=== PATIENT | male | born 1955 | race Caucasian/White ===

== ENCOUNTER 2024-03-17 15:38 | Outpatient (REF) | payer MEDICARE, BC, SELFPAY ==
[2024-03-17 15:51] LABS: MANUAL DIFF FLAG NO
[2024-03-17 15:52] LABS: Basophils Absolute Auto 0.1 X10*3/uL (0.0-0.2); Basophils Percent Auto 0.4 % (0-2); Eosinophils Absolute Auto 0.2 X10*3/uL (0.0-0.4); Eosinophils Percent Auto 1.6 % (0-4); Hematocrit 30.4 % (42.0-52.0); Imm Gran Abs Auto 0.07 X10*3/uL (0.00-0.03); Imm Gran Pct Auto 0.5 % (0.0-0.4); Lymphocytes Percent Auto 6.8 % (20-40); Mean Corpuscular HGB Conc 32.9 g/dl (31.0-36.0); Mean Corpuscular Volume 100.3 fL (80.0-98.0); Mean Platelet Volume 9.7 fL (9.4-12.4); Monocytes Absolute Auto 0.8 X10*3/uL (0.1-1.2); Monocytes Percent Auto 5.2 % (2-11); Neutrophils Absolute Auto 12.8 x10*3/uL (2.0-8.3); Neutrophils Percent Auto 85.5 % (45-73); Platelet Count 149 X10*3/uL (160-400); Red Blood Count 3.03 X10*6/uL (4.60-5.80); Red Cell Distribution Width 12.8 % (11.0-16.0); White Blood Count 14.9 X10*3/uL (4.8-10.8)
[2024-03-17 16:19] LABS: Anion Gap 16 (12-20); Blood Urea Nitrogen 31 mg/dL (9-16); Calcium 9.2 mg/dL (8.4-10.2); Carbon Dioxide 26 mmol/L (22-29); Chloride 97 mmol/L (96-108); Glucose Random 96 mg/dL (60-115); Magnesium 2.1 mg/dL (1.6-2.6); Potassium 4.1 mmol/L (3.3-5.1); Sodium 135 mmol/L (135-145)
[2024-03-17 16:34] LABS: Appearance Urine Clear; Color Urine Yellow; Glucose Urine UA Negative (Negative); Leukocyte Esterase Urine Small (1+) (Negative); Nitrite Urine Negative (Negative); UMIC TRIGGER UA YES; Urine Blood Moderate (2+) (Negative); Urine Ketones Negative (Negative); Urine Protein 30 (1+) mg/dL (Neg-Trace)
[2024-03-17 16:50] LABS: Bacteria Urine None Seen (None Seen); Hyaline Casts Urine 0-2 /LPF (0-2); Squamous Epithelial Cell Urine 0-2 /HPF (0-2); WBC Urine 0-5 /HPF (0-5)
[2024-03-17 17:04] LABS: Estimated Glomerular Filt Rate 7
== END 2024-03-17 15:39 | disposition home or self-care (01) ==
LOC: HO.LAB 15:38
PROVIDERS: Visit Provider Internal Medicine
DX: M62.82 Rhabdomyolysis (principal); M17.0 Bilateral primary osteoarthritis of knee
CPT/HCPCS: 36415; 80048; 81001; 83735; 85025; 87086

== ENCOUNTER 2024-08-15 14:26 | Outpatient (AMB) | payer OTHER, SELFPAY ==
--- NOTE | 2024-08-15 14:28 | A.OFFVIS_ITS ---
Vital Signs 08/15/24 14:29 Height 5 ft 10 in Weight 245 lb BMI 35.2 BP 142/78 H Blood Pressure Location Rt brachial Position Sitting Intake Visit Reasons: ENP-L Thumb Tremors Intake Note: Patient presents for tremors Allergies clorhexadine Allergy (Severe, Uncoded 08/15/24 14:31) Hives Medication List - Last Reconciled 08/15/24 by Evelina Puga MD allopurinol mg PO amlodipine 5 mg PO DAILY B-complex with vitamin C ER 1 tab PO DAILY cetirizine (All Day Allergy (cetirizine)) 10 mg PO DAILY PRN cholecalciferol (vitamin D3) 50 mcg PO DAILY coQ10 (ubiquinol) (Qunol Antelmo CoQ10) 100 mg PO BID finasteride 5 mg PO DAILY hydrocortisone 2.5% topical ipratropium bromide 2 sprays intranasal BID latanoprost 0.005% drps ophthalmic (eye) primidone mg PO propranolol ER 120 mg PO DAILY zafirlukast 20 mg PO BID zonisamide mg PO HPI Comments Details: 68y/o Left handed male comes for further management of left thumb tremors. He was seeing at OR and is transferring care.He started noticing tremors about 20 years ago and has slowly progressed since then He is on primidone and zonisamide for many years now. He was seen at [facility] ( Dr Argueta ) . 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 He has bad and good days. He feels now he has tremors in his left fingers too . On someday he cannot drink soup and has trouble with fine motor coordination but on most days he can manage.He has left foot infection and has gait issues related to it. He denies memory issues. He has trouble writing due to tremors. BF- ADL score 57 [facility] Medical History (Updated 08/15/24 @ 15:18 by Evelina Puga MD) Cataract Type 2 diabetes mellitus Tremor Sleep apnea Seborrheic dermatitis Rhabdomyolysis Osteoarthritis Obesity Moderate persistent asthma Impotence of non-organic origin Cervical spondylolysis Chronic ischemic heart disease Hearing loss Gout Fatty (change of) liver, not elsewhere classified HTN (hypertension) Crush syndrome BPH loc w/o ur obs/LUTS Surgical History H/O arthroscopic knee surgery H/O microdiscectomy H/O laminectomy History of rotator cuff surgery H/O total knee replacement History of bunionectomy Family History Father Suicide Gout Glaucoma Social History Alcohol intake: current Tobacco use type: Pipe Physical Exam Vital Signs: BMI result Body Mass Index 35.2 Const General: cooperative and comfortable Nutritional Appearance: obese Orientation/consciousness: patient oriented x3 Eyes Pupils: Equal, round and reactive pupils present Neuro Other: left thumb and hand postural and action tremors mild to moderate worsens with writing He was able to draw archimedes spiral - slow and tremulous Gait- mild difficulty because of left foot infection General: patient oriented x3, tone normal, moves all extremities and no focal motor deficits Cranial nerves: Yes Facial sensation intact/muscles of mastication intact, Yes Equal, round and reactive pupils present, Yes Bilaterally intact EOM present, Yes Nystagmus not present, Yes Normal facial strength present, Yes Midline tongue present and Yes Ability to bilaterally elevate shoulders present Cognition (Neuro): normal cognition Assessment & Plan Assessment & Plan (1) Tremor: Comment: Left hand postural and action tremors > 25 years . No evidence of parkinsons on today's exam Code(s): R25.1 - Tremor, unspecified Category: Medical Plan Continue primidone 150mg bid zonisamide 100mg bid Info on NCIOLE TAPS treatment given . Patient will call if he wants to proceed with treatment. Medications: New zonisamide 100 mg PO BID primidone 150 mg PO BID Coding Level of Care Code New Pt Level 4 (43622) Complex EM visit Add On G2211 Diagnoses Tremor R25.1
[2024-08-15 14:29] VITALS: BP 142/78; BMI 35.2
--- OUTSIDE RECORDS SUMMARY | 2024-08-15 16:38 | XMS_ITS | Encounter Summary ---
Author Name [facility] [place] [facility] [place] [facility] [place] [facility] [place] Address [address] [place] [address] Care Team Providers Care Glassworker Name Role Phone RAMY CASTILLO Primary Care Provider Unavail able Insurance Providers: All historical and current Section Date Range: From patient's date of to the date document was created. This section includes the names of all active insurance providers for the patient. Insurance Provider Type of Coverage Plan Name Start of Policy Coverage End of Policy Coverage Group Number Member ID Insurance Provider's Telephone Number Policy Humphreys's Name Patient's Relationship to Policy Humphreys [place]) MEDICARE SUPPLEMEN TYRESE MEDEX BRON E Dec 16, 2018 [id number] GANES,A JUAN PATIENT [place] ([place]) MEDICARE SUPPLEMEN TYRESE MEDEX BRONZ E Dec 16, 2018 [id number] AGNES,A JUAN PATIENT [place] MED[place] SUPPLEMEN TYRESE MEDEX BRONZ E Dec 16, 2018 [id number] AGNES,A JUAN PATIENT BCBS ANN HIGH DEDUCTIBL E HEALTH PLAN CONNE [facility]ICU T [facility] Apr 17, 2011 [id number] AGNES,A JUAN PATIENT EXPRESS SCRIPTS ([id number]) PRESCRIPT ION L4TA* Apr 17, 2011 L4TA [id number] AGNES,A JUAN PATIENT [place] MEDICARE SUPPLEMEN TYRESE PSUED O MEDEX HEARI NG Dec 16, 2018 [id number] [phone] AGNES,A JUAN PATIENT MEDICARE (WNR) MEDICARE (M) PART B Dec 16, 2018 PART B [id number] [phone] AGNES,A JUAN PATIENT MEDICARE (WNR) MEDICARE (M) PART A Dec 16, 2018 PART A [id number] CT90 [phone] AGNES,A JUAN PATIENT MEDICARE (WNR) MEDICARE (M) PART A Dec 16, 2018 PART A [id number] [id number] [phone] AGNES,A JUAN PATIENT MEDICARE (WNR) MEDICARE (M) PART B Dec 16, 2018 PART B [id number] AGNES,A JUAN PATIENT MEDICARE (WNR) MEDICARE (M) PART A Dec 16, 2018 PART A [id number] AGNES,A JUAN PATIENT MEDICARE (WNR) MEDICARE (M) PART B Dec 16, 2018 PART B [id number] AGNES,A JUAN PATIENT Selected Encounter This section includes the information on record at [place] for the Encounter. Date/Time Encounter Type Encounter Description Reason Pro vider Source Aug 07, 2024 07:59 AM Outpatient Encounter PRIMARY CARE/MEDICINE IHE Encounter Template Text not used by [place] Plan of Treatment: Future Appointments (+ 6 months) and Future Tests (+/- 45 days) The Plan of Treatment section includes future care activities for the patient from all [place] treatmentfacilities. This section includes future appointments and future orders which are active, pending or scheduled. Future Appointments This section includes appointments that were scheduled to occur 6 months from the date of the Encounter, up to a maximum of 20 appointments. The data comes from all [place] treatment facilities. Appointment Date/Time Appointment Type Appointme nt Facility Name Aug 15, 2024 02:30 PM AMBULATORY [place] MEDICINE [place] [facility] [place] [facility] Aug 21, 2024 08:00 AM AMBULATORY - MEDICINE [place] [facility] [facility] Nov 12, 2024 01:00 PM AMBULATORY - MEDICINE DAVID TODD ([facility]) Social History: Smoking Status (Most current) and Tobacco Use (All prior to encounter date) This section includes the most current, and the historical, smoking and tobacco- related health factors from the [place] facility where the Encounter took place. Current Smoking Status This section includes the most current smoking, or tobacco-related health factor, from the [place] facility where the Encounter took place. Date/Time Current Smoking Status Comment Facil ity Oct 27, 2022 02:44 PM VA-TOBACCO USER EVERY DAY [facility] Tobacco Use History This section includes a history of the smoking, or tobacco-related health factors, that were collected on or before the date of the Encounter. The data comes from the [place] facility where the Encounter took place. 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 This section includes ALL of a patient's completed or amended [place] Advance and Rescinded Directives. The entries below indicate that a directive exists for the patient, but an actual copy is not included with this document. The data comes from all [place] facilities. Date Advance Directives Provider Source Mar 01, 2014 ADVANCE DIRECTIVE VARSHA ESQUIVEL ([facility]) Encounter Notes: All associated encounter notes This section contains the clinical notes associated to the Encounter. Date/Time Encounter Note(s) Provider Source Aug 07, 2024 07:59 AM PRIMARY CARE AdzerkUR E MESSAGING: LOCAL TITLE: PRIMARY CARE SECURE MESSAGING STANDARD TITLE: PRIMARY CARE SECURE MESSAGING DATE OF NOTE: AUG 07, 2024@07:59 ENTRY DATE: AUG 07, 2024@07:59:29 AUTHOR: RUY CABA COSIGNER: URGENCY: STATUS: COMPLETED ------Original Message ------ Sent: 08/05/2024 02:09 PM ET From: SERGE ALARCON To: Chelo CASTILLO_PRIMARY CARE_[facility] Subject: Medication:Renal Dr Released me Dr Smith released me from her care this past week. She said I could go back to my valsartin if you prefer. I was switched to amlodipine because it was more renal friendly. It is keeping my blood pressure down and I can stay on it if you like. Also she cut my allopurinol down to 50 mg daily but said now there is no restriction. Prior to my renal dialysis , I was on 300 mg allopurinol. She suggested going up slowly possibly to 100 mg. My creatinine and BUN have now been normal for a couple of months. My anemia has also resolved. I will drop by my latest labs this next week. Serge /george/ MACHO FAROOQ Signed: 08/07/2024 07:59 Receipt Acknowledged By: 08/07/2024 08:16 /george/ ESTEBAN HENDERSON LPN LICENSED PRACTICAL NURSE 08/07/2024 08:41 /george/ GLENN GILLIAM, RN REGISTERED NURSE ROSALES,ZACHERY MAYFIELD ([facility])
--- OUTSIDE RECORDS SUMMARY | 2024-08-15 16:38 | XMS_ITS | Encounter Summary ---
Author Name [facility] [place] [facility] [place] Address [address] [place] [address] Care Team Providers Care Pneumatic Press Hand Name Role Phone RAMY CASTILLO Primary Care [...] TYRESE MEDEX BRON E Dec 16, 2018 [id number] AGNES,A JUAN PATIENT [place] BCBS OF [place] (BLUECARD) MEDICARE SUPPLEMEN TYRESE MEDEX BRONZ E Dec 16, 2018 [id number] [phone] AGNES,A JUAN PATIENT [place]BS [place] MEDICARE SUPPLEMEN TYRESE MEDEX BRONZ E Dec 16, 2018 [id number] AGNES,A JUAN PATIENT BCBS ANN HIGH DEDUCTIBL E HEALTH PLAN CONNE [facility]ICU T [facility] Apr 17, 2011 [id number] [phone] AGNES,A JUAN PATIENT EXPRESS SCRIPTS ([id number]) PRESCRIPT ION L4TA* Apr 17, 2011 L4TA [id number] AGNES,A JUAN PATIENT [place] MEDICARE SUPPLEMEN TYRESE PSUED O MEDEX HEARI NG Dec 16, 2018 [id number] AGNES,A JUAN PATIENT MEDICARE (WNR) MEDICARE (M) PART B Dec 16, 2018 PART B [id number] CT90 AGNES,A JUAN PATIENT MEDICARE (WNR) MEDICARE (M) PART A Dec 16, 2018 PART A [id number] CT90 [phone] AGNES,A JUAN PATIENT MEDICARE (WNR) MEDICARE (M) PART A Dec 16, 2018 PART A [id number] [id number] AGNES,A JUAN PATIENT MEDICARE (WNR) MEDICARE (M) PART B Dec 16, 2018 PART B [id number] CT90 AGNES,A JUAN PATIENT MEDICARE (WNR) MEDICARE (M) PART A Dec 16, 2018 PART A [id number] CT90 AGNES,A JUAN PATIENT MEDICARE (WNR) MEDICARE (M) PART B Dec 16, 2018 PART B [id number] CT90 AGNES,A JUAN PATIENT Selected Encounter This section includes the information on record at [place] for the Encounter. Date/Time Encounter Type Encounter Description Reason Pro vider Source Aug 07, 2024 08:16 AM Outpatient Encounter PRIMARY CARE/MEDICINE IHE Encounter Template Text not used by [place] Plan of Treatment: Future Appointments (+ 6 months) and Future Tests (+/- 45 days) The Plan of Treatment section includes future care activities for the patient from all [place] treatmentfacilities. This section includes future appointments and future orders which are active, pending or scheduled. Future Appointments This section includes appointments that were scheduled to occur 6 months from the date of the Encounter, up to a maximum of 20 appointments. The data comes from all [place] treatment facilities. Appointment Date/Time Appointment Type Appointme nt Facility Name Aug 15, 2024 02:30 PM AMBULATORY - MEDICINE [place] [facility] [place] [facility] Aug 21, 2024 08:00 AM AMBULATORY - MEDICINE [place] [facility] [facility] Nov 12, 2024 01:00 PM AMBULATORY - MEDICINE DAVID TODD ([facility]) Social History: Smoking Status (Most current) and Tobacco Use (All prior to encounter date) This section includes the most current, and the historical, smoking and tobacco- related health factors from the [place] facility where the Encounter took place. Current Smoking Status This section includes the most current smoking, or tobacco-related health factor, from the [place] facility where the Encounter took place. Date/Time Current Smoking Status Comment Facil ity Oct 27, 2022 02:44 PM [facility] Tobacco Use History This section includes a history of the smoking, or tobacco-related health factors, that were collected on or before the date of the Encounter. The data comes from the [place] facility where the Encounter took place. 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 This section includes ALL of a patient's completed or amended [place] Advance and Rescinded Directives. The entries below indicate that a directive exists for the patient, but an actual copy is not included with this document. The data comes from all [place] facilities. Date Advance Directives Provider Source Mar 01, 2014 ADVANCE DIRECTIVE VARSHA ESQUIVEL ([facility]) Encounter Notes: All associated encounter notes This section contains the clinical notes associated to the Encounter. Date/Time Encounter Note(s) Provider Source Aug 07, 2024 08:16 AM MEDICATION MGT NOT E: LOCAL TITLE: OUTPATIENT MEDICATION RENEWAL STANDARD TITLE: MEDICATION MGT NOTE DATE OF NOTE: AUG 07, 2024@08:16 ENTRY DATE: AUG 07, 2024@08:16:59 AUTHOR: ESTEBAN HENDERSON EXP COSIGNER: URGENCY: STATUS: COMPLETED Subject: Medication:Renal Dr Released me Dr Smith [...] by my latest labs this next week. [place] /george/ ESTEBAN HENDERSON LPN LICENSED PRACTICAL NURSE Signed: 08/07/2024 08:17 Receipt Acknowledged By: 08/14/2024 08:45 /george/ Ramy Castillo MD MD PRIMARY CARE PHYSICIAN ESTEBAN HENDERSON ([facility])
--- OUTSIDE RECORDS SUMMARY | 2024-08-15 16:38 | XMS_ITS | Encounter Summary ---
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 Name Role Phone KILO CASTILLO Primary Care Provider Unavail able Insurance [...] TYRESE MEDEX BRON E Dec 16, 2018 [id number] AGNES,A JUAN PATIENT ANTHEM BCBS OF [place] (BLUECARD) MEDICARE SUPPLEMEN TYRESE MEDEX BRONZ E Dec 16, 2018 [id number] AGNES,A JUAN PATIENT [place]BS [place] MEDICARE SUPPLEMEN TYRESE MEDEX BRONZ E Dec 16, 2018 [id number] [phone] AGNES,A JUAN PATIENT BCBS ANN HIGH DEDUCTIBL E HEALTH PLAN KYE [facility] Apr 17, 2011 [id number] [phone] AGNES,A JUAN PATIENT [employer] S[employer] ([id number]) PRESCRIPT ION L4TA* Apr 17, 2011 [id number] AGNES,A JUNA PATIENT [place]) MEDICARE SUPPLEMEN TYRESE PSUED O MEDEX EVAN KHAN Dec 16, 2018 [id number] [phone] AGNES,A JUAN PATIENT MEDICARE (WNR) MEDICARE (M) PART A Dec 16, 2018 PART A [id number] [phone] AGNES,A JUAN PATIENT MEDICARE (WNR) MEDICARE (M) PART B Dec 16, 2018 PART B [id number] [phone] AGNES,A JUAN PATIENT MEDICARE (WNR) MEDICARE (M) PART A Dec 16, 2018 PART A [id number] AGNES,A JUAN PATIENT MEDICARE (WNR) MEDICARE (M) PART B Dec 16, 2018 PART B [id number] AGNES,A JUAN PATIENT MEDICARE (WNR) MEDICARE (M) PART A Dec 16, 2018 PART A [id number] AGNES,A JUAN PATIENT MEDICARE (WNR) MEDICARE (M) PART B Dec 16, 2018 PART B [id number] [phone] AGNES,A JUAN PATIENT Selected Encounter This section includes the information on record at [place] for the Encounter. Date/Time Encounter Type Encounter Description Reason Pro vider Source Oct 06, 2023 08:08 PM Outpatient Encounter ADMIN PAT ACTIVTIES (MASNONCT) IHE Encounter Template Text not used by [place] Plan of Treatment: Future Appointments (+ 6 months) and Future Tests (+/- 45 days) The Plan of Treatment section includes future care activities for the patient from all [place] treatmentfacilities. This section includes future appointments and future orders which are active, pending or scheduled. Future Appointments This section includes appointments that were scheduled to occur 6 months from the date of the Encounter, up to a maximum of 20 appointments. The data comes from all [place] treatment facilities. Appointment Date/Time Appointment Type Appointme nt Facility Name Oct 10, 2023 09:30 AM AMBULATORY - MEDICINE [facility] [place] [facility] Oct 17, 2023 11:00 AM AMBULATORY - NONE [place] [facility] Oct 19, 2023 11:30 AM AMBULATORY - MEDICINE [facility] ([facility]) Oct 28, 2023 10:30 AM AMBULATORY - MEDICINE [facility] [place] [facility] November 21, 2023 09:00 AM AMBULATORY - MEDICINE [facility] [place] [facility] November 29, 2023 01:00 PM AMBULATORY - MEDICINE [facility] ([facility]) December 05, 2023 11:00 AM AMBULATORY - MEDICINE [facility] [place] [facility] December 14, 2023 11:00 AM AMBULATORY - MEDICINE [facility] [place] [facility] Jan 09, 2024 11:30 AM AMBULATORY - MEDICINE [facility] [place] [facility] Jan 11, 2024 01:30 PM AMBULATORY - REHAB MEDICIN E [facility] [place] [facility] Jan 27, 2024 11:00 AM AMBULATORY - MEDICINE [facility] [place] [facility] Feb 06, 2024 11:30 AM AMBULATORY - MEDICINE [facility] [place] [facility] Apr 02, 2024 09:30 AM AMBULATORY - MEDICINE [facility] [place] [facility] Active, Pending, and Scheduled Orders This section includes a listing of several types of active, pending, and scheduled orders, including clinic medications orders, diagnostic test orders, procedure orders and consult orders; where the start date of the order is 45 days before the date of the Encounter or 45 days after the date of theEncounter. The data comes from all [place] treatment facilities. Test Date/Time Test Type Test Details Facility Name Sep 28, 2023 03:21 PM Consult Order [facility]-NEUROLOGY [facility] Embedded Case Manager's [facility] ([facility]) Lab Results: +/- 30 days of the encounter This section includes the Chemistry and Hematology Lab Results on record with [place] for the patient. Radiology Reports and Pathology Reports are provided separately, in subsequent sections. Lab Results This section contains the Chemistry/Hematology Results that were resulted 30 days before or 30 daysafter the date of the Encounter. Date/Time Source Result Type Result - Unit Interpretation Reference Range Comment Oct 28, 2023 11:30 AM [facility] CULTURE,WOUND PANEL(C.D.H.) Specimen Type: FOOT Comment: ~For Test: CULTURE,WOUND PANEL(C.D.H.) ~left foot dm foot ulcer no abx on board. SENT TO Refer to CPRS: [place] [facility] Display for Lab Results Ordering Provider: GISSEL URIOSTEGUI Report Released Date/Time: Oct 28, 2023 11:23 AM Reporting Lab: [facility] [address] [facility] [address] [facility] [address] [facility] [id number] GRAM STAIN(cdh) comment CULTURE,WOUND (cdh) comment Oct 28, 2023 11:25 AM [facility] CBC AND DIFF (AUTO) Specimen Type: BLOOD No comment entered. Ordering Provider: GISSEL URIOSTEGUI Report Released Date/Time: Oct 28, 2023 11:20 AM Reporting Lab: [facility] [address] [facility] [address] Performing [facility]: [facility] [address] [facility] [address] WBC 8.17 10*3/uL 4.50-11.00 RBC 4.30 10*6/uL 4.23-5.66 HGB 13.8 g/dL 12.8-17 HCT 40.8 39.2-50.4 MCV 94.9 fL 82-99 MCHC 33.8 g/dL 30.8-35.1 PLT 131 10*3/uL L 140-360 RDW-CV 13.8 12.0-16.0 [place], Abs 0.51 10*3/uL 0.30-1.10 MCH 32.1 pg 26.2-32.6 Neut % 59.3 43.7-75.8 Lymph % 30.7 14.0-42.3 [place] % 6.2 5.1-13.7 Eos % 3.2 0.4-6.8 Baso % 0.4 0.1-2.0 Neut, Abs 4.84 10*3/uL 2.20-7.60 Lymph, Abs 2.51 10*3/uL 1.00-3.20 Eos, Abs 0.26 10*3/uL 0.03-0.44 Baso, Abs 0.03 10*3/uL 0.01-0.13 Immature Gran % 0.2 0.0-0.7 Immature Gran, Abs 0.02 10*3/uL 0.00-0.06 Oct 10, 2023 10:10 AM [facility] LIVER FUNCTION Specimen Type: SERUM No comment entered. Ordering Provider: GISESL URIOSTEGUI Report Released Date/Time: Oct 10, 2023 09:53 AM Reporting Lab: [address] [address] Performing Lab: [address] [address] PROTEIN,TOTAL 6.6 g/dL 6.0-8.3 ALBUMIN 3.6 g/dL 3.5-5.0 ALKALINE PHOSPHATASE 68 U/L 40-150 AST 25 U/L 5-34 ALT 29 U/L BILIRUBIN, TOTAL 0.3 mg/dL 0.2-1.2 Oct 10, 2023 10:10 AM [facility] BASIC METABOLIC PANEL (fasting) Specimen Type: SERUM No comment entered. Ordering Provider: GISSEL URIOSTEGUI Report Released Date/Time: Oct 10, 2023 09:53 AM Reporting Lab: [address] [address] Performing Lab: [address] [address] UREA NITROGEN 10 mg/dL 7-25 GLUCOSE 107 mg/dL H 65-100 SODIUM 141 mmol/L 135-145 POTASSIUM 4.5 mmol/L 3.5-5.0 CHLORIDE 107 mmol/L 100-110 CO2 25 meq/L 20-30 CREATININE, Serum 0.87 mg/dL 0.50-1.40 eGFR(CKD-EPI 2020) >90 mL/min >60 Oct 10, 2023 10:10 AM [facility] CBC AND DIFF (AUTO) Specimen Type: BLOOD No comment entered. Ordering Provider: GISSEL URIOSTEGUI Report Released Date/Time: Oct 10, 2023 09:53 AM Reporting Lab: [facility] [address] [facility] [address] Performing Lab: [address] [address] WBC 4.63 10*3/uL 4.50-11.00 RBC 4.43 10*6/uL 4.23-5.66 HGB 14.4 g/dL 12.8-17 HCT 42.7 39.2-50.4 MCV 96.4 fL 82-99 MCHC 33.7 g/dL 30.8-35.1 PLT 150 10*3/uL 140-360 RDW-CV 13.7 12.0-16.0 [place], Abs 0.37 10*3/uL 0.30-1.10 MCH 32.5 pg 26.2-32.6 Neut % 36.3 L 43.7-75.8 Lymph % 49.0 H 14.0-42.3 [place] % 8.0 5.1-13.7 Eos % 6.3 0.4-6.8 Baso % 0.2 0.1-2.0 Neut, Abs 1.68 10*3/uL L 2.20-7.60 Lymph, Abs 2.27 10*3/uL 1.00-3.20 Eos, Abs 0.29 10*3/uL 0.03-0.44 Baso, Abs 0.01 10*3/uL 0.01-0.13 Immature Gran % 0.2 0.0-0.7 Immature Gran, Abs 0.01 10*3/uL 0.00-0.06 Oct 10, 2023 10:09 AM TRAN ([facility]) HEPATITIS C ANTIBODY (HCV)-ARC Specimen Type: SERUM Comment: Hep C Ab: No HCV antibody detected. If recent infection is suspected or other evidence suggests HCV infection, consider HCV nucleic acid testing Ordering Provider: EVIN CASTILLO Report Released Date/Time: Jun 03, 2023 11:37 AM Reporting Lab: [address] [address] Performing Lab: [address] [address] HEPATITIS C ANTIBODY NON-REACTIVE NON-REACTIV E Social History: Smoking Status (Most current) and Tobacco Use (All prior to encounter date) This section includes the most current, and the historical, smoking and tobacco- related health factors from the [place] facility where the Encounter took place. Current Smoking Status This section includes the most current smoking, or tobacco-related health factor, from the [place] facility where the Encounter took place. Date/Time Current Smoking Status Comment Facil ity Oct 27, 2022 02:44 PM [facility]ACCO US[facility] Tobacco Use History This section includes a history of the smoking, or tobacco-related health factors, that were collected on or before the date of the Encounter. The data comes from the [place] facility where the Encounter took place. Date/Time Smoking Status/Tobacco Use Comment F acility Oct 27, 2022 02:44 PM VA[facility] USE [facility]ICE [facility] Oct 27, 2022 02:44 PM VA-TOBACCO USE NIPPLE MAKER NO [facility] [place] [facility] Oct 27, 2022 02:44 PM VA-TOBACCO USE MED NO [facility] [place] [facility] Oct 27, 2022 02:44 PM VA-TOBACCO USE WI 30 MIN OF WAKEUP [facility] [place] [facility] Oct 27, 2022 02:44 PM [facility]-TOBACCO USER EVERY [facility] Advance Directives: All historical and current Section Date Range: From patient's date of to the date document was created. This section includes ALL of a patient's completed or amended [place] Advance and Rescinded Directives. The entries below indicate that a directive exists for the patient, but an actual copy is not included with this document. The data comes from all [place] facilities. Date Advance Directives Provider Source Mar 01, 2014 ADVANCE DIRECTIVE VARSHA ESQUIVEL ([facility]) Radiology Reports: +/- 30 days of the encounter Radiology Reports For cases when an order for radiology services may have been completed prior to the date of the Encounter, the report list includes the Radiology Reports that were completed up to 30 days before dateof the Encounter. For cases when an order for radiology services may have been completed after the date of the Encounter, the report list also includes the Radiology Reports that were completed up to30 days after date of the Encounter. The data comes from all [place] treatment facilities. Date/Time Radiology Report Provider Source Oct 17, 2023 11:35 AM MRI ABD W&WO CONTR AST: SERGE ALARCON [id number] M Exm Date: OCT 17, 2023@11:35 Req Phys: SHAHEEN CARMEN Pat Loc: [facility] V01 [facility] LIVER BEHAVIOR MANAGEMENT SPECIALIST 01 F2F (R Img Loc: UPLOAD CD IMAGES-MRI Service: Unknown (Case [id number] COMPLETE) MRI ABD W&WO CONTRAST (MRI Detailed) CPT:86182 Reason for Study: MR ELASTOGRAPHY to determine LSM Clinical History: Date of imaging of date of exam to be uploaded:10/17/2023 Description of exam to be uploaded: (example- MRI head, MRI abdomen, etc) MRI Abdomen Provider's contact information: SHAHEEN CARMEN GUIDE TRAVEL *[phone] Report Status: Electronically Filed Date Reported: NOV 03, 2023 Report: This exam was performed and interpreted at an Outside Facility. The images are available in [employer] and our local PACS. Impression: This exam was performed and interpreted at an Outside Facility. The images are available in [email or web address] and our local PACS. Primary Diagnostic Code: ADMIN. REPORT; REFER TO PT MED RECORD VERIFIED BY: / *ELECTRONICALLY FILED* [facility] Encounter Notes: All associated encounter notes This section contains the clinical notes associated to the Encounter. Date/Time Encounter Note(s) Provider Source Oct 06, 2023 08:08 PM PHARMACY NOTE: LOCAL TITLE: V1 PHARMACY CUSTOMER CARE MEDICATION RENEWAL STANDARD TITLE: PHARMACY NOTE DATE OF NOTE: OCT 06, 2023@20:08 ENTRY DATE: OCT 06, 2023@20:08:06 AUTHOR: DEE DEE MELARA EXP COSIGNER: URGENCY: STATUS: COMPLETED V1 PHARMACY CUSTOMER CARE MEDICATION RENEWAL Has ADDENDA Date: Sep Division: [facility] referred by Pharmacy Call Center for medication renewal: Non-controlled/maintenanc e medication Medications requested: [id number] OLODATEROL/TIOTROP 2.5MCG/ACTUAT 60D INH Defer to primary care provider. To be mailed . Please review and renew if appropriate. *This note was generated by [facility] Pharmacy Customer Care. If you have any questions or need assistance, do not contact this author. Please refer all questions to your local, on-site pharmacy departments. /trev MELARA Paving Inspector, [place]/Pharmacy Customer Care Signed: 10/06/2023 20:08 Receipt Acknowledged By: 10/10/2023 09:50 /george/ Kilo Castillo MD MD PRIMARY CARE PHYSICIAN 10/07/2023 08:24 /george/ ASHKAN FELIPE RN REGISTERED NURSE 10/07/2023 ADDENDUM STATUS: COMPLETED teams alert sent to pcp /george/ ASHKAN FELIPE RN REGISTERED NURSE Signed: 10/07/2023 08:24 DEE DEE MELARA [facility] Oct 06, 2023 08:08 PM PHARMACY NOTE: LOCAL TITLE: PHARMACY CUSTOMER CARE MEDICATION RENEWAL STANDARD TITLE: PHARMACY NOTE DATE OF NOTE: OCT 06, 2023@20:08 ENTRY DATE: OCT 06, 2023@20:09:01 AUTHOR: DEE DEE MELARA EXP COSIGNER: URGENCY: STATUS: COMPLETED Date: Sep Division: [facility] referred by Pharmacy Call Center for medication renewal: Non-controlled/maintenanc e medication Medications requested: [id number] ZONISAMIDE 100MG CAP Defer to primary care provider To be mailed . Please review and renew if appropriate. *This note was generated by [facility] Pharmacy Customer Care. If you have any questions or need assistance, do not contact this author. Please refer all questions to your local, on-site pharmacy departments. /trev MELARA Paving Inspector, [place]/Pharmacy Customer Care Signed: 10/06/2023 20:09 Receipt Acknowledged By: 10/07/2023 07:21 /george/ NAHUN LUTZ MD PHYSICIAN DEE DEE MELARA [facility]
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
--- OUTSIDE RECORDS SUMMARY | 2024-08-15 16:38 | XMS_ITS ---
Author Name [facility] Organization [facility] Address [address] [place] [address] Care Team Providers Care French Translator Name Role Phone RAMY CASTILLO Primary Care [...] TYRESE MEDEX BRON E Dec 16, 2018 [id number] AGNES,A JUAN PATIENT ANTHEM BCBS OF [place] (BLUECARD) MEDICARE SUPPLEMEN TYRESE MEDEX BRONZ E Dec 16, 2018 [id number] [phone] AGNES,A JUAN PATIENT BCBS [place] MEDICARE SUPPLEMEN TYRESE MEDEX BRONZ E Dec 16, 2018 [id number] AGNES,A JUAN PATIENT BCBS ANN HIGH D[facility]UCTIBL E [facility] [place] [facility] Apr 17, 2011 [id number] [phone] AGNES,A JUAN PATIENT EXPRESS SCRIPTS ([id number]) PRESCRIPT ION L4TA* Apr 17, 2011 [id number] AGNES,A JUAN PATIENT [place] BS [place] (BLU[place]ARD) MEDICARE SUPPLEMEN TYRESE PSUED O MEDEX HEARI NG Dec 16, 2018 [id number] AGNES,A JUAN PATIENT MEDICARE (WNR) MEDICARE (M) PART A Dec 16, 2018 PART A [id number] AGNES,A JUAN PATIENT MEDICARE (WNR) MEDICARE (M) PART B Dec 16, 2018 PART B [id number] AGNES,A JUAN PATIENT MEDICARE (WNR) MEDICARE (M) PART A Dec 16, 2018 PART A [id number] AGNES,A JUAN PATIENT MEDICARE (WNR) MEDICARE (M) PART B Dec 16, 2018 PART B [id number] AGNES,A JUAN PATIENT MEDICARE (WNR) MEDICARE (M) PART A Dec 16, 2018 PART A [id number] AGNES,A JUAN PATIENT MEDICARE (WNR) MEDICARE (M) PART B Dec 16, 2018 PART B [id number] AGNES,A JUAN PATIENT Selected Encounter This section includes the information on record at [place] for the Encounter. Date/Time Encounter Type Encounter Description Reason Provider Source Sep 12, 2023 08:00 AM OFFICE O/P EST LOW 20 MIN PODIATRY ICD-10-CM 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 2 diabetes mellitus with foot ulcer ULYSSES ARAGON [facility] Encounter Template Text not used by [place] Assessments - Encounter Diagnoses This section includes the primary and secondary diagnoses documented for the Encounter. 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 This section includes future appointments and future orders which are active, pending or scheduled. Future Appointments This section includes appointments that were scheduled to occur 6 months from the date of the Encounter, up to a maximum of 20 appointments. The data comes from all [place] treatment facilities. Appointment Date/Time Appointment Type Appointme nt Facility Name Sep 14, 2023 07:30 AM AMBULATORY - NEUROLOGY [facility] [place] [facility] Sep 26, 2023 10:30 AM AMBULATORY - MEDICINE [facility] [place] [facility] Oct 03, 2023 01:30 PM AMBULATORY - REHAB MEDICIN E [facility] [place] [facility] Oct 10, 2023 09:30 AM AMBULATORY - MEDICINE [facility] [place] [facility] Oct 17, 2023 11:00 AM AMBULATORY - NONE [place] [facility] Oct 19, 2023 11:30 AM AMBULATORY - MEDICINE [facility] ([facility] Oct 28, 2023 10:30 AM AMBULATORY - MEDICINE [facility] [place] [facility] November 21, 2023 09:00 AM AMBULATORY - MEDICINE [facility] [place] [facility] November 29, 2023 01:00 PM AMBULATORY - MEDICINE [facility] ([facility]) December 05, 2023 11:00 AM AMBULATORY - MEDICINE [facility] [place] [facility] December 14, 2023 11:00 AM AMBULATORY - MEDICINE [facility] [place] [facility] Jan 09, 2024 11:30 AM AMBULATORY - MEDICINE [facility] [place] [facility] Jan 11, 2024 01:30 PM AMBULATORY - REHAB MEDICIN E [facility] [place] [facility] Jan 27, 2024 11:00 AM AMBULATORY - MEDICINE [facility] [place] [facility] Feb 06, 2024 11:30 AM AMBULATORY - MEDICINE [facility] [place] [facility] Active, Pending, and Scheduled Orders This section includes a listing of several types of active, pending, and scheduled orders, including clinic medications orders, diagnostic test orders, procedure orders and consult orders; where the start date of the order is 45 days before the date of the Encounter or 45 days after the date of theEncounter. The data comes from all [place] treatment facilities. Test Date/Time Test Type Test Details Facility Name Aug 18, 2023 12:00 AM Laboratory - Chemi stry Order CHEM 7 BLOOD (SER GOLD) SERUM [facility] Sep 28, 2023 03:21 PM Consult Order [facility] ([facility]) Lab Results: +/- 30 days of the encounter This section includes the Chemistry and Hematology Lab Results on record with [place] for the patient. Radiology Reports and Pathology Reports are provided separately, in subsequent sections. Lab Results This section contains the Chemistry/Hematology Results that were resulted 30 days before or 30 daysafter the date of the Encounter. Date/Time Source Result Type Result - Unit Interpretation Reference Range Comment Oct 10, 2023 10:10 AM [facility] LIVER FUNCTION Specimen Type: SERUM No comment entered. Ordering Provider: GISSEL ARAGON Report Released Date/Time: Oct 10, 2023 09:53 AM Reporting Lab: [address] [address] Performing Lab: [address] [address] PROTEIN,TOTAL 6.6 g/dL 6.0-8.3 ALBUMIN 3.6 g/dL 3.5-5.0 ALKALINE PHOSPHATASE 68 U/L 40-150 AST 25 U/L 5-34 ALT 29 U/L BILIRUBIN, TOTAL 0.3 mg/dL 0.2-1.2 Oct 10, 2023 10:10 AM [facility] BASIC METABOLIC PANEL (fasting) Specimen Type: SERUM No comment entered. Ordering Provider: GISSEL ARAGON Report Released Date/Time: Oct 10, 2023 09:53 AM Reporting Lab: [address] [address] Performing Lab: [facility] [address] [facility] [address] UREA NITROGEN 10 mg/dL 7-25 GLUCOSE 107 mg/dL H 65-100 SODIUM 141 mmol/L 135-145 POTASSIUM 4.5 mmol/L 3.5-5.0 CHLORIDE 107 mmol/L 100-110 CO2 25 meq/L 20-30 CREATININE, Serum 0.87 mg/dL 0.50-1.40 eGFR(CKD-EPI 2020) >90 mL/min >60 Oct 10, 2023 10:10 AM [facility] CBC AND DIFF (AUTO) Specimen Type: BLOOD No comment entered. Ordering Provider: GISSEL ARAGON Report Released Date/Time: Oct 10, 2023 09:53 AM Reporting Lab: [facility] [address] [facility] [address] Performing Lab: [address] [address] WBC 4.63 10*3/uL 4.50-11.00 RBC 4.43 10*6/uL 4.23-5.66 HGB 14.4 g/dL 12.8-17 HCT 42.7 39.2-50.4 MCV 96.4 fL 82-99 MCHC 33.7 g/dL 30.8-35.1 PLT 150 10*3/uL 140-360 RDW-CV 13.7 12.0-16.0 [place], Abs 0.37 10*3/uL 0.30-1.10 MCH 32.5 pg 26.2-32.6 Neut % 36.3 L 43.7-75.8 Lymph % 49.0 H 14.0-42.3 [place] % 8.0 5.1-13.7 Eos % 6.3 0.4-6.8 Baso % 0.2 0.1-2.0 Neut, Abs 1.68 10*3/uL L 2.20-7.60 Lymph, Abs 2.27 10*3/uL 1.00-3.20 Eos, Abs 0.29 10*3/uL 0.03-0.44 Baso, Abs 0.01 10*3/uL 0.01-0.13 Immature Gran % 0.2 0.0-0.7 Immature Gran, Abs 0.01 10*3/uL 0.00-0.06 Oct 10, 2023 10:09 AM [facility] ([facility]) HEPATITIS C ANTIBODY (HCV)-ARC Specimen Type: SERUM Comment: Hep C Ab: No HCV antibody detected. If recent infection is suspected or other evidence suggests HCV infection, consider HCV nucleic acid testing Ordering Provider: EVIN CASTILLO Report Released Date/Time: Jun 03, 2023 11:37 AM Reporting Lab: [facility] [address] [facility] [address] Performing Lab: [facility] [address] [facility] [address] HEPATITIS C ANTIBODY NON-REACTIVE NON-REACTIV E Vital Signs: All taken on the encounter date This section contains inpatient and outpatient Vital Signs collected on the date of the Encounter. Date/Time Temperature Pulse Blood Pressure Respiratory Rate SP02 Pain Height Weight Body Mass Index Source Sep 12, 2023 08:06 AM 99.3 71 124/68 94 0 [facility] Social History: Smoking Status (Most current) and Tobacco Use (All prior to encounter date) This section includes the most current, and the historical, smoking and tobacco- related health factors from the [place] facility where the Encounter took place. Current Smoking Status This section includes the most current smoking, or tobacco-related health factor, from the [place] facility where the Encounter took place. Date/Time Current Smoking Status Comment Facil ity Oct 27, 2022 02:44 PM VA-TOBACCO USER EVERY DAY [facility] Tobacco Use History This section includes a history of the smoking, or tobacco-related health factors, that were collected on or before the date of the Encounter. The data comes from the [place] facility where the Encounter took place. 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 This section includes ALL of a patient's completed or amended VA Advance and Rescinded Directives. The entries below indicate that a directive exists for the patient, but an actual copy is not included with this document. The data comes from all [place] facilities. Date Advance Directives Provider Source Mar 01, 2014 ADVANCE DIRECTIVE VARSHA ESQUIVEL ([facility]) Radiology Reports: +/- 30 days of [...] the Encounter. The data comes from all [place] treatment facilities. Date/Time Radiology Report Provider Source Aug 15, 2023 08:31 AM FOOT 3 OR MORE VIEWS(LEFT): SERGE ALARCON [id number] -1955 Ex Date: AUG 15, 2023@08:31 Req Phys: ULYSSES ARAGON Pat Loc: CWM/NO/WOUND PROV A (Req'g Loc Img Loc: [facility] 1 Service: Unknown (Case 10 COMPLETE) FOOT 3 OR MORE VIEWS(LEFT) (RAD Detailed) CPT:83160 Proc Modifiers : LEFT CPT Modifiers : LT LEFT SIDE Reason for Study: dfu sub met five Clinical History: hx DFU for several weeks - no probe to bone. Send back to clinic please Report Status: Verified Date Reported: AUG 15, 2023 Date Verified: AUG 15, 2023 Slab Conditioner Supervisor E-Sig:/ES/ED SALEH JR Report: Study: Weight-bearing AP, lateral, and oblique views of the left foot. Comparison: None. Findings: Prominent vascular calcifications. Moderate size inferior calcaneal spur. The plantar arch is maintained. The bony mineralization is normal. The joint spaces are normal and well-preserved. There is no bony fracture, dislocation or subluxation. Minimal subcutaneous gas lateral to the left fifth MTP joint. There is no radiographic evidence of osteomyelitis. Impression: No radiographic evidence of osteomyelitis. Primary Diagnostic Code: No immediate attention required Primary Interpreting Staff: ED SALEH JR, Radiologist (Slab Conditioner Supervisor) /ED ESCALERA JR [facility] Encounter Notes: All associated encounter notes This section contains the clinical notes associated to the Encounter. Date/Time Encounter Note(s) Provider Source Sep 12, 2023 08:03 AM PODIATRY NOTE: LOCAL TITLE: PODIATRY NOTE STANDARD TITLE: PODIATRY NOTE DATE OF NOTE: SEP 12, 2023@08:03 ENTRY DATE: SEP 12, 2023@08:04:04 AUTHOR: ULYSSES ARAGON EXP COSIGNER: URGENCY: STATUS: COMPLETED Podiatry [facility] Follow up Provider: Ulysses Aragon Date: SEP 12, 2023 SERGE ALARCON [address] [place] [address] [birth year] MALE [phone] PATIENT PHONE - [phone] Primary Care: RAMY CASTILLO Visit Concern: 67-year-old neuropathic diabetic male with well-controlled diabetes but chronic recurrent ulcer submetatarsal 5 on the left. Patient has been followed in this clinic for approximately 4 visits now he is in an offloading shoe and we are using topical 10% iodine daily dressing changes. Patient went to [place] for convention, wore his surgical shoe all the time did not go swimming at my request returns today feeling well no reported fevers chills nausea vomiting. 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 03/24/2021 RAMY CASTILLO Rhabdomyolysis M62.82 03/24/2021 RAMY CASTILLO Cervical spondylosis R69. 05/05/2019 ENRICO MENDOSA Benign hypertension I10. 09/17/2015 NELLA KIDD Benign prostatic hyperplasia N40.0 09/16/2020 RAMY CASTILLO Obesity E66.9 09/17/2015 NELLA KIDD Diabetes mellitus E11.9 09/17/2015 NELLA KIDD Chronic ischemic heart disease (SNO 05/05/2019 ENRICO MENDOSA Osteoarthritis of knee (SNOMED CT 2 05/05/2019 MENDOSAENRICO OLIVER Hearing loss 389.9 03/17/2011 NELLA KIDD Tremor (SNOMED CT 82401001) R25.1 07/20/2017 GA ROMEO Sleep apnea (SNOMED CT 03811720) G4 10/27/2015 JOSE DANIEL PRINCE Gout (SNOMED CT 82545263) M10.9 01/05/2017 JANICE CARDENAS Hyperlipidemia (SNOMED CT 04761359) 07/20/2017 GA ROMEO Asthma (SNOMED CT 325935433) J45.40 03/31/2016 NELLA KIDD Impotence of organic origin 607.84 03/17/2011 NELLA KIDD Pain in right knee ([place] [address] 01/25/2018 CHANDU,BOSSMAN Seborrheic Dermatitis, Unspecified 03/17/2011 NELLA KIDD Active mediciation: Active Outpatient Medications (including Supplies): Active Outpatient Medications Status 1) ACCU-CHEK GUIDE (GLUCOSE) TEST STRIP USE 1 STRIP TO ACTIVE TEST BLOOD SUGARS DIRECTED BY PROVIDER 2) ACCU-CHEK GUIDE ME (GLUCOSE) METER USE METER TO TEST ACTIVE BLOOD SUGARS ONCE DAILY 3) ALBUTEROL 90MCG (CFC-F) 200D ORAL INHL INHALE 2 PUFFS ACTIVE BY MOUTH FOUR TIMES DAILY NEEDED 4) ALBUTEROL SO4 0.5% INHL SOLN 0.5ML INHALE 1 AMPULE HOLD VIA UPDRAFT THREE TIMES DAILY NEEDED FOR BREATHING 5) ALLOPURINOL 300MG TAB TAKE ONE TABLET BY MOUTH DAILY ACTIVE FOR GOUT 6) BACITRACIN 500 UNT/GM TOP OINT APPLY THIN LAYER ACTIVE TOPICALLY ONCE DAILY FOR INFECTION 7) CETIRIZINE HCL 10MG TAB TAKE ONE TABLET BY MOUTH ONCE ACTIVE (S) DAILY FOR ALLERGIES 8) CYANOCOBALAMIN 1000MCG TAB TAKE ONE TABLET BY MOUTH ACTIVE (S) ONCE DAILY FOR PREVENTION OF VITAMIN B12 DEFICIENCY 9) DOXYCYCLINE HYCLATE 100MG TAB TAKE ONE TABLET BY ACTIVE MOUTH TWICE DAILY 10) FINASTERIDE 5MG TAB TAKE ONE TABLET BY MOUTH DAILY ACTIVE FOR PROSTATE 11) GAUZE PAD 4IN X 4IN 12-PLY STERILE APPLY 1 GAUZE PAD ACTIVE TOPICALLY ONCE DAILY 12) IPRATROPIUM BR 0.06% NASAL SPRAY INSTILL 2 SPRAYS ACTIVE INTO EACH NOSTRIL THREE TIMES A DAY FOR ALLERGIES 13) KERLIX 4.5IN STERILE USE 1 ROLL TOPICALLY ONCE DAILY ACTIVE 14) KETOCONAZOLE 2% SHAMPOO SHAMPOO SMALL AMOUNT ACTIVE TOPICALLY ONCE DAILY NEEDED 15) LANCET,SOFTCLIX USE 1 LANCET TOPICALLY NEEDED TO ACTIVE TEST BLOOD SUGAR 16) METFORMIN HCL 500MG 24HR SA TAB TAKE ONE TABLET BY ACTIVE MOUTH ONCE DAILY 17) OLODATEROL/TIOTROP 2.5MCG/ACTUAT 60D INH INHALE 2 ACTIVE PUFFS (1 DOSE) BY MOUTH ONCE DAILY 18) PRIMIDONE 50MG TAB TAKE THREE TABLETS BY MOUTH TWICE ACTIVE DAILY 19) PROPRANOLOL HCL 120MG SA CAP TAKE ONE CAPSULE BY ACTIVE MOUTH DAILY 20) ROSUVASTATIN CA 40MG TAB TAKE ONE TABLET BY MOUTH ACTIVE EVERY EVENING AFTER SUPPER FOR CHOLESTEROL 21) SILDENAFIL CITRATE 100MG TAB TAKE ONE TABLET BY MOUTH ACTIVE NEEDED TAKE 1 HOUR PRIOR TO SEXUAL ACTIVITY DO NOT USE WITHIN 24 HOURS OF USING NITROGLYCERIN 22) VALSARTAN 80MG TAB TAKE ONE TABLET BY MOUTH DAILY ACTIVE (S) 23) ZAFIRLUKAST 20MG TAB TAKE ONE TABLET BY MOUTH TWICE ACTIVE DAILY Active Non-VA Medications Status 1) Non-VA ASPIRIN 81MG EC TAB 81MG BY MOUTH DAILY ACTIVE 2) Non-VA CHOLECALCIF 25MCG (D3-1,000UNIT) TAB 2000UNIT ACTIVE BY MOUTH DAILY 3) Non-VA COENZYME Q10 CAP/TAB 100MG DAILY ACTIVE 4) Non-VA FISH OIL 1000MG (500MG DHA/EPA) CAP 1000MG BY ACTIVE MOUTH TWICE DAILY 5) Non-VA OTHER CAP/TAB LIVER ELIXIR ONE CAP TWICE ACTIVE DAILY 28 Total Medications Allergies: Data on this list may not be complete. Please check JLV. FACILITY ALLERGY/ADR -------- [facility] [place] [facility] CHLORAPREP ONE STEP APPLICATOR [facility] CHLORHEXIDINE GLUCONATE/ISPROPYL ALCOHOL Lab data: CBC TREND Collection DT Spec WBC RBC HGB HCT MCV MCH PLT 05/05/2023 10:00 BLOOD 6.01 4.55 15.5 45.1 99.1 H 34.1 H 144 09/07/2022 09:59 BLOOD 5.94 4.51 14.8 43.6 96.7 32.8 H 131 L 02/12/2022 10:15 BLOOD 5.63 4.74 15.8 46.3 97.7 33.3 H 144 03/27/2021 12:17 BLOOD 5.45 4.30 14.5 43.0 100.0 H 33.7 H 151 03/16/2021 09:58 BLOOD 11.44 H 4.74 15.9 46.7 98.5 33.5 H 148 -- CHEM 7 TREND LAB CUMULATIVE SELECTED Collection DT Spec GLUCOSE BUN CREATIN Sodium K+/Pot CL CO2 05/05/2023 10:00 SERUM 117 H 13 0.90 137 4.1 105 23 09/07/2022 09:59 SERUM 117 H 11 0.95 139 4.0 108 22 02/12/2022 10:15 SERUM 116 H 10 0.82 140 4.1 106 22 03/27/2021 12:17 SERUM 89 10 0.84 139 4.9 105 23 03/16/2021 09:58 SERUM 103 H 12 1.23 135 4.3 102 19 L LAB CUMULATIVE SELECTED 2 No selection items chosen for this component. CHEM 7 Results Collection DT Spec Sodium K+/Pot CL CO2 GLUCOSE BUN 05/05/2023 10:00 SERUM 137 4.1 105 23 117 H 13 09/07/2022 09:59 SERUM 139 4.0 108 22 117 H 11 -- -- Imaging Reports: == = Include data from 09/12/2022 to 09/12/2023 09/12/2023 12:43 CONFIDENTIAL IMAGING REPORTS SUMMARY pg. 1 SERGE ALARCON [id number] : 1955 II - Imaging Impression (max 1 occurrence) Date Procedure CPT Status Case # 08/15/2023 FOOT 3 OR MORE VIEWS(LEFT) [id number] Verified 10 No radiographic evidence of osteomyelitis. == Date Vital Measurement Qualifiers 09/12/2023 08:06 Temp F (C) 99.3 (37.4)-----------> at end of visit 98.7 Pulse 71 BP 124/68 Pain 0 POx (L/Min)(%) 94 Room Air Well-appearing awake alert oriented x3 1+ ankle foot edema on the left No erythema No calor Pulses intact Again noted limited subtalar joint range of motion with stop point nearly vertical instead of everted, neutral position inverted as well as mild tibial varum. Sagittal plane motion of fifth metatarsal available but in context of flexible pes cavus. Again noted fairly dense neuropathy at the forefoot. Wound evaluation: Summary wound looks clean and smaller today with no clinical signs of infection purulent or other drainage no tunneling or undermining after debridement and is smaller. Wound # 1. Location:sub met five left Measurements post debridement (if any) Length:3mm Width:x 3mm Depth:x 1 mm Characteristics: Base:pink granular Tunneling:no Undermining:before christoph yes, after no Drainage: [x] serosanguanous [x] bloody after debridement [ ] purulent Odor: [ ] malodorous [x] no mal odor Surounding Tissues: [NONE ] erythema [ ] measurement left foot ankle lower leg with puffy 1+ edema but has bone on bone [per patient] knee deg joint disease knee left. Impression: -Well-controlled but neuropathic diabetic male with compensated rear foot varus and stress along the lateral column causing ulceration submetatarsal 5 on the left foot. Wound is improving slowly with offloading and local wound care no clinical sign of infection today. Plan: -Debridement with sterile 10 blade, measuring characterized as per above, silver nitrate applied to stop bleeding[patient on long-term low-dose aspirin], continue with topical 10% iodine dressings changed daily, continuing offloading diabetic healing shoe -Recommend follow-up in 4 weeks -Long-term plan once ulcer healed, patient will bring in existing orthotics, will need possible modification. If once healed very ulcerates patient may require osseous realignment surgery, which could be fifth metatarsal osteotomy, or fifth metatarsal head resection surgery to prevent reulceration/. Would not recommend major hindfoot surgery such as calcaneal osteotomy etc. unless aforementioned surgery does not improve. Return sooner if any fever chills nausea, vomiting increased redness, swelling, drianage, pain, or flu like symptoms, or go to nearest emergency room / urgent care for evaluation. -all sharpes cleared, processed and or disposed of according to SOP/MCP. -As part of the service the pertinent [...] as results of the physical exam and surgical consultant opinions and recommendations as sought. Alternatives [...] -The on this visit was given information My [employer] service and encouraged to enroll if not already having done so. /george/ ULYSSES ARAGON DPM PODIATRY ATTENDING Signed: 09/12/2023 12:52 ULYSSES ARAGON [facility]
--- OUTSIDE RECORDS SUMMARY | 2024-08-15 16:38 | XMS_ITS ---
Author Organization [facility] Address Unknown Allergies, Adverse Reactions, Alerts Substance Reaction Status Noted Date Resolved Date Chlorhexidine active 03/10/2024 Chloral Hydrate active 03/10/2024 Problems Problem Status Start Date End Date RHABDOMYOLYSIS (Primary) (M62.82 - ICD-10-CM) ACTIVE 03/10/2024 ENTEROCOLITIS DUE TO CLOSTRI DIUM DIFFICILE, NOT SPECIFIED RECURRENT (A04.72 - ICD-10-CM) ACTIVE 03/21/2024 TYPE 2 DIABETES MELLITUS WIT HOUT COMPLICATIONS (E11.9 - ICD-10-CM) ACTIVE 03/10/2024 CELLULITIS OF LEFT LOWER LIMB (L03.116 - ICD-10-CM) AC TIVE 03/10/2024 ACUTE KIDNEY FAILURE WITH TU BULAR NECROSIS (N17.0 - ICD-10-CM) ACTIVE 03/10/2024 ACUTE RESPIRATORY FAILURE WI TH HYPOXIA (J96.01 - ICD-10-CM) ACTIVE 03/10/2024 UNSPECIFIED ASTHMA, UNCOMPLICATED (J45.909 - ICD-10-CM ) ACTIVE 03/10/2024 OBSTRUCTIVE SLEEP APNEA (CARL LT) (PEDIATRIC) (G47.33 - ICD-10-CM) ACTIVE 03/10/2024 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-CM) ACTIV E 03/10/2024 UNSPECIFIED PROTEIN-CALORIE MALNUTRITION (E46 - ICD-10 -CM) ACTIVE 03/10/2024 SEPSIS, UNSPECIFIED ORGANISM (A41.9 - ICD-10-CM) ACTIV E 03/10/2024 ALCOHOL USE, UNSPECIFIED WIT H UNSPECIFIED ALCOHOL-INDUCED DISORDER (F10.99 - ICD-10-CM) ACTIVE 03/10/2024 ESSENTIAL TREMOR (G25.0 - ICD-10-CM) ACTIVE 02/16 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) ACTIVE 03/10/2024 ESSENTIAL (PRIMARY) HYPERTENSION (I10 - ICD-10-CM) ACT MICHELINE 03/10/2024 HYPERLIPIDEMIA, UNSPECIFIED (E78.5 - ICD-10-CM) ACTIVE 03/10/2024 POLYOSTEOARTHRITIS, UNSPECIFIED (M15.9 - ICD-10-CM) AC TIVE 03/10/2024 FATTY (CHANGE OF) LIVER, NOT ELSEWHERE CLASSIFIED (K76.0 - ICD-10-CM) ACTIVE 03/10/2024 BENIGN PROSTATIC HYPERPLASIA WITHOUT LOWER URINARY TRACT SYMPTOMS (N40.0 - ICD-10-CM) ACTIVE 03/10/2024 GOUT, UNSPECIFIED (M10.9 - ICD-10-CM) ACTIVE Encounters Encounter Performer Performer Role Encounter Diagnoses Location Date Discharge - Discharged / Transferred to another hospital - [facility] 4 04:00 pm EDT - 4 12:05 am EDT Discharge - Discharged to home or self care - Home - [facility] 4 04:48 pm EDT - 4 03:15 pm EDT Immunizations Vaccine Date (Shingles) Vaccine 08/14/2019 12:00 am EST Hepatitis A 08/26/2023 12:00 am EST (Respiratory Syncytial Virus) Abrysvo Bi valent Vaccine 05/10/2023 12:00 am EDT (Pneumococcal) PCV13- Conjugate 13-kurt t Vaccine 04/27/2019 12:00 am EDT (Tetanus, Diphtheria, and Acellular Pert ussis) Tdap 03/17/2021 12:00 am EDT (Pneumococcal) PPSV23- Polysaccharide 23 -valent Vaccine 07/02/2020 12:00 am EST Social History
--- OUTSIDE RECORDS SUMMARY | 2024-08-15 16:38 | XMS_ITS | Encounter Summary ---
Author Name [facility] Organization [facility] [place] Address [address] [place] [address] Care Team Providers Care Certified Nurse Name Role Phone RAMY CASTILLO Primary Care [...] TYRESE MEDEX BRON E Dec 16, 2018 [id number] AGNES,A JUAN PATIENT ANTHEM BCBS OF CT (BLUECARD) MEDICARE SUPPLEMEN TYRESE MEDEX BRONZ E Dec 16, 2018 [id number] [phone] AGNES,A JUAN PATIENT [place]BS [place] MEDICARE SUPPLEMEN TYRESE MEDEX BRONZ E Dec 16, 2018 [id number] AGNES,A JUAN PATIENT BCBS ANN [facility] E [facility] [place] [facility] Apr 17, 2011 [id number] AGNES,A JUAN PATIENT EXPRESS SCRIPTS ([id number]) PRESCRIPT ION L4TA* Apr 17, 2011 L4TA [id number] AGNES,A JUAN PATIENT [place] ([place] MEDICARE SUPPLEMEN TYRESE PSUED O MEDEX HEARI NG Dec 16, 2018 [id number] [phone] AGNES,A JUAN PATIENT MEDICARE (WNR) MEDICARE (M) PART A Dec 16, 2018 PART A [id number] [phone] AGNES,A JUAN PATIENT MEDICARE (WNR) MEDICARE (M) PART B Dec 16, 2018 PART B [id number] AGNES,A JUAN PATIENT MEDICARE (WNR) MEDICARE (M) PART A Dec 16, 2018 PART A [id number] [phone] AGNES,A JUAN PATIENT MEDICARE (WNR) MEDICARE (M) PART B Dec 16, 2018 PART B [id number] AGNES,A JUAN PATIENT MEDICARE (WNR) MEDICARE (M) PART A Dec 16, 2018 PART A [id number] [phone] AGNES,A JUAN PATIENT MEDICARE (WNR) MEDICARE (M) PART B Dec 16, 2018 PART B [id number] AGNES,A JUAN PATIENT Selected Encounter This section includes the information on record at [place] for the Encounter. Date/Time Encounter Type Encounter Description Reason Provider Source Sep 26, 2023 10:30 AM OFFICE O/P EST MOD 30 MIN PODIATRY ICD-10-CM 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 2 diabetes mellitus with foot ulcer ULYSSES ARAGON [facility] Encounter Template Text not used by [place] Assessments - Encounter Diagnoses This section includes the primary and secondary diagnoses documented for the Encounter. Date/Time Primary/Secondary Diagnosis Diagnosis Name Provider Source Oct 26, 2023 10:31 AM PRIMARY Type 2 diabetes mellitus with foot ulcer ULYSSES ARAGON [place] [facility] [place] [facility] Plan of Treatment: Future Appointments (+ 6 months) and Future Tests (+/- 45 days) The Plan of Treatment section includes future care activities for the patient [facility] [place] [facility] This section includes future appointments and future orders which are active, pending or scheduled. Future Appointments This section includes appointments that were scheduled to occur 6 months from the date of the Encounter, up to a maximum of 20 appointments. The data comes from all [facility]. Appointment Date/Time Appointment Type Appointme nt Facility Name Oct 03, 2023 01:30 PM AMBULATORY - REHAB MEDICIN E [place] [facility] [place] [facility] Oct 10, 2023 09:30 AM AMBULATORY - MEDICINE [place] [facility] [place] [facility] Oct 17, 2023 11:00 AM AMBULATORY - [facility] Oct 19, 2023 11:30 AM AMBULATORY - MEDICINE [facility] ([facility]) Oct 28, 2023 10:30 AM AMBULATORY - MEDICINE [place] [facility] [place] [facility] November 21, 2023 09:00 AM AMBULATORY - MEDICINE [place] [facility] [place] [facility] November 29, 2023 01:00 PM AMBULATORY - MEDICINE [facility]) December 05, 2023 11:00 AM AMBULATORY - MEDICINE [place] [facility] [place] [facility] December 14, 2023 11:00 AM AMBULATORY - MEDICINE [place] [facility] [place] [facility] Jan 09, 2024 11:30 AM AMBULATORY - MEDICINE [place] [facility] [place] [facility] Jan 11, 2024 01:30 PM AMBULATORY - REHAB MEDICIN E [place] [facility] [place] [facility] Jan 27, 2024 11:00 AM AMBULATORY - MEDICINE [place] [facility] [place] [facility] Feb 06, 2024 11:30 AM AMBULATORY - MEDICINE [place] [facility] [place] [facility] Active, Pending, and Scheduled Orders This section includes a listing of several types of active, pending, and scheduled orders, including clinic medications orders, diagnostic test orders, procedure orders and consult orders; where the start date of the order is 45 days before the date of the Encounter or 45 days after the date of theEncounter. The data comes from all [facility]. Test Date/Time Test Type Test Details Facility Name Aug 18, 2023 12:00 AM Laboratory - Chemi stry Order CHEM 7 BLOOD (SER GOLD) [facility] Sep 28, 2023 03:21 PM Consult Order [facility]-NEUROLOGY Cons Inward Toll Operator'[facility] ([facility]) Lab Results: +/- 30 days of the encounter This section includes the Chemistry and Hematology Lab Results on record with [place] for the patient. Radiology Reports and Pathology Reports are provided separately, in subsequent sections. Lab Results This section contains the Chemistry/Hematology Results that were resulted 30 days before or 30 daysafter the date of the Encounter. Date/Time Source Result Type Result - Unit Interpretation Reference Range Comment Oct 10, 2023 10:10 AM [facility] LIVER FUNCTION Specimen Type: SERUM No comment entered. Ordering Provider: GISSEL ARAGON Report Released Date/Time: Oct 10, 2023 09:53 AM Reporting Lab: [address] [address] Performing Lab: [address] [address] PROTEIN,TOTAL 6.6 g/dL 6.0-8.3 ALBUMIN 3.6 g/dL 3.5-5.0 ALKALINE PHOSPHATASE 68 U/L 40-150 AST 25 U/L 5-34 ALT 29 U/L BILIRUBIN, TOTAL 0.3 mg/dL 0.2-1.2 Oct 10, 2023 10:10 AM [facility] BASIC METABOLIC PANEL (fasting) Specimen Type: SERUM No comment entered. Ordering Provider: GISSEL ARAGON Report Released Date/Time: Oct 10, 2023 09:53 AM Reporting Lab: [address] [address] Performing Lab: [address] [address] UREA NITROGEN 10 mg/dL 7-25 GLUCOSE 107 mg/dL H 65-100 SODIUM 141 mmol/L 135-145 POTASSIUM 4.5 mmol/L 3.5-5.0 CHLORIDE 107 mmol/L 100-110 CO2 25 meq/L 20-30 CREATININE, Serum 0.87 mg/dL 0.50-1.40 eGFR(CKD-EPI 2020) >90 mL/min >60 Oct 10, 2023 10:10 AM [facility] CBC AND DIFF (AUTO) Specimen Type: BLOOD No comment entered. Ordering Provider: GISSEL ARAGON Report Released Date/Time: Oct 10, 2023 09:53 AM Reporting Lab: [facility] [address] [facility] [address] Performing Lab: [address] [address] WBC 4.63 10*3/uL 4.50-11.00 RBC 4.43 10*6/uL 4.23-5.66 HGB 14.4 g/dL 12.8-17 HCT 42.7 39.2-50.4 MCV 96.4 fL 82-99 MCHC 33.7 g/dL 30.8-35.1 PLT 150 10*3/uL 140-360 RDW-CV 13.7 12.0-16.0 [place], Abs 0.37 10*3/uL 0.30-1.10 MCH 32.5 pg 26.2-32.6 Neut % 36.3 L 43.7-75.8 Lymph % 49.0 H 14.0-42.3 [place] % 8.0 5.1-13.7 Eos % 6.3 0.4-6.8 Baso % 0.2 0.1-2.0 Neut, Abs 1.68 10*3/uL L 2.20-7.60 Lymph, Abs 2.27 10*3/uL 1.00-3.20 Eos, Abs 0.29 10*3/uL 0.03-0.44 Baso, Abs 0.01 10*3/uL 0.01-0.13 Immature Gran % 0.2 0.0-0.7 Immature Gran, Abs 0.01 10*3/uL 0.00-0.06 Oct 10, 2023 10:09 AM TRAN ([facility]) HEPATITIS C ANTIBODY (HCV)-ARC Specimen Type: SERUM Comment: Hep C Ab: No HCV antibody detected. If recent infection is suspected or other evidence suggests HCV infection, consider HCV nucleic acid testing Ordering Provider: EVIN CASTILLO Report Released Date/Time: Jun 03, 2023 11:37 AM Reporting Lab: [address] [address] Performing Lab: [place] [facility] [address] [facility] [address] HEPATITIS C ANTIBODY NON-REACTIVE NON-REACTIV E Vital Signs: All taken on the encounter date This section contains inpatient and outpatient Vital Signs collected on the date of the Encounter. Date/Time Temperature Pulse Blood Pressure Respiratory Rate SP02 Pain Height Weight Body Mass Index Source Sep 26, 2023 10:30 AM 98.4 [facility] Social History: Smoking Status (Most current) and Tobacco Use (All prior to encounter date) This section includes the most current, and the historical, smoking and tobacco- related health factors from the [place] facility where the Encounter took place. Current Smoking Status This section includes the most current smoking, or tobacco-related health factor, from the [place] facility where the Encounter took place. Date/Time Current Smoking Status Comment Facil ity Oct 27, 2022 02:44 PM VA-TOBACCO USER EVERY DAY [facility] Tobacco Use History This section includes a history of the smoking, or tobacco-related health factors, that were collected on or before the date of the Encounter. The data comes from the [place] facility where the Encounter took place. 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 Oct 27, 2022 02:44 PM VA-TOBACCO USER EVERY DAY [facility] Advance Directives: All historical and current Section Date Range: From patient's date of to the date document was created. This section includes ALL of a patient's completed or amended [place] Advance and Rescinded Directives. The entries below indicate that a directive exists for the patient, but an actual copy is not included with this document. The data comes from all [place] facilities. Date Advance Directives Provider Source Mar 01, 2014 ADVANCE DIRECTIVE VARSHA ESQUIVEL ([facility]) Radiology Reports: +/- 30 days of [...] the Encounter. The data comes from all [place] treatment facilities. Date/Time Radiology Report Provider Source Oct 17, 2023 11:35 AM MRI ABD W&WO CONTR AST: AGNESSERGE [id number] -[id number] M Exm Date: OCT 17, 2023@11:35 Req Phys: SHAHEEN CARMEN Loc: [facility] V01 [facility] LIVER GRINDER HAND 01 F2F (R Img Loc: UPLOAD CD IMAGES-MRI Service: Unknown (Case [id number] COMPLETE) MRI ABD W&WO CONTRAST (MRI Detailed) CPT:62272 Reason for Study: MR ELASTOGRAPHY to determine LSM Clinical History: Date of imaging of date of exam to be uploaded:10/17/2023 Description of exam to be uploaded: (example- MRI head, MRI abdomen, etc) MRI Abdomen Provider's contact information: SHAHEEN CARMEN ROAD MIXER OPERATOR *[id number] Report Status: Electronically Filed Date Reported: NOV 03, 2023 Report: This exam was performed and interpreted at an Outside Facility. The images are available in [employer] and our local PACS. Impression: This exam was performed and interpreted at an Outside Facility. The images are available in [employer] and our local PACS. Primary Diagnostic Code: ADMIN. REPORT; REFER TO PT MED RECORD VERIFIED BY: / *ELECTRONICALLY FILED* [facility] Encounter Notes: All associated encounter notes This section contains the clinical notes associated to the Encounter. Date/Time Encounter Note(s) Provider Source Sep 26, 2023 10:39 AM PODIATRY NOTE: LOCAL TITLE: PODIATRY NOTE STANDARD TITLE: PODIATRY NOTE DATE OF NOTE: SEP 26, 2023@10:39 ENTRY DATE: SEP 26, 2023@10:39:52 AUTHOR: ULYSSES ARAGON EXP COSIGNER: URGENCY: STATUS: COMPLETED Podiatry [facility] Follow up Provider: Ulysses Aragon Date: SEP 26, 2023 SERGE Yu AGNES [address] [place], [place] [address] Dec [birth year] MALE [phone] PATIENT PHONE - [phone] Primary Care: RAMY CASTILLO Visit Concern: Follow-up diabetic foot ulcer left foot submetatarsal 5 since May 2023. Patient has been in an offloading shoe and providing local wound care with bacitracin and gauze Curlex dressings as well as periodic debridement here in the clinic. Patient's wound has been progressing and patient was asked to bring in shoe today for possible transition. Patient denies fever chills nausea vomiting has not seen drainage in several days. Patient has had previous x-rays ruling out osteomyelitis, he has been documented good circulation, but peripheral neuropathy. He has some amount of super structural varus but seems to be able to accommodate with eversion. 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 NELLA KIDD Pain in right knee ([place] [address] 01/25/2018 [place] Seborrheic Dermatitis, Unspecified 03/17/2011 NELLA KIDD Active [...] FOR PREVENTION OF VITAMIN B12 DEFICIENCY 9) FINASTERIDE 5MG TAB TAKE ONE TABLET BY MOUTH DAILY ACTIVE FOR PROSTATE 10) GAUZE PAD 4IN X 4IN 12-PLY STERILE APPLY 1 GAUZE PAD ACTIVE TOPICALLY ONCE DAILY 11) IPRATROPIUM BR 0.06% NASAL SPRAY INSTILL 2 SPRAYS ACTIVE INTO EACH NOSTRIL THREE TIMES A DAY FOR ALLERGIES 12) KERLIX 4.5IN STERILE USE 1 ROLL TOPICALLY ONCE DAILY ACTIVE 13) LANCET,SOFTCLIX USE 1 LANCET TOPICALLY NEEDED [...] ONE TABLET BY MOUTH DAILY ACTIVE (S) 21) ZAFIRLUKAST 20MG TAB TAKE ONE TABLET [...] LIVER ELIXIR ONE CAP TWICE ACTIVE DAILY 26 Total Medications Allergies: Data on this list may not be complete. Please check JLV. FACILITY ALLERGY/ADR -------- [facility] CHLORAPREP ONE STEP APPLICATOR [facility] CHLORHEXIDINE GLUCONATE/ISPROPYL ALCOHOL [...] 139 4.0 108 22 117 H 11 Date Vital Measurement Qualifiers 09/26/2023 10:30 Temp F (C) 98.4 (36.9) Well-appearing Left foot without any swelling or erythema, or calor Area under left fifth metatarsal largely callus today debrided to reveal intact epithelium some of it thin but certainly intact. No evidence of active ulcer at present. Measurements specifically with 0 depth 0 length 0 no tunneling or undermining. Base intact epithelium Impression: -Currently healed submetatarsal 5 diabetic foot ulcer and patient with good circulation peripheral neuropathy and mild mechanical issues -Should try to transition to diabetic custom molded insert with offloading for segment 5 which he has. He has [employer]oka sneakers which are appropriate and rock the forefoot past the ulcer. Plan: -Debrided callus -Ground down edge of offloading so with a smooth transition on left orthotic -Bacitracin and 2 x 3 Band-Aids changed daily -Return to offloading shoe if ulcer recurs between now and next visit Follow-up check in 2 weeks Return sooner if any fever chills nausea, [...] as results of the physical exam and advanced manufacturing consultant opinions and recommendations as sought. Alternatives [...] -The on this visit was given information [employer] service and encouraged to enroll if not already having done so. /george/ ULYSSES ARAGON DPM PODIATRY ATTENDING Signed: 09/26/2023 16:55 ULYSSES ARAGON [facility]
--- OUTSIDE RECORDS SUMMARY | 2024-08-15 16:39 | XMS_ITS | Encounter Summary ---
Author Organization [facility] Address [address] [place] [address] Phone Care Team Providers Care Air Pollution Auditor Name Role Phone Brien Ramirez MD, Jose Primary Care Provider [phone] Encounter Details Date Type Department Care Team (Late st Contact Info) Description 03/30/2024 Documentation Only [facility], [address] [place] [address] Saira Muir [address] [place] [phone] Social History Tobacco Use Types Packs/Day Years Used Date Smoking Tobacco: Never Assessed Sex and Gender Information Value Date Recorded Sex Assigned at Not on file Legal Sex Male 11:38 AM EDT Gender Identity Not on file Sexual Orientation Not on file documented as of this encounter Plan of Treatment Not on file documented as of this encounter Visit Diagnoses Not on filedocumented in this encounter Care Teams Air Pollution Auditor Relationship Specialty Start Date End Date Jose Tesfaye MD [address] [place] [address], [address] [place] [address] PCP - General Family Medicine 02/28/24 documented as of this encounter
--- OUTSIDE RECORDS SUMMARY | 2024-08-15 16:39 | XMS_ITS | Encounter Summary ---
Author Name [facility] [place] Address [address] [place] [address] Care Team Providers Care Cutting Machine Tender Decorative Name Role Phone RAMY CASTILLO Primary Care [...] TYRESE MEDEX BRON E Dec 16, 2018 [id number] [phone] AGNES,A JUAN PATIENT ANTHEM BCBS OF [place] (BLUECARD) MEDICARE SUPPLEMEN TYRESE MEDEX BRONZ E Dec 16, 2018 [id number] [phone] AGNES,A JUAN PATIENT BCBS [place] MEDICARE SUPPLEMEN TYRESE MEDEX BRONZ E Dec 16, 2018 [id number] AGNES,A JUAN PATIENT BCBS ANN HIGH DEDUCTIBL E HEALTH PLAN CONNE [facility]ICU T [facility] Apr 17, 2011 [id number] AGNES,A JUAN PATIENT EXPRESS SCRIPTS ([id number]) PRESCRIPT ION L4TA* Apr 17, 2011 L4TA [id number] AGNES,A JUAN PATIENT [place] ([place]) MEDICARE SUPPLEMEN TYRESE PSUED O MEDEX HEARI NG Dec 16, 2018 [id number] AGNES,A JUAN PATIENT MEDICARE (WNR) MEDICARE (M) PART A Dec 16, 2018 PART A [id number] CT90 [phone] AGNES,A JUAN PATIENT MEDICARE (WNR) MEDICARE (M) PART B Dec 16, 2018 PART B [id number] [id number] [phone] AGNES,A JUAN PATIENT MEDICARE (WNR) MEDICARE (M) PART A Dec 16, 2018 PART A [id number] CT90 AGNES,A JUAN PATIENT MEDICARE (WNR) MEDICARE (M) PART B Dec 16, 2018 PART B [id number] AGNES,A JUAN PATIENT MEDICARE (WNR) MEDICARE (M) PART A Dec 16, 2018 PART A [id number] CT90 [phone] AGNES,A JUAN PATIENT MEDICARE (WNR) MEDICARE (M) PART B Dec 16, 2018 PART B [id number] CT90 [phone] [id number] AGNES,A JUAN PATIENT Selected Encounter This section includes the information on record at [place] for the Encounter. Date/Time Encounter Type Encounter Description Reason Pro vider Source Jul 17, 2024 11:17 AM Outpatient Encounter PRIMARY CARE/MEDICINE IHE Encounter Template Text not used by [place] Plan of Treatment: Future Appointments (+ 6 months) and Future Tests (+/- 45 days) The Plan of Treatment section includes future care activities for the patient from all [place] treatmentfacilities. This section includes future appointments and future orders which are active, pending or scheduled. Future Appointments This section includes appointments that were scheduled to occur 6 months from the date of the Encounter, up to a maximum of 20 appointments. The data comes from all [place] treatment facilities. Appointment Date/Time Appointment Type Appointme nt Facility Name Aug 15, 2024 02:30 PM AMBULATORY - MEDICINE [facility] [place] [facility] Aug 21, 2024 08:00 AM AMBULATORY - MEDICINE [facility] [place] [facility] Nov 12, 2024 01:00 PM AMBULATORY - MEDICINE DAVID TODD ([facility]) Social History: Smoking Status (Most current) and Tobacco Use (All prior to encounter date) This section includes the most current, and the historical, smoking and tobacco- related health factors from the [place] facility where the Encounter took place. Current Smoking Status This section includes the most current smoking, or tobacco-related health factor, from the [place] facility where the Encounter took place. Date/Time Current Smoking Status Comment Facil ity Oct 27, 2022 02:44 PM VA-TOBACCO USER [facility] Tobacco Use History This section includes a history of the smoking, or tobacco-related health factors, that were collected on or before the date of the Encounter. The data comes from the [place] facility where the Encounter took place. 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 This section includes ALL of a patient's completed or amended [place] Advance and Rescinded Directives. The entries below indicate that a directive exists for the patient, but an actual copy is not included with this document. The data comes from all [place] facilities. Date Advance Directives Provider Source Mar 01, 2014 ADVANCE DIRECTIVE VARSHA ESQUIVEL ([facility]) Encounter Notes: All associated encounter notes This section contains the clinical notes associated to the Encounter. Date/Time Encounter Note(s) Provider Source Jul 17, 2024 11:17 AM MEDICATION MGT NOT E: LOCAL TITLE: OUTPATIENT MEDICATION RENEWAL STANDARD TITLE: MEDICATION MGT NOTE DATE OF NOTE: JUL 17, 2024@11:17 ENTRY DATE: JUL 17, 2024@11:17:18 AUTHOR: GLENN GILLIAM EXP COSIGNER: URGENCY: STATUS: COMPLETED Hi Dr Castillo, I need a refill on my viagra please. /es/ GLENN GILLIAM, DAVID REGISTERED NURSE Signed: 07/17/2024 11:17 Receipt Acknowledged By: 07/19/2024 13:41 /es/ VONNIE MCGRATH MD PHYSICIAN for GLENN CORREA ([facility])
--- OUTSIDE RECORDS SUMMARY | 2024-08-15 16:39 | XMS_ITS | Encounter Summary ---
Author Organization [facility] Address [address] [place] [address] Phone Care Team Providers Care Housekeeper Head Name Role Phone Brien Ramirez MD, Jose Primary Care Provider [phone]- [phone] Encounter Details Date Type Department Care Team (Late st Contact Info) Description 03/30/2024 Documentation Only [facility], [address] [place] [address] Saira Muir [address] [place] [id number] Social History Tobacco Use Types Packs/Day Years [...] on filedocumented in this encounter Care Teams Housekeeper Head Relationship Specialty Start Date End Date Jose Tesfaye MD [address] [place] [address], [address] [place] [address] PCP - General Family Medicine 02/28/24 documented as of this encounter
--- OUTSIDE RECORDS SUMMARY | 2024-08-15 16:39 | XMS_ITS ---
Author Name [facility] [place] Address [address] [place] [address] Care Team Providers Care Director Compliance Name Role Phone RAMY CASTILLO Primary Care [...] TYRESE MEDEX BRON E Dec 16, 2018 [id number] AGNES,A JUAN PATIENT ANTHEM BCBS OF CT (BLUECARD) MEDICARE SUPPLEMEN TYRESE MEDEX BRONZ E Dec 16, 2018 [id number] AGNES,A JUAN PATIENT BCBS [place] MEDICARE SUPPLEMEN TYRESE MEDEX BRONZ E Dec 16, 2018 [id number] AGNES,A JUAN PATIENT BCBS ANN HIGH DEDUCTIBL E HEALTH PLAN [place] [facility]ICU T [facility] Apr 17, 2011 [id number] AGNES,A JUAN PATIENT EXPRESS SCRIPTS ([id number]) PRESCRIPT ION L4TA* Apr 17, 2011 L4TA [id number] AGNES,A JUAN PATIENT [place] MEDICARE SUPPLEMEN TYRESE PSUED O MEDEX HEARI NG Dec 16, 2018 [id number] AGNES,A JUAN PATIENT MEDICARE (WNR) MEDICARE (M) PART A Dec 16, 2018 PART A [id number] CT90 [phone] AGNES,A JUAN PATIENT MEDICARE (WNR) MEDICARE (M) PART B Dec 16, 2018 PART B [id number] [id number] [phone] AGNES,A JUAN PATIENT MEDICARE (WNR) MEDICARE (M) PART A Dec 16, 2018 PART A [id number] CT90 AGNES,A JUAN PATIENT MEDICARE (WNR) MEDICARE (M) PART B Dec 16, 2018 PART B [id number] [id number] AGNES,A JUAN PATIENT MEDICARE (WNR) MEDICARE (M) PART A Dec 16, 2018 PART A [id number] CT90 AGNES,A JUAN PATIENT MEDICARE (WNR) MEDICARE (M) PART B Dec 16, 2018 PART B [id number] CT90 [phone] AGNES,A JUAN PATIENT Selected Encounter This section includes the information on record at [place] for the Encounter. Date/Time Encounter Type Encounter Description Reason Provider Source December 05, 2023 11:00 AM OFFICE O/P EST LOW 20 MIN PODIATRY ICD-10-CM 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 2 diabetes mellitus with foot ulcer ULYSSES ARAGON [facility] Encounter Template Text not used by [place] Assessments - Encounter Diagnoses This section includes the primary and secondary diagnoses documented for the Encounter. Date/Time Primary/Secondary Diagnosis Diagnosis Name Provider Source Dec 30, 2023 07:46 AM PRIMARY Type 2 diabetes mellitus with foot ulcer ULYSSES ARAGON [facility] [place] [facility] Plan of Treatment: Future Appointments (+ 6 months) and Future Tests (+/- 45 days) The Plan of Treatment section includes future care activities for the patient [facility] [place] [facility]. This section includes future appointments and future orders which are active, pending or scheduled. Future Appointments This section includes appointments that were scheduled to occur 6 months from the date of the Encounter, up to a maximum of 20 appointments. The data comes from all [place] treatment facilities. Appointment Date/Time Appointment Type Appointme nt Facility Name December 14, 2023 11:00 AM AMBULATORY - MEDICINE [facility] [place] [facility] Jan 09, 2024 11:30 AM AMBULATORY - MEDICINE [facility] [place] [facility] Jan 11, 2024 01:30 PM AMBULATORY - REHAB MEDICIN E [facility] [place] [facility] Jan 27, 2024 11:00 AM AMBULATORY - MEDICINE [facility] [place] [facility] Feb 06, 2024 11:30 AM AMBULATORY - MEDICINE [facility] [place] [facility] Apr 02, 2024 09:30 AM AMBULATORY - MEDICINE [facility] [place] [facility] Apr 20, 2024 01:30 PM AMBULATORY - MEDICINE [facility] Apr 23, 2024 08:00 AM AMBULATORY - MEDICINE [facility] [place] [facility] Apr 23, 2024 11:00 AM AMBULATORY - MEDICINE [facility] [place] [facility] May 03, 2024 02:00 PM AMBULATORY - MEDICINE [facility]) May 07, 2024 10:30 AM AMBULATORY - MEDICINE [facility] [place] [facility] May 08, 2024 10:00 AM AMBULATORY - REHAB MEDICIN E [facility] [place] [facility] May 21, 2024 08:30 AM AMBULATORY - MEDICINE [facility] [place] [facility] May 23, 2024 08:15 AM AMBULATORY - MEDICINE [facility] [place] [facility] Vital Signs: All taken on the encounter date This section contains inpatient and outpatient Vital Signs collected on the date of the Encounter. Date/Time Temperature Pulse Blood Pressure Respiratory Rate SP02 Pain Height Weight Body Mass Index Source December 05, 2023 11:08 AM 97.3 64 134/77 18 98 2 [facility] [place] [facility] Social History: Smoking Status (Most current) and Tobacco Use (All prior to encounter date) This section includes the most current, and the historical, smoking and tobacco- related health factors from the [place] facility where the Encounter took place. Current Smoking Status This section includes the most current smoking, or tobacco-related health factor, from the [place] facility where the Encounter took place. Date/Time Current Smoking Status Comment Facil ity Oct 27, 2022 02:44 PM VA-TOBACCO USE [place] 30 MIN OF WAKEUP [facility] Tobacco Use History This section includes a history of the smoking, or tobacco-related health factors, that were collected on or before the date of the Encounter. The data comes from the [place] facility where the Encounter took place. 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 This section includes ALL of a patient's completed or amended [place] Advance and Rescinded Directives. The entries below indicate that a directive exists for the patient, but an actual copy is not included with this document. The data comes from all [place] facilities. Date Advance Directives Provider Source Mar 01, 2014 ADVANCE DIRECTIVE VARSHA ESQUIVEL ([facility]) Encounter Notes: All associated encounter notes This section contains the clinical notes associated to the Encounter. Date/Time Encounter Note(s) Provider Source December 05, 2023 11:21 AM PODIATRY NOTE: LOCAL TITLE: PODIATRY NOTE STANDARD TITLE: PODIATRY NOTE DATE OF NOTE: DECEMBER 05, 2023@11:21 ENTRY DATE: DECEMBER 05, 2023@11:21:56 AUTHOR: ULYSSES ARAGON COSIGNER: URGENCY: STATUS: COMPLETED Podiatry [facility] Follow up Provider: Ulysses Aragon Date: DECEMBER 05, 2023 SERGE C AGNES [address] [place], [place] [address] Dec 67 [place] [phone] PATIENT PHONE - [phone] Primary Care: RAMY CASTILLO Visit Concern: 67-year-old male with diabetic peripheral neuropathy and history of ulceration submetatarsal 5 on the left side. Patient has healed his wound and has received his new custom orthotics with PPT cut out for fifth metatarsal bilateral. He has been wearing them regularly he comes in today stating that he is doing well and there is no wound present. Patient is going away to [place] for a safari and is concerned as well as I am. Patient is unable to tell me exactly how much walking he will be doing but states he is going largely with a group of persons of his similar age and therefore I do not expect a significant amount of hiking or attributing around. Today's visit was mainly to check the inserts and evaluate the callus. Eligibility: SC LESS THAN 50% VERIFIED Total S/C %: 30 IMPAIRED HEARING 0% S/C ARTHRITIS, DEGENERATIVE 10% S/C HYPERTENSIVE VASCULAR DISEASE 0% S/C TINNITUS 10% S/C ARTHRITIS, DEGENERATIVE 10% S/C Medical problems active: Active Problem Steatosis of [...] KIDD Chronic ischemic heart disease (SNO 05/05/2019 MENDOSA,ENRICO T Osteoarthritis of knee (SNOMED CT 2 05/05/2019 ENRICO MENDOSA Hearing loss 389.9 03/17/2011 NELLA KIDD Tremor (SNOMED CT 61261184) R25.1 07/20/2017 GA ROMEO Sleep apnea (SNOMED CT 48243286) G4 10/27/2015 JOSE DANIEL PRINCE Gout (SNOMED CT 77850527) M10.9 01/05/2017 THERESATRISTONA Hyperlipidemia (SNOMED CT 62956896) 07/20/2017 GA ROMEO Asthma (SNOMED CT 901594539) J45.40 03/31/2016 NELLA KIDD Impotence of organic origin 607.84 03/17/2011 NELLA IKDD Pain in right knee ([place] [address] 01/25/2018 CHANDU,BOSSMAN Seborrheic Dermatitis, Unspecified 03/17/2011 NELLA [...] ONE TABLET BY MOUTH DAILY ACTIVE (S) FOR PROSTATE 9) FLUTICASONE PROP 50MCG 120D [...] TAKE ONE TABLET BY MOUTH ACTIVE (S) EVERY EVENING AFTER SUPPER FOR CHOLESTEROL 19) SILDENAFIL CITRATE 100MG TAB TAKE ONE TABLET BY MOUTH ACTIVE NEEDED TAKE 1 HOUR PRIOR TO SEXUAL ACTIVITY DO NOT USE WITHIN 24 HOURS OF USING NITROGLYCERIN 20) VALSARTAN 80MG TAB TAKE ONE TABLET BY MOUTH DAILY ACTIVE 21) ZAFIRLUKAST 20MG TAB TAKE ONE TABLET BY MOUTH TWICE ACTIVE (S) DAILY 22) ZONISAMIDE 100MG CAP TAKE ONE CAPSULE BY MOUTH THREE ACTIVE (S) TIMES A DAY Active Non-VA Medications Status [...] CAP TWICE ACTIVE DAILY 27 Total Medications Allergies: Data on this list may not be complete. Please check JLV. FACILITY ALLERGY/ADR -------- [facility] [place] [facility] CHLORAPREP ONE STEP APPLICATOR [facility] CHLORHEXIDINE GLUCONATE/ISPROPYL ALCOHOL Lab data: CBC TREND Collection DT Spec WBC RBC HGB HCT MCV MCH PLT 10/28/2023 11:25 BLOOD 8.17 4.30 13.8 40.8 94.9 32.1 131 L 10/10/2023 10:10 BLOOD 4.63 4.43 14.4 42.7 96.4 32.5 150 05/05/2023 10:00 BLOOD 6.01 4.55 15.5 45.1 99.1 H 34.1 H 144 09/07/2022 09:59 BLOOD 5.94 4.51 14.8 43.6 96.7 32.8 H 131 L 02/12/2022 10:15 BLOOD 5.63 4.74 15.8 46.3 97.7 33.3 H 144 -- CHEM 7 TREND LAB CUMULATIVE SELECTED Collection DT Spec GLUCOSE BUN CREATIN Sodium K+/Pot CL CO2 10/10/2023 10:10 SERUM 107 H 10 0.87 141 4.5 107 25 05/05/2023 10:00 SERUM 117 H 13 0.90 137 4.1 105 23 09/07/2022 09:59 SERUM 117 H 11 0.95 139 4.0 108 22 02/12/2022 10:15 SERUM 116 H 10 0.82 140 4.1 106 22 03/27/2021 12:17 SERUM 89 10 0.84 139 4.9 105 23 LAB CUMULATIVE SELECTED 2 No selection items chosen for this component. Right foot stable Left foot overall stable Minimal callus formation submit 5 Definitely no clinical sign of ulceration or irritation and seems to be responding well to new orthotic Impression: 67-year-old male with diabetic peripheral neuropathy Tibial varum partially compensated rear foot varus and stress under the fifth metatarsal causing callus and also ulceration. Ulceration has healed and patient is doing well with current orthotics Plan: -Follow-up 1 more time before patient goes to [facility] -We will give patient a 10-day course of amoxicillin clavulanic acid as an insurance policy in case he develops a wound over there without access to medical care. 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 We will review this however when he returns next week /george/ ULYSSES ARAGON DPM PODIATRY ATTENDING Signed: 12/08/2023 17:20 ULYSSES ARAGON [facility] Oct 28, 2023 11:25 AM PODIATRY NOTE: LOCAL TITLE: PODIATRY NOTE STANDARD TITLE: PODIATRY NOTE DATE OF NOTE: OCT 28, 2023@11:25 ENTRY DATE: OCT 28, 2023@11:26 AUTHOR: ULYSSES ARAGON EXP COSIGNER: URGENCY: STATUS: COMPLETED PODIATRY NOTE Has ADDENDA Podiatry High Risk Foot Encounter [facility] provider: Ulysses Aragon DPM Date: OCT 28, 2023 SERGE ALARCON MALE [phone] Dec 67 [employer] FROM Dec TO Jan Primary Care:RAMY CASTILLO Subjective: Diabetic/ HRF/ PVD LE History: [ ] pvd [ ] pvd interventions [ ] neuropathy [ ] meds: [ ] wound active [ ] infection active [ ] wound history yes [ ] amputation hx [ ] deformity [ ] charcot [ ] surgical deformity intervention PMH list CPRS: Active problems - Computerized Problem List is the source for the followin. Steatosis of liver 2. Chronic ulcer of foot 3. Liver Function Tests Abnormal (SCT 363461102) 4. Crush syndrome 5. Rhabdomyolysis 6. Cervical spondylosis 7. Benign hypertension 8. Benign prostatic hyperplasia 9. Obesity 10. Diabetes mellitus 11. Chronic ischemic heart disease (SNOMED CT 415779189) 12. Osteoarthritis of knee (SNOMED CT 011187475) 13. Hearing loss 14. Tremor (SNOMED CT 80373771) 15. Sleep apnea (SNOMED CT 84233232) 16. Gout (SNOMED CT 10762495) 17. Hyperlipidemia (SNOMED CT 30113753) 18. Asthma (SNOMED CT 059602205) 19. Impotence of organic origin 20. Pain in right knee (SNOMED CT 436476797896637) 21. Seborrheic Dermatitis, Unspecified Active Out Patient [...] BY MOUTH ONCE ACTIVE DAILY FOR ALLERGIES 8) CYANOCOBALAMIN 1000MCG TAB [...] TAKE THREE TABLETS BY MOUTH TWICE ACTIVE (S) DAILY 17) PROPRANOLOL HCL 120MG SA CAP TAKE ONE CAPSULE BY ACTIVE (S) MOUTH DAILY 18) ROSUVASTATIN CA 40MG TAB TAKE ONE TABLET BY MOUTH ACTIVE (S) EVERY EVENING AFTER SUPPER FOR CHOLESTEROL 19) [...] TAKE ONE CAPSULE BY MOUTH THREE ACTIVE (S) TIMES A DAY Active Non-VA Medications Status [...] ALBUMIN 3.6 g/dL 3.5 - 5.0 BMI:BMI: 31.7 PE:General: PAVE: Impression: Plan: Recall: Return sooner if any clinical signs of [...] as results of the physical exam and inside solar sales consultant opinions and recommendations as sought. Alternatives [...] on this visit was given information My [employer] service and encouraged to enroll if not already having done so. /george/ ULYSSES ARAGON DPM PODIATRY ATTENDING Signed: 10/28/2023 11:33 10/28/2023 ADDENDUM STATUS: COMPLETED Please remove from view. Entered in error. /george/ ULYSSES ARAGON DPM PODIATRY ATTENDING Signed: 10/28/2023 12:32 ULYSSES ARAGON [facility]
--- OUTSIDE RECORDS SUMMARY | 2024-08-15 16:39 | XMS_ITS | Encounter Summary ---
Author Name [facility] Organization [facility] Address [address] [place] [address] Care Team Providers Care Bus Info Consultant Name Role Phone RAMY CASTILLO Primary Care [...] TYRESE MEDEX BRON E Dec 16, 2018 [id number] [phone] AGNES,A JUAN PATIENT ANTHEM BCBS OF [place] (BLUECARD) MEDICARE SUPPLEMEN TYRESE MEDEX BRONZ E Dec 16, 2018 [id number] AGNES,A JUAN PATIENT [place]BS [place] MEDICARE SUPPLEMEN TYRESE MEDEX BRONZ E Dec 16, 2018 [id number] AGNES,A JUAN PATIENT BCBS ANN [facility] E [facility] Apr 17, 2011 [id number] [phone] AGNES,A JUAN PATIENT [employer] ([id number]) PRESCRIPT ION L4TA* Apr 17, 2011 [id number] AGNES,A JUAN PATIENT [place]) MEDICARE SUPPLEMEN TYRESE PSUED O MEDEX HEAR[facility]amp NG Dec 16, 2018 [id number] [phone] AGNES,A JUAN PATIENT MEDICARE (WNR) MEDICARE (M) PART A Dec 16, 2018 PART A [id number] AGNES,A JUAN PATIENT MEDICARE (WNR) MEDICARE (M) PART B Dec 16, 2018 PART B [id number] AGNES,A JUAN PATIENT MEDICARE (WNR) MEDICARE (M) PART A Dec 16, 2018 PART A [id number] AGNES,A JUAN PATIENT MEDICARE (WNR) MEDICARE (M) PART B Dec 16, 2018 PART B [id number] AGNES,A JUAN PATIENT MEDICARE (WNR) MEDICARE (M) PART A Dec 16, 2018 PART A [id number] AGNES,A JUAN PATIENT MEDICARE (WNR) MEDICARE (M) PART B Dec 16, 2018 PART B [id number] CT90 AGNES,A JUAN PATIENT Selected Encounter This section includes the information on record at MD for the Encounter. Date/Time Encounter Type Encounter Description Reason Pro vider Source Jul 23, 2024 08:11 AM Outpatient Encounter PRIMARY CARE/MEDICINE IHE Encounter Template Text not used by MD Plan of Treatment: Future Appointments (+ 6 months) and Future Tests (+/- 45 days) The Plan of Treatment section includes future care activities for the patient from all MD treatmentfacilities. This section includes future appointments and future orders which are active, pending or scheduled. Future Appointments This section includes appointments that were scheduled to occur 6 months from the date of the Encounter, up to a maximum of 20 appointments. The data comes from all MD treatment facilities. Appointment Date/Time Appointment Type Appointme nt Facility Name Aug 15, 2024 02:30 PM AMBULATORY - MEDICINE [facility] [place] [facility] Aug 21, 2024 08:00 AM AMBULATORY - MEDICINE [facility] [place] [facility] Nov 12, 2024 01:00 PM AMBULATORY - MEDICINE DAVID TODD ([facility]) Social History: Smoking Status (Most current) and Tobacco Use (All prior to encounter date) This section includes the most current, and the historical, smoking and tobacco- related health factors from the MD facility where the Encounter took place. Current Smoking Status This section includes the most current smoking, or tobacco-related health factor, from the MD facility where the Encounter took place. Date/Time Current Smoking Status Comment Facil ity Oct 27, 2022 02:44 PM [facility] Tobacco Use History This section includes a history of the smoking, or tobacco-related health factors, that were collected on or before the date of the Encounter. The data comes from the MD facility where the Encounter took place. Date/Time Smoking Status/Tobacco Use Comment F acility Oct 27, 2022 02:44 PM 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 Oct 27, 2022 02:44 PM [facility]BACCO USER [facility] Advance Directives: All historical and current Section Date Range: From patient's date of to the date document was created. This section includes ALL of a patient's completed or amended MD Advance and Rescinded Directives. The entries below indicate that a directive exists for the patient, but an actual copy is not included with this document. The data comes from all MD facilities. Date Advance Directives Provider Source Mar 01, 2014 ADVANCE DIRECTIVE VARSHA ESQUIVEL ([facility]) Encounter Notes: All associated encounter notes This section contains the clinical notes associated to the Encounter. Date/Time Encounter Note(s) Provider Source Jul 23, 2024 08:11 AM PRIMARY CARE SECUR E MESSAGING: LOCAL TITLE: PRIMARY CARE SECURE MESSAGING STANDARD TITLE: PRIMARY CARE SECURE MESSAGING DATE OF NOTE: JUL 23, 2024@08:11 ENTRY DATE: JUL 23, 2024@08:11:47 AUTHOR: RUY CABA COSIGNER: URGENCY: STATUS: COMPLETED PRIMARY CARE SECURE MESSAGING Has ADDENDA ------Original Message ------ Sent: 07/21/2024 06:35 PM ET From: SERGE ALARCON To: Chelo CASTILLO_PRIMARY CARE_[facility] Subject: Test:Labs done by Renal Dr Attachments: Labs Jul 19, [email or web address].jpg (582.87 KB), Labs Jul 19, [id number].jpg (349.64 KB) Dr Smith had me do one last set of labs and I have a final appointment with her on Aug 01. Enclosed are my final labs with her. My renal function is back to normal and I am no longer grossly anemic. Serge /george/ MACHO FAROOQ Signed: 07/23/2024 08:11 Receipt Acknowledged By: 07/23/2024 11:53 /george/ ESTEBAN HENDERSON LPN LICENSED PRACTICAL NURSE 07/23/2024 10:38 /george/ GLENN GILLIAM RN REGISTERED NURSE 07/23/2024 ADDENDUM STATUS: COMPLETED Labs included on [employer] message have been added under nursing note dated 07/23/24 /trev GILLIAM RN REGISTERED NURSE Signed: 07/23/2024 10:42 Receipt Acknowledged By: * AWAITING SIGNATURE * RAMY CASTILLO 07/23/2024 ADDENDUM STATUS: COMPLETED CORRECTION: Labs cannot be saved from [employer] message. /george/ GLENN GILLIAM RN REGISTERED NURSE Signed: 07/23/2024 10:46 07/23/2024 ADDENDUM STATUS: COMPLETED Labs in PCP review fax folder /trev HENDERSON LPN LICENSED PRACTICAL NURSE Signed: 07/23/2024 11:53 Receipt Acknowledged By: * AWAITING SIGNATURE * RAMY CASTILLO,ZACHERY [place] ([facility])
--- OUTSIDE RECORDS SUMMARY | 2024-08-15 16:39 | XMS_ITS | Continuity of Care Document ---
Author Name [facility] Organization [facility] Care Team Providers Care Arson Investigator Name Role Phone [facility] Unavailable Unavailable Problems Combined list of problems from Department of Defense and Veterans Affairs facilities. It does not include entries that were removed or entered in error. Problem Status Onset Date Problem Type Date of Resolution Comments Source Asthma (SNOMED CT 452331979) Active Condition [place] ([facility]) Benign hypertension Active Condition [place] ([facility]) Benign prostatic hyperplasia Active Condition Jun 04, 2013 Entered By: NELLA KIDD Comment: With hematuria neg eval Dr Son 05/2013 [place] ([facility]) Cervical spondylosis Active Condition May 05, 2019 Entered By: ENRICO MENDOSA Comment: C6-[address] Serrano 2018 Entered By: ENRICO MENDOSA Comment: 10/03 xray: minimal retrolithiasis of C4 on C5 &C5 on C6, repeat sent to scan [place] Chronic ischemic heart disease (SNOMED CT 527311663) Active Condition Mar 17, 2011 Entered By: NELLA KIDD Comment: Age 48 [place] and [address] Hua 2018 Entered By: ENRICO MENDOSA Comment: ECHO 12/06/2018 mod LVH, EF 50-60%, report sent to scan [place] ([facility]) Chronic ulcer of foot Active Condition [place] ([facility]) Crush syndrome Active Condition [place] ([facility]) Diabetes mellitus Active Condition [place] ([facility]) Gout (SNOMED CT 96440654) Active Condition [place] ([facility]) Hearing loss Active Condition [place] ([facility]) Hyperlipidemia (SNOMED CT 52849983) Active Condition [place] ([facility]) Impotence of organic origin Active Condition [place] ([facility]) Liver Function Tests Abnormal (SCT 245371051) Active Condition [place] ([facility]) Obesity Active Condition [place] ([facility]) Osteoarthritis of knee (SNOMED CT 216448176) Active Condition Mar 17, 2011 Entered By: NELLA KIDD Comment: Left Knee scopes 1990 and 1996 [place] ([facility]) Pain in right knee (SNOMED CT 966375378028257) Active Condition Mar 17 1 Entered By: NELLA KIDD Comment: Left knee arthroscopic surgeries [place] ([facility]) Rhabdomyolysis Active Condition [facility] ([facility]) Seborrheic Dermatitis, Unspecified Active Condition [place] ([facility]) Sleep apnea (SNOMED CT 27571401) Active Condition Mar 17, 2011 Entered By: NELLA KIDD Comment: FREDY [place] ([facility]) Steatosis of liver Active Condition [place] ([facility]) Tremor (SNOMED CT 66243104) Active Condition Mar 17, 2011 Entered By: NELLA KIDD Comment: Dr Argueta and Dolores [place] ([facility]) Diagnosis: ICD-10-CM 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 2 diabetes mellitus with foot ulcer Active Diagnosis [facility] [place] [facility] Diagnosis: ICD-10-CM I87.2 Venous insufficiency (chronic) (peripheral) Active Diagnosis [facility] [place] [facility] Diagnosis: ICD-10-CM 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 [place] [facility] Diagnosis: ICD-10-CM R94.5 Abnormal results of liver function studies Active Diagnosis [place] ([facility]) Diagnosis: ICD-10-CM K76.0 Fatty (change of) liver, not elsewhere classified Active Diagnosis [place] ([facility]) Diagnosis: ICD-10-CM R25.1 Tremor, unspecified Active [facility] [place] [facility] Diagnosis: ICD-10-CM G47.30 Sleep apnea, unspecified Active Diagnosis [place] Diagnosis: ICD-10-CM K70.9 Alcoholic liver disease, unspecified Active Diagnosis [facility] Diagnosis: ICD-10-CM E66.9 Obesity, unspecified Active Diagnosis [facility] Diagnosis: ICD-10-CM H90.3 Sensorineural hearing loss, bilateral Active Diagnosis [facility] Diagnosis: ICD-10-CM E11.9 Type 2 diabetes mellitus without complications Active Diagnosis [facility] Diagnosis: ICD-10-CM B35.1 Tinea unguium Active Diagnosis [facility] Medications Combined list of outpatient medications from Department of Defense and [facility] facilities.Medications provided include 1) outpatient medications from the last 15 months, and 2) patient-reported medications. Medication Details Route Status Patient Instructions Prescription Expires Prescription Number Last Dispense Date Ordering Provider Order Date Order Qty Source ALBUTEROL 90MCG/ACTUA T (CFC-F) INHL,ORAL,8 .5GM DOSE COUNTER INHALE 2 PUFFS BY MOUTH FOUR TIMES DAILY NEEDED FOR BREATHIN G RESPIR ATORY (INHAL ATION) ACTIVE 11/29/2024 [id number] 4 RAMY CASTILLO 2023 1 [place] ([facility]) ALBUTEROL 90MCG/ACTUA T (CFC-F) INHL,ORAL,8 .5GM DOSE COUNTER INHALE 2 PUFFS BY MOUTH FOUR TIMES DAILY NEEDED RESPIR ATORY (INHAL ATION) DISCONT INUED 11/09/2023 [id number] 4 RAMY CASTILLO 2022 1 [place] ([facility]) ALBUTEROL SO4 0.083% INHL,3ML INHALE 1 AMPULE IN NEBULIZE R EVERY 6 HOURS NEEDED FOR BREATHIN G RESPIR ATORY (INHAL ATION) ACTIVE 11/29/2024 [id number] 4 RAMY CASTILLO 2023 240 [place] ([facility]) ALLOPURINOL 100MG TAB TAKE ONE-HALF TABLET BY MOUTH ONCE DAILY FOR GOUT ORAL ACTIVE 05/04/2025 [id number] 5 RAMY CASTILLO 2023 45 [place] ([facility]) ALLOPURINOL 100MG TAB TAKE ONE-HALF TABLET BY MOUTH EVERY 48 HOURS FOR GOUT ORAL DISCONT INUED (EDIT) 04/13/2025 [id number] 4 RAMY CASTILLO 2023 23 [place] ([facility]) ALLOPURINOL 300MG TAB TAKE ONE TABLET BY MOUTH DAILY FOR GOUT ORAL DISCONT INUED (EDIT) 11/29/2024 [id number] 4 RAMY CASTILLO 2023 90 [place] ([facility]) ALLOPURINOL 300MG TAB TAKE ONE TABLET BY MOUTH DAILY FOR GOUT ORAL DISCONT INUED 11/09/2023 [id number] 4 RAMY CASTILLO 2022 90 [place] ([facility]) AMLODIPINE BESYLATE 5MG TAB TAKE ONE TABLET BY MOUTH ONCE DAILY FOR BLOOD PRESSURE /HEART, DO NOT TAKE WITH GRAPEFRU IT JUICE ORAL ACTIVE 05/04/2025 [id number] 5 RAMY CASTILLO 2023 90 [place] ([facility]) AMOXICILLIN TRIHYDRATE 875MG/CLAVU LANATE K 125MG TAB TAKE 1 TABLET BY MOUTH TWICE DAILY FOR INFECTIO N CAUSED BY BACTERIA FOR INFECTIO N ORAL 01/07/2024 [id number] BRET URIOSTEGUI 2023 20 [facility] ASPIRIN 81MG TAB,EC TAKE ONE TABLET BY MOUTH DAILY ORAL ACTIVE Tahir KIDD 2010 [place] ([facility]) BACITRACIN 500UNT/GM OINT,TOP APPLY THIN LAYER TOPICALL Y ONCE DAILY FOR INFECTIO N TOPICA L 08/10/2024 [id number] 4 BRET URIOSTEGUI 2023 60 [facility] [place] CETIRIZINE HCL 10MG TAB TAKE ONE TABLET BY MOUTH ONCE DAILY FOR ALLERGIE S ORAL ACTIVE 07/07/2025 [id number] 4 RAMY CASTILLO Gita 2023 90 [facility] CETIRIZINE HCL 10MG TAB TAKE ONE TABLET BY MOUTH ONCE DAILY FOR ALLERGIE S ORAL DISCONT INUED 05/10/2024 [id number] 4 RAMY CASTILLO 2022 90 [place] ([facility]) CHOLECALCIF MANI 25MCG (1,000UNIT) TAB TAKE TWO TABLETS BY MOUTH DAILY ORAL ACTIVE KIDD,D BLAISE PADILLA 2011 [place] ([facility]) COENZYME Q10 CAP/TAB 100MG po DAILY ACTIVE KIDD,D AVITahir PADILLA 2010 [place] ([facility]) CYANOCOBALA MIN 1000MCG TAB TAKE ONE TABLET BY MOUTH ONCE DAILY FOR PREVENTI ON OF VITAMIN B12 DEFICIEN CY ORAL ACTIVE 11/29/2024 [id number] 4 [place]IN [place] 2023 90 [place] ([facility]) CYANOCOBALA MIN 1000MCG TAB TAKE ONE TABLET BY MOUTH ONCE DAILY FOR PREVENTI ON OF VITAMIN B12 DEFICIEN CY ORAL DISCONT INUED 05/10/2024 [id number] 4 EVIN CASTILLORAD[place]ARY[place] 2022 90 [place] ([facility]) DOXYCYCLINE HYCLATE 100MG TAB TAKE ONE TABLET BY MOUTH TWICE DAILY ORAL 09/14/2023 [id number] BRET URIOSTEGUI 2023 20 [facility] FINASTERIDE 5MG TAB TAKE ONE TABLET BY MOUTH DAILY FOR PROSTATE ORAL ACTIVE 11/29/2024 [id number] 4 TENAMINAL EVINENMA 2023 90 [place] ([facility]) FINASTERIDE 5MG TAB TAKE ONE TABLET BY MOUTH DAILY FOR PROSTATE ORAL DISCONT INUED 11/09/2023 [id number] 4 RAMY CASTILLO 2022 90 [place] ([facility]) FLUTICASONE PROPIONATE 50MCG/SPRAY SOLN,NASAL, 16GM INSTILL 1 SPRAY INTO EACH NOSTRIL ONCE DAILY NEEDED FOR NASAL IRRITATI ON/INFLA MMATION NASAL ACTIVE 11/09/2024 [id number] 4 RAMY CASTILLO 2023 2 [place] ([facility]) IPRATROPIUM BR 0.06% SOLN,SPRAY, NASAL INSTILL 2 SPRAYS INTO EACH NOSTRIL THREE TIMES A DAY FOR ALLERGIE S NASAL ACTIVE 11/29/2024 [id number] 4 RAMY CASTILLO 2023 45 [place] ([facility]) KETOCONAZOL E 2% SHAMPOO SHAMPOO SMALL AMOUNT TOPICALL Y ONCE DAILY NEEDED FOR FUNGAL INFECTIO N OF THE SKIN TOPICA L ACTIVE 11/09/2024 [id number] 4 RAMY CASTILLO 2023 120 [place] ([facility]) METFORMIN HCL 500MG 24HR TAB,SA TAKE ONE TABLET BY MOUTH ONCE DAILY ORAL DISCONT INUED BY PROVIDE R 08/15/2024 [id number] 4 RAMY CASTILLO 2023 90 [facility] OLODATEROL 2.5MCG/TIOT ROPIUM 2.5MCG/ACTU AT INHL,ORAL,6 0D,4GM INHALE 2 PUFFS (1 DOSE) BY MOUTH ONCE DAILY RESPIR ATORY (INHAL ATION) ACTIVE 06/08/2025 [id number] 4 RAMY CASTILLO 2023 1 [place] ([facility]) OLODATEROL 2.5MCG/TIOT ROPIUM 2.5MCG/ACTU AT INHL,ORAL,6 0D,4GM INHALE 2 PUFFS (1 DOSE) BY MOUTH ONCE DAILY RESPIR ATORY (INHAL ATION) DISCONT INUED 10/10/2024 [id number] 4 RAMY CASTILLO 2023 1 [facility] OLODATEROL 2.5MCG/TIOT ROPIUM 2.5MCG/ACTU AT INHL,ORAL,6 0D,4GM INHALE 2 PUFFS (1 DOSE) BY MOUTH ONCE DAILY RESPIR ATORY (INHAL ATION) DISCONT INUED 01/27/2024 [id number] 4 RAMY CASTILLO 2022 1 [place] ([facility]) OTHER CAP/TAB LIVER ELIXIR ONE CAP po TWICE DAILY ACTIVE Tahir KIDD 2010 [place] ([facility]) PRIMIDONE 50MG TAB TAKE THREE TABLETS BY MOUTH TWICE DAILY ORAL DISCONT INUED 09/03/2023 [id number] 3 LINN LUTZ Y 2022 540 [facility] PRIMIDONE 50MG TAB TAKE THREE TABLETS BY MOUTH TWICE DAILY ORAL 06/27/2024 [id number] 4 LINN LUTZ Y 2023 540 [facility] [place] [facility] PROPRANOLOL HCL 120MG CAP,SA TAKE ONE CAPSULE BY MOUTH DAILY ORAL DISCONT INUED 09/25/2023 [id number] 3 RAMY CASTILLO 2022 90 [place] ([facility]) PROPRANOLOL HCL 120MG CAP,SA TAKE ONE CAPSULE BY MOUTH DAILY ORAL 06/27/2024 [id number] 4 LINN LUTZ Y 2023 90 [facility] ROSUVASTATI N CA 40MG TAB TAKE ONE TABLET BY MOUTH EVERY EVENING AFTER SUPPER FOR CHOLESTE ROL ORAL SUSPEND ED 10/19/2024 [id number] 5 RAMY CASTILLO 2023 90 [place] ([facility]) ROSUVASTATI N CA 40MG TAB TAKE ONE TABLET BY MOUTH EVERY EVENING AFTER SUPPER FOR CHOLESTE ROL ORAL DISCONT INUED 11/09/2023 [id number] 4 RAMY CASTILLO 2022 90 [place] ([facility]) SILDENAFIL CITRATE 100MG TAB TAKE ONE TABLET BY MOUTH NEEDED TAKE 1 HOUR PRIOR TO SEXUAL ACTIVITY DO NOT USE WITHIN 24 HOURS OF USING NITROGLY CERIN ORAL ACTIVE 07/20/2025 [id number] 5 RAFAEL MCGRATH 2024 18 [place] ([facility]) SILDENAFIL CITRATE 100MG TAB TAKE ONE TABLET BY MOUTH NEEDED TAKE 1 HOUR PRIOR TO SEXUAL ACTIVITY DO NOT USE WITHIN 24 HOURS OF USING NITROGLY CERIN ORAL DISCONT INUED 05/10/2024 [id number] 4 ANNA RAMY Pelayo 2022 6 [place] ([facility]) VALSARTAN 80MG TAB TAKE ONE TABLET BY MOUTH DAILY ORAL DISCONT INUED BY PROVIDE R 07/25/2024 [id number] 4 RAMY CASTILLO 2023 90 [place] ([facility]) VALSARTAN 80MG TAB TAKE ONE TABLET BY MOUTH DAILY ORAL DISCONT INUED 10/27/2023 [id number] 3 RAMY CASTILLO 2022 90 [place] ([facility]) ZAFIRLUKAST 20MG TAB TAKE ONE TABLET BY MOUTH TWICE DAILY ORAL SUSPEND ED 11/29/2024 [id number] 5 RAMY CASTILLO 2023 180 [place] ([facility]) ZAFIRLUKAST 20MG TAB TAKE ONE TABLET BY MOUTH TWICE DAILY ORAL DISCONT INUED 11/09/2023 [id number] 4 RAMY CASTILLO 2022 180 [place] ([facility]) ZONISAMIDE 100MG CAP TAKE ONE CAPSULE BY MOUTH THREE TIMES A DAY ORAL ACTIVE 10/10/2024 [id number] 4 RAMY CASTILLO 2023 270 [facility] [place] ZONISAMIDE 100MG CAP TAKE ONE CAPSULE BY MOUTH THREE TIMES A DAY ORAL DISCONT INUED 10/07/2024 [id number] 4 LINN LUTZ 2023 270 [facility] [place] ZONISAMIDE 100MG CAP TAKE ONE CAPSULE BY MOUTH THREE TIMES A DAY ORAL DISCONT INUED 09/03/2023 [id number] 3 LINN LUTZ 2022 270 [facility] Allergies, Adverse Reactions, Alerts Combined list of allergies from Department of Defense and Veterans Affairs facilities. It does not include entries that were removed or entered in error. Substance Category Reaction Severity Reaction type Status Date Reported Comments Source CHLORAPREP ONE STEP APPLICATOR Propensity to adverse reactions to drug (finding) Itching MILD active 1 [facility] CHLORHEXIDINE GLUCONATE/ISP ROPYL ALCOHOL Propensity to adverse reactions to drug (finding) Itching active 4 [facility] Immunizations Combined list of available immunizations from the Department of Defense and Veterans Affairs facilities. Immunization Series Date Given Administered By Site Reaction Lot Number CVX Code Drug Slicing Machine Operator Status Comments Source COVID-19 (MODERNA), MRNA, LNP-S, PF, 50 MCG/0.5 ML (AGES 12+ YEARS) 5 2023 ESTEBAN HENDERSON RIGHT DELTO ID [id number] 312 complet ed [place] ([facility]) INFLUENZA, UNSPECIFIED FORMULATION 2023 88 complet ed [facility] INFLUENZA, HIGH-DOSE, QUADRIVALENT 2022 ESTEBAN HENDERSON RIGHT DELTO ID [id number] 197 complet ed [place] ([facility]) RSV, BIVALENT, PROTEIN SUBUNIT RSVPREF, DILUENT RECONSTITUTED , 0.5 ML, PF 2022 ESTEBAN HENDERSON LEFT DELTO ID [id number] 305 complet ed [place] ([facility]) INFLUENZA, UNSPECIFIED FORMULATION 2021 88 complet ed [facility] COVID-19 (PFIZER), MRNA, LNP-S, PF, 30 MCG/0.3 ML DOSE 3 2021 208 complet ed [facility] INFLUENZA VACCINE, QUADRIVALENT, ADJUVANTED 2020 205 complet ed [place] ([facility]) COVID-19 (PFIZER), MRNA, LNP-S, PF, 30 MCG/0.3 ML DOSE 3 2020 208 complet ed [facility] TDAP 2020 115 complet ed [place] ([facility]) COVID-19 (PFIZER), MRNA, LNP-S, PF, 30 MCG/0.3 ML DOSE 1 2020 208 complet ed [facility] PNEUMOCOCCAL POLYSACCHARID E PPV23 2019 33 complet ed [facility] COVID-19 (PFIZER), MRNA, LNP-S, PF, 30 MCG/0.3 ML DOSE 2 2019 208 complet ed [facility] ZOSTER RECOMBINANT 2 2019 187 complet ed [place] ([facility]) ZOSTER RECOMBINANT 1 2018 187 complet ed [place] ([facility]) INFLUENZA, INJECTABLE, QUADRIVALENT, PRESERVATIVE FREE 2018 150 complet ed Site: Left Deltoid [place] ([facility]) PNEUMOCOCCAL CONJUGATE PCV 13 2018 133 complet ed [place] ([facility]) INFLUENZA, SEASONAL, INJECTABLE 2017 141 complet ed [facility] INFLUENZA, SEASONAL, INJECTABLE 2016 141 complet ed Site: Left Deltoid [place] ([facility]) FLU,3 YRS (HISTORICAL) 2015 88 complet ed [facility] FLU,3 YRS (HISTORICAL) 2014 88 complet ed [facility] FLU,3 YRS (HISTORICAL) 2013 88 complet ed [facility] FLU,3 YRS (HISTORICAL) 2013 88 complet ed [place] [facility] ZOSTER (SHINGLES) (HISTORICAL) 2013 121 complet ed [place] ([facility]) FLU,3 YRS (HISTORICAL) 2012 88 complet ed Site: Left Deltoid [place] ([facility]) FLU,3 YRS (HISTORICAL) 2011 88 complet ed Site: Right Deltoid [place] ([facility]) FLU,3 YRS (HISTORICAL) 2010 88 complet ed [place] [facility] [place] DTAP, UNSPECIFIED FORMULATION 2010 107 complet ed Site: Right Deltoid [place] ([facility]) PNEUMOCOCCAL, UNSPECIFIED FORMULATION 2010 109 complet ed Site: Left Deltoid [place] ([facility]) FLU,3 YRS (HISTORICAL) 2009 88 complet ed [facility] Results Combined list of recent chemistry, hematology and other laboratory results from Department of Defense and Veterans Affairs, ranging from 15 months to all on record, depending upon the facility. Order Name Results Value Reference Range Date Interpretation Specimen Comments Source CULTURE, WOUND PANEL(C. D.H.) GRAM STAIN(cdh) comment 10/27 Specimen Type: FOOT Comment: ~For Test: CULTURE,WOU ND PANEL(C.D.H .) ~left foot dm foot ulcer no abx on board. SENT TO Refer to CPRS: [place] [employer] for Lab Results Ordering Provider: DONG URIOSTEGUI Report Released Date/Time: Oct 28, 2023 11:23 AM Reporting Lab[facility] [place] [facility] [address] [address] Performing Lab: [facility] [place] [facility] [address] [address] [facility] CULTURE, WOUND PANEL(C. D.H.) CULTURE,WO UND(cdh) comment 10/27 Specimen Type: FOOT Comment: ~For Test: CULTURE,WOU ND PANEL(C.D.H .) ~left foot dm foot ulcer no abx on board. SENT TO Refer to CPRS: [place] [employer] for Lab Results Ordering Provider: DONG URIOSTEGUI Report Released Date/Time: Oct 28, 2023 11:23 AM Reporting Lab: [facility] [place] [facility] [address] [address] Performing Lab: [facility] [place] [facility] [address] [address] [facility] CBC AND DIFF (AUTO) LEUKOCYTES [#/VOLUME] IN BLOOD BY AUTOMATED COUNT 8.17 10*3/uL 4.50 - 11.00 10/27 Specimen Type: BLOOD No comment entered. Ordering Provider: DONG URIOSTEGUI Report Released Date/Time: Oct 28, 2023 11:20 AM Reporting Lab: [facility] [place] [address] [address] Performing Lab: [facility] [address] [address] [facility] CBC AND DIFF (AUTO) ERYTHROCYT ES [#/VOLUME] IN BLOOD BY AUTOMATED COUNT 4.30 10*6/uL 4.23 - 5.66 10/27 Specimen Type: BLOOD No comment entered. Ordering Provider: DONG URIOSTEGUI Report Released Date/Time: Oct 28, 2023 11:20 AM Reporting Lab: [facility] [address] [address] Performing Lab: [facility] [address] [address] [facility] CBC AND DIFF (AUTO) HEMOGLOBIN [MASS/VOLU ME] IN BLOOD 13.8 g/dL 12.8 - 17 10/27 Specimen Type: BLOOD No comment entered. Ordering Provider: DONG URIOSTEGUI Report Released Date/Time: Oct 28, 2023 11:20 AM Reporting Lab: [facility] [address] [address] Performing Lab: [facility] [address] [address] [facility] CBC AND DIFF (AUTO) HEMATOCRIT [VOLUME FRACTION] OF BLOOD BY AUTOMATED COUNT 40.8 39.2 - 50.4 10/27 Specimen Type: BLOOD No comment entered. Ordering Provider: DONG URIOSTEGUI Report Released Date/Time: Oct 28, 2023 11:20 AM Reporting Lab: [facility] [address] [address] Performing Lab[facility] [place] [address] [address] [facility] CBC AND DIFF (AUTO) MCV [ENTITIC VOLUME] BY AUTOMATED COUNT 94.9 fL 82 - 99 10/27 Specimen Type: BLOOD No comment entered. Ordering Provider: DONG URIOSTEGUI Report Released Date/Time: Oct 28, 2023 11:20 AM Reporting Lab: [facility] [place] [facility] [address] [address] Performing Lab: [facility] [place] [facility] [address] [address] [facility] CBC AND DIFF (AUTO) MCHC [MASS/VOLU ME] BY AUTOMATED COUNT 33.8 g/dL 30.8 - 35.1 10/27 Specimen Type: BLOOD No comment entered. Ordering Provider: DONG URIOSTEGUI Report Released Date/Time: Oct 28, 2023 11:20 AM Reporting Lab: [facility] [place] [facility] [address] [address] Performing Lab: [facility] [place] [facility] [address] [address] [facility] [facility] CBC AND DIFF (AUTO) PLATELETS [#/VOLUME] IN BLOOD BY AUTOMATED COUNT 131 10*3/uL 140 - 360 10/27 L Specimen Type: BLOOD No comment entered. Ordering Provider: DONG URIOSTEGUI Report Released Date/Time: Oct 28, 2023 11:20 AM Reporting Lab: [facility] [place] [facility] [address] [address] Performing Lab: [facility] [place] [facility] [address] [address] [facility] CBC AND DIFF (AUTO) ERYTHROCYT E DISTRIBUTI ON WIDTH [RATIO] BY AUTOMATED COUNT 13.8 12.0 - 16.0 10/27 Specimen Type: BLOOD No comment entered. Ordering Provider: DONG URIOSTEGUI Report Released Date/Time: Oct 28, 2023 11:20 AM Reporting Lab: [facility] [place] [facility] [address] [address] Performing Lab: [facility] [place] [facility] [address] [address] [facility] CBC AND DIFF (AUTO) MONOCYTES [#/VOLUME] IN BLOOD BY AUTOMATED COUNT 0.51 10*3/uL 0.30 - 1.10 10/27 Specimen Type: BLOOD No comment entered. Ordering Provider: DONG URIOSTEGUI Report Released Date/Time: Oct 28, 2023 11:20 AM Reporting Lab: [facility] [address] [address] Performing Lab: [facility] [address] [address] [facility] CBC AND DIFF (AUTO) MCH [ENTITIC MASS] BY AUTOMATED COUNT 32.1 pg 26.2 - 32.6 10/27 Specimen Type: BLOOD No comment entered. Ordering Provider: DONG URIOSTEGUI Report Released Date/Time: Oct 28, 2023 11:20 AM Reporting Lab: [facility] [address] [place] [phone] Performing Lab: [facility] [address] [place] [phone] [facility] CBC AND DIFF (AUTO) NEUTROPHIL S/100 LEUKOCYTES IN BLOOD BY AUTOMATED COUNT 59.3 43.7 - 75.8 10/27 Specimen Type: BLOOD No comment entered. Ordering Provider: DONG URIOSTEGUI Report Released Date/Time: Oct 28, 2023 11:20 AM Reporting Lab: [facility] [address] [place] [phone] Performing Lab: [facility] [address] [place] [phone] [facility] CBC AND DIFF (AUTO) LYMPHOCYTE S/100 LEUKOCYTES IN BLOOD BY AUTOMATED COUNT 30.7 14.0 - 42.3 10/27 Specimen Type: BLOOD No comment entered. Ordering Provider: DONG URIOSTEGUI Report Released Date/Time: Oct 28, 2023 11:20 AM Reporting Lab: [facility] [address] [place] [phone] Performing Lab: [facility] [address] [facility] [phone] [facility] CBC AND DIFF (AUTO) MONOCYTES/ 100 LEUKOCYTES IN BLOOD BY AUTOMATED COUNT 6.2 5.1 - 13.7 10/27 Specimen Type: BLOOD No comment entered. Ordering Provider: DONG URIOSTEGUI Report Released Date/Time: Oct 28, 2023 11:20 AM Reporting Lab: [facility] [address] [facility] [phone] Performing Lab: [facility] [address] [facility] [phone] [facility] CBC AND DIFF (AUTO) EOSINOPHIL S/100 LEUKOCYTES IN BLOOD BY AUTOMATED COUNT 3.2 0.4 - 6.8 10/27 Specimen Type: BLOOD No comment entered. Ordering Provider: DONG URIOSTEGUI Report Released Date/Time: Oct 28, 2023 11:20 AM Reporting Lab: [facility] [address] [facility] [phone] Performing Lab: [facility] [address] [facility] [phone] [facility] CBC AND DIFF (AUTO) BASOPHILS/ 100 LEUKOCYTES IN BLOOD BY AUTOMATED COUNT 0.4 0.1 - 2.0 10/27 Specimen Type: BLOOD No comment entered. Ordering Provider: DONG URIOSTEGUI Report Released Date/Time: Oct 28, 2023 11:20 AM Reporting Lab: [facility] [address] [facility] [phone] Performing Lab: [facility] [address] [facility] [phone] [facility] CBC AND DIFF (AUTO) NEUTROPHIL S [#/VOLUME] IN BLOOD BY AUTOMATED COUNT 4.84 10*3/uL 2.20 - 7.60 10/27 Specimen Type: BLOOD No comment entered. Ordering Provider: DONG URIOSTEGUI Report Released Date/Time: Oct 28, 2023 11:20 AM Reporting Lab: [facility] [address] [facility] [phone] Performing [facility]: [facility] [place] [facility] [address] [address] [facility] [place] [facility] CBC AND DIFF (AUTO) LYMPHOCYTE S [#/VOLUME] IN BLOOD BY AUTOMATED COUNT 2.51 10*3/uL 1.00 - 3.20 10/27 Specimen Type: BLOOD No comment entered. Ordering Provider: DONG URIOSTEGUI Report Released Date/Time: Oct 28, 2023 11:20 AM Reporting Lab: [facility] [place] [facility] [address] [address] Performing Lab: [facility] [place] [facility] [address] [address] [facility] [place] [facility] CBC AND DIFF (AUTO) EOSINOPHIL S [#/VOLUME] IN BLOOD BY AUTOMATED COUNT 0.26 10*3/uL 0.03 - 0.44 10/27 Specimen Type: BLOOD No comment entered. Ordering Provider: DONG URIOSTEGUI Report Released Date/Time: Oct 28, 2023 11:20 AM Reporting Lab: [facility] [place] [facility] [address] [address] Performing Lab: [facility] [place] [facility] [address] [address] [facility] [place] [facility] CBC AND DIFF (AUTO) BASOPHILS [#/VOLUME] IN BLOOD BY AUTOMATED COUNT 0.03 10*3/uL 0.01 - 0.13 10/27 Specimen Type: BLOOD No comment entered. Ordering Provider: DONG URIOSTEGUI Report Released Date/Time: Oct 28, 2023 11:20 AM Reporting Lab: [facility] [place] [facility] [address] [address] Performing Lab: [facility] [place] [facility] [address] [address] [facility] [place] [facility] CBC AND DIFF (AUTO) IMMATURE GRANULOCYT ES/100 LEUKOCYTES IN BLOOD BY AUTOMATED COUNT 0.2 0.0 - 0.7 10/27 Specimen Type: BLOOD No comment entered. Ordering Provider: DONG URIOSTEGUI Report Released Date/Time: Oct 28, 2023 11:20 AM Reporting Lab: [facility] [place] [facility] [address] [address] Performing Lab: [facility] [place] [facility] [address] [address] [facility] [place] [facility] CBC AND DIFF (AUTO) IMMATURE GRANULOCYT ES [#/VOLUME] IN BLOOD 0.02 10*3/uL 0.00 - 0.06 10/27 Specimen Type: BLOOD No comment entered. Ordering Provider: DONG URIOSTEGUI Report Released Date/Time: Oct 28, 2023 11:20 AM Reporting Lab: [facility] [place] [facility] [address] [address] Performing Lab: [facility] [place] [address] [address] [facility] [place] [facility] BASIC METABOLI C PANEL (fasting ) UREA NITROGEN [MASS/VOLU ME] IN SERUM OR PLASMA 10 mg/dL 7 - 10/09 Specimen Type: SERUM No comment entered. Ordering Provider: DONG URIOSTEGUI Report Released Date/Time: Oct 10, 2023 09:53 AM Reporting Lab: [facility] [place] [facility] [address] [address] Performing Lab: [facility] [place] [address] [address] [facility] [place] [facility] BASIC METABOLI C PANEL (fasting ) GLUCOSE [MASS/VOLU ME] IN SERUM OR PLASMA 107 mg/dL 65 - 100 10/09 H Specimen Type: SERUM No comment entered. Ordering Provider: DONG URIOSTEGUI Report Released Date/Time: Oct 10, 2023 09:53 AM Reporting Lab: [facility] [place] [facility] [address] [address] Performing Lab: [facility] [place] [address] [address] [facility] [place] [facility] BASIC METABOLI C PANEL (fasting ) SODIUM [MOLES/VOL UME] IN SERUM OR PLASMA 141 mmol/L 135 - 145 10/09 Specimen Type: SERUM No comment entered. Ordering Provider: DONG URIOSTEGUI Report Released Date/Time: Oct 10, 2023 09:53 AM Reporting Lab: [facility] [address] [address] Performing Lab: [facility]USEN[facility] [address] [address] [facility] [place] [facility] BASIC METABOLI C PANEL (fasting ) POTASSIUM [MOLES/VOL UME] IN SERUM OR PLASMA 4.5 mmol/L 3.5 - 5.0 10/09 Specimen Type: SERUM No comment entered. Ordering Provider: DONG URIOSTEGUI Report Released Date/Time: Oct 10, 2023 09:53 AM Reporting Lab: [facility]ITALRCO[facility]OSPITALTRN [facility] CENTERUSE[address] [address] Performing Lab: [facility]ENTERUSETS [address] [address] [facility]ITALRCO[facility] HOSPITALTRN [facility]ENTERUSE [facility] BASIC METABOLI C PANEL (fasting ) CHLORIDE [MOLES/VOL UME] IN SERUM OR PLASMA 107 mmol/L 100 - 110 10/09 Specimen Type: SERUM No comment entered. Ordering Provider: DONG URIOSTEGUI Report Released Date/Time: Oct 10, 2023 09:53 AM Reporting Lab: [facility]ITALRCO[facility] HOSPITALTRN [facility]ENTERUSE[address] [address] Performing Lab: [facility]ENTERUSETS [address] [address] [facility] [place] [facility] BASIC METABOLI C PANEL (fasting ) CARBON DIOXIDE, TOTAL [MOLES/VOL UME] IN SERUM OR PLASMA 25 meq/L 20 - 30 10/09 Specimen Type: SERUM No comment entered. Ordering Provider: DONG URIOSTEGUI Report Released Date/Time: Oct 10, 2023 09:53 AM Reporting Lab: [facility]ENTERUSE[address] [address] Performing Lab: [facility] [address] [address] [facility]ITALRCO[facility] HOSPITALTRN [facility] CENTERUSE [facility] BASIC METABOLI C PANEL (fasting ) CREATININE [MASS/VOLU ME] IN SERUM OR PLASMA 0.87 mg/dL 0.50 - 1.40 10/09 Specimen Type: SERUM No comment entered. Ordering Provider: DONG URIOSTEGUI Report Released Date/Time: Oct 10, 2023 09:53 AM Reporting Lab: [facility] [place] [facility] [address] [address] Performing Lab: [facility] [address] [address] [facility]ENTERUSE [facility] BASIC METABOLI C PANEL (fasting ) GLOMERULAR FILTRATION RATE/1.73 SQ M.PREDICTE D [VOLUME RATE/AREA] IN SERUM, PLASMA OR BLOOD BY CREATININE -BASED FORMULA (CKD-EPI 2020) >90mL/mi n 60 10/09 Specimen Type: SERUM No comment entered. Ordering Provider: DONG URIOSTEGUI Report Released Date/Time: Oct 10, 2023 09:53 AM Reporting Lab: [facility] TRN [facility]ENTERUS[facility] [address] [address] Performing Lab: [facility]ITALRCO[facility] HOSPITALTRN [facility]ENTERUSE[address] [address] [facility]ENTERUSE [facility] CBC AND DIFF (AUTO) LEUKOCYTES [#/VOLUME] IN BLOOD BY AUTOMATED COUNT 4.63 10*3/uL 4.50 - 11.00 10/09 Specimen Type: BLOOD No comment entered. Ordering Provider: DONG URIOSTEGUI Report Released Date/Time: Oct 10, 2023 09:53 AM Reporting Lab: [facility] TRN [facility] [address] [address] Performing Lab: [facility] TRN [facility] CENTERUSETS [address] [address] [facility]ENTERUSE [facility] CBC AND DIFF (AUTO) ERYTHROCYT ES [#/VOLUME] IN BLOOD BY AUTOMATED COUNT 4.43 10*6/uL 4.23 - 5.66 10/09 Specimen Type: BLOOD No comment entered. Ordering Provider: DONG URIOSTEGUI Report Released Date/Time: Oct 10, 2023 09:53 AM Reporting Lab: [facility] [place] [facility] [address] [address] Performing Lab: [facility] [place] [facility] [address] [address] [facility] [place] [facility] CBC AND DIFF (AUTO) HEMOGLOBIN [MASS/VOLU ME] IN BLOOD 14.4 g/dL 12.8 - 17 10/09 Specimen Type: BLOOD No comment entered. Ordering Provider: DONG URIOSTEGUI Report Released Date/Time: Oct 10, 2023 09:53 AM Reporting Lab: [facility] [place] [facility] [address] [address] Performing Lab: [facility] [place] [facility] [address] [address] [facility] [place] [facility] CBC AND DIFF (AUTO) HEMATOCRIT [VOLUME FRACTION] OF BLOOD BY AUTOMATED COUNT 42.7 39.2 - 50.4 10/09 Specimen Type: BLOOD No comment entered. Ordering Provider: DONG URIOSTEGUI Report Released Date/Time: Oct 10, 2023 09:53 AM Reporting Lab: [facility] [place] [facility] [address] [address] Performing Lab: [facility] [place] [facility] [address] [address] [facility] [place] [facility] CBC AND DIFF (AUTO) MCV [ENTITIC VOLUME] BY AUTOMATED COUNT 96.4 fL 82 - 99 10/09 Specimen Type: BLOOD No comment entered. Ordering Provider: DONG URIOSTEGUI Report Released Date/Time: Oct 10, 2023 09:53 AM Reporting Lab: [facility] [place] [facility] [address] [address] Performing Lab: [facility] [place] [facility] [address] [address] [facility] [place] [facility] CBC AND DIFF (AUTO) MCHC [MASS/VOLU ME] BY AUTOMATED COUNT 33.7 g/dL 30.8 - 35.1 10/09 Specimen Type: BLOOD No comment entered. Ordering Provider: DONG URIOSTEGUI Report Released Date/Time: Oct 10, 2023 09:53 AM Reporting Lab: [facility] [place] [facility] [address] [address] Performing Lab: [facility] [place] [facility] [address] [address] [facility] [place] [facility] CBC AND DIFF (AUTO) PLATELETS [#/VOLUME] IN BLOOD BY AUTOMATED COUNT 150 10*3/uL 140 - 360 10/09 Specimen Type: BLOOD No comment entered. Ordering Provider: DONG URIOSTEGUI Report Released Date/Time: Oct 10, 2023 09:53 AM Reporting Lab: [facility] [place] [facility] [address] [address] Performing Lab: [facility] [place] [facility] [address] [address] [facility] [place] [facility] CBC AND DIFF (AUTO) ERYTHROCYT E DISTRIBUTI ON WIDTH [RATIO] BY AUTOMATED COUNT 13.7 12.0 - 16.0 10/09 Specimen Type: BLOOD No comment entered. Ordering Provider: DONG URIOSTEGUI Report Released Date/Time: Oct 10, 2023 09:53 AM Reporting Lab: [facility] [place] [facility] [address] [address] Performing Lab: [facility] [place] [facility] [address] [address] [facility] [place] [facility] CBC AND DIFF (AUTO) MONOCYTES [#/VOLUME] IN BLOOD BY AUTOMATED COUNT 0.37 10*3/uL 0.30 - 1.10 10/09 Specimen Type: BLOOD No comment entered. Ordering Provider: DONG URIOSTEGUI Report Released Date/Time: Oct 10, 2023 09:53 AM Reporting Lab: [facility] [place] [facility] [address] [address] Performing Lab: [facility] [place] [facility] [address] [address] [facility] [place] [facility] CBC AND DIFF (AUTO) MCH [ENTITIC MASS] BY AUTOMATED COUNT 32.5 pg 26.2 - 32.6 10/09 Specimen Type: BLOOD No comment entered. Ordering Provider: DONG URIOSTEGUI Report Released Date/Time: Oct 10, 2023 09:53 AM Reporting Lab: [facility] [place] [facility] [address] [address] Performing Lab: [facility] [place] [facility] [address] [address] [facility] [place] [facility] CBC AND DIFF (AUTO) NEUTROPHIL S/100 LEUKOCYTES IN BLOOD BY AUTOMATED COUNT 36.3 43.7 - 75.8 10/09 L Specimen Type: BLOOD No comment entered. Ordering Provider: DONG URIOSTEGUI Report Released Date/Time: Oct 10, 2023 09:53 AM Reporting Lab: [facility] [place] [facility] [address] [place] [address] Performing Lab: [facility] [place] [facility] [address] [address] [facility] [place] [facility] CBC AND DIFF (AUTO) LYMPHOCYTE S/100 LEUKOCYTES IN BLOOD BY AUTOMATED COUNT 49.0 14.0 - 42.3 10/09 H Specimen Type: BLOOD No comment entered. Ordering Provider: DONG URIOSTEGUI Report Released Date/Time: Oct 10, 2023 09:53 AM Reporting Lab: [facility] [place] [facility] [address] [place] [address] Performing Lab: [facility] [place] [facility] [address] [address] [facility] [place] [facility] CBC AND DIFF (AUTO) MONOCYTES/ 100 LEUKOCYTES IN BLOOD BY AUTOMATED COUNT 8.0 5.1 - 13.7 10/09 Specimen Type: BLOOD No comment entered. Ordering Provider: DONG URIOSTEGUI Report Released Date/Time: Oct 10, 2023 09:53 AM Reporting Lab: [facility] [place] [facility] [address] [place] [address] Performing Lab: [facility] [place] [facility] [address] [place] [address] [facility] [place] [facility] CBC AND DIFF (AUTO) EOSINOPHIL S/100 LEUKOCYTES IN BLOOD BY AUTOMATED COUNT 6.3 0.4 - 6.8 10/09 Specimen Type: BLOOD No comment entered. Ordering Provider: DONG URIOSTEGUI Report Released Date/Time: Oct 10, 2023 09:53 AM Reporting Lab: [facility] [place] [address] [address] Performing Lab: [facility] [place] [address] [address] [facility] [place] [facility] CBC AND DIFF (AUTO) BASOPHILS/ 100 LEUKOCYTES IN BLOOD BY AUTOMATED COUNT 0.2 0.1 - 2.0 10/09 Specimen Type: BLOOD No comment entered. Ordering Provider: DONG URIOSTEGUI Report Released Date/Time: Oct 10, 2023 09:53 AM Reporting Lab: [facility] [place] [address] [address] Performing Lab: [facility] [place] [address] [address] [facility] [place] [facility] CBC AND DIFF (AUTO) NEUTROPHIL S [#/VOLUME] IN BLOOD BY AUTOMATED COUNT 1.68 10*3/uL 2.20 - 7.60 10/09 L Specimen Type: BLOOD No comment entered. Ordering Provider: DONG URIOSTEGUI Report Released Date/Time: Oct 10, 2023 09:53 AM Reporting Lab: [facility] [place] [address] [address] Performing Lab: [facility] [place] [address] [address] [facility] [place] [facility] CBC AND DIFF (AUTO) LYMPHOCYTE S [#/VOLUME] IN BLOOD BY AUTOMATED COUNT 2.27 10*3/uL 1.00 - 3.20 10/09 Specimen Type: BLOOD No comment entered. Ordering Provider: DONG URIOSTEGUI Report Released Date/Time: Oct 10, 2023 09:53 AM Reporting Lab: [facility] [place] [facility] [address] [address] Performing Lab[facility] [place] [facility] [address] [address] [facility] [place] [facility] CBC AND DIFF (AUTO) EOSINOPHIL S [#/VOLUME] IN BLOOD BY AUTOMATED COUNT 0.29 10*3/uL 0.03 - 0.44 10/09 Specimen Type: BLOOD No comment entered. Ordering Provider: ODNG URIOSTEGUI Report Released Date/Time: Oct 10, 2023 09:53 AM Reporting Lab: [facility] [place] [facility] [address] [address] Performing Lab: [facility] [place] [facility] [address] [address] [facility] [place] [facility] CBC AND DIFF (AUTO) BASOPHILS [#/VOLUME] IN BLOOD BY AUTOMATED COUNT 0.01 10*3/uL 0.01 - 0.13 10/09 Specimen Type: BLOOD No comment entered. Ordering Provider: DONG URIOSTEGUI Report Released Date/Time: Oct 10, 2023 09:53 AM Reporting Lab: [facility] [place] [facility] [address] [address] Performing Lab: [facility] [place] [facility] [address] [address] [facility] [place] [facility] CBC AND DIFF (AUTO) IMMATURE GRANULOCYT ES/100 LEUKOCYTES IN BLOOD BY AUTOMATED COUNT 0.2 0.0 - 0.7 10/09 Specimen Type: BLOOD No comment entered. Ordering Provider: DONG URIOSTEGUI Report Released Date/Time: Oct 10, 2023 09:53 AM Reporting Lab: [facility] [place] [facility] [address] [address] Performing Lab: [facility] [place] [address] [address] [facility] [place] [facility] CBC AND DIFF (AUTO) IMMATURE GRANULOCYT ES [#/VOLUME] IN BLOOD 0.01 10*3/uL 0.00 - 0.06 10/09 Specimen Type: BLOOD No comment entered. Ordering Provider: DONG URIOSTEGUI Report Released Date/Time: Oct 10, 2023 09:53 AM Reporting Lab: [facility] [place] [facility] [address] [address] Performing Lab: [facility] [place] [facility] [address] [address] [facility] [place] [facility] LIVER FUNCTION PROTEIN [MASS/VOLU ME] IN SERUM OR PLASMA 6.6 g/dL 6.0 - 8.3 10/09 Specimen Type: SERUM No comment entered. Ordering Provider: DONG URIOSTEGUI Report Released Date/Time: Oct 10, 2023 09:53 AM Reporting Lab: [facility] [place] [facility] [address] [address] Performing Lab: [facility] [place] [facility] [address] [address] [facility] [place] [facility] LIVER FUNCTION ALBUMIN [MASS/VOLU ME] IN SERUM OR PLASMA 3.6 g/dL 3.5 - 5.0 10/09 Specimen Type: SERUM No comment entered. Ordering Provider: DONG URIOSTEGUI Report Released Date/Time: Oct 10, 2023 09:53 AM Reporting Lab: [facility] [place] [facility] [address] [address] Performing Lab: [facility] [place] [facility] [address] [address] [facility] [place] [facility] LIVER FUNCTION ALKALINE PHOSPHATAS E [ENZYMATIC ACTIVITY/V OLUME] IN SERUM OR PLASMA 68 U/L 40 - 150 10/09 Specimen Type: SERUM No comment entered. Ordering Provider: DONG URIOSTEGUI Report Released Date/Time: Oct 10, 2023 09:53 AM Reporting Lab: [facility] [place] [facility] [address] [address] Performing Lab: [facility] [place] [facility] [address] [address] [facility] [place] [facility] LIVER FUNCTION ASPARTATE AMINOTRANS FERASE [ENZYMATIC ACTIVITY/V OLUME] IN SERUM OR PLASMA 25 U/L 5 - 34 03/25 /2024 Specimen Type: SERUM No comment entered. Ordering Provider: DONG URIOSTEGUI Report Released Date/Time: Oct 10, 2023 09:53 AM Reporting Lab: [facility] [place] [facility] [address] [address] Performing Lab: [facility] [address] [address] [facility] [place] [facility] LIVER FUNCTION ALANINE AMINOTRANS FERASE [ENZYMATIC ACTIVITY/V OLUME] IN SERUM OR PLASMA 29 U/L 10/09 Specimen Type: SERUM No comment entered. Ordering Provider: DONG URIOSTEGUI Report Released Date/Time: Oct 10, 2023 09:53 AM Reporting Lab: [facility]US[facility] [address] [address] Performing Lab: [facility]N [facility] CENTERUSE[address] [address] [facility]ENTERUSE [facility] LIVER FUNCTION BILIRUBIN. TOTAL [MASS/VOLU ME] IN SERUM OR PLASMA 0.3 mg/dL 0.2 - 1.2 10/09 Specimen Type: SERUM No comment entered. Ordering Provider: DONG URIOSTEGUI Report Released Date/Time: Oct 10, 2023 09:53 AM Reporting Lab: [facility] [address] [address] Performing Lab: [facility]ENTERUSENICH[facility] [address] [address] [facility] HEPATITI S C ANTIBODY (HCV)-AR C HEPATITIS C VIRUS AB [PRESENCE] IN SERUM NON-REAC TIVE 10/09 Specimen Type: SERUM Comment: Hep C Ab: No HCV antibody detected. If recent infection is suspected or other evidence suggests HCV infection, consider HCV nucleic acid testing Ordering Provider: ROMEO CASTILLO Report Released Date/Time: Jun 03, 2023 11:37 AM Reporting Lab: [facility]ENTERUSE[address] [address] Performing Lab: [facility]ENTERUSE[address] [address] [place] ([facility]) FRAN SCREEN/T ITER NUCLEAR AB [PRESENCE] IN SERUM NEG 06/21 Specimen Type: SERUM No comment entered. Ordering Provider: VICK CARMEN Report Released Date/Time: Jun 21, 2023 03:40 PM Reporting Lab: [address] [address] Performing Lab: [facility] [address] [facility] [address] [facility] CERULOPL ASMIN CERULOPLAS MIN [MASS/VOLU ME] IN SERUM OR PLASMA 26 mg/dL 20 - 60 06/21 Specimen Type: SERUM No comment entered. Ordering Provider: VICK CARMEN Report Released Date/Time: Jun 21, 2023 03:40 PM Reporting Lab: [address] [address] Performing Lab: [facility] [address] [facility] [address] [facility] HEPATITI S A ANTIBODY (IGG) HEPATITIS A VIRUS IGG AB [PRESENCE] IN SERUM Non Reactive 06/21 Specimen Type: SERUM Comment: Hep A IgG: A 'Non-reacti ve' result indicates no anti-HAV IgG was detected. Ordering Provider: VICK CARMEN Report Released Date/Time: Jun 21, 2023 03:40 PM Reporting Lab: [address] [address] Performing Lab: [facility] [address] [facility] [address] [facility] PHOSPHAT IDYLETHA NOL (QUEST) PHOSPHATID YLETHANOL [MASS/VOLU ME] IN BLOOD comment 06/21 Specimen Type: BLOOD Comment: REFERENCE RANGE: <20 ng/mL REFERENCE RANGE: <20 ng/mL See LDT Notes Notes and Comments This drug testing is for medical treatment only. Analysis was performed as non-forensi c testing and these results should be used only by healthcare providers to render diagnosis or treatment, or to monitor progress of medical conditions. LDT Notes: These tests were developed and their analytical performance characteris tics have been determined by [employer] . They have not been cleared or approved by the FDA. These assays have been validated pursuant to the CLIA regulations and are used for clinical purposes. Healthcare Providers needing Interpretat ion assistance, please contact us at [phone] ([phone])M-F, 8am to 10pm EST Test Performed by [email or web address] Rosa, [employer] [facility], [address] [place] [address] Tanner Martinez M.D., Ph.D., Director of Laboratorie s , CLIA [id number] TEST PERFORMED AT: , PEth 16:0/18:1 (POPEth) >400 H PEth 16:0/18:2 (PLPEth) 353 H Ordering Provider: VICK CARMEN Report Released Date/Time: Jun 21, 2023 03:40 PM Reporting Lab: [facility] [address] [address] Performing Lab: [facility] [address] [address] [facility] Vital Signs Combined list of inpatient and outpatient Vital Signs from Department of Defense and Veterans Affairs, ranging from 12 months to all on record, depending upon the facility. Vital Sign Value Date Comments Source TEMPERATURE 97.7 05/21/2024 08:28:16 [facility] SYSTOLIC BLOOD PRESSURE 175 05/03/20 24 14:04:42 [place] ([facility]) DIASTOLIC BLOOD PRESSURE 87 024 14:04:42 [facility]) PULSE OXIMETRY 100 05/03/2024 14:04:42 [facility]) WEIGHT 235.6 05/03/2024 14:04:42 [facility]) BMI 33kg/m2 05/03/2024 14:04:42 [facility]) PAIN 4 05/03/2024 14:04:42 [facility]) TEMPERATURE 97.9 05/03/2024 14:04:42 [place] ([facility]) PULSE 64 05/03/2024 14:04:42 [place] ([facility]) RESPIRATION 18 05/03/2024 14:04:42 [place] ([facility]) TEMPERATURE 97.9 02/06/2024 11:39:57 [facility] TEMPERATURE 98.4 01/09/2024 11:41:26 [facility] SYSTOLIC BLOOD PRESSURE 134 12/05/19 11:08:48 [facility] DIASTOLIC BLOOD PRESSURE 77 024 11:08:48 [facility] PULSE OXIMETRY 98 12/05/2023 11:08:48 [facility] PAIN 2 12/05/2023 11:08:48 [facility] TEMPERATURE 97.3 12/05/2023 11:08:48 [facility] PULSE 64 12/05/2023 11:08:48 [facility] RESPIRATION 18 12/05/2023 11:08:48 [facility] Encounters Combined list of: 1) Encounters from Department of Veterans Affairs facilities going back up to thelast 18 months. 2) Encounters from the Department of Defense facilities going back up to 280 months. Location Location Details Encounter Type Encounter Number Reason For Visit Attending Provider ADM Date DC Date Status Disposition Source [facility] OFFICE O/P EST LOW 20-29 MIN [id number] Diagnos is: ICD-10- CM B35.1 [place] unguium
Tahir CLAUDIO AVID 03/16 [facility] O/P EST MOD 30-39 MIN [id number] Diagnos is: ICD-10- CM E11.9 Type 2 diabete s mellitu s without complic ations< br/> Tahir CLAUDIO AVID 04/11 [facility] Outpatient Encounter [id number] 04/13 [facility] REPL WATER CHAMBER, PAP DEV [id number] Diagnos is: ICD-10- CM G47.30 Sleep apnea, unspeci fied
GIANNA BAIRES A 04/13 [facility] Outpatient Encounter [id number] 04/29 [facility] Out[facility] Encounter [id number] 04/29 [facility] COLLJ & INTERPJ DATA EA 30 D [id number] [id number] Diagnos is: ICD-10- CM G47.30 Sleep apnea, unspeci fied
GIANNA BAIRES A 05/02 [facility] Outpatient Encounter [id number] Chelo CASTILLO 05/05 [facility] ([facility] OFFICE O/P EST MOD 30-39 MIN [id number] [id number] Diagnos is: ICD-10- CM R94.5 Abnorma l results of liver functio n studies
Chelo CASTILLO 05/10 [place] ([facility]) [facility] HEARING AID REPAIR/MOD IFYING [id number] Diagnos is: ICD-10- CM H90.3 Sensori neural hearing loss, bilater al
,OSMEL OLE L 05/10 [facility] HEARING AID FITTING/CH ECKING [id number] [id number] Diagnos is: ICD-10- CM Z46.1 Encount er for fitting and adjustm ent of hearing aid<br/ > AMBER LEYVA L 05/23 [facility] Outpatient Encounter [id number] 05/24 [facility] Outpatient Encounter [id number] 05/30 [facility] Outpatient Encounter [id number] 06/16 [facility] Outpatient Encounter [id number] 06/21 [facility] OFFICE O/P NEW LOW 30-44 MIN [id number] [id number] Diagnos is: ICD-10- CM K70.9 Alcohol ic liver disease , unspeci fied
LUZ MARIA CARMEN 06/21 [facility] FEE [id number] [id number] Diagnos is: ICD-10- CM E66.9 Obesity , unspeci fied
LUZ MARIA CARMEN 06/21 [facility] Out[facility] Encounter [id number] 06/23 [facility] Out[facility] Encounter [id number] [id number] 06/27 [facility] Out[facility] Encounter [id number] [id number] 06/27 [facility] Out[facility]counter [id number] [id number] 06/28 [facility] [id number] [id number] Diagnos is: ICD-10- CM R94.5 Abnorma l results of liver functio n studies
ESTEBAN JOY 06/28 [facility] OFFICE O/P NEW MOD 45-59 MIN [id number] [id number] Diagnos is: ICD-10- CM R94.5 Abnorma l results of liver functio n studies
LUZ MARIA CARMEN 07/04 [facility] Out[facility] Encounter [id number] 07/15 [facility] Outpatient Encounter [id number] [id number] 07/22 [facility] Out[facility] Encounter [id number] [id number] 07/22 [facility] Out[facility]counter [id number] [id number] 07/26 [facility] Outpatient Encounter [id number] [id number] 07/29 [facility] Outpatient Encounter [id number] [id number] 08/02 [facility] Outpatient Encounter [id number] 08/10 [facility] OFFICE O/P EST HI 40 MIN [id number] [id number] Diagnos is: ICD-10- CM 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
GIANNA BAIRES A 08/10 [place] [facility] Outpatient Encounter [id number] 08/12 [facility] OFFICE O/P EST MOD 30 MIN [id number] [id number] Diagnos is: ICD-10- CM 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 2 diabete s mellitu s with foot ulcer<b r/> MARY GRACE URIOSTEGUI RLES D 08/15 [facility] Out[facility] Encounter [id number] 08/15 [facility] Out[facility] Encounter [id number] [id number] 08/15 [facility] Outpatient Encounter [id number] [id number] Chelo CASTILLO 08/15 [facility] Outpatient Encounter [id number] Chelo CASTILLO 08/15 [facility] Out[facility] Encounter [id number] [id number] 08/16 [facility] Out[facility] Encounter [id number] [id number] MARY GRACE URIOSTEGUI D 08/17 [facility] ([facility] OFFICE O/P EST MOD 30 MIN [id number] [id number] Diagnos is: ICD-10- CM R94.5 Abnorma l results of liver functio n studies
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 2 diabete s mellitu s with foot ulcer<b r/> MARY GRACE URIOSTEGUI D 08/22 [facility] Out[facility] Encounter [id number] 08/26 [facility] OFFICE O/P EST LOW 20 MIN [id number] [id number] Diagnos is: ICD-10- CM 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 2 diabete s mellitu s with foot ulcer<b r/> MARY GRACE URIOSTEGUI D 08/29 [facility] Out[facility] Encounter [id number] 08/31 [facility] Out[facility] Encounter [id number] [id number] MARY GRACE URIOSTEGUI D 09/02 [facility] OFFICE O/P EST LOW 20 MIN [id number] [id number] Diagnos is: ICD-10- CM 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
DELON CHATMAN E 10/02 [facility] Out[facility] Encounter [id number] [id number] Chelo CASTILLO 10/02 [facility] Out[facility] Encounter [id number] [id number] 10/05 [facility] Outpatient Encounter [id number] [id number] ASHKAN FELIPE 10/06 [facility] Outpatient Encounter [id number] 10/09 [facility] OFFICE O/P EST LOW 20 MIN [id number] [id number] Diagnos is: ICD-10- CM 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
MARY GRACE URIOSTEGUI D 10/09 [facility] Out[facility] Encounter [id number] [id number] MARY GRACE URIOSTEGUI D 10/10 [facility] Out[facility] Encounter [id number] 10/16 [facility] Outpatient Encounter [id number] [id number] 10/16 [facility] Outpatient Encounter [id number] 10/16 [place] [facility] ([facility] OFFICE O/P EST MOD 30 MIN [id number] [id number] Diagnos is: ICD-10- CM K76.0 Fatty (change of) liver, not elsewhe re classif ied<br/ > Chelo CASTILLO 10/18 [place] ([facility] OFFICE O/P EST MOD 30 MIN [id number] [id number] Diagnos is: ICD-10- CM 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 2 diabete s mellitu s with foot ulcer<b r/> MARY GRACE URIOSTEGUI D 10/27 [facility] Outpatient Encounter [id number] MARY GRACE URIOSTEGUI 10/30 [facility] Out[facility] Encounter [id number] 11/02 [facility] Outpatient Encounter [id number] [id number] LUZ MARIA CARMEN 11/02 [facility] Outpatient Encounter [id number] [id number] 11/06 [facility] Outpatient Encounter [id number] [id number] 11/06 [facility] Outpatient Encounter [id number] [id number] 11/14 [facility] Outpatient [facility]counter [id number] 11/15 [facility] OFFICE O/P EST LOW 20 MIN [id number] Diagnos is: ICD-10- CM 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 2 diabete s mellitu s with foot ulcer<b r/> MARY GRACE URIOSTEGUI D 11/20 [facility] Outpatient [facility]counter [id number] 11/22 [facility] Outpatient Encounter [id number] 11/28 [facility] ([facility] OFFICE O/P EST MOD 30 MIN [id number] [id number] Diagnos is: ICD-10- CM R94.5 Abnorma l results of liver functio n studies
Chelo CASTILLO 11/28 [place] ([facility] OFFICE O/P EST LOW 20 MIN [id number] [id number] Diagnos is: ICD-10- CM 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 2 diabete s mellitu s with foot ulcer<b r/> MARY GRACE URIOSTEGUI RLES D 12/04 [facility] OFFICE O/P EST LOW 20 MIN [id number] [id number] Diagnos is: ICD-10- CM 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
MARY GRACE URIOSTEGUI D 12/13 [facility] Outpatient Encounter [id number] 12/13 [facility] Out[facility] Encounter [id number] 01/04 [facility] Outpatient Encounter [id number] 01/08 [facility] OFFICE O/P EST LOW 20 MIN [id number] [id number] Diagnos is: ICD-10- CM L84 Corns and callosi ties
MARY GRACE URIOSTEGUI D 01/08 [facility] Out[facility] Encounter [id number] GABI VELASCO 01/09 [facility] HEARING AID REPAIR/MOD IFYING [id number] [id number] Diagnos is: ICD-10- CM Z46.1 Encount er for fitting and adjustm ent of hearing aid<br/ > GABI VELACSO 01/10 [facility] Outpatient Encounter [id number] 01/16 [facility] Outpatient Encounter [id number] [id number] RADHA SHERMAN 01/16 [facility] Out[facility] Encounter [id number] FABIENNE MCCRARY 01/22 [facility] Out[facility] Encounter [id number] FABIENNE MCCRARY 01/22 [facility] OFFICE O/P EST LOW 20 MIN [id number] [id number] Diagnos is: ICD-10- CM 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 2 diabete s mellitu s with foot ulcer<b r/> MARIETTA SMITH DPM 01/26 [facility] Out[facility] Encounter [id number] [id number] MARIETTA SMITH DPM 01/26 [facility] Outpatient Encounter [id number] 01/29 [facility] OFFICE O/P EST LOW 20 MIN [id number] [id number] Diagnos is: ICD-10- CM 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 2 diabete s mellitu s with foot ulcer<b r/> MARY GRACE URIOSTEGUI D 02/05 [facility] Out[facility] Encounter [id number] [id number]/22 [facility] Outpatient Encounter [id number] [id number] FABIENNE MCCRARY 03/05 [facility] Outpatient Encounter [id number] [id number]/27 [facility] OFFICE O/P EST MOD 30 MIN 32964-5.63 1. Diagnos is: ICD-10- CM 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
MARY GRACE URIOSTEGUI RLNATHANAEL D 04/02 [facility] Out[facility] Encounter [id number] 04/06 [facility] Out[facility] Encounter [id number] 1.04/09 [facility] Out[facility] Encounter [id number] 1.04/09 [facility] Out[facility] Encounter [id number] 1.04/10 [facility] Out[facility] Encounter [id number] 1.04/12 [facility] Out[facility] Encounter [id number] 1.04/12 [facility] Out[facility] Encounter [id number] 1.04/17 [facility] [place] [facility] ([facility]) OFF/OP EST MAY X REQ PHY/QHP [id number] [id number] Diagnos is: ICD-10- CM I87.2 Venous insuffi ciency (chroni c) (periph eral)<b r/> ASHKAN FELIPE 04/20 [place] ([facility]) [facility] OFFICE O/P EST MOD 30 MIN [id number] [id number] Diagnos is: ICD-10- CM 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 2 diabete s mellitu s with foot ulcer<b r/> MARY GRACE URIOSTEGUI D 04/23 [facility] Out[facility] Encounter [id number] [id number] MARY GRACE URIOSTEGUI RLNATHANAEL D 04/23 [facility] Outpatient Encounter [id number] [facility] [facility] ([facility] OFFICE O/P EST MOD 30 MIN [id number] [id number] Diagnos is: ICD-10- CM L97.509 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
Chelo CASTILLO 05/03 [place] ([facility] OFFICE O/P EST MOD 30 MIN [id number] [id number] Diagnos is: ICD-10- CM 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
MARY GRACE URIOSTEGUI D 05/07 [facility] ORTHC/PROS TC MGMT SBSQ ENC [id number] [id number] Diagnos is: ICD-10- CM I87.2 Venous insuffi ciency (chroni c) (periph eral)<b r/> Gita LEO 05/08 [facility] Outpatient Encounter [id number] MARY GRACE URIOSTEGUI RLNATHANAEL D 05/17 [facility] OFFICE O/P EST LOW 20 MIN [id number] [id number] Diagnos is: ICD-10- CM 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 2 diabete s mellitu s with foot ulcer<b r/> MARY GRACE URIOSTEGUI D 05/21 [facility] Out[facility] Encounter [id number] [id number] MARY GRACE URIOSTEGUI D 05/24 [facility] Out[facility] Encounter [id number] [id number] MARY GRACE URIOSTEGUI RLNATHANAEL D 05/29 [facility] Out[facility] Encounter [id number] [id number] 05/31 [facility] Out[facility] Encounter [id number] 1[facility]06/05 [facility] Out[facility] Encounter [id number] 1.06/05 [facility] Out[facility]counter [id number] 06/22 [facility] Out[facility] Encounter [id number] [id number] 06/26 [facility] Outpatient Encounter [id number] [id number] MARY GRACE URIOSTEGUI RLNATHANAEL D 06/27 [facility] Out[facility] Encounter [id number] [id number] 07/02 [facility] Out[facility]counter [id number]/03 [facility] Out[facility]counter [id number] 1.07/03 [facility] Outpatient Encounter [id number] RADHA SHERMAN 07/06 [facility] Outpatient Encounter [id number] [id number] Chelo CASTILLO 07/08 [facility] Out[facility] Encounter [id number] 07/09 [facility] Out[facility] Encounter [id number] 07/17 [facility] Out[facility] Encounter [id number] 07/17 [facility] Out[facility]counter [id number] [id number] 07/23 [facility] Out[facility]counter [id number] 08/07 [facility] Out[facility] Encounter [id number] 08/07 [facility] Social History Combined list of available smoking, tobacco, and other social history from Department of Defense and Veterans Affairs facilities. Social History Type Response Date Comment Source Tobacco smoking status [facility] VA-TOBACCO USER EVERY DAY 10/19/2023 [place] ([facility]) History of tobacco use VA-TOBACCO DOESNT USE WI 30 MIN WAKEUP 10/19/2023 [place] ([facility]) History of tobacco use VA-TOBACCO USER EVERY DAY 10/27/2022 [facility] History of tobacco use VA-TOBACCO USER EVERY DAY 09/14/2021 [facility] ([facility]) History of tobacco use VA-TOBACCO NEVER USED 06/12/2019 [place] ([facility]) History of tobacco use VA-TOBACCO FORMER USER 03/22/2018 [place] ([facility]) History of tobacco use QUIT TOBACCO USE > 7 YEARS AGO 07/20/2017 quit after first heart attack [place] ([facility]) History of tobacco use QUIT TOBACCO USE 1-7 YEARS AGO 01/05/2017 [place] ([facility]) History of tobacco use QUIT TOBACCO USE > 7 YEARS AGO 09/17/2015 [place] ([facility]) History of tobacco use QUIT TOBACCO USE > 7 YEARS AGO 03/17/2011 [place] ([facility]) Plan of Care List of future care activities from [facility] facilities. Additional future care activities may be listed in the Assessment and Plan section. Date/Time Care Activity Care Activity Detail Facili ty 08/15/2024 AMBULATORY - MEDICINE [facility] 08[facility]21/2024 [facility]BUL[facility] - [facility]/12/[facility]24 AMBULATORY - MEDICINE AMBULATORY - [facility]IC[facility] ([facility]) Advance Directives List of completed, amended, or rescinded Advance Directives on record at [facility] facilities. An actual copy of the Directive is not included. Date Advance Directive Provider Source 03/01/2014 ADVANCE DIRECTIVE VARSHA [facility]QU[facility] ([facility])
--- OUTSIDE RECORDS SUMMARY | 2024-08-15 16:39 | XMS_ITS | Encounter Summary ---
Author Organization [facility], Address [address] [place] [address] Phone Care Team Providers Care Dental Instructor Name Role Phone Brien Ramirez MD, Timothy Primary Care Provider [phone] Reason for Visit * Reason Comments REY (acute kidney injury) Encounter Details Date Type Department Care Team (Late st Contact Info) Description 08/01/2024 3:30 PM EST Office Visit [facility] [address] [phone] Darshana Smith DO [address] [place] [phone] Acute kidney failure with tubular necrosis (HCC) (Primary Dx) Social History Tobacco Use Types Packs/Day Years Used Date Smoking Tobacco: Never Sex and Gender Information Value Date Recorded Sex Assigned at Not on file Legal Sex Male 11:38 AM EDT Gender Identity Not on file Sexual Orientation Not on file documented as of this encounter Last Filed Vital Signs Vital Sign Reading Time Taken Comments Blood Pressure 122/68 08/01/2024 3:47 PM EST Pulse - - Temperature - - Respiratory Rate - - Oxygen Saturation - - Inhaled Oxygen Concentration - - Weight - - Height - - Body Mass Index - - documented in this encounter Progress Notes * Darshana Smith DO - 08/01/2024 3:30 PM EST Images from the original note were not included. PATIENT: Cheko Meier : 1955 ENCOUNTER: 08/01/2024 PCP: Jose Tesfaye MD HPI: Cheko Meier is a 68 y.o. year old male with a history of hypertension, hyperlipidemia, coronary artery disease with a history of stenting, type 2 diabetes, BPH, and CLARENCE who is here for follow up of acute kidney injury requiring dialysis; sepsis induced ATN and rhabdomyolysis. He reports doing OK since we last saw him. He had a bunionectomy on June 21 and it is healing well. Today he feels at his baseline and denies complaints. ROS: All other systems reviewed and are negative. PAST MEDICAL HISTORY: Patient Active Problem List Diagnosis Date Noted Stage 3a chronic kidney disease (HCC) 04/25/2024 Acute nontraumatic kidney injury, not otherwise specified (HCC) 04/03/2024 Benign hypertension 03/30/2024 Hyperlipidemia 03/30/2024 Type 2 diabetes mellitus with complication ([facility]) 03/30/2024 Acute kidney failure with tubular necrosis ([facility]) 03/10/2024 Atherosclerotic heart disease of makah coronary artery without angina pectoris 03/10/2024 Dependence on renal dialysis ([facility]) 03/10/2024 PAST SURGICAL HISTORY: Past Surgical History: Procedure Laterality Date PERM CATH Right 03/02/2024 SOCIAL HISTORY: Social History Tobacco Use Smoking status: Never Smokeless tobacco: Not on file Substance Use Topics Alcohol use: Not on file FAMILY HISTORY: History reviewed. No pertinent family history. MEDICATIONS: Current Outpatient Medications: allopurinol (ZYLOPRIM) 100 MG tablet, TAKE 0.5 TABLETS BY MOUTH 1 TIME EACH DAY., Disp: 45 tablet, Rfl: 1 amLODIPine (NORVASC) 5 MG tablet, Take 5 mg by mouth 1 (one) time each day, Disp: , Rfl: aspirin (ST CHERY) 81 MG EC tablet, Take 81 mg by mouth, Disp: , Rfl: cetirizine (ZyrTEC) 10 MG tablet, Take 10 mg by mouth, Disp: , Rfl: co-enzyme Q-10 30 MG capsule, Take 30 mg by mouth 1 (one) time each day, Disp: , Rfl: finasteride (PROSCAR) 5 MG tablet, Take 5 mg by mouth, Disp: , Rfl: Multiple Vitamin (multivitamin) tablet, Take 1 tablet by mouth 1 (one) time each day, Disp: , Rfl: Nutritional Supplements (VITAMIN D MAINTENANCE PO), Take by mouth, Disp: , Rfl: omega-3 (FISH OIL) 300 MG capsule, Take by mouth 1 (one) time each day, Disp: , Rfl: primidone (MYSOLINE) 50 MG tablet, Take 150 mg by mouth in the morning and 150 mg in the evening., Disp: , Rfl: propranolol LA (INDERAL LA) 120 MG 24 hr capsule, , Disp: , Rfl: pyridoxine (B-6) 50 MG tablet, Take 50 mg by mouth in the morning., Disp: , Rfl: rosuvastatin (CRESTOR) 40 MG tablet, Take 40 mg by mouth, Disp: , Rfl: Tiotropium [place]-Olodaterol (STIOLTO RESPIMAT IN), Inhale, Disp: , Rfl: zafirlukast (ACCOLATE) 20 MG tablet, Take 20 mg by mouth in the morning and 20 mg in the evening., Disp: , Rfl: zonisamide (ZONEGRAN) 100 MG capsule, Take 100 mg by mouth, Disp: , Rfl: MEDICATION REVIEW: I have reviewed the patient's current medications. ALLERGIES: is allergic to chloral hydrate and chlorhexidine. PHYSICAL EXAM: BP 122/68 Constitutional: No apparent distress Cardiovascular: No friction rub. Pulmonary/Chest: No rales. Extremities: Edema None Psych: AAOX3, pleasant and interactive. LABS: Chemistry Lab Units 07/19/24 1120 06/12/24 1250 05/23/24 1158 05/21/24 1426 04/18/24 1240 04/03/24 1536 12/13/23 0951 CREATININE mg/dL 1.10 1.14 -- 0.96 1.39* 1.92* 0.80 BUN mg/dL -- 17 17 26 10 POTASSIUM mmol/L 4.5 4.4 -- 4.4 4.8 5.0 4.6 SODIUM mmol/L 142 141 -- 141 140 139 139 CO2 mmol/L 22 22 -- 19* 17* 18* 24 CHLORIDE mmol/L 103 101 -- 106 108* 107* 105 ALBUMIN g/dL -- -- -- -- -- 4.1 -- WBC AUTO x10E3/uL 7.7 -- 6.16 -- -- 9.9 -- HEMATOCRIT % 41.9 -- 34.6* -- -- 27.1* -- HEMOGLOBIN g/dL 14.1 -- 11.5* -- -- 9.0* -- PLATELETS AUTO x10E3/uL 148* -- 151 -- -- 236 -- Bone Mineral Lab Units 07/19/24 1120 06/12/24 1250 05/21/24 1426 04/18/24 1240 04/03/24 1536 12/13/23 0951 CALCIUM mg/dL 9.4 9.7 9.0 9.3 9.0 9.4 PHOSPHORUS mg/dL -- -- -- -- 3.9 -- LABORATORY REVIEW: I have reviewed the labs noted above as well as in the chart, in CIS and in Care Everywhere. DOCUMENTATION REVIEW: I have reviewed the applicable outside notes located in the chart, in CIS and in Care Everywhere. ASSESSMENT: 1. 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 He does have a history of hypertension, diabetes, and coronary artery disease but no known history of chronic kidney disease prior to this. His renal function has normalized and been stable for the past several draws; REY resolved without any overt longstanding damage. His BP is in goal today. There are no nephrotoxins noted on his medication list. Thereare no changes necessary today. Given his improvement without evidence of residual renal disease, there is no need to follow up with me regularly. However, I am happy to see him again in the future as needed. His metformin was on hold. Given normalization of his GFR, if it needs to be restarted this should be OK; defer to PCP as he reports last A1c was 4.8%. He will continue on the amlodipine fornow, as he has good BP control. It was a pleasure to see Cheko today. Thank you for allowing me to participate in his care. Please feel free to call with questions or concerns. No orders of the defined types were placed in this encounter. documented in this encounter Plan of Treatment Not on file documented as of this encounter Visit Diagnoses Diagnosis Acute kidney failure with tubular necrosis (HCC)- Primary documented in this encounter Care Teams Dental Instructor Relationship Specialty Start Date End Date Jose Tesfaye MD [address] [place] [address], [address] [place] [address] PCP - General Family Medicine 02/28/24 documented as of this encounter
--- OUTSIDE RECORDS SUMMARY | 2024-08-15 16:39 | XMS_ITS ---
Author Name [facility] [place] Organization [facility] [place] [facility] [place] Address [address] [place] [address] Care Team Providers Care Linen Grader Name Role Phone RAMY CASTILLO Primary Care [...] TYRESE MEDEX BRON E Dec 16, 2018 [id number] AGNES,A JUAN PATIENT ANTHEM BCBS OF [place] (BLUECARD) MEDICARE SUPPLEMEN TYRESE MEDEX BRONZ E Dec 16, 2018 [id number] [phone] AGNES,A JUAN PATIENT [place]BS [place] MEDICARE SUPPLEMEN TYRESE MEDEX BRONZ E Dec 16, 2018 [id number] AGNES,A JUAN PATIENT BCBS ANN HIGH DEDUCTIBL E [facility] [place] [facility] Apr 17, 2011 [id number] AGNES,A JUAN PATIENT EXPRESS SCRIPTS ([id number]) PRESCRIPT ION L4TA* Apr 17, 2011 [id number] AGNES,A JUAN PATIENT [place] ([place] MEDICARE SUPPLEMEN TYRESE PSUED O MEDEX HEARChamp NG Dec 16, 2018 [id number] [phone] AGNES,A JUAN PATIENT MEDICARE (WNR) MEDICARE (M) PART A Dec 16, 2018 PART A [id number] [phone] AGNES,A JUAN PATIENT MEDICARE (WNR) MEDICARE (M) PART B Dec 16, 2018 PART B [id number] [phone] AGNES,A JUAN PATIENT MEDICARE (WNR) MEDICARE (M) PART A Dec 16, 2018 PART A [id number] AGNES,A JUAN PATIENT MEDICARE (WNR) MEDICARE (M) PART B Dec 16, 2018 PART B [id number] [phone] AGNES,A JUAN PATIENT MEDICARE (WNR) MEDICARE (M) PART A Dec 16, 2018 PART A [id number] AGNES,A JUAN PATIENT MEDICARE (WNR) MEDICARE (M) PART B Dec 16, 2018 PART B [id number] [phone] AGNES,A JUAN PATIENT Selected Encounter This section includes the information on record at [place] for the Encounter. Date/Time Encounter Type Encounter Description Reason Provider Source Aug 22, 2023 10:00 AM OFFICE O/P EST LOW 20 MIN PODIATRY ICD-10-CM 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 2 diabetes mellitus with foot ulcer ULYSSES ARAGON E Encounter Template Text not used by [place] Assessments - Encounter Diagnoses This section includes the primary and secondary diagnoses documented for the Encounter. Date/Time Primary/Secondary Diagnosis Diagnosis Name Provider Source Sep 01, 2023 08:18 AM PRIMARY Type 2 diabetes mellitus with foot ulcer ULYSSES ARAGON [place] [facility] [place] [facility] Plan of Treatment: Future Appointments (+ 6 months) and Future Tests (+/- 45 days) The Plan of Treatment section includes future care activities for the patient [facility] [place] [facility]. This section includes future appointments and future orders which are active, pending or scheduled. Future Appointments This section includes appointments that were scheduled to occur 6 months from the date of the Encounter, up to a maximum of 20 appointments. The data comes from all [place] treatment facilities. Appointment Date/Time Appointment Type Appointme nt Facility Name Aug 29, 2023 11:00 AM AMBULATORY [facility] MEDICINE [facility] [place] [facility] Sep 12, 2023 08:00 AM AMBULATORY - MEDICINE [facility] [place] [facility] Sep 14, 2023 07:30 AM AMBULATORY - NEUROLOGY [facility] [place] [facility] Sep 26, 2023 10:30 AM AMBULATORY - MEDICINE [facility] [place] [facility] Oct 03, 2023 01:30 PM AMBULATORY - REHAB MEDICIN E [facility] [place] [facility] Oct 10, 2023 09:30 AM AMBULATORY - MEDICINE [facility] [place] [facility] Oct 17, 2023 11:00 AM AM[facility]ULATORY - NONE [facility] Oct 19, 2023 11:30 AM AMBULATORY - MEDICINE [facility] Oct 28, 2023 10:30 AM AMBULATORY - MEDICINE [facility] [place] [facility] November 21, 2023 09:00 AM AMBULATORY - MEDICINE [facility] [place] [facility] November 29, 2023 01:00 PM AMBULATORY - MEDICINE [facility] December 05, 2023 11:00 AM AMBULATORY - MEDICINE [facility] [place] [facility] December 14, 2023 11:00 AM AMBULATORY - MEDICINE [facility] [place] [facility] Jan 09, 2024 11:30 AM AMBULATORY - MEDICINE [facility] [place] [facility] Jan 11, 2024 01:30 PM AMBULATORY - REHAB MEDICIN E [facility] [place] [facility] Jan 27, 2024 11:00 AM AMBULATORY - MEDICINE [facility] [place] [facility] Feb 06, 2024 11:30 AM AMBULATORY - MEDICINE [facility] [place] [facility] Active, Pending, and Scheduled Orders This section includes a listing of several types of active, pending, and scheduled orders, including clinic medications orders, diagnostic test orders, procedure orders and consult orders; where the start date of the order is 45 days before the date of the Encounter or 45 days after the date of theEncounter. The data comes from all [place] treatment facilities. Test Date/Time Test Type Test Details Facility Name Aug 18, 2023 12:00 AM Laboratory - Chemi stry Order CHEM 7 BLOOD (SER GOLD) SERUM SP [facility] Sep 28, 2023 03:21 PM Consult Order [facility]ITY [facility]-NEUROLOGY Cons [facility] ([facility] Vital Signs: All taken on the encounter date This section contains inpatient and outpatient Vital Signs collected on the date of the Encounter. Date/Time Temperature Pulse Blood Pressure Respiratory Rate SP02 Pain Height Weight Body Mass Index Source Aug 22, 2023 10:05 AM 98.7 72 112/68 93 1 [place] [facility] Social History: Smoking Status (Most current) and Tobacco Use (All prior to encounter date) This section includes the most current, and the historical, smoking and tobacco- related health factors from the [place] facility where the Encounter took place. Current Smoking Status This section includes the most current smoking, or tobacco-related health factor, from the [place] facility where the Encounter took place. Date/Time Current Smoking Status Comment Facil ity Oct 27, 2022 02:44 PM VA-TOBACCO USER EVERY DAY [facility] Tobacco Use History This section includes a history of the smoking, or tobacco-related health factors, that were collected on or before the date of the Encounter. The data comes from the [place] facility where the Encounter took place. 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 This section includes ALL of a patient's completed or amended VA Advance and Rescinded Directives. The entries below indicate that a directive exists for the patient, but an actual copy is not included with this document. The data comes from all [place] facilities. Date Advance Directives Provider Source Mar 01, 2014 ADVANCE DIRECTIVE VARSHA ESQUIVEL ([facility]) Radiology Reports: +/- 30 days of the [...] the Encounter. The data comes from all [place] treatment facilities. Date/Time Radiology Report Provider Source Aug 15, 2023 08:31 AM FOOT 3 OR MORE VIEWS(LEFT): SERGE ALARCON [id number] -1955 M Exm Date: AUG 15, 2023@08:31 Req Phys: ULYSSES ARAGON Pat Loc: CWM/NO/WOUND PROV A (Req'g Loc Img Loc: [facility] 1 Service: Unknown (Case 10 COMPLETE) FOOT 3 OR MORE VIEWS(LEFT) (RAD Detailed) CPT:67236 Proc Modifiers : LEFT CPT Modifiers : LT LEFT SIDE Reason for Study: dfu sub met five Clinical History: hx DFU for several weeks - no probe to bone. Send back to clinic please Report Status: Verified Date Reported: AUG 15, 2023 Date Verified: AUG 15, 2023 Visiting Professor E-Sig:/ES/ED SALEH JR Report: Study: Weight-bearing AP, [...] Primary Interpreting Staff: ED SALEH JR, Radiologist (Visiting Professor) /ED ESCALERA JR [facility] Encounter Notes: All associated encounter notes This section contains the clinical notes associated to the Encounter. 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 Patient had ulcerated this originally in November 2022 and then eventually achieved a brief time of healing just before May and then we ulcerated again in mid May 2023. He has been seen here on follow-up 3 occasions he had x-rays done last week which were negative for osteomyelitis. He has been placed into an offloading shoe to relieve pressure from the wound and has transferred his care here from a wound care center in [place]. He was also seeing a lamp developer in that area. On last visit last week patient had a little bit of erythema and some soreness but the wound itself looked healthy we placed the patient on doxycycline 100 mg by mouth twice daily for 10-day course. There was no significant drainage to culture and treatment was empirical. Patient was also transition from bacitracin which was macerating the wound to topical 10% iodine to be changed at least once daily. Patient returning today for follow-up. Patient brings in a Chem-7 with overall normal readings hemoglobin A1c 5.9 C- reactive protein less than 0.3 and sed rate 5. Also patient is adequately nourished and has a albumin serum level of 4.1. Patient evidently has been restarted up on metformin 500 mg daily by his primary care. Diabetic/ HRF/ PVD LE History: [ ] pvd [ ] pvd interventions [x] neuropathy [ ] meds: [ ] wound active [ ] infection active [ ] wound history yes [ ] amputation hx [ ] deformity [ ] charcot [ ] surgical deformity intervention PMH list CPRS: Active Problem Steatosis of liver K76.0 08/18/2023 [...] 389.9 03/17/2011 NELLA KIDD Tremor (SNOMED CT 19529484) R25.1 07/20/2017 GA ROMEO Sleep apnea (SNOMED CT 26341536) G4 10/27/2015 JOSE DANIEL PRINCE Gout (SNOMED CT 59651296) M10.9 01/05/2017 JANICE CARDENAS Hyperlipidemia (SNOMED CT 71626849) 07/20/2017 GA ROMEO Asthma (SNOMED CT 609911847) J45.40 03/31/2016 NELLA KIDD Impotence of organic origin 607.84 03/17/2011 NELLA KIDD Pain in right knee ([place] [address] 01/25/2018 CHANDU,BOSSMAN Seborrheic Dermatitis, Unspecified 03/17/2011 NELLA KIDD Active Out Patient medications: Active Outpatient Medications [...] TABLET BY MOUTH DAILY ACTIVE (S) FOR GOUT 6) BACITRACIN 500 UNT/GM TOP [...] OLODATEROL/TIOTROP 2.5MCG/ACTUAT 60D INH INHALE 2 ACTIVE (S) PUFFS (1 DOSE) BY MOUTH ONCE DAILY 18) PRIMIDONE 50MG TAB TAKE THREE TABLETS BY MOUTH TWICE ACTIVE (S) DAILY 19) PROPRANOLOL HCL 120MG SA CAP TAKE ONE CAPSULE BY ACTIVE (S) MOUTH DAILY 20) ROSUVASTATIN CA 40MG TAB TAKE ONE TABLET BY MOUTH ACTIVE EVERY EVENING AFTER SUPPER FOR CHOLESTEROL 21) SILDENAFIL CITRATE 100MG TAB TAKE ONE TABLET BY MOUTH ACTIVE (S) NEEDED TAKE 1 HOUR PRIOR TO SEXUAL ACTIVITY DO NOT USE WITHIN 24 HOURS OF USING NITROGLYCERIN 22) VALSARTAN 80MG TAB TAKE ONE TABLET BY MOUTH DAILY ACTIVE (S) 23) ZAFIRLUKAST 20MG TAB TAKE ONE TABLET BY MOUTH TWICE ACTIVE DAILY 24) ZONISAMIDE 100MG CAP TAKE ONE CAPSULE BY [...] LIVER ELIXIR ONE CAP TWICE ACTIVE DAILY 29 Total Medications Imaging reports: X-rays were taken last visit with no evidence of osteomyelitis please see report and last week's note. No indication for repeat x-rays today. Lab Data: CHEM 7 TREND LAB CUMULATIVE SELECTED Collection [...] 137 4.1 105 23 117 H 13 3 HEMOGLOBIN A1C TREND Collection DT Spec HGBA1c 05/05/2023 10:00 BLOOD 5.6 09/07/2022 09:59 BLOOD 5.7 H 02/12/2022 10:15 BLOOD 5.7 H 03/16/2021 09:58 BLOOD 5.7 H 08/28/2020 12:52 BLOOD 6.0 H ALBUMIN Collection DT Specimen Test Name Result Units Ref Range 05/05/2023 10:00 SERUM ALBUMIN 3.5 g/dL 3.5 - 5.0 BMI:BMI: 33.6 Date Vital Measurement Qualifiers 08/22/2023 10:05 Temp F (C) 98.7 (37.1) Pulse 72 BP 112/68 L Arm, Sitting, Adult Cuff, Cuff-Manual Pain 1 POx (L/Min)(%) 93 Room Air PE:General: Wound # 1. Location:sub met five left Measurements post debridement (if any) Length:12mm Width:6-8 mm Depth:0mm Characteristics: Base:granular Tunnelin Underminin Drainage: [x] serosanguanous [ ] bloody clot [ ] purulent Odor: [ ] malodorous [x] no mal odor Surounding Tissues: [x] erythema [x] measurement PAVE: Impression:improved Plan: 1. debride wound 2. continue 10% iodine daily dressings 3. off loading shoe Recall:1 week Return sooner if any clinical signs of [...] as results of the physical exam and database reporting consultant opinions and recommendations as sought. Alternatives [...] -The on this visit was given information [employer] service and encouraged to enroll if not already having done so. /george/ ULYSSES ARAGON DPM PODIATRY ATTENDING Signed: 08/22/2023 16:55 ULYSSES ARAGON [place] [facility]
--- OUTSIDE RECORDS SUMMARY | 2024-08-15 16:39 | XMS_ITS | Clinical Summary ---
Author Organization [facility], Address [address] [place] [address] Phone Care Team Providers Care Wire Brush Maker Name Role Phone Brien Ramirez MD, Jose Primary Care Provider [phone]- [phone] Allergies Active Allergy Reactions Criticality Noted Date Comments Chloral Hydrate High 03/10/2024 Chlorhexidine Rash Medium 08/13/2020 Medications aspirin (ST CHERY) 81 MG EC tablet Take 81 mg by mouth 1 Active cetirizine (ZyrTEC) 10 MG tablet Take 10 mg by mouth 3 Active finasteride (PROSCAR) 5 MG tablet Take 5 mg by mouth 4 Active propranolol LA (INDERAL LA) 120 MG 24 hr capsule 4 Active rosuvastatin (CRESTOR) 40 MG tablet Take 40 mg by mouth 4 Active zonisamide (ZONEGRAN) 100 MG capsule Take 100 mg by mouth 2 Active primidone (MYSOLINE) 50 MG tablet Take 150 mg by mouth in the morning and 150 mg in the evening. Active allopurinol (ZYLOPRIM) 100 MG tabletIndicatio ns:Chronic gout without tophus, not otherwise specified TAKE 0.5 TABLETS BY MOUTH 1 TIME EACH DAY. 45 tablet 1 4 Active pyridoxine (B-6) 50 MG tablet Take 50 mg by mouth in the morning. 4 Active amLODIPine (NORVASC) 5 MG tablet Take 5 mg by mouth 1 (one) time each day Active Tiotropium [place]ox[place]el-Olodate rol (STIOLTO RESPIMAT IN) Inhale Active zafirlukast (ACCOLATE) 20 MG tablet Take 20 mg by mouth in the morning and 20 mg in the evening. Active Multiple Vitamin (multivitamin) tablet Take 1 tablet by mouth 1 (one) time each day Active omega-3 (FISH OIL) 300 MG capsule Take by mouth 1 (one) time each day Active co-enzyme Q-10 30 MG capsule Take 30 mg by mouth 1 (one) time each day Active Nutritional Supplements (VITAMIN D MAINTENANCE PO) Take by mouth Active acetaminophen (TYLENOL) 500 MG tablet Take 2 tablets by mouth 08/01/19 25 Discontin ued(Thera py completed ) folic acid (FOLVITE) 1 MG tablet Take 1 mg by mouth in the morning. 4 08/01/19 25 Discontin ued(Thera py completed ) oxyCODONE (ROXICODONE) 5 MG immediate release tablet TAKE 1 TABLET BY MOUTH EVERY 4 TO 6 HOURS NEEDED FOR 5 DAYS 4 08/01/19 25 Discontin ued(Thera py completed ) predniSONE (DELTASONE) 10 MG tablet PLEASE SEE ATTACHED FOR DETAILED DIRECTIONS 4 08/01/19 25 Discontin ued(Thera py completed ) Active Problems Problem Noted Date Diagnosed Date Stage 3a chronic kidney disease 04/25/2024 Acute nontraumatic kidney injury, not otherwise specified 04/03/2024 Benign hypertension 03/30/2024 Hyperlipidemia 03/30/2024 Type 2 diabetes mellitus with complication 03/30 Acute kidney failure with tubular necrosis 03/10 Atherosclerotic heart diseas e of [place] coronary artery without angina pectoris 03/10/2024 Dependence on renal dialysis 03/10/2024 Resolved Problems Problem Noted Date Diagnosed Date Resolved Date Ulcer of left foot 04/24/2024 5 Benign prostatic hyperplasia 03/30/2024 03/30/2024 Overview (03/30/2024): Jun 04, 2013 Entered By: NELAL KIDD Comment: With hematuria neg eval Dr Son 05/2013 Cellulitis 03/30/2024 03/30/2024 Chronic ischemic heart disease 03/30/2024 03/30/2024 Overview (03/30/2024): Mar 17, 2011 Entered By: NELLA KIDD Comment: Age 48 [facility] and [address] Hua 2018 Entered By: ENRICO MENDOSA Comment: ECHO 12/06/2018 mod LVH, EF 50-60%, report sent to scan Diabetes mellitus 03/30/2024 03/30/2024 Fatty liver 03/30/2024 03/30/2024 Impotence of organic origin 03/30/2024 03/30/2024 Obesity 03/30/2024 03/30/2024 Asthma 03/30/2024 03/30/2024 Stage 5 chronic kidney disease 03/30/2024 04/03/2024 Acute respiratory failure with hypoxia 03/10/2024 07/30/2024 Alcoholic liver damage 12/13/202303/30 Atherosclerosis of aorta 12/13/2023 Sensorineural hearing loss, bilateral 12/13/2023 03/30/2024 History of malignant basal c ell neoplasm of skin 06/29/2022 03/30/2024 Cervical spondylosis 06/26/2021 024 Overview (03/30/2024): May 05, 2019 Entered By: ENRICO MENDOSA Comment: C6-[address] Serrano 2018 Entered By: ENRICO MENDOSA Comment: 10/03 xray: minimal retrolithiasis of C4 on C5 &C5 on C6, repeat sent to scan May 05, 2019 Entered By: ENRICO MENDOSA Comment: C6-[address] Serrano 2018 Entered By: ENRICO MENDOSA Comment: 10/03 xray: minimal retrolithiasis of C4 on C5 &C5 on C6, repeat sent to scan Hearing loss 06/26/2021 03/30/2024 Essential tremor 02/16/2019 03/30/2024 Gout 02/16/2019 03/30/2024 Coronary arteriosclerosis 10/25/2018 Overview (03/30/2024): Last Assessment & Plan: He is asymptomatic today. He denies chest pain, shortness of breath, palpitations like a lightheadedness or syncopal events. He is on aspirin 81 mg daily and should be lifelong, he is on propanolol 20 mg daily, Artie 80 mg daily. His blood pressure is mildly low today at 90/58. He is asymptomatic with this. He was asked to drink some more water perhaps he may be a little dehydrated. His repeat stress test was normal without evidence for ischemia. Repeat echocardiogram shows trivial aortic stenosis as well as trace mitral regurgitation. Encounters Date Type Department Care Team Description 08/01/2024 3:30 PM EST Office Visit [facility] [address] [address] Darshana Smith, DO Acute kidney failure with tubular necrosis (HCC) (Primary Dx) 06/22/2024 Orders Only [facility] [address] [address] Darshana Smith, DO Acute kidney failure with tubular necrosis (HCC) 05/25/2024 Orders Only [facility] [address] [address] Darshana Smith, DO Acute kidney failure with tubular necrosis (HCC) 05/22/2024 Office Communication [facility] [address] [place] [address] Saira Muir from Last 3 Months Immunizations Name Administration Dates Next Due DTaP, Unspecified 03/17/2011 Hepatitis A 04/12/2024,08/26/2023 Influenza Split High Dose Pr eservative Free IM 04/24/2024 Influenza Vaccine, Quadrival ent, Adjuvanted 06/24/2021 Influenza, Quadrivalent, Pre servative Free 04/27/2019,06/26/2018,06/28/2016 Influenza, Unspecified 04/17/2022,2015,06/17/2015,05/19,05/18/2014,06/04/2013,04/19/2012 ,04/17/2011,04/17/2010 Pfizer SARS-COV-2 12/05/2021,,09/09/2020,08/18,09/09/2019 Pneumococcal Conjugate 13-Valent 04/27/2019 Pneumococcal Polysaccharide 07/02/2020 Pneumococcal, Unspecified 03/17/2011 RSV RECOMBINANT 05/10/2023 Shingrix 08/14/2019,06/12/2019 TD Preservative Free 04/21/2001 Tdap 03/17/2021,03/17/2011 Zoster 01/16/2014 Social History Tobacco Use Types Packs/Day Years Used Date Smoking Tobacco: Never Tobacco Cessation:Counseling Given: Not Answered Sex and Gender Information Value Date Recorded Sex Assigned at Not on file Legal Sex Male 11:38 AM EDT Gender Identity Not on file Sexual Orientation Not on file Last Filed Vital Signs Vital Sign Reading Time Taken Comments Blood Pressure 122/68 08/01/2024 3:47 PM EST Pulse 74 03/28/2024 1:00 PM EDT Temperature 36.2 ??C (97.2 ??F) 03/28/2024 1:00 PM ED T Respiratory Rate - - Oxygen Saturation 98% 03/28/2024 1:00 PM EDT Inhaled Oxygen Concentration - - Weight 104 kg (230 lb) 03/28/2024 1:00 PM EDT Height 177.8 cm (5' 10 ) 03/28/2024 1:00 PM EDT Body Mass Index 33 03/28/2024 1:00 PM EDT Plan of Treatment Health Maintenance Due Date Last Done Comments Colorectal Cancer Screening: Annual FOBT 2002 Colorectal Cancer Screening: Colonoscopy 2002 Colorectal Cancer Screening: Sigmoidoscopy 2002 Hepatitis B Vaccine (1 of 3 - Risk 3-dose series) 2013 Diabetes: Hemoglobin A1C 02/28/2024 06/22/2023 Diabetes: Ophthalmology Exam 02/28/2024 Diabetes: Pedal Pulse Checked 02/28/2024 Diabetes: Sensory Foot Exam 02/28/2024 Diabetes: Visual Foot Exam 02/28/2024 Pneumococcal Vaccine: 65+ Years Completed 07/02/2020, 04/27/2019, 03/17/2011 Influenza Vaccine Completed 04/24/2024, , 04/17/2022, Additional history exists Procedures Procedure Name Priority Date/Time Associated Diagnosis Comments CBC AND DIFFERENTIAL Routine 07/19/2024 11:20 AM EST Acute kidney failure with tubular necrosis (HCC) Anemia, not otherwise specified BASIC METABOLIC PANEL Routine 07/19/2024 11:20 AM EST Acute kidney failure with tubular necrosis (HCC) Anemia, not otherwise specified BASIC METABOLIC PANEL Routine 06/12/2024 12:50 PM EST Acute kidney failure with tubular necrosis (HCC) BASIC METABOLIC PANEL Routine 05/21/2024 2:26 PM EST Acute kidney failure with tubular necrosis (HCC) from Last 3 Months Results * (ABNORMAL) CBC and differential (07/19/2024 11:20 AM EST) WBC 7.7 3.4 - 10.8 x10E3/uL [facility] RBC 4.18 4.14 - 5.80 x10E6/uL [facility] Hemoglobin 14.1 13.0 - 17.7 g/dL [facility] Hematocrit 41.9 37.5 - 51.0 % [facility] MCV 100(H) 79 - 97 fL [facility] MCH 33.7(H) 26.6 - 33.0 pg [facility] MCHC 33.7 31.5 - 35.7 g/dL [facility] RDW 11.9 11.6 - 15.4 % [facility] Platelets 148(L) 150 - 450 x10E3/uL [facility] Neutrophils Relative 47 Not Estab. % [facility] Lymphocytes Relative 41 Not Estab. % [facility] Monocytes 7 Not Estab. % [facility] Eosinophils Relative 4 Not Estab. % [facility] Basophils Relative 1 Not Estab. % [facility] Neutrophils Absolute 3.7 1.4 - 7.0 x10E3/uL [facility] Lymphocytes Absolute 3.1 0.7 - 3.1 x10E3/uL [facility] Monocytes Absolute 0.5 0.1 - 0.9 x10E3/uL [facility] Eosinophils Absolute 0.3 0.0 - 0.4 x10E3/uL [facility] Basophils Absolute 0.0 0.0 - 0.2 x10E3/uL [facility] Immature Granulocytes 0 Not Estab. % [facility] Immature Grans (Absolute) 0.0 0.0 - 0.1 x10E3/uL [facility] Blood (Blood, Venous) 07/19/2024 11:20 AM EST 07/19/2024 us Darshana Smith DO LAB BLOOD ORDERABLES Final Re sult [facility] [address] [place] [address] * (ABNORMAL) Basic metabolic panel (07/19/2024 11:20 AM EST) Only the most recent of3 resultswithin the time period is included. Glucose 105(H) 70 - 99 mg/dL [facility] BUN 19 8 - 27 mg/dL [facility] Creatinine 1.10 0.76 - 1.27 mg/dL [facility] eGFR CKD-EPI CR 2020 72 >59 mL/min/1.7 3 [facility] BUN/Creatinine Ratio 17 10 - 24 [facility] Sodium 142 134 - 144 mmol/L [facility] Potassium 4.5 3.5 - 5.2 mmol/L [facility] Chloride 103 96 - 106 mmol/L [facility] Bicarbonate (CO2) 22 20 - 29 mmol/L [facility] Calcium 9.4 8.6 - 10.2 mg/dL [facility] Blood (Blood, Venous) 07/19/2024 11:20 AM EST 07/19/2024 us Darshana Smith DO LAB BLOOD ORDERABLES Final Re sult [facility] [address] [place] [address] from Last 3 Months Insurance MEDICARE [facility] Care Teams Wire Brush Maker Relationship Specialty Start Date End Date Jose Tesfaye MD [address] [place] [address], [address] [place] [address] PCP - General Family Medicine 02/28/24
--- OUTSIDE RECORDS SUMMARY | 2024-08-15 16:39 | XMS_ITS | Encounter Summary ---
Author Organization [facility] Address [address] [place] [address] Phone Care Team Providers Care Dermatologist Name Role Phone Brien Ramirez MD, Jose Primary Care Provider +1- [phone] Encounter Details Date Type Department Care Team (Late st Contact Info) Description 05/07/2024 Documentation Only [facility] [place], [address] [place] [address] Saira Muir [address] [place] [phone] Social History Tobacco Use Types Packs/Day Years [...] on filedocumented in this encounter Care Teams Dermatologist Relationship Specialty Start Date End Date Jose Tesfaye MD [address] [place] [address], [address] [place] [address] PCP - General Family Medicine 02/28/24 documented as of this encounter
--- OUTSIDE RECORDS SUMMARY | 2024-08-15 16:39 | XMS_ITS | Encounter Summary ---
Author Organization [facility] Address [address] [place] [address] Phone Care Team Providers Care Cook Pie Name Role Phone Brien Ramirez MD, Jose Primary Care Provider +1- [phone] Encounter Details Date Type Department Care Team (Late st Contact Info) Description 03/30/2024 Documentation Only [facility] [place], [address] [place] [address] Saira Muir [address] [place] [phone] Social History Tobacco Use Types Packs/Day Years [...] on filedocumented in this encounter Care Teams Cook Pie Relationship Specialty Start Date End Date Jose Tesfaye MD [address] [place] [address], [address] [place] [address] PCP - General Family Medicine 02/28/24 documented as of this encounter
--- OUTSIDE RECORDS SUMMARY | 2024-08-15 16:40 | XMS_ITS ---
Author Name Department of [place] Organization Department [place] Address [address] [place] [address] Care Team Providers Care Sales Exec Name Role Phone RAMY CASTILLO Primary Care [...] TYRESE MEDEX BRON E Dec 16, 2018 [id number] AGNES,A JUAN PATIENT ANTHEM BCBS OF CT (BLUECARD) MEDICARE SUPPLEMEN TYRESE MEDEX BRONZ E Dec 16, 2018 [id number] [phone] AGNES,A JUAN PATIENT BCBS [place] MEDICARE SUPPLEMEN TYRESE MEDEX BRONZ E Dec 16, 2018 [id number] [phone] AGNES,A JUAN PATIENT BCBS ANN HIGH DEDUCTIBL E HEALTH PLAN CONNE CTICU T [facility] Apr 17, 2011 [id number] AGNES,A JUAN PATIENT EXPRESS SCRIPTS ([id number]) PRESCRIPT ION L4TA* Apr 17, 2011 L4TA [id number] AGNES,A JUAN PATIENT [place]BS [place]) MEDICARE SUPPLEMEN TYRESE PSUED O MEDEX HEARI NG Dec 16, 2018 [id number] AGNES,A JUAN PATIENT MEDICARE (WNR) MEDICARE (M) PART A Dec 16, 2018 PART A [id number] AGNES,A JUAN PATIENT MEDICARE (WNR) MEDICARE (M) PART B Dec 16, 2018 PART B [id number] AGNES,A JUAN PATIENT MEDICARE (WNR) MEDICARE (M) PART A Dec 16, 2018 PART A [id number] CT90 AGNES,A JUAN PATIENT MEDICARE (WNR) MEDICARE (M) PART B Dec 16, 2018 PART B [id number] CT90 AGNES,A JUAN PATIENT MEDICARE (WNR) MEDICARE (M) PART A Dec 16, 2018 PART A [id number] [id number] AGNES,A JUAN PATIENT MEDICARE (WNR) MEDICARE (M) PART B Dec 16, 2018 PART B [id number] CT90 AGNES,A JUAN PATIENT Selected Encounter This section includes the information on record at [place] for the Encounter. Date/Time Encounter Type Encounter Description Reason Provider Source Oct 03, 2023 01:30 PM OT EVAL LOW COMPLEX 30 MIN OCCUPATIONAL THERAPY ICD-10-CM R25.1 Tremor, unspecified MACHON,KUN E IHE Encounter Template Text not used by [place] Assessments - Encounter Diagnoses This section includes the primary and secondary diagnoses documented for the Encounter. Date/Time Primary/Secondary Diagnosis Diagnosis Name Provider Source Oct 14, 2023 02:38 PM PRIMARY Tremor, unspecified RONI CHATMANE E [facility] [place] [facility] Plan of Treatment: Future Appointments (+ 6 months) and Future Tests (+/- 45 days) The Plan of Treatment section includes future care activities for the patient [facility] This section includes future appointments and future orders which are active, pending or scheduled. Future Appointments This section includes appointments that were scheduled to occur 6 months from the date of the Encounter, up to a maximum of 20 appointments. The data comes from all [facility] [address]. Appointment Date/Time Appointment Type Appointme nt Facility Name Oct 10, 2023 09:30 AM AMBULATORY - MEDICINE [facility] [place] [facility] Oct 17, 2023 11:00 AM AMBULATORY - NONE [facility] Oct 19, 2023 11:30 AM AMBULATORY - MEDICINE [facility] Oct 28, 2023 10:30 AM AMBULATORY - MEDICINE [facility] [place] [facility] November 21, 2023 09:00 AM AMBULATORY - MEDICINE [facility] [place] [facility] November 29, 2023 01:00 PM AMBULATORY - MEDICINE [facility] ([facility] December 05, 2023 11:00 AM AMBULATORY - MEDICINE [facility] [place] [facility] December 14, 2023 11:00 AM AMBULATORY - MEDICINE [facility] [place] [facility] Jan 09, 2024 11:30 AM AMBULATORY - MEDICINE [facility] [place] [facility] Jan 11, 2024 01:30 PM AMBULATORY - REHAB MEDICIN E [facility] [place] [facility] Jan 27, 2024 11:00 AM AMBULATORY - MEDICINE [facility] [place] [facility] Feb 06, 2024 11:30 AM AMBULATORY - MEDICINE [facility] [place] [facility] Apr 02, 2024 09:30 AM AMBULATORY - MEDICINE [place] [facility] [place] [facility] Active, Pending, and Scheduled Orders This section includes a listing of several types of active, pending, and scheduled orders, including clinic medications orders, diagnostic test orders, procedure orders and consult orders; where the start date of the order is 45 days before the date of the Encounter or 45 days after the date of theEncounter. The data comes from all [facility] [address]. Test Date/Time Test Type Test Details Facility Name Sep 28, 2023 03:21 PM Consult Order COMMUNITY CARE-NEUROLOGY Cons Instructor Dancing[facility] ([facility]) Lab Results: +/- 30 days of the encounter This section includes the Chemistry and Hematology Lab Results on record with [place] for the patient. Radiology Reports and Pathology Reports are provided separately, in subsequent sections. Lab Results This section contains the Chemistry/Hematology Results that were resulted 30 days before or 30 daysafter the date of the Encounter. Date/Time Source Result Type Result - Unit Interpretation Reference Range Comment Oct 28, 2023 11:30 AM [facility] CULTURE,WOUND PANEL(C.D.H.) Specimen Type: FOOT Comment: ~For Test: CULTURE,WOUND PANEL(C.D.H.) ~left foot dm foot ulcer no abx on board. SENT TO Refer to CPRS: Oriska Imag. Display for Lab Results Ordering Provider: GISSEL URIOSTEGUI Report Released Date/Time: Oct 28, 2023 11:23 AM Reporting Lab: [address] [address] Performing Lab: [address] [address] GRAM STAIN(cdh) comment CULTURE,WOUND (cdh) comment Oct 28, 2023 11:25 AM [facility] CBC AND DIFF (AUTO) Specimen Type: BLOOD No comment entered. Ordering Provider: GISSEL URIOSTEGUI Report Released Date/Time: Oct 28, 2023 11:20 AM Reporting Lab: [facility] [address] [address] Performing Lab: [address] [address] WBC 8.17 10*3/uL 4.50-11.00 RBC 4.30 10*6/uL 4.23-5.66 HGB 13.8 g/dL 12.8-17 HCT 40.8 39.2-50.4 MCV 94.9 fL 82-99 MCHC 33.8 g/dL 30.8-35.1 PLT 131 10*3/uL L 140-360 RDW-CV 13.8 12.0-16.0 Pleasants, Abs 0.51 10*3/uL 0.30-1.10 MCH 32.1 pg 26.2-32.6 Neut % 59.3 43.7-75.8 Lymph % 30.7 14.0-42.3 Pleasants % 6.2 5.1-13.7 Eos % 3.2 0.4-6.8 Baso % 0.4 0.1-2.0 Neut, Abs 4.84 10*3/uL 2.20-7.60 Lymph, Abs 2.51 10*3/uL 1.00-3.20 Eos, Abs 0.26 10*3/uL 0.03-0.44 Baso, Abs 0.03 10*3/uL 0.01-0.13 Immature Gran % 0.2 0.0-0.7 Immature Gran, Abs 0.02 10*3/uL 0.00-0.06 Oct 10, 2023 10:10 AM [facility] LIVER FUNCTION Specimen Type: SERUM No comment entered. Ordering Provider: GISSEL URIOSTEGUI Report Released Date/Time: Oct 10, 2023 09:53 AM Reporting Lab: [address] [address] Performing Lab: [address] [address] PROTEIN,TOTAL 6.6 g/dL 6.0-8.3 ALBUMIN 3.6 g/dL 3.5-5.0 ALKALINE PHOSPHATASE 68 U/L 40-150 AST 25 U/L 5-34 ALT 29 U/L BILIRUBIN, TOTAL 0.3 mg/dL 0.2-1.2 Oct 10, 2023 10:10 AM [facility] BASIC METABOLIC PANEL (fasting) Specimen Type: SERUM No comment entered. Ordering Provider: GISSEL URIOSTEGUI Report Released Date/Time: Oct 10, 2023 09:53 AM Reporting Lab: [address] [address] Performing Lab: [address] [address] UREA NITROGEN 10 mg/dL 7-25 GLUCOSE 107 mg/dL H 65-100 SODIUM 141 mmol/L 135-145 POTASSIUM 4.5 mmol/L 3.5-5.0 CHLORIDE 107 mmol/L 100-110 CO2 25 meq/L 20-30 CREATININE, Serum 0.87 mg/dL 0.50-1.40 eGFR(CKD-EPI 2020) >90 mL/min >60 Oct 10, 2023 10:10 AM [facility] CBC AND DIFF (AUTO) Specimen Type: BLOOD No comment entered. Ordering Provider: GISSEL URIOSTEGUI Report Released Date/Time: Oct 10, 2023 09:53 AM Reporting Lab: [facility] [address] [address] Performing Lab: [facility] [address] [address] WBC 4.63 10*3/uL 4.50-11.00 RBC 4.43 10*6/uL 4.23-5.66 HGB 14.4 g/dL 12.8-17 HCT 42.7 39.2-50.4 MCV 96.4 fL 82-99 MCHC 33.7 g/dL 30.8-35.1 PLT 150 10*3/uL 140-360 RDW-CV 13.7 12.0-16.0 Pleasants, Abs 0.37 10*3/uL 0.30-1.10 MCH 32.5 pg 26.2-32.6 Neut % 36.3 L 43.7-75.8 Lymph % 49.0 H 14.0-42.3 Pleasants % 8.0 5.1-13.7 Eos % 6.3 0.4-6.8 Baso % 0.2 0.1-2.0 Neut, Abs 1.68 10*3/uL L 2.20-7.60 Lymph, Abs 2.27 10*3/uL 1.00-3.20 Eos, Abs 0.29 10*3/uL 0.03-0.44 Baso, Abs 0.01 10*3/uL 0.01-0.13 Immature Gran % 0.2 0.0-0.7 Immature Gran, Abs 0.01 10*3/uL 0.00-0.06 Oct 10, 2023 10:09 AM [facility] ([facility]) HEPATITIS C ANTIBODY (HCV)-ARC Specimen Type: SERUM Comment: Hep C Ab: No HCV antibody detected. If recent infection is suspected or other evidence suggests HCV infection, consider HCV nucleic acid testing Ordering Provider: EVIN CASTILLO Report Released Date/Time: Jun 03, 2023 11:37 AM Reporting Lab: [facility] [address] [address] [facility]forming [facility]: [facility] [address] [address] HEPATITIS C ANTIBODY NON-REACTIVE NON-REACTIV E Social History: Smoking Status (Most current) and Tobacco Use (All prior to encounter date) This section includes the most current, and the historical, smoking and tobacco- related health factors from the [place] facility where the Encounter took place. Current Smoking Status This section includes the most current smoking, or tobacco-related health factor, from the [place] facility where the Encounter took place. Date/Time Current Smoking Status Comment Facil ity Oct 27, 2022 02:44 PM VA-TOBACCO USER EVERY DAY [facility] Tobacco Use History This section includes a history of the smoking, or tobacco-related health factors, that were collected on or before the date of the Encounter. The data comes from the [place] facility where the Encounter took place. Date/Time Smoking Status/Tobacco Use Comment F acility Oct 27, 2022 02:44 PM [facility]CO [facility] Oct 27, 2022 02:44 PM VA-TOBACCO USE LABORATORY [facility] NO [facility] [place] [facility] Oct 27, 2022 02:44 PM [facility]-TOBACCO USE MED [facility] Oct 27, 2022 02:44 PM VA-TOBACCO USE WI 30 MIN OF WAKEUP [facility] Oct 27, 2022 02:44 PM VA-TOBACCO USER EVERY DAY [facility] Advance Directives: All historical and current Section Date Range: From patient's date of to the date document was created. This section includes ALL of a patient's completed or amended [place] Advance and Rescinded Directives. The entries below indicate that a directive exists for the patient, but an actual copy is not included with this document. The data comes from all [place] facilities. Date Advance Directives Provider Source Mar 01, 2014 ADVANCE DIRECTIVE VARSHA ESQUIVEL ([facility]) Radiology Reports: +/- 30 days of the [...] the Encounter. The data comes from all [place] treatment facilities. Date/Time Radiology Report Provider Source Oct 17, 2023 11:35 AM MRI ABD W&WO CONTR AST: AGNESSERGE [id number] -[id number] M Exm Date: OCT 17, 2023@11:35 Req Phys: SHAHEEN CARMEN Loc: [facility] V01 [facility] LIVER ADVANCED DEVELOPER 01 F2F (R Img Loc: UPLOAD CD IMAGES-MRI Service: Unknown (Case [id number] COMPLETE) MRI ABD W&WO CONTRAST (MRI Detailed) CPT:82751 Reason for Study: MR ELASTOGRAPHY to determine LSM Clinical History: Date of imaging of date of exam to be uploaded:10/17/2023 Description of exam to be uploaded: (example- MRI head, MRI abdomen, etc) MRI Abdomen Provider's contact information: SHAHEEN CARMEN KEY ACCOUNT EXECUTIVE *[id number] Report Status: Electronically Filed Date Reported: NOV 03, 2023 Report: This exam was performed and interpreted at an Outside Facility. The images are available in Tip or Skip and our local PACS. Impression: This exam was performed and interpreted at an Outside Facility. The images are available in Tip or Skip and our local PACS. Primary Diagnostic Code: ADMIN. REPORT; REFER TO PT MED RECORD VERIFIED BY: / *ELECTRONICALLY FILED* [facility] Encounter Notes: All associated encounter notes This section contains the clinical notes associated to the Encounter. Date/Time Encounter Note(s) Provider Source Oct 03, 2023 01:26 PM OCCUPATIONAL MEDIC INE CONSULT: LOCAL TITLE: CONSULT REPORT/OCCUPATIONAL THERAPY STANDARD TITLE: OCCUPATIONAL MEDICINE CONSULT DATE OF NOTE: OCT 03, 2023@13:26 ENTRY DATE: OCT 03, 2023@13:27:33 AUTHOR: KUN CHATMAN EXP COSIGNER: NAHUN LUTZ URGENCY: STATUS: COMPLETED Initial Evaluation date: Sep Progress Note Date: Treatment #: eval Treatment time: 20 minutes Diagnosis: Tremor, unspecified(ICD-10-CM R25.1) Provider: Minnie OT Treatment Precautions: Patient identified by full name and date of S: Mr. Meier is a 67 y/o 30% SC male who was referred to OT for a thumb/wrist splint for essential tremor. He was seen in the OT clinic on 10/03/2023. PMH: Active problems - Computerized Problem List is the source for the followin. Steatosis of liver 2. Chronic ulcer of foot 3. Liver Function Tests Abnormal (SCT 177237528) 4. Crush syndrome 5. Rhabdomyolysis 6. Cervical spondylosis 7. Benign hypertension 8. Benign prostatic hyperplasia 9. Obesity 10. Diabetes mellitus 11. Chronic ischemic heart disease (SNOMED CT 948352177) 12. Osteoarthritis of knee (SNOMED CT 420518333) 13. Hearing loss 14. Tremor (SNOMED CT 60119566) 15. Sleep apnea (SNOMED CT 32368149) 16. Gout (SNOMED CT 79681613) 17. Hyperlipidemia (SNOMED CT 42716283) 18. Asthma (SNOMED CT 678713732) 19. Impotence of organic origin 20. Pain in right knee (SNOMED CT 109472993264479) 21. Seborrheic Dermatitis, Unspecified ZI: pt reports he has had an essential tremor (only in his L hand) for years. it's mostly in his thumb, but has progressed into his other fingers. he was issued weighted utensils but these don't seem to be effective. it impacts him most when eating, mostly soups. O: Pt is L hand dominant. 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 He enjoys fly fishing and golfing. Clinical Presentation: wing beating/extended arm very mild tremor on L, mostly at the thumb. TX: *Trialed spoon to mouth w/ thumb spica splint; no tremor observed w/ this. *Trialed spoon to mouth w/ wrist cock up splint; less severe tremor observed. ASSESSMENT: Serge is a 67 y/o male who presents to the OT clinic w/ a very mild L handed essential tremor as evidenced by clinical presentation. Trialed both a thumb spica and a wrist cock up splint while engaging in spoon to mouth; the thumb spica reduced the tremor to almost non-existent. Pt was interested in being issued this for use at home. PLAN: No further f/u required. Pt was provided w/ this grant writer's contact information should he require a replacement splint. Pt was in agreement w/ this POC. GOALS: 1. Issued thumb spica for reduction in tremor during self-feeding * The practitioner's co-signature on this note signifies agreement with plan of care and clinical diagnosis code. /george/ Kun Chatman MS OTR/Vinnie, CHT Occupational Therapist Signed: 10/03/2023 14:04 /george/ NAHUN LUTZ MD PHYSICIAN Cosigned: 10/04/2023 18:51 KUN CHATMAN PR [facility]
--- OUTSIDE RECORDS SUMMARY | 2024-08-15 16:40 | XMS_ITS | Encounter Summary ---
Author Name [facility] [place] Organization [place] Address [address] [place] [address] Care Team Providers Care Manager Water Wastewater Name Role Phone ANNA RAMY Primary Care Provider Unavail able Insurance Providers: [...] TYRESE MEDEX BRONZ E Dec 16, 2018 [id number] AGNES,A JUAN PATIENT ANTHEM BCBS OF [place] (BLUECARD) MEDICARE SUPPLEMEN TYRESE MEDEX BRONZ E Dec 16, 2018 [id number] AGNES,A JUAN PATIENT [place]BS [place] MEDICARE SUPPLEMEN TYRESE MEDEX BRONZ E Dec 16, 2018 [id number] AGNES,A JUAN PATIENT [place]BS [place] HIGH DEDUCTIBL E HEALTH PLAN CONNE CTICU T [facility] Apr 17, 2011 [id number] AGNES,A JUAN PATIENT EXPRESS SCRIPTS ([id number]) PRESCRIPT ION L4TA* Apr 17, 2011 L4TA [id number] AGNES,A JUAN PATIENT [facility] [place] ([place] MEDICARE SUPPLEMEN TYRESE PSUED O MEDEX EVAN NG Dec 16, 2018 [id number] AGNES,A JUAN PATIENT MEDICARE (WNR) MEDICARE (M) PART A Dec 16, 2018 PART A [id number] AGNES,A JUAN PATIENT MEDICARE (WNR) MEDICARE () PART B Dec 16, 2018 PART B [id number] CT90 [phone] AGNES,A JUAN PATIENT MEDICARE (WNR) MEDICARE () PART A Dec 16, 2018 PART A [id number] CT90 [phone] AGNES,A JUAN PATIENT MEDICARE (WNR) MEDICARE () PART B Dec 16, 2018 PART B [id number] CT90 AGNES,A JUAN PATIENT MEDICARE (WNR) MEDICARE (M) PART A Dec 16, 2018 PART A [id number] CT90 AGNES,A JUAN PATIENT MEDICARE (WNR) MEDICARE (M) PART B Dec 16, 2018 PART B [id number] [id number] AGNES,A JUAN PATIENT Selected Encounter This section includes the information on record at [place] for the Encounter. Date/Time Encounter Type Encounter Description Reason Provider Source Jan 27, 2024 11:00 AM OFFICE O/P EST LOW 20 MIN PODIATRY ICD-10-CM 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 2 diabetes mellitus with foot ulcer MARIETTA SMITH DPM [facility] Encounter Template Text not used by [place] Assessments - Encounter Diagnoses This section includes the primary and secondary diagnoses documented for the Encounter. Date/Time Primary/Secondary Diagnosis Diagnosis Name Provider Source Feb 25, 2024 08:27 AM PRIMARY Type 2 diabetes mellitus with foot ulcer MARIETTA SMITH DPM [facility] Feb 25, 2024 08:27 AM SECONDARY Type 2 diabetes mellitus with diabetic neuropathy, unsp MARIETTA SMITH [facility] Plan of Treatment: Future Appointments (+ 6 months) and Future Tests (+/- 45 days) The Plan of Treatment section includes future care activities for the patient from all [place] [facility]. This section includes future appointments and future orders which are active, pending or scheduled. Future Appointments This section includes appointments that were scheduled to occur 6 months from the date of the Encounter, up to a maximum of 20 appointments. The data comes from all [facility] facilities. Appointment Date/Time Appointment Type Appointme nt Facility Name Feb 06, 2024 11:30 AM AMBULATORY - MEDICINE [place] [facility] [facility] Apr 02, 2024 09:30 AM AMBULATORY - MEDICINE [place] [facility] [facility] Apr 20, 2024 01:30 PM AMBULATORY - MEDICINE [facility] Apr 23, 2024 08:00 AM AMBULATORY - MEDICINE [place] [facility] [facility] Apr 23, 2024 11:00 AM AMBULATORY - MEDICINE [place] [facility] [place] [facility] May 03, 2024 02:00 PM AMBULATORY MEDICINE [facility] May 07, 2024 10:30 AM AMBULATORY - MEDICINE [place] [facility] [facility] May 08, 2024 10:00 AM AMBULATORY - REHAB MEDICIN E [place] [facility] [place] [facility] May 21, 2024 08:30 AM AMBULATORY - MEDICINE [place] [facility] [facility] May 23, 2024 08:15 AM [facility] Advance Directives: All historical and current Section Date Range: From patient's date of to the date document was created. This section includes ALL of a patient's completed or amended [place] Advance and Rescinded Directives. The entries below indicate that a directive exists for the patient, but an actual copy is not included with this document. The data comes from all [facility]. Date Advance Directives Provider Source Mar 01, 2014 ADVANCE DIRECTIVE VARSHA ESQUIVEL ([facility]) Encounter Notes: All associated encounter notes This section contains the clinical notes associated to the Encounter. Date/Time Encounter Note(s) Provider Source Jan 27, 2024 10:59 AM PODIATRY NOTE: LOCAL TITLE: PODIATRY NOTE STANDARD TITLE: PODIATRY NOTE DATE OF NOTE: JAN 27, 2024@10:59 ENTRY DATE: JAN 27, 2024@10:59:43 AUTHOR: MARIETTA SMITH DPM EXP COSIGNER: URGENCY: STATUS: COMPLETED S: Pt PTC c/o L foot pain. Pt has diabetes w/ peripheral neuropathy. Reports skin broke down a week ago. C/o pain w/ pressure/ambulation. Relates recurring issue w/ ulceration. Reports mild drainage. Pt has been applying triple antibiotic and changing dressing once daily. He also started taking Augmentin 7 days ago. FOCUSED EXAM: LEFT FOOT: + HPK submet 5 extending to lateral 5th MTPJ. There is part residual blister roof on lateral aspect of 5th MTPJ. There is pain on palpation of lateral 5th MTPJ. Mild pink local erythema. No drainage. Wound measures 7 x 3mm after debridement. There is no tracking, no undermining post debridement. There is no drainage, no fluctuance, no soi. A/P: Ulcer R submet 5 Type 2 DM - high risk foot Peripheral neuropathy - Sharply debride wound of R foot, then dressed w/ Bactroban and DSD. - Pt to continue daily local wound care w/ triple abx. - Continue Augmentin until finished. - F/u in [facility] wound clinic on 02/05. I discussed the findings and plan with the patient. I educated the patient about the foot condition/issue. The patient verbalized understanding of the plan and education. I performed medication reconciliation within the scope of my practice. All medications related to Podiatry are up to date. /george/ MARIETTA SMITH DPM EXPLOSIVE OPERATOR Signed: 01/27/2024 16:14 MARIETTA SMITH DPM [facility]
--- OUTSIDE RECORDS SUMMARY | 2024-08-15 16:40 | XMS_ITS | Encounter Summary ---
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 Name Role Phone RAMY CASTILLO Primary Care [...] TYRESE MEDEX BRON E Dec 16, 2018 [id number] [phone] AGNES,A JUAN PATIENT ANTHEM BCBS OF [place] (BLUECARD) MEDICARE SUPPLEMEN TYRESE MEDEX BRONZ E Dec 16, 2018 [id number] AGNES,A JUAN PATIENT [place]BS [place] MEDICARE SUPPLEMEN TYRESE MEDEX BRONZ E Dec 16, 2018 [id number] [phone] AGNES,A JUAN PATIENT BCBS ANN HIGH DEDUCTIBL E HEALTH [facility]AN [place] [facility] Apr 17, 2011 [id number] AGNES,A JUAN PATIENT EXPRESS SCRIPTS ([id number]) PRESCRIPT ION L4TA* Apr 17, 2011 L4TA [id number] AGNES,A JUAN PATIENT [place]ARK [place] ([place] MEDICARE SUPPLEMEN TYRESE PSUED O MEDEX HEARI NG Dec 16, 2018 [id number] AGNES,A JUAN PATIENT MEDICARE (WNR) MEDICARE (M) PART A Dec 16, 2018 PART A [id number] [phone] AGNES,A JUAN PATIENT MEDICARE (WNR) MEDICARE (M) PART B Dec 16, 2018 PART B [id number] AGNES,A JUAN PATIENT MEDICARE (WNR) MEDICARE (M) PART A Dec 16, 2018 PART A [id number] [id number] [phone] AGNES,A JUAN PATIENT MEDICARE (WNR) MEDICARE (M) PART B Dec 16, 2018 PART B [id number] AGNES,A JUAN PATIENT MEDICARE (WNR) MEDICARE (M) PART A Dec 16, 2018 PART A [id number] [phone] AGNES,A JUAN PATIENT MEDICARE (WNR) MEDICARE (M) PART B Dec 16, 2018 PART B [id number] CT90 [phone] AGNES,A JUAN PATIENT Selected Encounter This section includes the information on record at [place] for the Encounter. Date/Time Encounter Type Encounter Description Reason Provider Source Apr 23, 2024 11:00 AM OFFICE O/P EST MOD 30 MIN PODIATRY ICD-10-CM 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 2 diabetes mellitus with foot ulcer GAMALIEL ARAGON [facility] Encounter Template Text not used by [place] Assessments - Encounter Diagnoses This section includes the primary and secondary diagnoses documented for the Encounter. 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 Plan of Treatment: Future Appointments (+ 6 months) and Future Tests (+/- 45 days) The Plan of Treatment section includes future care activities for the patient from all [place] [facility]. This section includes future appointments and future orders which are active, pending or scheduled. Future Appointments This section includes appointments that were scheduled to occur 6 months from the date of the Encounter, up to a maximum of 20 appointments. The data comes from all [facility]. Appointment Date/Time Appointment Type Appointme nt Facility Name May 03, 2024 02:00 PM AMBULATORY - MEDICINE [facility] May 07, 2024 10:30 AM AMBULATORY - MEDICINE [facility] [place] [facility] May 08, 2024 10:00 AM AMBULATORY - REHAB MEDICIN E [place] [facility] [place] [facility] May 21, 2024 08:30 AM AMBULATORY - MEDICINE [facility] [place] [facility] May 23, 2024 08:15 AM AMBULATORY - MEDICINE [place] [facility] [place] [facility] Aug 15, 2024 02:30 PM AMBULATORY - MEDICINE [facility] [place] [facility] Aug 21, 2024 08:00 AM AMBULATORY - MEDICINE [facility] Active, Pending, and Scheduled Orders This section includes a listing of several types of active, pending, and scheduled orders, including clinic medications orders, diagnostic test orders, procedure orders and consult orders; where the start date of the order is 45 days before the date of the Encounter or 45 days after the date of theEncounter. The data comes from all [facility]. Test Date/Time Test Type Test Details Facility Name Apr 18, 2024 12:00 AM Laboratory - Chemistry Order CREATININE (eGFR 2020) BLOOD (SST-SERUM) [facility] ([facility]) Apr 18, 2024 12:00 AM Laboratory - Chemistry Order MICROALBUMIN CREATININE RATIO PANEL URINE (RANDOM) [facility]) Apr 18, 2024 12:00 AM Laboratory - Chemistry Order BASIC METABOLIC PANEL (fasting) BLOOD (SST-SERUM) [facility]) Apr 18, 2024 12:00 AM Laboratory - Chemistry Order LIPID PANEL FASTING BLOOD (SST-SERUM) [facility]) Apr 18, 2024 12:00 AM Laboratory - Chemistry Order LIVER FUNCTION BLOOD (SST-SERUM) [facility] ([facility]) Apr 18, 2024 12:00 AM Laboratory - Chemistry Order CBC AND DIFF (AUTO) BLOOD (LAV-BLOOD) [facility] ([facility]) Apr 18, 2024 12:00 AM Laboratory - Chemistry Order HEMOGLOBIN A1C PANEL BLOOD (LAV-BLOOD) [facility] ([facility]) Apr 18, 2024 12:00 AM Laboratory - Chemistry Order TSH BLOOD (SST-SERUM) [facility] ([facility]) May 17, 2024 08:15 AM Consult Order [facility] SURGICAL Cons Saw Edge Fuser Circular's Choice [facility] Social History: Smoking Status (Most current) and Tobacco Use (All prior to encounter date) This section includes the most current, and the historical, smoking and tobacco- related health factors from the [place] facility where the Encounter took place. Current Smoking Status This section includes the most current smoking, or tobacco-related health factor, from the [place] facility where the Encounter took place. Date/Time Current Smoking Status Comment Facil ity Oct 27, 2022 02:44 PM VA-TOBACCO USER EVERY DAY [facility] Tobacco Use History This section includes a history of the smoking, or tobacco-related health factors, that were collected on or before the date of the Encounter. The data comes from the [place] facility where the Encounter took place. Date/Time Smoking Status/Tobacco Use Comment F acility Oct 27, 2022 02:44 PM VA-TOBACCO USE 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 This section includes ALL of a patient's completed or amended [place] Advance and Rescinded Directives. The entries below indicate that a directive exists for the patient, but an actual copy is not included with this document. The data comes from all [place] facilities. Date Advance Directives Provider Source Mar 01, 2014 ADVANCE DIRECTIVE SIERRAVARSHABARBARA Haro ([facility]) Encounter Notes: All associated encounter notes This section contains the clinical notes associated to the Encounter. Date/Time Encounter Note(s) Provider Source Apr 23, 2024 11:37 AM PODIATRY NOTE: LOCAL TITLE: PODIATRY NOTE STANDARD TITLE: PODIATRY NOTE DATE OF NOTE: APR 23, 2024@11:37 ENTRY DATE: APR 23, 2024@11:37:53 AUTHOR: GAMALIEL ARAGON EXP COSIGNER: URGENCY: STATUS: COMPLETED Podiatry High Risk Foot Encounter [facility] provider: Gamaliel Aragon [facility] Date: APR 23, 2024 SERGE ALARCON MALE [id number] Dec 68 [employer] FROM Dec TO Jan Primary Care:RAMY [...] was sent out for surgical consult to [facility]. He had seen them on 1 [...] hyponatremia transaminitis diarrhea. He was transferred to [facility] on 02/28/2024 to start dialysis. He had a persistent leg rash and ID was consulted and recommended transition to oral antibiotics on discharge On 1 patient developed fevers that were not responding [...] pounds and is somewhat weak but ambulatory. Since last visit 3 weeks ago patient has been back to emergency room for presumptive cellulitis. He is disconcerted with his treatment stating that his discharge summary depicts a full physical exam which he did not get. He also did not have labs drawn including a CBC. He is to have a follow-up with [facility] this afternoon however because of his more recent acute medical issues no surgery is planned. I suggested to him that he does not need to follow-up with [facility] until we again heal his wound and his other medical issues are stable then at that point he can return to consider surgical intervention as had been requested previously[1/ metatarsal osteotomy]. 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 Subjective: Today denies any fevers chills nausea [...] foot 3. Liver Function Tests Abnormal (SCT 810410715) 4. Crush syndrome 5. Rhabdomyolysis 6. Cervical spondylosis 7. Benign hypertension 8. Benign prostatic hyperplasia 9. Obesity 10. Diabetes mellitus 11. Chronic ischemic heart disease (SNOMED CT 581500097) 12. Osteoarthritis of knee (SNOMED CT 890546401) 13. Hearing loss 14. Tremor (SNOMED CT 71482201) 15. Sleep apnea (SNOMED CT 10349924) 16. Gout (SNOMED CT 40824253) 17. Hyperlipidemia (SNOMED CT 12909648) 18. 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 Pain in right knee (SNOMED CT 441062621807257) 21. Seborrheic Dermatitis, Unspecified Active Out Patient [...] 3.6 g/dL 3.5 - 5.0 BMI:BMI: 33.5 Temp oral 97.6 PE:General: Chronically ill-appearing 68-year-old male, obese, NAD. No acute distress today. Vital signs stable. Wound # 1. Location:sub met 5 left after debridement: Measurements post debridement (if any) Length:8 Width:4 Depth:1 mm Characteristics: Base: pink Tunneling:no Undermining:no Drainage:scant [x serosanguanous [ ] bloody clot [ ] purulent Odor: [ ] malodorous [x no mal odor Surounding Tissues: [no erythema [ ] measurement left leg with chronic non pitting edema 1+ 2 not extending to ankle foot Right 1+ -->getting compression stockings was in for measurement yesterday Right foot ankle and lower leg otherwise stable no open wounds or sores present. PAVE:3 Impression: Patient appears to be physically declining over the past several months and indeed has had several severe medical crises including acute renal failure, rhabdomyolysis, sepsis? recurent cellulitis left LE in setting of PN, diabetic foot ulcer sub met 5, s/p ARF requiring dialysis now stabliziing, and anemia. Recent recurrence cellulitis seen at [facility]. No active signs of cellulitis present today. Remains at superhigh risk for amputation and other complications given overall numerous other comorbidities. Plan: wound debrided-with sterile 10 blade, left submetatarsal 5 Sharps cleared from procedure area post debridement. And disposed of accordingly Bacitracin dressing applied Does not need to go to [facility] until he is healed and again stable for elective osteotomy. -must go back to off loading sx shoe has been wearing slipper booties. -fu 2 weeks Return sooner if any clinical signs of [...] as results of the physical exam and dynamics ax consultant opinions and recommendations as sought. Alternatives [...] on this visit was given information My am[employer] service and encouraged to enroll if not already having done so. /george/ GAMALIEL ARAGON DPM PODIATRY ATTENDING Signed: 04/23/2024 16:40 GAMALIEL ARAGON [place] [facility]
--- OUTSIDE RECORDS SUMMARY | 2024-08-15 16:40 | XMS_ITS | Encounter Summary ---
Author Name [place] Address [address] [place] [address] Care Team Providers Care Svp Research And Strategic Analysis Name Role Phone RAMY CASTILLO Primary Care [...] TYRESE MEDEX BRON E Dec 16, 2018 [id number] AGNES,A JAUN PATIENT ANTHEM BCBS OF CT (BLUECARD) MEDICARE SUPPLEMEN TYRESE MEDEX BRONZ E Dec 16, 2018 [id number] AGNES,A JUAN PATIENT [place]BS [place] MEDICARE SUPPLEMEN TYRESE MEDEX BRONZ E Dec 16, 2018 [id number] AGNES,A JUAN PATIENT BCBS ANN HIGH DEDUCTIBL E [facility] [place] [facility] T [facility] Apr 17, 2011 [id number] AGNES,A JUAN PATIENT EXPRESS SCRIPTS ([id number]) PRESCRIPT ION L4TA* Apr 17, 2011 L4TA [id number] AGNES,A JUAN PATIENT [place] MEDICARE SUPPLEMEN TYRESE PSUED O MEDEX HEARI NG Dec 16, 2018 [id number] [phone] AGNES,A JUAN PATIENT MEDICARE (WNR) MEDICARE (M) PART A Dec 16, 2018 PART A [id number] CT90 AGNES,A JUAN PATIENT MEDICARE (WNR) MEDICARE (M) PART B Dec 16, 2018 PART B [id number] CT90 AGNES,A JUAN PATIENT MEDICARE (WNR) MEDICARE (M) PART A Dec 16, 2018 PART A [id number] CT90 [phone] AGNES,A JUAN PATIENT MEDICARE (WNR) MEDICARE (M) PART B Dec 16, 2018 PART B [id number] CT90 AGNES,A JUAN PATIENT MEDICARE (WNR) MEDICARE (M) PART A Dec 16, 2018 PART A [id number] CT90 AGNES,A JUAN PATIENT MEDICARE (WNR) MEDICARE (M) PART B Dec 16, 2018 PART B [id number] CT90 AGNES,A JUAN PATIENT Selected Encounter This section includes the information on record at [place] for the Encounter. 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 Date/Time Primary/Secondary Diagnosis Diagnosis Name Provider Source Jan 12, 2024 12:38 PM PRIMARY Type 2 diabetes w diabetic autonomic (poly)neuropathy GISSEL URIOSTEGUI [facility] [place] [facility] Jan 12, 2024 12:38 PM SECONDARY Corns and callosities GISSEL URIOSTEGUI [place] [facility] [place] [facility] Jan 12, 2024 12:38 PM SECONDARY Unspecified abnormalities of gait and mobility GISSEL URIOSTEGUI [place] [facility] [facility] Plan of Treatment: Future Appointments (+ 6 months) and Future Tests (+/- 45 days) The Plan of Treatment section includes future care activities for the patient from all [place] [facility]. This section includes future appointments and future orders which are active, pending or scheduled. Future Appointments This section includes appointments that were scheduled to occur 6 months from the date of the Encounter, up to a maximum of 20 appointments. The data comes from all [place] treatment facilities. Appointment Date/Time Appointment Type Appointme nt Facility Name Jan 09, 2024 11:30 AM AMBULATORY - MEDICINE [place] [facility] [place] [facility] Jan 11, 2024 01:30 PM AMBULATORY - REHAB MEDICIN E [facility] [place] [facility] Jan 27, 2024 11:00 AM AMBULATORY - MEDICINE [place] [facility] [place] [facility] Feb 06, 2024 11:30 AM AMBULATORY - MEDICINE [place] [facility] [place] [facility] Apr 02, 2024 09:30 AM AMBULATORY - MEDICINE [place] [facility] [place] [facility] Apr 20, 2024 01:30 PM AMBULATORY - MEDICINE [facility] ([facility]) Apr 23, 2024 08:00 AM AMBULATORY - MEDICINE [place] [facility] [place] [facility] Apr 23, 2024 11:00 AM AMBULATORY - MEDICINE [place] [facility] [place] [facility] May 03, 2024 02:00 PM AMBULATORY - MEDICINE [facility] ([facility]) May 07, 2024 10:30 AM AMBULATORY - MEDICINE [place] [facility] [place] [facility] May 08, 2024 10:00 AM AMBULATORY - REHAB MEDICIN E [facility] [place] [facility] May 21, 2024 08:30 AM AMBULATORY - MEDICINE [facility] [place] [facility] May 23, 2024 08:15 AM AMBULATORY - MEDICINE [place] [facility] [place] [facility] Social History: Smoking Status (Most current) and Tobacco Use (All prior to encounter date) This section includes the most current, and the historical, smoking and tobacco- related health factors from the [place] facility where the Encounter took place. Current Smoking Status This section includes the most current smoking, or tobacco-related health factor, from the [place] facility where the Encounter took place. Date/Time Current Smoking Status Comment Facil ity Oct 27, 2022 02:44 PM VA-TOBACCO USER EVERY [facility] Tobacco Use History This section includes a history of the smoking, or tobacco-related health factors, that were collected on or before the date of the Encounter. The data comes from the [place] facility where the Encounter took place. 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 This section includes ALL of a patient's completed or amended [place] Advance and Rescinded Directives. The entries below indicate that a directive exists for the patient, but an actual copy is not included with this document. The data comes from all [place] facilities. Date Advance Directives Provider Source Mar 01, 2014 ADVANCE DIRECTIVE VARSHA ESQUIVEL ([facility]) Encounter Notes: All associated encounter notes This section contains the clinical notes associated to the Encounter. Date/Time Encounter Note(s) Provider Source December 14, 2023 11:25 AM PODIATRY NOTE: LOCAL TITLE: PODIATRY NOTE STANDARD TITLE: PODIATRY NOTE DATE OF NOTE: DECEMBER 14, 2023@11:25 ENTRY DATE: DECEMBER 14, 2023@11:25:06 AUTHOR: GAMALIEL URIOSTEGUI COSIGNER: URGENCY: STATUS: COMPLETED Brief visit for 67-year-old male with peripheral neuropathy, history of callus and ulceration left fifth metatarsal, with limited subtalar joint range of motion and tibial varum on the left side as compared to the right resulting in more pressure and callus formation in this area. Patient has had custom molded inserts made with PPT offloading. Despite this he continues to develop callus. Patient is going away on a safari in [place] for 3 weeks will return on January 05. Patient seen last week and brought in today just to check area before he goes away we also gave patient a prescription for Augmentin 875 [id number] for 10-day course to use at his discretion overseas if he develops any problems. 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 The prescription appears to have been mailed out today but patient is going away tomorrow and therefore will go to the pharmacy today to belt picker. He brought his custom molded inserts from his other footwear in today for me to evaluate we added a little bit of lateral posting to further offload the fifth metatarsal His feet were inspected today and everything is stable he did develop some slight callus submetatarsal 5 on the left but no evidence of breakdown ulcer or other serious concerns. When patient returns we will see him and at that point it may be reasonable to discuss a floating metatarsal osteotomy and a left side if he continues to develop problems despite conservative treatment and frequent debridement. Today exam Orthotic modification Sent patient to pharmacy for prescription Trimmed callus Recall sometime after January 05, 2024 /george/ GAMALIEL URIOSTEGUI DPM PODIATRY ATTENDING Signed: 12/14/2023 15:01 GAMALIEL URIOSTEGUI [facility]L [facility]
--- OUTSIDE RECORDS SUMMARY | 2024-08-15 16:40 | XMS_ITS | Encounter Summary ---
Author Name [facility] [place] Organization [place] Address [address] [place] [address] Care Team Providers Care Shank Stapler Name Role Phone KILO CASTILLO Primary Care [...] TYRESE MEDEX BRON E Dec 16, 2018 [id number] AGNES,A JUAN PATIENT ANTHEM BCBS OF CT (BLUECARD) MEDICARE SUPPLEMEN TYRESE MEDEX BRONZ E Dec 16, 2018 [id number] AGNES,A JUAN PATIENT BCBS [place] MEDICARE SUPPLEMEN TYRESE MEDEX BRONZ E Dec 16, 2018 [id number] AGNES,A JUAN PATIENT BCBS ANN HIGH DEDUCTIBL E HEALTH PLAN [facility]ICU T [facility] Apr 17, 2011 [id number] [phone] AGNES,A JUAN PATIENT EXPRESS SCRIPTS ([id number]) PRESCRIPT ION L4TA* Apr 17, 2011 L4TA [id number] AGNES,A JUAN PATIENT [place] BCBS [place] ([place]) MEDICARE SUPPLEMEN TYRESE PSUED O MEDEX EVAN KHAN Dec 16, 2018 [id number] AGNES,A JUAN PATIENT MEDICARE (WNR) MEDICARE (M) PART A Dec 16, 2018 PART A [id number] CT90 AGNES,A JUAN PATIENT MEDICARE (WNR) MEDICARE (M) PART B Dec 16, 2018 PART B [id number] CT90 AGNES,A JUAN PATIENT MEDICARE (WNR) MEDICARE (M) PART A Dec 16, 2018 PART A [id number] CT90 AGNES,A JUAN PATIENT MEDICARE (WNR) MEDICARE (M) PART B Dec 16, 2018 PART B [id number] CT90 [phone] AGNES,A JUAN PATIENT MEDICARE (WNR) MEDICARE (M) PART A Dec 16, 2018 PART A [id number] CT90 AGNES,A JUAN PATIENT MEDICARE (WNR) MEDICARE (M) PART B Dec 16, 2018 PART B [id number] CT90 AGNES,A JUAN PATIENT Selected Encounter This section includes the information on record at [place] for the Encounter. Date/Time Encounter Type Encounter Description Reason Pro vider Source Jun 26, 2024 05:53 PM Outpatient Encounter ADMIN PAT ACTIVTIES (MASNONCT) IHE Encounter Template Text not used by [place] Plan of Treatment: Future Appointments (+ 6 months) and Future Tests (+/- 45 days) The Plan of Treatment section includes future care activities for the patient from all [place] treatmentfacilities. This section includes future appointments and future orders which are active, pending or scheduled. Future Appointments This section includes appointments that were scheduled to occur 6 months from the date of the Encounter, up to a maximum of 20 appointments. The data comes from all [place] treatment facilities. Appointment Date/Time Appointment Type Appointme nt Facility Name Aug 15, 2024 02:30 PM AMBULATORY - MEDICINE [place] [facility] [place] [facility] Aug 21, 2024 08:00 AM AMBULATORY - MEDICINE [place] [facility] [facility] Nov 12, 2024 01:00 PM AMBULATORY - MEDICINE [facility] ([facility]) Active, Pending, and Scheduled Orders This section includes a listing of several types of active, pending, and scheduled orders, including clinic medications orders, diagnostic test orders, procedure orders and consult orders; where the start date of the order is 45 days before the date of the Encounter or 45 days after the date of theEncounter. The data comes from all [place] treatment facilities. Test Date/Time Test Type Test Details Facility Name May 17, 2024 08:15 AM Consult Order [facility] SURGICAL Cons Health Service [facility] Social History: Smoking Status (Most current) and Tobacco Use (All prior to encounter date) This section includes the most current, and the historical, smoking and tobacco- related health factors from the [place] facility where the Encounter took place. Current Smoking Status This section includes the most current smoking, or tobacco-related health factor, from the [place] facility where the Encounter took place. Date/Time Current Smoking Status Comment Facil ity Oct 27, 2022 02:44 PM VA-TOBACCO USE WI 30 MIN OF WAKEUP [facility] Tobacco Use History This section includes a history of the smoking, or tobacco-related health factors, that were collected on or before the date of the Encounter. The data comes from the [place] facility where the Encounter took place. Date/Time Smoking Status/Tobacco Use Comment F acility Oct 27, 2022 02:44 PM VA-TOBACCO USE ADVICE [place] [facility] [place] [facility] Oct 27, 2022 02:44 PM VA-TOBACCO USE ANESTHESIA TECH NO [place] [facility] [place] [facility] Oct 27, 2022 02:44 PM VA-TOBACCO USE MED NO [place] [facility] [place] [facility] Oct 27, 2022 02:44 PM VA-TOBACCO USE WI 30 MIN OF WAKEUP [place] [facility] [facility] Oct 27, 2022 02:44 PM VA-TOBACCO USER EVERY DAY [facility] Advance Directives: All historical and current Section Date Range: From patient's date of to the date document was created. This section includes ALL of a patient's completed or amended [place] Advance and Rescinded Directives. The entries below indicate that a directive exists for the patient, but an actual copy is not included with this document. The data comes from all [place] facilities. Date Advance Directives Provider Source Mar 01, 2014 ADVANCE DIRECTIVE VARSHA ESQUIVEL [facility] Encounter Notes: All associated encounter notes This section contains the clinical notes associated to the Encounter. Date/Time Encounter Note(s) Provider Source Jun 26, 2024 05:53 PM PHARMACY NOTE: LOCAL TITLE: V1 PHARMACY CUSTOMER CARE MEDICATION RENEWAL STANDARD TITLE: PHARMACY NOTE DATE OF NOTE: JUN 26, 2024@17:53 ENTRY DATE: JUN 26, 2024@17:53:21 AUTHOR: NAI FREEMAN EXP COSIGNER: URGENCY: STATUS: COMPLETED Date: Jun Division: [facility] referred by Pharmacy Call Center for medication renewal: Non-controlled/maintenan ce medication Medications requested: [id number]$ CETIRIZINE HCL 10MG TAB Defer to primary care provider To be mailed. Please review and renew if appropriate. *This note was generated by [facility] Pharmacy Customer Care. If you have any questions or need assistance, do not contact this author. Please refer all questions to your local, on-site pharmacy departments. /george/ Nai Freeman CPhT Template Inspector, [place]/Pharmacy Customer Care Signed: 06/26/2024 17:53 Receipt Acknowledged By: 07/06/2024 12:57 /george/ Kilo Castillo MD MD PRIMARY CARE PHYSICIAN 06/27/2024 08:16 /george/ NATANAEL ROD, DAVID REGISTERED NURSE for MARIETTA MARSH-NAI KLEIN [place] [facility]
--- OUTSIDE RECORDS SUMMARY | 2024-08-15 16:40 | XMS_ITS | Encounter Summary ---
Author Name [facility] [place] Organization [place] Address [address] [place] [address] Care Team Providers Care Receiving Team Member Name Role Phone RAMY CASTILLO Primary Care [...] TYRESE MEDEX BRON E Dec 16, 2018 [id number] AGNES,A JUAN PATIENT ANTHEM BCBS OF CT (BLUECARD) MEDICARE SUPPLEMEN TYRESE MEDEX BRONZ E Dec 16, 2018 [id number] [phone] AGNES,A JUAN PATIENT BCBS [place] MEDICARE SUPPLEMEN TYRESE MEDEX BRONZ E Dec 16, 2018 [id number] AGNES,A JUAN PATIENT BCBS ANN HIGH DEDUCTIBL E HEALTH PLAN [place] CTICU T [facility] Apr 17, 2011 [id number] [phone] AGNES,A JUAN PATIENT EXPRESS SCRIPTS ([id number]) PRESCRIPT ION L4TA* Apr 17, 2011 L4TA [id number] AGNES,A JUAN PATIENT [place] BS [place] (BLU[place]ARD) MEDICARE SUPPLEMEN TYRESE PSUED O MEDEX HEARI NG Dec 16, 2018 [id number] AGNES,A JUAN PATIENT MEDICARE (WNR) MEDICARE (M) PART A Dec 16, 2018 PART A [id number] CT90 AGNES,A JUAN PATIENT MEDICARE (WNR) MEDICARE (M) PART B Dec 16, 2018 PART B [id number] CT90 [phone] AGNES,A JUAN PATIENT MEDICARE (WNR) MEDICARE (M) PART A Dec 16, 2018 PART A [id number] CT90 [phone] AGNES,A JUAN PATIENT MEDICARE (WNR) MEDICARE (M) PART B Dec 16, 2018 PART B [id number] CT90 [phone] AGNES,A JUAN PATIENT MEDICARE (WNR) MEDICARE (M) PART A Dec 16, 2018 PART A [id number] CT90 AGNES,A JUAN PATIENT MEDICARE (WNR) MEDICARE (M) PART B Dec 16, 2018 PART B [id number] CT90 AGNES,A JUAN PATIENT Selected Encounter This section includes the information on record at [place] for the Encounter. 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 This section includes future appointments and future orders which are active, pending or scheduled. Future Appointments This section includes appointments that were scheduled to occur 6 months from the date of the Encounter, up to a maximum of 20 appointments. The data comes from all [facility]. Appointment Date/Time Appointment Type Appointme nt Facility Name May 08, 2024 10:00 AM AMBULATORY - RE[facility]AB [facility] E [facility] May 21, 2024 08:30 AM [facility] May 23, 2024 08:15 AM [facility]ULATORY [facility]IC[facility] Aug 15, 2024 02:30 PM [facility] Aug 21, 2024 08:00 AM [facility] Active, Pending, and Scheduled Orders This section includes a listing of several types of active, pending, and scheduled orders, including clinic medications orders, diagnostic test orders, procedure orders and consult orders; where the start date of the order is 45 days before the date of the Encounter or 45 days after the date of theEncounter. The data comes from all [facility]. Test Date/Time Test Type Test Details Facility Name Apr 18, 2024 12:00 AM Laboratory - Chemistry Order MICROALBUMIN CREATININE RATIO PANEL URINE (RANDOM) [facility] Apr 18, 2024 12:00 AM Laboratory - Chemistry Order CREATININE (eGFR 2020) BLOOD (SST-SERUM) [facility] ([facility]) Apr 18, 2024 12:00 AM Laboratory - Chemistry Order BASIC METABOLIC PANEL (fasting) BLOOD (SST-SERUM) [facility]) Apr 18, 2024 12:00 AM Laboratory - Chemistry Order LIPID PANEL FASTING BLOOD (SST-SERUM) [facility] ([facility]) Apr 18, 2024 12:00 AM Laboratory - Chemistry Order LIVER FUNCTION BLOOD (SST-SERUM) [facility]) Apr 18, 2024 12:00 AM Laboratory - Chemistry Order HEMOGLOBIN A1C PANEL BLOOD (LAV-BLOOD) [facility] ([facility]) Apr 18, 2024 12:00 AM Laboratory - Chemistry Order CBC AND DIFF (AUTO) BLOOD (LAV-BLOOD) [facility]) Apr 18, 2024 12:00 AM Laboratory - Chemistry Order TSH BLOOD (SST-SERUM) [facility]) May 17, 2024 08:15 AM Consult Order [facility] SURGICAL Cons Service Worker Helper's Choice [facility] Social History: Smoking Status (Most current) and Tobacco Use (All prior to encounter date) This section includes the most current, and the historical, smoking and tobacco- related health factors from the [place] facility where the Encounter took place. Current Smoking Status This section includes the most current smoking, or tobacco-related health factor, from the [place] facility where the Encounter took place. Date/Time Current Smoking Status Comment Facil ity Oct 27, 2022 02:44 PM VA-TOBACCO USE WI 30 MIN OF WAKEUP [facility] Tobacco Use History This section includes a history of the smoking, or tobacco-related health factors, that were collected on or before the date of the Encounter. The data comes from the [place] facility where the Encounter took place. Date/Time Smoking Status/Tobacco Use Comment F acility Oct 27, 2022 02:44 PM [facility] Oct 27, 2022 02:44 PM VA-TOBACCO USE CYLINDER DYER NO [place] [facility] [place] [facility] Oct 27, 2022 02:44 PM VA-TOBACCO USE MED NO [place] [facility] Oct 27, 2022 02:44 PM VA-TOBACCO USE WI 30 MIN OF WAKEUP [place] [facility] [place] [facility] Oct 27, 2022 02:44 PM VA-TOBACCO USER EVERY DAY [facility] Advance Directives: All historical and current Section Date Range: From patient's date of to the date document was created. This section includes ALL of a patient's completed or amended [place] Advance and Rescinded Directives. The entries below indicate that a directive exists for the patient, but an actual copy is not included with this document. The data comes from all [place] facilities. Date Advance Directives Provider Source Mar 01, 2014 ADVANCE DIRECTIVE VARSHA ESQUIVEL ([facility]) Encounter Notes: All associated encounter notes This section contains the clinical notes associated to the Encounter. Date/Time Encounter Note(s) Provider Source May 07, 2024 10:51 AM PODIATRY NOTE: LOCAL TITLE: PODIATRY NOTE STANDARD TITLE: PODIATRY NOTE DATE OF NOTE: MAY 07, 2024@10:51 ENTRY DATE: MAY 07, 2024@10:51:48 AUTHOR: GAMALIEL ARAGON EXP COSIGNER: URGENCY: STATUS: COMPLETED Podiatry High Risk Foot Encounter [facility] provider: Gamaliel Aragon [facility] Date: MAY 07, 2024 SERGE ALARCON MALE [id number] Dec 68 [employer] FROM Dec TO Jan [...] was sent out for surgical consult to [place]. He had seen them on 1 [...] hyponatremia transaminitis diarrhea. He was transferred to [facility] on 02/28/2024 to start dialysis. He had a persistent leg rash and ID was consulted and recommended transition to oral antibiotics on discharge On 03/17 patient developed fevers that were not responding to Tylenol he also complained of discomfort near his dialysis access he was sent back to the hospital workup negative for bacteremia but found to be positive for C. difficile infection he was started on p.o. vancomycin with improvement he then was recommended to return to rehab for further management. He has been in a [facility] healing shoe since last visit. He has not been back to Hospital. has bee complaint with healing shoe,and keeping area protected with bandaid. [sub met five left]. Saw primary 05/03/24- meds updated. Of note and not know pt has alcohol use disorder routinely 6 drink per day. See MD note for further hx. Subjective: Feels well, gaining strength. No c/o fever chills nausea , pain swelling drainage from foot. Diabetic/ HRF/ PVD LE History: [ ] [...] foot 3. Liver Function Tests Abnormal (SCT [id number]) 4. Crush syndrome 5. Rhabdomyolysis 6. Cervical spondylosis 7. Benign hypertension 8. Benign prostatic hyperplasia 9. Obesity 10. Diabetes mellitus 11. Chronic ischemic heart disease (SNOMED CT 033801466) 12. Osteoarthritis of knee (SNOMED CT 715751564) 13. Hearing loss 14. Tremor (SNOMED CT 59499084) 15. Sleep apnea (SNOMED CT 38257245) 16. Gout (SNOMED CT 21821515) 17. Hyperlipidemia (SNOMED CT 40294154) 18. 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 Pain in right knee (SNOMED CT [id number]) 21. Seborrheic Dermatitis, Unspecified Active Out Patient [...] after debridement: Measurements post debridement (if any) Healed with thin skin over, and some surounding hyperkeratosis. Since now wearing new set of compression stockings edema is vastly improved. remainder of exam unchanged. PAVE:3 Impression: Patient appears to be physically declining over the past several months and indeed has had several severe medical crises including acute renal failure, rhabdomyolysis, sepsis? recurent cellulitis left LE in setting of PN, diabetic foot ulcer sub met 5, s/p ARF requiring dialysis now stabliziing, and anemia. Recent recurrence cellulitis seen at [facility]. No active signs of cellulitis present today. Wound is healed Remains at superhigh risk for amputation and other complications given overall numerous other comorbidities and ETOH use disorder. Plan: -cont in off laod procare peg assist sx shoe until next visit. -original consult to outside pod - that provider gone on maternity leave. -will cc consult [facility] for possible osteotomy left foot , or fifth met head resection. -fu 2 weeks wound clinc Return sooner if any clinical signs of [...] as results of the physical exam and golf tournament consultant opinions and recommendations as sought. Alternatives [...] -The on this visit was given information [employer] XR service and encouraged to enroll if not already having done so. /george/ GAMALIEL ARAGON DPM PODIATRY ATTENDING Signed: 05/08/2024 16:51 GAMALIEL ARAGON [place] [facility]
--- OUTSIDE RECORDS SUMMARY | 2024-08-15 16:40 | XMS_ITS ---
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 Name Role Phone RAMY CASTILLO Primary Care [...] TYRESE MEDEX BRON E Dec 16, 2018 [id number] AGNES,A JUAN PATIENT ANTHEM BCBS OF [place] (BLUECARD) MEDICARE SUPPLEMEN TYRESE MEDEX BRONZ E Dec 16, 2018 [id number] AGNES,A JUAN PATIENT BCBS [place] MEDICARE SUPPLEMEN TYRESE MEDEX BRONZ E Dec 16, 2018 [id number] [phone] AGNES,A JUAN PATIENT BCBS ANN H[facility] D[facility] E [facility] [place] [facility] Apr 17, 2011 [id number] [phone] AGNES,A JUAN PATIENT [employer] ([id number]) PRESCRIPT ION L4TA* Apr 17, 2011 [id number] AGNES,A JUAN PATIENT [place] ([place] MEDICARE SUPPLEMEN TYRESE PSUED O MEDEX HEARI NG Dec 16, 2018 [id number] AGNES,A JUAN PATIENT MEDICARE (WNR) MEDICARE (M) PART A Dec 16, 2018 PART A [id number] [phone] AGNES,A JUAN PATIENT MEDICARE (WNR) MEDICARE (M) PART B Dec 16, 2018 PART B [id number] [phone] AGNES,A JUAN PATIENT MEDICARE (WNR) MEDICARE (M) PART A Dec 16, 2018 PART A [id number] [phone] AGNES,A JUAN PATIENT MEDICARE (WNR) MEDICARE (M) PART B Dec 16, 2018 PART B [id number] AGNES,A JUAN PATIENT MEDICARE (WNR) MEDICARE (M) PART A Dec 16, 2018 PART A [id number] [phone] AGNES,A JUAN PATIENT MEDICARE (WNR) MEDICARE (M) PART B Dec 16, 2018 PART B [id number] CT90 [phone] AGNES,A JUAN PATIENT Selected Encounter This section includes the information on record at [place] for the Encounter. Date/Time Encounter Type Encounter Description Reason Provider Source November 21, 2023 09:00 AM OFFICE O/P EST LOW 20 MIN PODIATRY ICD-10-CM 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 2 diabetes mellitus with foot ulcer GAMALIEL ARAGON [facility] Encounter Template Text not used by [place] Assessments - Encounter Diagnoses This section includes the primary and secondary diagnoses documented for the Encounter. 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 This section includes future appointments and future orders which are active, pending or scheduled. Future Appointments This section includes appointments that were scheduled to occur 6 months from the date of the Encounter, up to a maximum of 20 appointments. The data comes from all [place] treatment facilities. Appointment Date/Time Appointment Type Appointme nt Facility Name November 29, 2023 01:00 PM AMBULATORY - MEDICINE [facility] December 05, 2023 11:00 AM [facility] [place] [facility] December 14, 2023 11:00 AM [facility] [place] [facility] Jan 09, 2024 11:30 AM [facility] [place] [facility] Jan 11, 2024 01:30 PM AMBULATORY - REHAB MEDICIN [facility] [place] [facility] Jan 27, 2024 11:00 AM [facility]ATORY [facility]IC[facility] [place] [facility] Feb 06, 2024 11:30 AM [facility] [place] [facility] Apr 02, 2024 09:30 AM [facility] [place] [facility] Apr 20, 2024 01:30 PM AMBULATORY - MEDICINE [facility] Apr 23, 2024 08:00 AM [facility]ULAT[facility]IC[facility] [place] [facility] Apr 23, 2024 11:00 AM [facility] [place] [facility] May 03, 2024 02:00 PM AMBULATORY - MEDICINE [facility] May 07, 2024 10:30 AM [facility]ORY [facility]IC[facility] [place] [facility] May 08, 2024 10:00 AM AMBULATORY - REHAB MEDICIN E [facility] [place] [facility] May 21, 2024 08:30 AM [facility] [place] [facility] May 23, 2024 08:15 AM [facility]ULATORY [facility]IC[facility] [place] [facility] Lab Results: +/- 30 days of the encounter This section includes the Chemistry and Hematology Lab Results on record with [place] for the patient. Radiology Reports and Pathology Reports are provided separately, in subsequent sections. Lab Results This section contains the Chemistry/Hematology Results that were resulted 30 days before or 30 daysafter the date of the Encounter. Date/Time Source Result Type Result - Unit Interpretation Reference Range Comment Oct 28, 2023 11:30 AM [facility] CULTURE,WOUND PANEL(C.D.H.) Specimen Type: FOOT Comment: ~For Test: CULTURE,WOUND PANEL(C.D.H.) ~left foot dm foot ulcer no abx on board. SENT TO Refer to CPRS: Bread. Display for Lab Results Ordering Provider: GAMALIEL ARAGON Report Released Date/Time: Oct 28, 2023 11:23 AM Reporting Lab: [address] [id number] Performing Lab: [address] [address] GRAM STAIN(cdh) comment CULTURE,WOU ND(cdh) comment Oct 28, 2023 11:25 AM [facility] CBC AND DIFF (AUTO) Specimen Type: BLOOD No comment entered. Ordering Provider: GAMALIEL ARAGON Report Released Date/Time: Oct 28, 2023 11:20 AM Reporting Lab: [address] [id number] Performing Lab: [address] [address] WBC 8.17 10*3/uL 4.50-11.00 RBC 4.30 10*6/uL 4.23-5.66 HGB 13.8 g/dL 12.8-17 HCT 40.8 39.2-50.4 MCV 94.9 fL 82-99 MCHC 33.8 g/dL 30.8-35.1 PLT 131 10*3/uL L 140-360 RDW-CV 13.8 12.0-16.0 [place], Abs 0.51 10*3/uL 0.30-1.10 MCH 32.1 pg 26.2-32.6 Neut % 59.3 43.7-75.8 Lymph % 30.7 14.0-42.3 [place] % 6.2 5.1-13.7 Eos % 3.2 0.4-6.8 Baso % 0.4 0.1-2.0 Neut, Abs 4.84 10*3/uL 2.20-7.60 Lymph, Abs 2.51 10*3/uL 1.00-3.20 Eos, Abs 0.26 10*3/uL 0.03-0.44 Baso, Abs 0.03 10*3/uL 0.01-0.13 Immature Gran % 0.2 0.0-0.7 Immature Gran, Abs 0.02 10*3/uL 0.00-0.06 Social History: Smoking Status (Most current) and [...] 2022 02:44 PM VA-TOBACCO USER EVERY DAY [facility] Tobacco Use History This section includes a history of the smoking, or tobacco-related health factors, that were collected on or before the date of the Encounter. The data comes from the [place] facility where the Encounter took place. Date/Time Smoking Status/Tobacco Use Comment F acility Oct 27, 2022 02:44 PM [facility]BACCO [facility] Oct 27, 2022 02:44 PM VA-TOBACCO USE FEED MIXER NO [place] [facility] [place] [facility] Oct 27, 2022 02:44 PM VA-TOBACCO USE MED NO [place] [facility] [place] [facility] Oct 27, 2022 02:44 PM VA-TOBACCO USE WI 30 MIN OF WAKEUP [place] [facility] [place] [facility] Oct 27, 2022 02:44 PM VA-TOBACCO USER EVERY DAY [facility] Advance Directives: All historical and current Section [...] Provider Source Mar 01, 2014 ADVANCE DIRECTIVE SIERRAAVRSHA HUMPHREYRIN Haro ([facility]) Encounter Notes: All associated encounter notes This section contains the clinical notes associated to the Encounter. Date/Time Encounter Note(s) Provider Source November 21, 2023 09:15 AM PODIATRY NOTE: LOCAL TITLE: PODIATRY NOTE STANDARD TITLE: PODIATRY NOTE DATE OF NOTE: NOVEMBER 21, 2023@09:15 ENTRY DATE: NOVEMBER 21, 2023@09:15:28 AUTHOR: GAMALIEL ARAGON EXP COSIGNER: URGENCY: STATUS: COMPLETED Podiatry High Risk Foot Encounter [facility] provider: Gamaliel Aragon [facility] Date: NOVEMBER 21, 2023 SERGE ALARCON MALE [id number] [place] [address] FROM Dec TO Jan Primary Care:RAMY CASTILLO Unscheduled visit for this 67-year-old diabetic male with peripheral neuropathy and history of ulceration submetatarsal 5 on the left side. Patient has had several episodes of minor skin breakdown and 1 or 2 episodes of localized cellulitis treated with oral antibiotics. He has noticed some irritation and is concerned and wanted an appointment today. But he denies any fever chills nausea vomiting or other local or systemic signs of infection. PMH list CPRS: Active problems - Computerized Problem List is the source for the followin. Steatosis of liver 2. Chronic ulcer of foot 3. Liver Function Tests Abnormal (SCT 181307656) 4. Crush syndrome 5. Rhabdomyolysis 6. Cervical spondylosis 7. Benign hypertension 8. Benign prostatic hyperplasia 9. Obesity 10. Diabetes mellitus 11. Chronic ischemic heart disease (SNOMED CT 014730685) 12. Osteoarthritis of knee (SNOMED CT 614220027) 13. Hearing loss 14. Tremor (SNOMED CT 29853035) 15. Sleep apnea (SNOMED CT 49704812) 16. Gout (SNOMED CT 88657741) 17. Hyperlipidemia (SNOMED CT 44224285) 18. Asthma (SNOMED CT 199532816) 19. Impotence of organic origin 20. Pain in right knee (SNOMED CT 519593887997349) 21. Seborrheic Dermatitis, Unspecified Active Out Patient medications: Active Outpatient Medications (including Supplies): Active Outpatient Medications Status 1) ACCU-CHEK GUIDE (GLUCOSE) TEST STRIP USE 1 STRIP TO ACTIVE TEST BLOOD SUGARS DIRECTED BY PROVIDER 2) BACITRACIN 500 UNT/GM TOP OINT APPLY THIN LAYER ACTIVE TOPICALLY ONCE DAILY FOR INFECTION 3) CETIRIZINE HCL 10MG TAB TAKE ONE TABLET BY MOUTH ONCE ACTIVE DAILY FOR ALLERGIES 4) CYANOCOBALAMIN 1000MCG TAB TAKE ONE TABLET BY MOUTH ACTIVE ONCE DAILY FOR PREVENTION OF VITAMIN B12 DEFICIENCY 5) FLUTICASONE PROP 50MCG 120D NASAL INHL INSTILL 1 ACTIVE SPRAY INTO EACH NOSTRIL ONCE DAILY NEEDED FOR NASAL IRRITATION/INFLAMMATION 6) KERLIX 4.5IN STERILE USE 1 ROLL TOPICALLY ONCE DAILY ACTIVE 7) KETOCONAZOLE 2% SHAMPOO SHAMPOO SMALL AMOUNT ACTIVE TOPICALLY ONCE DAILY NEEDED FOR FUNGAL INFECTION OF THE SKIN 8) LANCET,SOFTCLIX USE 1 LANCET TOPICALLY NEEDED TO ACTIVE TEST BLOOD SUGAR 9) METFORMIN HCL 500MG 24HR SA TAB TAKE ONE TABLET BY ACTIVE MOUTH ONCE DAILY 10) OLODATEROL/TIOTROP 2.5MCG/ACTUAT 60D INH INHALE 2 ACTIVE PUFFS (1 DOSE) BY MOUTH ONCE DAILY 11) PRIMIDONE 50MG TAB TAKE THREE TABLETS BY MOUTH TWICE ACTIVE DAILY 12) PROPRANOLOL HCL 120MG SA CAP TAKE ONE CAPSULE BY ACTIVE MOUTH DAILY 13) ROSUVASTATIN CA 40MG TAB TAKE ONE TABLET BY MOUTH ACTIVE (S) EVERY EVENING AFTER SUPPER FOR CHOLESTEROL 14) SILDENAFIL CITRATE 100MG TAB TAKE ONE TABLET BY MOUTH ACTIVE NEEDED TAKE 1 HOUR PRIOR TO SEXUAL ACTIVITY DO NOT USE WITHIN 24 HOURS OF USING NITROGLYCERIN 15) VALSARTAN 80MG TAB TAKE ONE TABLET BY MOUTH DAILY ACTIVE 16) ZONISAMIDE 100MG CAP TAKE ONE CAPSULE BY [...] LIVER ELIXIR ONE CAP TWICE ACTIVE DAILY 21 Total Medications Imaging reports: Lab Data: CREATININE-EGFR [...] SERUM ALBUMIN 3.6 g/dL 3.5 - 5.0 Vital signs: BMI:BMI: 31.7 PE:General: Well-appearing awake alert oriented x3 NAD Palpable pulses warm pink skin Dense peripheral neuropathy to the midfoot bilateral 10 out of 10 fell on [place] Álvaro monofilament Bilateral mild tibial varum Left-sided knee pathology Able to compensate fully for tibial varum with subtalar joint eversion and sagittal plane motion in the fifth metatarsal. Area under fifth metatarsal with small callus extending along the plantar surface and dry fissure along the side. Both debrided down to reveal intact skin and no ulceration present. No surrounding erythema or edema No deep tissue injury No fluctuance or fluid collection Remainder of exam unremarkable Impression: Level 2 at risk for amputation Previously ulcerated submetatarsal 5 After debridement of abnormal tissue exam is stable today Plan: -Return on regularly scheduled appointment December 04 -Bring in all new orthotics- -patient is scheduled for safari in [facility] for 2 weeks December 14 through December 28 -Wear wear that above Recall: Return sooner if any clinical signs [...] as results of the physical exam and datapower consultant opinions and recommendations as sought. Alternatives [...] on this visit was given information My [employer] messaging service and encouraged to enroll if not already having done so. /george/ GAMALIEL ARAGON DPM PODIATRY ATTENDING Signed: 11/21/2023 16:47 GAMALIEL ARAGON [facility]
--- OUTSIDE RECORDS SUMMARY | 2024-08-15 16:40 | XMS_ITS | Encounter Summary ---
Author Name [facility] [place] Organization [facility] [place] Address [address] [place] [address] Care Team Providers Care Medical Claims Analyst Name Role Phone RAMY CASTILLO Primary Care [...] TYRESE MEDEX BRON E Dec 16, 2018 [id number] AGNES,A JUAN PATIENT ANTHEM BCBS OF CT (BLUECARD) MEDICARE SUPPLEMEN TYRESE MEDEX BRONZ E Dec 16, 2018 [id number] AGNES,A JUAN PATIENT BCBS [place] MEDICARE SUPPLEMEN TYRESE MEDEX BRONZ E Dec 16, 2018 [id number] AGNES,A JUAN PATIENT BCBS ANN [facility] [place] [facility] Apr 17, 2011 [id number] AGNES,A JUAN PATIENT [employer] ([id number]) PRESCRIPT ION L4TA* Apr 17, 2011 [id number] AGNES,A JUAN PATIENT [facility] (BLUECARD) MEDICARE SUPPLEMEN TYRESE PSUED O MEDEX HEARI NG Dec 16, 2018 [id number] [phone] AGNES,A JUAN PATIENT MEDICARE (WNR) MEDICARE (M) PART A Dec 16, 2018 PART A [id number] [phone] AGNES,A JUAN PATIENT MEDICARE (WNR) MEDICARE (M) PART B Dec 16, 2018 PART B [id number] [phone] AGNES,A JUAN PATIENT MEDICARE (WNR) MEDICARE (M) PART A Dec 16, 2018 PART A [id number] AGNES,A JUAN PATIENT MEDICARE (WNR) MEDICARE (M) PART B Dec 16, 2018 PART B [id number] AGNES,A JUAN PATIENT MEDICARE (WNR) MEDICARE (M) PART A Dec 16, 2018 PART A [id number] AGNES,A JUAN PATIENT MEDICARE (WNR) MEDICARE (M) PART B Dec 16, 2018 PART B [id number] CT90 [phone] AGNES,A JUAN PATIENT Selected Encounter This section includes the information on record at [place] for the Encounter. Date/Time Encounter Type Encounter Description Reason Provider Source Oct 28, 2023 10:30 AM OFFICE O/P EST MOD 30 MIN PODIATRY ICD-10-CM 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 2 diabetes mellitus with foot ulcer ULYSSES ARAGON [facility] Encounter Template Text not used by [place] Assessments - Encounter Diagnoses This section includes the primary and secondary diagnoses documented for the Encounter. Date/Time Primary/Secondary Diagnosis Diagnosis Name Provider Source November 22, 2023 02:40 PM PRIMARY Type 2 diabetes mellitus with foot ulcer ULYSSES ARAGON [facility] November 22, 2023 02:40 PM SECONDARY Cutaneous abscess of left foot ULYSSES ARAGON [facility] Plan of Treatment: Future Appointments (+ 6 months) and Future Tests (+/- 45 days) The Plan of Treatment section includes future care activities for the [facility] [place] [facility] This section includes future appointments and future orders which are active, pending or scheduled. Future Appointments This section includes appointments that were scheduled to occur 6 months from the date of the Encounter, up to a maximum of 20 appointments. The data comes from all [place] treatment [facility]. Appointment Date/Time Appointment Type Appointme nt Facility Name November 21, 2023 09:00 AM AMBULATORY - MEDICINE [place] [facility] [place] [facility] November 29, 2023 01:00 PM [facility]ORY [facility]INE [facility] December 05, 2023 11:00 AM AMBULATORY - MEDICINE [place] [facility] [place] [facility] December 14, 2023 11:00 AM AMBULATORY - MEDICINE [place] [facility] [place] [facility] Jan 09, 2024 11:30 AM AMBULATORY - MEDICINE IN [facility] [place] [facility] Jan 11, 2024 01:30 PM AMBULATORY - REHAB MEDICIN E [facility] [place] [facility] Jan 27, 2024 11:00 AM AMBULATORY - MEDICINE [place] [facility] [place] [facility] Feb 06, 2024 11:30 AM AMBULATORY - MEDICINE [place] [facility] [place] [facility] Apr 02, 2024 09:30 AM AMBULATORY - MEDICINE [place] [facility] [place] [facility] Apr 20, 2024 01:30 PM AMBULATORY [facility] MEDICINE [facility] ([facility]) Apr 23, 2024 08:00 AM AMBULATORY - MEDICINE [place] [facility] [place] [facility] Apr 23, 2024 11:00 AM AMBULATORY - MEDICINE IN [facility] [place] [facility] Active, Pending, and Scheduled Orders This section includes a listing of several types of active, pending, and scheduled orders, including clinic medications orders, diagnostic test orders, procedure orders and consult orders; where the start date of the order is 45 days before the date of the Encounter or 45 days after the date of theEncounter. The data comes from all [facility]. Test Date/Time Test Type Test Details Facility Name Sep 28, 2023 03:21 PM Consult Order COMMUNITY CARE-NEUROLOGY Cons [employer] [facility] ([facility]) Lab Results: +/- 30 days of the encounter This section includes the Chemistry and Hematology Lab Results on record with [place] for the patient. Radiology Reports and Pathology Reports are provided separately, in subsequent sections. Lab Results This section contains the Chemistry/Hematology Results that were resulted 30 days before or 30 daysafter the date of the Encounter. Date/Time Source Result Type Result - Unit Interpretation Reference Range Comment Oct 28, 2023 11:30 AM [facility] CULTURE,WOUND PANEL(C.D.H.) Specimen Type: FOOT Comment: ~For Test: CULTURE,WOUND PANEL(C.D.H.) ~left foot dm foot ulcer no abx on board. SENT TO Refer to CPRS: [email or web address] Display for Lab Results Ordering Provider: GISSEL ARAGON Report Released Date/Time: Oct 28, 2023 11:23 AM Reporting Lab: [address] [address] Performing Lab: [facility] [address] [facility] [address] GRAM STAIN(cdh) comment CULTURE,WOUND (cdh) comment Oct 28, 2023 11:25 AM [facility] CBC AND DIFF (AUTO) Specimen Type: BLOOD No comment entered. Ordering Provider: GISSEL ARAGON Report Released Date/Time: Oct 28, 2023 11:20 AM Reporting Lab: [address] [address] Performing Lab: [address] [address] WBC 8.17 10*3/uL 4.50-11.00 RBC 4.30 10*6/uL 4.23-5.66 HGB 13.8 g/dL 12.8-17 HCT 40.8 39.2-50.4 MCV 94.9 fL 82-99 MCHC 33.8 g/dL 30.8-35.1 PLT 131 10*3/uL L 140-360 RDW-CV 13.8 12.0-16.0 [place], Abs 0.51 10*3/uL 0.30-1.10 MCH 32.1 pg 26.2-32.6 Neut % 59.3 43.7-75.8 Lymph % 30.7 14.0-42.3 [place] % 6.2 5.1-13.7 Eos % 3.2 0.4-6.8 Baso % 0.4 0.1-2.0 Neut, Abs 4.84 10*3/uL 2.20-7.60 Lymph, Abs 2.51 10*3/uL 1.00-3.20 Eos, Abs 0.26 10*3/uL 0.03-0.44 Baso, Abs 0.03 10*3/uL 0.01-0.13 Immature Gran % 0.2 0.0-0.7 Immature Gran, Abs 0.02 10*3/uL 0.00-0.06 Oct 10, 2023 10:10 AM [facility] BASIC METABOLIC PANEL (fasting) Specimen Type: SERUM No comment entered. Ordering Provider: GISSEL ARAGON Report Released Date/Time: Oct 10, 2023 09:53 AM Reporting Lab: [address] [address] Performing Lab: [address] [address] UREA NITROGEN 10 mg/dL 7-25 GLUCOSE 107 mg/dL H 65-100 SODIUM 141 mmol/L 135-145 POTASSIUM 4.5 mmol/L 3.5-5.0 CHLORIDE 107 mmol/L 100-110 CO2 25 meq/L 20-30 CREATININE, Serum 0.87 mg/dL 0.50-1.40 eGFR(CKD-EPI 2020) >90 mL/min >60 Oct 10, 2023 10:10 AM [facility] LIVER FUNCTION Specimen Type: SERUM No comment entered. Ordering Provider: GISSEL ARAGON Report Released Date/Time: Oct 10, 2023 09:53 AM Reporting Lab: [address] [address] Performing Lab: [address] [address] PROTEIN,TOTAL 6.6 g/dL 6.0-8.3 ALBUMIN 3.6 g/dL 3.5-5.0 ALKALINE PHOSPHATASE 68 U/L 40-150 AST 25 U/L 5-34 ALT 29 U/L BILIRUBIN, TOTAL 0.3 mg/dL 0.2-1.2 Oct 10, 2023 10:10 AM [facility] CBC AND DIFF (AUTO) Specimen Type: BLOOD No comment entered. Ordering Provider: GISSEL ARAGON Report Released Date/Time: Oct 10, 2023 09:53 AM Reporting Lab: [facility] [address] [facility] [address] Performing Lab: [facility] [address] [facility] [address] WBC 4.63 10*3/uL 4.50-11.00 RBC 4.43 10*6/uL 4.23-5.66 HGB 14.4 g/dL 12.8-17 HCT 42.7 39.2-50.4 MCV 96.4 fL 82-99 MCHC 33.7 g/dL 30.8-35.1 PLT 150 10*3/uL 140-360 RDW-CV 13.7 12.0-16.0 [place], Abs 0.37 10*3/uL 0.30-1.10 MCH 32.5 pg 26.2-32.6 Neut % 36.3 L 43.7-75.8 Lymph % 49.0 H 14.0-42.3 [place] % 8.0 5.1-13.7 Eos % 6.3 0.4-6.8 Baso % 0.2 0.1-2.0 Neut, Abs 1.68 10*3/uL L 2.20-7.60 Lymph, Abs 2.27 10*3/uL 1.00-3.20 Eos, Abs 0.29 10*3/uL 0.03-0.44 Baso, Abs 0.01 10*3/uL 0.01-0.13 Immature Gran % 0.2 0.0-0.7 Immature Gran, Abs 0.01 10*3/uL 0.00-0.06 Oct 10, 2023 10:09 AM TRAN ([facility]) HEPATITIS C ANTIBODY (HCV)-ARC Specimen Type: SERUM Comment: Hep C Ab: No HCV antibody detected. If recent infection is suspected or other evidence suggests HCV infection, consider HCV nucleic acid testing Ordering Provider: EVIN CASTILLO Report Released Date/Time: Jun 03, 2023 11:37 AM Reporting [facility] [address] [facility] [address] Performing [facility]: [facility] [address] [facility] [address] HEPATITIS C ANTIBODY NON-REACTIVE NON-REACTIV E Social History: Smoking Status (Most current) and Tobacco Use (All prior to encounter date) This section includes the most current, and the historical, smoking and tobacco- related health factors from the [place] facility where the Encounter took place. Current Smoking Status This section includes the most current smoking, or tobacco-related health factor, from the [place] facility where the Encounter took place. Date/Time Current Smoking Status Comment Facil ity Oct 27, 2022 02:44 PM VA-TOBACCO USER EVERY DAY [facility] Tobacco Use History This section includes a history of the smoking, or tobacco-related health factors, that were collected on or before the date of the Encounter. The data comes from the [place] facility where the Encounter took place. Date/Time Smoking Status/Tobacco Use Comment F acility Oct 27, 2022 02:44 PM [facility]TOBACCO [facility] Oct 27, 2022 02:44 PM VA-TOBACCO USE [facility] Oct 27, 2022 02:44 PM VA-TOBACCO USE MED NO [facility] Oct 27, 2022 02:44 PM VA-TOBACCO USE WI 30 MIN OF WAKEUP [facility] Oct 27, 2022 02:44 PM VA-TOBACCO USER EVERY DAY [facility] Advance Directives: All historical and current Section Date Range: From patient's date of to the date document was created. This section includes ALL of a patient's completed or amended [place] Advance and Rescinded Directives. The entries below indicate that a directive exists for the patient, but an actual copy is not included with this document. The data comes from all [place] facilities. Date Advance Directives Provider Source Mar [...] the Encounter. The data comes from all [place] treatment facilities. Date/Time Radiology Report Provider Source Oct 17, 2023 11:35 AM MRI ABD W&WO CONTR AST: AGNESSERGE [id number] M Exm Date: OCT 17, 2023@11:35 Req Phys: SHAHEEN CARMEN Loc: [facility] V01 [facility] LIVER ELECTRONICS TECH 01 F2F (R Img Loc: UPLOAD CD IMAGES-MRI Service: Unknown (Case [id number] COMPLETE) MRI ABD W&WO CONTRAST (MRI Detailed) CPT:35969 Reason for Study: MR ELASTOGRAPHY to determine LSM Clinical History: Date of imaging of date of exam to be uploaded:10/17/2023 Description of exam to be uploaded: (example- MRI head, MRI abdomen, etc) MRI Abdomen Provider's contact information: SHAHEEN CARMEN [employer] *[phone] Report Status: Electronically Filed Date Reported: NOV 03, 2023 Report: This exam was performed and interpreted at an Outside Facility. The images are available in [email or web address] and our local PACS. Impression: This exam was performed and interpreted at an Outside Facility. The images are available in [employer] and our local PACS. Primary Diagnostic Code: ADMIN. REPORT; REFER TO PT MED RECORD VERIFIED BY: / *ELECTRONICALLY FILED* [facility] Encounter Notes: All associated encounter notes This section contains the clinical notes associated to the Encounter. Date/Time Encounter Note(s) Provider Source Oct 28, 2023 12:33 PM PODIATRY NOTE: LOCAL TITLE: PODIATRY NOTE STANDARD TITLE: PODIATRY NOTE DATE OF NOTE: OCT 28, 2023@12:33 ENTRY DATE: OCT 28, 2023@12:33:41 AUTHOR: ULYSSES ARAGON EXP COSIGNER: URGENCY: STATUS: COMPLETED Podiatry High Risk Foot Encounter [facility] provider: Ulysses Aragon DPM Date: OCT 28, 2023 SERGE ALARCON MALE [id number] Dec 67 [employer] FROM Dec TO Jan Primary Care:RAMY CASTILLO Unscheduled visit for this 67-year-old male with well-controlled diabetes no peripheral vascular disease but significant peripheral neuropathy recurrent callus and history of ulceration submetatarsal 5 on the left foot. Patient was last seen on October 10, 2023, he had follow-up with primary care over some lab concerns they have been dismissed patient reports that he subsequently was identified as having COVID, and has recovered from this. Patient sent secure message today with complaint of redness and area of concern along the lateral side of the fifth metatarsal area left foot where he has had issues before. Patient otherwise denying fever chills nausea or vomiting. Asked to come in for assessment today. Patient reports that he is continuing to play golf a couple times a week 9 holes uses a golf cart but also not wearing his prescription footwear and wearing golf shoes. He also is walking his dog about 1 to 1.5 miles a day. Subjective: Again negative for fever chills nausea vomiting just local signs of possible infection with some redness and discoloration and slight increase in tenderness along the lateral side of left foot. Diabetic/ HRF/ PVD LE History: [ ] pvd [ ] pvd interventions [X] neuropathy [ ] meds: [X] wound active [x] diabetic foot ulcer history-lateral left foot [ ] infection active [ ] wound history yes [ ] amputation hx [ ] deformity [ ] charcot [ ] surgical deformity intervention PMH list CPRS: Active problems - Computerized Problem List is the source for the followin. Steatosis of liver 2. Chronic ulcer of foot 3. Liver Function Tests Abnormal (SCT 178086613) 4. Crush syndrome 5. Rhabdomyolysis 6. Cervical spondylosis 7. Benign hypertension 8. Benign prostatic hyperplasia 9. Obesity 10. Diabetes mellitus 11. Chronic ischemic heart disease (SNOMED CT 921826019) 12. Osteoarthritis of knee (SNOMED CT 824587186) 13. Hearing loss 14. Tremor (SNOMED CT 05893282) 15. Sleep apnea (SNOMED CT 18653097) 16. Gout (SNOMED CT 59981082) 17. Hyperlipidemia (SNOMED CT 79000654) 18. 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 Pain in right knee (SNOMED CT 468108119515788) 21. Seborrheic Dermatitis, Unspecified Active Out Patient [...] SERUM ALBUMIN 3.6 g/dL 3.5 - 5.0 Reporting [facility] [CLIA# [id number]] [address] [place] [address] Report Released Date/Time: Oct 28, 2023@11:35 Provider: ULYSSES ARAGON Specimen: BLOOD. [id number] Specimen Collection Date: Oct 28, 2023@11:25 Test name Result units Ref. range Site Code WBC 8.17 K/cmm 4.50 - 11.00 [631] Neut % 59.3 % 43.7 - 75.8 [631] Lymph % 30.7 % 14.0 - 42.3 [631] [place] % 6.2 % 5.1 - 13.7 [631] Eos % 3.2 % 0.4 - 6.8 [631] Baso % 0.4 % 0.1 - 2.0 [631] Immature Gran % 0.2 % 0.0 - 0.7 [631] Neut, Abs 4.84 K/cmm 2.20 - 7.60 [631] Lymph, Abs 2.51 K/cmm 1.00 - 3.20 [631] [place], Abs 0.51 K/cmm 0.30 - 1.10 [631] Eos, Abs 0.26 K/cmm 0.03 - 0.44 [631] Baso, Abs 0.03 K/cmm 0.01 - 0.13 [631] Immature Gran, Abs 0.02 K/cmm 0.00 - 0.06 [631] RBC 4.30 M/cmm 4.23 - 5.66 [631] HGB 13.8 g/dL 12.8 - 17 [631] HCT 40.8 % 39.2 - 50.4 [631] MCV 94.9 fl 82 - 99 [631] MCH 32.1 pg 26.2 - 32.6 [631] MCHC 33.8 g/dL 30.8 - 35.1 [631] RDW-CV 13.8 % 12.0 - 16.0 [631] PLT 131 L K/cmm 140 - 360 [631] = BMI:BMI: 31.7 PE:General: Well-appearing awake alert oriented x3 Left foot evaluated and found to have callus with shallow superficial abscess tracking along the lateral side and the top subcutaneous tissues measuring 1 mm in diameter by 6 mm in length after tracking is identified with sterile cotton tip applicator and area of deroofed. Scant amount of purulent drainage was released underlying tissues are pink and healthy with no signs of necrosis or deep tissue infection. Definitely no probing to fat tendon or bone layer. There is mild erythema more than the surrounding tissue measuring no more than 3 mm. After full tier jamal no further expressible draining or discharge. Impression: -Recurrent ulceration and 67-year-old neuropathic diabetic male who otherwise is very well controlled. -Labs from today, no leukocytosis or shift, other parameters have normalized -Should improve and resolve with local wound care drainage is performed today. Plan: -Drained and debrided of abscess lateral left foot without local anesthesia -Cultured drainage -CBC with differential -Patient will perform local wound care was triple antibiotic and 3 x 2 Band-Aids changed twice daily -Patient is to limit activity and not certainly play golf -We will follow-up with us on My Healthy Vet Tuesday Return sooner if any clinical signs of [...] as results of the physical exam and career development consultant opinions and recommendations as sought. Alternatives [...] on this visit was given information My psicofxp service and encouraged to enroll if not already having done so. /george/ ULYSSES ARAGON DPM PODIATRY ATTENDING Signed: 10/28/2023 12:47 ULYSSES ARAGON [facility]
--- OUTSIDE RECORDS SUMMARY | 2024-08-15 16:40 | XMS_ITS | Encounter Summary ---
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 Name Role Phone KILO CASTILLO Primary Care [...] TYRESE MEDEX BRONZ E Dec 16, 2018 [id number] [phone] AGNES,A JUAN PATIENT ANTHEM BCBS OF [place] (BLUECARD) MEDICARE SUPPLEMEN TYRESE MEDEX BRONZ E Dec 16, 2018 [id number] AGNES,A JUAN PATIENT [place]BS [place] MEDICARE SUPPLEMEN TYRESE MEDEX BRONZ E Dec 16, 2018 [id number] [phone] AGNES,A JUAN PATIENT BCBS ANN HIGH DEDUCTIBL E HEALTH PLAN CONNE [facility] T [facility] Apr 17, 2011 [id number] AGNES,A JUAN PATIENT EXPRESS SCRIPTS ([id number]) PRESCRIPT ION L4TA* Apr 17, 2011 [id number] AGNES,A JUAN PATIENT [place] MEDICARE SUPPLEMEN TYRESE PSUED O MEDEX HEARI NG Dec 16, 2018 [id number] AGNES,A JUAN PATIENT MEDICARE (WNR) MEDICARE () PART B Dec 16, 2018 PART B [id number] [phone] AGNES,A JUAN PATIENT MEDICARE (WNR) MEDICARE () PART A Dec 16, 2018 PART A [id number] AGNES,A JUAN PATIENT MEDICARE (WNR) MEDICARE () PART A Dec 16, 2018 PART A [id number] [phone] AGNES,A JUAN PATIENT MEDICARE (WNR) MEDICARE () PART B Dec 16, 2018 PART B [id number] AGNES,A JUAN PATIENT MEDICARE (WNR) MEDICARE () PART A Dec 16, 2018 PART A [id number] [phone] AGNES,A JUAN PATIENT MEDICARE (WNR) MEDICARE () PART B Dec 16, 2018 PART B [id number] CT90 [phone] AGNES,A JUAN PATIENT Selected Encounter This section includes the information on record at [place] for the Encounter. Date/Time Encounter Type Encounter Description Reason Provider Source Aug 17, 2023 11:00 AM OFFICE O/P EST MOD 30 MIN PRIMARY CARE/MEDICINE ICD-10-CM R94.5 Abnormal results of liver function studies CHARLOTTE CASTILLO Katherine Encounter Template Text not used by [place] Assessments - Encounter Diagnoses This section includes the primary and secondary diagnoses documented for the Encounter. Date/Time Primary/Secondary Diagnosis Diagnosis Name Provider Source Aug 25, 2023 08:55 AM PRIMARY Abnormal results of liver function studies EVIN CASTILLO ([facility]) Aug 25, 2023 08:55 AM SECONDARY Fatty (change of) liver, not elsewhere classified EVIN CASTILLO ([facility]) Aug 25, 2023 08:55 AM SECONDARY Obesity, unspecified EVIN CASTILLO ([facility]) Aug 25, 2023 08:55 AM SECONDARY Type 2 diabetes mellitus without complications EVIN CASTILLO ([facility]) Plan of Treatment: Future Appointments (+ 6 months) and Future Tests (+/- 45 days) The Plan of Treatment section includes future care activities for the [facility] [place] [facility] This section includes future appointments and future orders which are active, pending or scheduled. Future Appointments This section includes appointments that were scheduled to occur 6 months from the date of the Encounter, up to a maximum of 20 appointments. The data comes from all [place] treatment facilities. Appointment Date/Time Appointment Type Appointme nt Facility Name Aug 22, 2023 10:00 AM [facility]ULATORY [facility] Aug 29, 2023 11:00 AM AM[facility]ULATORY [facility]ICINE [facility] Sep 12, 2023 08:00 AM AM[facility]ULATORY [facility]ICINE [facility] Sep 14, 2023 07:30 AM AMBULATORY - NEUROLOGY [facility] Sep 26, 2023 10:30 AM AM[facility]ULATORY [facility]ICINE [facility] Oct 03, 2023 01:30 PM AMBULATORY - REHAB MEDICIN E [facility] Oct 10, 2023 09:30 AM AMBULATORY [facility] MEDICINE [facility] Oct 17, 2023 11:00 AM AMBULATORY - NONE [facility] Oct 19, 2023 11:30 AM AMBULATORY - MEDICINE [facility] ([facility]) Oct 28, 2023 10:30 AM AMBULATORY - MEDICINE [facility] November 21, 2023 09:00 AM AMBULATORY - MEDICINE [facility] November 29, 2023 01:00 PM AMBULATORY - MEDICINE [facility] ([facility]) December 05, 2023 11:00 AM AMBULATORY - MEDICINE [facility] December 14, 2023 11:00 AM AMBULATORY [facility] MEDICINE [facility] Jan 09, 2024 11:30 AM AMBULATORY [place]ICINE [place] [facility] Jan 11, 2024 01:30 PM AMBULATORY - REHAB MEDICIN E [facility] Jan 27, 2024 11:00 AM AMBULATORY - [place]ICINE [place] [facility] Feb 06, 2024 11:30 AM AMBULATORY - [facility]ICINE [facility] Active, Pending, and Scheduled Orders This section includes a listing of several types of active, pending, and scheduled orders, including clinic medications orders, diagnostic test orders, procedure orders and consult orders; where the start date of the order is 45 days before the date of the Encounter or 45 days after the date of theEncounter. The data comes from all [place] treatment facilities. Test Date/Time Test Type Test Details Facility Name Aug 18, 2023 12:00 AM Laboratory - Chemi stry Order CHEM 7 BLOOD (SER GOLD) [facility] Sep 28, 2023 03:21 PM Consult Order COMMUNITY CARE-NEUROLOGY Cons Melter Supervisor's Choice [facility] ([facility]) Social History: Smoking Status (Most current) and Tobacco Use (All prior to encounter date) This section includes the most current, and the historical, smoking and tobacco- related health factors from the [place] facility where the Encounter took place. Current Smoking Status This section includes the most current smoking, or tobacco-related health factor, from the [place] facility where the Encounter took place. Date/Time Current Smoking Status Comment [facility] Sep 14, 2021 10:30 AM [place]-TOBACCO DOESNT USE WI 30 MIN WAKEUP [facility] ([facility]) Tobacco Use History This section includes a history of the smoking, or tobacco-related health factors, that were collected on or before the date of the Encounter. The data comes from the [place] facility where the Encounter took place. Date/Time Smoking Status/Tobacco Use Comment F acility Sep 14, 2021 10:30 AM VA-TOBACCO USE 30 YEARS OR MORE [facility] ([facility]) Sep 14, 2021 10:30 AM VA-TOBACCO USE ADVICE [facility] ([facility]) Sep 14, 2021 10:30 AM VA-TOBACCO USE DINING HOST NO [facility] ([facility]) Sep 14, 2021 10:30 AM [place]-TO[place] USE MED NO [facility] ([facility]) Sep 14, 2021 10:30 AM VA-TOBACCO USER EVERY DAY [facility] ([facility]) Jun 12, 2019 03:11 PM VA-TOBACCO NEVER USED [facility] ([facility]) Mar 22, 2018 11:15 AM VA-TOBACCO FORMER USER [facility] ([facility]) Mar 22, 2018 11:15 AM VA-TOBACCO QUIT 15 YRS OR MORE [facility] ([facility]) Jul 20, 2017 09:06 AM QUIT TOBACCO USE > 7 YEARS AGO quit after first heart attack [facility] ([facility]) Jan 05, 2017 07:51 AM QUIT TOBACCO USE > 7 YEARS AGO Vet reports quitting smoking pipe tobacco 13 years ago [facility] ([facility]) Jan 05, 2017 07:51 AM QUIT TOBACCO USE 1 -7 YEARS AGO [facility] ([facility]) Sep 17, 2015 10:04 AM QUIT TOBACCO USE > 7 YEARS AGO [facility] ([facility]) Mar 17, 2011 11:04 AM QUIT TOBACCO USE > 7 YEARS AGO [facility] ([facility]) Advance Directives: All historical and current Section Date Range: From patient's date of to the date document was created. This section includes ALL of a patient's completed or amended [place] Advance and Rescinded Directives. The entries below indicate that a directive exists for the patient, but an actual copy is not included with this document. The data comes from all [place] facilities. Date Advance Directives Provider Source Mar 01, 2014 ADVANCE DIRECTIVE VARSHA ESQUIVEL ([facility]) Radiology Reports: +/- 30 days of [...] the Encounter. The data comes from all [place] treatment facilities. Date/Time Radiology Report Provider Source Aug 15, 2023 08:31 AM FOOT 3 OR MORE VIEWS(LEFT): SERGE ALARCON [id number] -[id number] M Exm Date: AUG 15, 2023@08:31 Req Phys: GAMALIEL URIOSTEGUI Pat Loc: CWM/NO/WOUND PROV A (Req'g Loc Img Loc: [facility]BUILD[facility] 1 Service: Unknown (Case 10 COMPLETE) FOOT 3 OR MORE VIEWS(LEFT) (RAD Detailed) CPT:26319 Proc Modifiers : LEFT CPT Modifiers : LT LEFT SIDE Reason for Study: dfu sub met five Clinical History: hx DFU for several weeks - no probe to bone. Send back to clinic please Report Status: Verified Date Reported: AUG 15, 2023 Date Verified: AUG 15, 2023 Supervisor Heading E-Sig:/ES/ED SALEH JR Report: Study: Weight-bearing AP, [...] Primary Interpreting Staff: ED SALEH JR, Radiologist (Supervisor Heading) /ED ESCALERA JR [facility] Encounter Notes: All associated encounter notes This section contains the clinical notes associated to the Encounter. Date/Time Encounter Note(s) Provider Source Aug 17, 2023 11:36 PM TELEHEALTH NOTE: LOCAL TITLE: [employer] PRIMARY CARE STANDARD TITLE: TELEHEALTH NOTE DATE OF NOTE: AUG 17, 2023@23:36 ENTRY DATE: AUG 17, 2023@23:37:08 AUTHOR: KILO CASTILLO EXP COSIGNER: URGENCY: STATUS: COMPLETED [place] [employer] (VVC) Standard Documentation [facility] Clinician Resources Only: E911 (Emergency Call Relay Center): [phone] National Veterans Crisis Line - [address] #[address] [facility] Suicide Coordinator - [phone], Ext. [phone]; Back-up Ext. [phone] [place] Police, Marlo FLORES - [phone] Introduction: Visit is being conducted by [employer]. [place] identified with 2 identifiers: [ ] Full Name [ ] Date of [ ] [place] ID Card Emergency Plan: confirmed and/or provided the following information in case of emergency or technology failure. PATIENT PHONE - [phone] PHONE NUMBER [CELLULAR] - Is patient phone number correct, if not, enter below: [place]'s phone number: [address] [place], [place] [address] 's present location and address for appointment: home 's emergency contact name and phone number: [place] reported that location is private and safe: Yes Informed Consent: [place] informed of the risks and benefits of Telehealth video care. [place] has the right to refuse video services. If refuses video visit, a [id number]-ln-sclb visit will be scheduled. [place] verbalized consent for this video visit: Yes [place] provided consent for any other persons present for visit: No If yes, who and relationship to patient: Secure visit: Visit was locked for security and privacy:Yes CC: 3 Mo f/u, NIDDM Last Seen in PCP: Apr 2023 HPI: 67 y/o M with PMH of CAD with NH age 48 2003, s/p 3 stents to LAD, HTN, HLD, mod persistent Asthma, NIDDM (A1c 5.6), BPH, CLARENCE on CPAP, essential tremor, gout, abnormal LFTs, alcohol overuse, obesity (BMI 33) was contacted today via VVC to discuss current issues. had R TKR in Jun 2023, Dr Kodak Estrella [facility] hosp. doing well so far but cannot flex right knee more than 10-0 debgree, on PT now. Lately vet wa worrying abut his NIDDM. He still has chronic L lateral foot, plantar ulcer f/b [facility], non healing for > 2 mo. Was take no metformin 500mg daily on lat visit since his A1c was consistently 5.6, 5.7. Want sto get back on int. Also called he wants to check his BG at home does not have diabetic supplies. Pt denies any recent travel, sick contacts, fever, chills, cough, palpitations, CP, SOB, [place], numbness, tingling , weakness, dizziness, abd pain, N/V/D, dysuria, constipation, LE edema. No changes in ET, can walk 4+ blocks, can climb 1-2 flight of stairs, denies any orthopnea, PND. Pt is compliant with medications. ROS: as mentioned in HPI PSH: R rotator cuff repair surgery at [facility] in Jul 2020; neck C6-7 laminectomy; L and R knee arthroscopic surgery, last in 2018; R. 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 . FH: M young from fire accident; Father alive 83. Outside PCP: yes, Dr Benedicto Tesfaye in [facility] Labs : outside labs JunJul 2022, 2023: A1c 6.2, 5.9 Imaging/Tests: none new ECHO Feb 2021: EF 65%, no motion wall abnormalities Liver elastography U/S May 2023: no liver fibrosis probable, hepatic steatosis, possible mild fibrosis Assessment/Plan: NIDDM (A1c 5.6): [place] outside a1c 6.2 jun, 5.26 Jul 2023, w/o any treatment BW stable actually some BW loss, current BW 222lb at home w/o clothes Stable, no change in years -stopped Metformin 500mg daily Per 's wishes can re-start Metformin low dose 500mg daily Sent diabetic supplies Left foot non healing wound: Stable now f/b [facility] wound care, podiatry, once per week visits no OM Elevated LFTs, hepatic steatosis, alcohol overuse: Now f/b [facility] liver clinic Small increase in transaminase, very high GGT Still drinking refused to stop, Refused consult for alcohol overuse Persistent mild transaminitis 2/2 alcohol intake, obesity Had fibra scan but results equivocal MRI pending Repeat liver U/S with elastography in Sep 2020 c/w steatosis with mild fibrosis liver elastography c/w probable no fibrosis CAD with NH age 48 s/p 3 stents to LAD, HTN, HLD: f/b outside cardio Dr Shawn Feldman, [facility] had ECHO Feb 2021: EF 65%, normal January 2021 exercise Stress test normal Stable no issues BP well controlled. LDL at goal 51, -on rosuvastatin 40 mg -on Asa 81mg, buys on his own -On valsartan 80mg and 40mg prn Asthma, seasonal allergies: seasonal, no issues, -f/b outside Pulmo Dr Morocho in [place] -c/w Stiolto Respimat daily -on Zafirlucast 20mg bid -on Albuterol inhaler prn -on albuterol nebs prn -on fluticasone nasal spray -on Ipratropium nasal -s/w Cetirizine daily BPH: stable, asymptomatic -on finasteride 5mg PSA WNL of 0.63 CLARENCE on CPAP: compliant, no issues essential tremor: stable , no issues f[facility]b [facility] e[facility]argent [facility] Aug 2022 tremor well controlled in his Left thumb (pt is left handed). -on Primidone 150mg bid -on Propranolol 120mg -on Zonisamide 100mg tid Gout: no recent attacks -on Allopurinol 300mg Obesity: BMI 33 now, No change Offered move , nutrition consults but refused. Low vit B 12: s/w supplements 1000mcg daily Records reviewed. New labs reviewed, discussed, questions answered. Meds refilled. [place] verbalized understanding of the plan and agreed to it. Patient follows with non-VA providers and defers to them for medications management and management of chronic conditions. [facility]. HM: Colonoscopy: Last , [facility], 2021,repeat in 5 yrs 2026 Vaccines: Influenza: 2021 Tdap: 2020 Ijukjfrvz03: 2020 [place]03: 2019 Shingrix: 2020 Covid-19 Pfizer: completed 2019, 09/09/20, 2021 RTC per recall Addendum: PACT 4 TEAM: See RTC above Medication Reconciliation: Outpatient: Has the patient been taking medications as documented in the EMLR? YES: The patient has been taking medications as documented in the EMLR. Essential Medication List for Review used to complete this medication reconciliation. INCLUDED IN THIS LIST: Alphabetical list of active outpatient prescriptions dispensed from this VA (local) and dispensed from another VA or DoD facility (remote) as well as inpatient orders (local, pending and active), local clinic medications, locally documented non-VA medications, and local prescriptions that have or been discontinued in the past 90 days. - All changes in medications, including all non-VA/Herbal/OTC medications were entered into CPRS. - If there were any medications the patient should no longer take, they were discontinued. - The patient/caregiver was instructed to update this list, discard old lists, and take this list to the next appointment, whether with a VA or non-VA provider. /george/ Kilo Castillo MD MD PRIMARY CARE PHYSICIAN Signed: 08/18/2023 00:37 KILO CASTILLO ([facility]) Aug 17, 2023 10:01 AM PREVENTIVE MEDICIN E NURSING NOTE: LOCAL TITLE: CLINICAL REMINDERS/NURSING STANDARD TITLE: PREVENTIVE MEDICINE NURSING NOTE DATE OF NOTE: AUG 17, 2023@10:01 ENTRY DATE: AUG 17, 2023@10:01:43 AUTHOR: ESTEBAN HENDERSON COSIGNER: URGENCY: STATUS: COMPLETED Eye Care At-Risk Screen : Patient identified to be at risk for the following eye condition(s): DIABETIC RETINOPATHY: Diabetes Diagnosis Information: Encounter Diagnosis: 08/15/2023@08:00 E11.621 (ICD-10-CM) Type 2 Diabetes Mellitus with Foot Ulcer rank: PRIMARY Prov. Narr. - Type 2 Diabetes Mellitus with Foot Ulcer MACULAR DEGENERATION: Macular Degeneration Risk Factors Information: Reminder Term: VA-AMD RISK FACTORS Encounter Diagnosis: 05/10/2023@10:00 I25.9 (ICD-10-CM) Chronic Ischemic Heart Disease, unspecified rank: SECONDARY Prov. Narr. - Chronic ischemic heart disease ([facility] [id number]) Action: Patient has a future eye care appointment scheduled within the next 90 days. Date of Appointment: 09/2023 RHS Screen: RHS Screen Session Format: Clinical Video Telehealth Modality of Care: Video Telehealth Patient's identity verified using two identifiers. Patient Contact Details: Best contact number for backup/emergency communication with patient: *PHONE OBJECT HERE* Patient Location/Surroundings During Visit: Patient location during visit: Home *PATIENT ADDRESS OBJECT HERE* Patient confirms location is safe and private for visit. Telehealth Disclosure: Visit conducted by synchronous telehealth. Patient verbal consent obtained. Location/emergency number confirmed. Environment surveyed and all participants identified. Virtual conference room locked. Environmental Check Upon inquiry, the individual reports that the environment is safe to proceed. Informed Consent to Screen and Document The individual consents to proceed with screening. RHS screen was conducted with the individual's consent utilizing a standardized copyrighted tool. Education and resources/referrals provided as needed. EDUCATION: The individual indicated readiness to learn. Education offered during this session as noted above. The individual indicated understanding by asking relevant questions and making appropriate comments. No barriers to learning were observed or identified. /george/ ESTEBAN HENDERSON LPN LICENSED PRACTICAL NURSE Signed: 08/17/2023 10:05 ESTEBAN HENDERSON ([facility])
--- OUTSIDE RECORDS SUMMARY | 2024-08-15 16:40 | XMS_ITS ---
Author Name [facility] Organization Unknown Problems Problem Status Onset Date Problem Type Date of Resoluti on Source Hepatic fibrosis [facility]
--- OUTSIDE RECORDS SUMMARY | 2024-08-15 16:40 | XMS_ITS | Encounter Summary ---
Author Name [facility] Organization [facility] [place] Address [address] [place] [id number] Care Team Providers Care Tester Sound Name Role Phone KILO CASTILLO Primary Care [...] TYRESE MEDEX BRONZ E Dec 16, 2018 [id number] [phone] AGNES,A JUAN PATIENT ANTHEM BCBS OF [place] (BLUECARD) MEDICARE SUPPLEMEN TYRESE MEDEX BRONZ E Dec 16, 2018 [id number] [phone] AGNES,A JUAN PATIENT [place]BS [place] MEDICARE SUPPLEMEN TYRESE MEDEX BRONZ E Dec 16, 2018 [id number] AGNES,A JUAN PATIENT BCBS ANN HIGH DEDUCTIBL E HEALTH PLAN CONNE [facility] T [facility] Apr 17, 2011 [id number] [phone] AGNES,A JUAN PATIENT EXPRESS SCRIPTS ([id number]) PRESCRIPT ION L4TA* Apr 17, 2011 [id number] AGNES,A JUAN PATIENT [place] MEDICARE SUPPLEMEN TYRESE PSUED O MEDEX HEARI NG Dec 16, 2018 [id number] AGNES,A JUAN PATIENT MEDICARE (WNR) MEDICARE () PART B Dec 16, 2018 PART B [id number] AGNES,A JUAN PATIENT MEDICARE (WNR) MEDICARE () PART A Dec 16, 2018 PART A [id number] AGNES,A JUAN PATIENT MEDICARE (WNR) MEDICARE () PART A Dec 16, 2018 PART A [id number] AGNES,A JUAN PATIENT MEDICARE (WNR) MEDICARE () PART B Dec 16, 2018 PART B [id number] CT90 [phone] AGNES,A JUAN PATIENT MEDICARE (WNR) MEDICARE () PART A Dec 16, 2018 PART A [id number] [phone] AGNES,A JUAN PATIENT MEDICARE (WNR) MEDICARE () PART B Dec 16, 2018 PART B [id number] CT90 AGNES,A JUAN PATIENT Selected Encounter This section includes the information on record at [place] for the Encounter. Date/Time Encounter Type Encounter Description Reason Provider Source November 29, 2023 01:00 PM OFFICE O/P EST MOD 30 MIN PRIMARY CARE/MEDICINE ICD-10-CM R94.5 Abnormal results of liver function studies CHARLOTTE CASTILLO Katherine Encounter Template Text not used by [place] Assessments - Encounter Diagnoses This section includes the primary and secondary diagnoses documented for the Encounter. Date/Time Primary/Secondary Diagnosis Diagnosis Name Provider Source Dec 24, 2023 07:36 AM PRIMARY Abnormal results of liver function studies EVIN CASTILLO ([facility]) Dec 24, 2023 07:36 AM SECONDARY Benign prostatic hyperplasia without lower urinry tract symp EVIN CASTILLO ([facility]) Dec 24, 2023 07:36 AM SECONDARY Chronic ischemic heart disease, unspecified BOSKOVIC,EVIN JACOBOFIELD ([facility]) Dec 24, 2023 07:36 AM SECONDARY Essential (primary) hypertension BOSKOVIC,EVIN MAYFIELD ([facility]) Dec 24, 2023 07:36 AM SECONDARY Gout, unspecified BOSKOVIC,EVIN JACOBOFIELD ([facility]) Dec 24, 2023 07:36 AM SECONDARY Hyperlipidemia, unspecified BOSKOVIC,EVIN JACOBOFIELD ([facility]) Dec 24, 2023 07:36 AM SECONDARY Moderate persistent asthma, uncomplicated BOSKOVIC,EVIN JACOBOFIELD ([facility]) Dec 24, 2023 07:36 AM SECONDARY Obesity, unspecified BOSKOVIC,EVIN JACOBOFIELD ([facility]) Dec 24, 2023 07:36 AM SECONDARY Sleep apnea, unspecified BOSKOVIC,EVIN JACOBOFIELD ([facility]) Dec 24, 2023 07:36 AM SECONDARY Tremor, unspecified BOSKOVIC,EVIN JACOBOFIELD ([facility]) Dec 24, 2023 07:36 AM SECONDARY Type 2 diabetes mellitus without complications BOSKOVIC,EVIN JACOBOFIELD ([facility]) Plan of Treatment: Future Appointments (+ 6 months) and Future Tests (+/- 45 days) The Plan of Treatment section includes future care activities for the patient from [facility] This section includes future appointments and future orders which are active, pending or scheduled. Future Appointments This section includes appointments that were scheduled to occur 6 months from the date of the Encounter, up to a maximum of 20 appointments. The data comes from all [place] treatment facilities. Appointment Date/Time Appointment Type Appointme nt Facility Name December 05, 2023 11:00 AM AMBULATORY - MEDICINE [place] [facility] [place] [facility] December 14, 2023 11:00 AM AMBULATORY - MEDICINE [facility] [place] [facility] Jan 09, 2024 11:30 AM AMBULATORY - MEDICINE [facility] [place] [facility] Jan 11, 2024 01:30 PM AMBULATORY - REHAB MEDICIN E [facility] [place] [facility] Jan 27, 2024 11:00 AM AMBULATORY - MEDICINE [facility] [place] [facility] Feb 06, 2024 11:30 AM AMBULATORY - MEDICINE [facility] [place] [facility] Apr 02, 2024 09:30 AM AMBULATORY - MEDICINE [facility] [place] [facility] Apr 20, 2024 01:30 PM AMBULATORY - MEDICINE [facility] ([facility]) Apr 23, 2024 08:00 AM AMBULATORY - MEDICINE [facility] [place] [facility] Apr 23, 2024 11:00 AM AMBULATORY - MEDICINE [facility] [place] [facility] May 03, 2024 02:00 PM AMBULATORY - MEDICINE [facility] ([facility]) May 07, 2024 10:30 AM AMBULATORY - MEDICINE [facility] [place] [facility] May 08, 2024 10:00 AM AMBULATORY - REHAB MEDICIN E [facility] [place] [facility] May 21, 2024 08:30 AM AMBULATORY - MEDICINE [facility] [place] [facility] May 23, 2024 08:15 AM AMBULATORY - MEDICINE [facility] [place] [facility] Vital Signs: All taken on the encounter date This section contains inpatient and outpatient Vital Signs collected on the date of the Encounter. Date/Time Temperature Pulse Blood Pressure Respiratory Rate SP02 Pain Height Weight Body Mass Index Source November 29, 2023 01:01 PM 98.2 62 128/79 16 99 3 239.4 33 DONNELLFI ROOSEVELT ([facility]) Social History: Smoking Status (Most current) and Tobacco Use (All prior to encounter date) This section includes the most current, and the historical, smoking and tobacco- related health factors from the MS facility where the Encounter took place. Current Smoking Status This section includes the most current smoking, or tobacco-related health factor, from the [place] facility where the Encounter took place. Date/Time Current Smoking Status Comment Facil ity Oct 19, 2023 11:30 AM VA-TOBACCO USER EVERY DAY [facility] ([facility]) Tobacco Use History This section includes a history of the smoking, or tobacco-related health factors, that were collected on or before the date of the Encounter. The data comes from the [place] facility where the Encounter took place. Date/Time Smoking Status/Tobacco Use Comment F acility Oct 19, 2023 11:30 AM VA-TOBACCO USE 30 YEARS OR MORE [facility] ([facility]) Oct 19, 2023 11:30 AM VA-TOBACCO USE ADVICE [place] ([facility]) Oct 19, 2023 11:30 AM VA-TOBACCO USE FIXTURE BUILDER NO [place] ([facility]) Oct 19, 2023 11:30 AM VA-TOBACCO USE MED NO [place] ([facility]) Oct 19, 2023 11:30 AM VA-TOBACCO USER EVERY DAY [place] ([facility]) Sep 14, 2021 10:30 AM VA-TOBACCO DOESNT USE WI 30 MIN WAKEUP [place] ([facility]) Sep 14, 2021 10:30 AM VA-TOBACCO USE 30 YEARS OR MORE [facility] ([facility]) Sep 14, 2021 10:30 AM VA-TOBACCO USE ADVICE [place] ([facility]) Sep 14, 2021 10:30 AM VA-TOBACCO USE FIXTURE BUILDER NO [place] ([facility]) Sep 14, 2021 10:30 AM VA-TOBACCO USE MED NO [place] ([facility]) Sep 14, 2021 10:30 AM VA-TOBACCO USER EVERY DAY [place] ([facility]) Jun 12, 2019 03:11 PM VA-TOBACCO NEVER USED [place] ([facility]) Mar 22, 2018 11:15 AM VA-TOBACCO FORMER USER [place] ([facility]) Mar 22, 2018 11:15 AM VA-TOBACCO QUIT 15 YRS OR MORE [place] ([facility]) Jul 20, 2017 09:06 AM QUIT TOBACCO USE > 7 YEARS AGO quit after first heart attack [place] ([facility]) Jan 05, 2017 07:51 AM QUIT TOBACCO USE > 7 YEARS AGO Vet reports quitting smoking pipe tobacco 13 years ago [place] ([facility]) Jan 05, 2017 07:51 AM QUIT TOBACCO USE 1 -7 YEARS AGO [place] ([facility]) Sep 17, 2015 10:04 AM QUIT TOBACCO USE > 7 YEARS AGO [place] ([facility]) Mar 17, 2011 11:04 AM QUIT TOBACCO USE > 7 YEARS AGO [place] ([facility]) Advance Directives: All historical and current Section Date Range: From patient's date of to the date document was created. This section includes ALL of a patient's completed or amended VA Advance and Rescinded Directives. The entries below indicate that a directive exists for the patient, but an actual copy is not included with this document. The data comes from all [place] facilities. Date Advance Directives Provider Source Mar 01, 2014 ADVANCE DIRECTIVE VARSHA ESQUIVEL ([facility]) Encounter Notes: All associated encounter notes This section contains the clinical notes associated to the Encounter. Date/Time Encounter Note(s) Provider Source November 29, 2023 11:29 PM PHYSICIAN NOTE: LOCAL TITLE: MD NOTE STANDARD TITLE: PHYSICIAN NOTE DATE OF NOTE: NOVEMBER 29, 2023@23:29 ENTRY DATE: DECEMBER 02, 2023@23:30:02 AUTHOR: KILO CASTILLO EXP COSIGNER: URGENCY: STATUS: COMPLETED Chief complaint:Pt is a 67 year old who comes in for follow up of medical problems as noted below. CC: 1 Mo f/u Last Seen in PCP: Oct 2023 VV HPI: 67 y/o M with PMH of CAD with [place] age 48 2003, s/p 3 stents to LAD, HTN, HLD, mod persistent Asthma, NIDDM (A1c 5.6), BPH, CLARENCE on CPAP, essential tremor, gout, abnormal LFTs, alcohol overuse, obesity (BMI 33) came to clinic for F2F f/u. Vet is generally doing fine, no major complains today. Still cannot flex his R knee over 90 degrees, on PT still after his R TKR 6 mo ago. Had an insect bite on the back of the left knee, red , pruritic. Brought outside imaging results and want to go over his meds. BG well controlled now at home, FBS 102, 110, 125, 127. Pt is going to [place] on safari for 2 weeks in December 2023. Pt denies any recent travel, sick contacts, fever, chills, cough, palpitations, CP, SOB, [place], numbness, tingling , weakness, dizziness, abd pain, N/V/D, dysuria, constipation, LE edema. No changes in ET, can walk 4+ blocks, can climb 1-2 flight of stairs, denies any orthopnea, PND. Pt is compliant with medications. ROS: as mentioned in HPI PSH: R rotator cuff repair surgery at [facility] in Jul 2020; neck C6-7 laminectomy; L and R knee arthroscopic surgery, last in 2019; R. rotator cuff and bursectomy Jul 2020; R TKR in Jun 2023, Dr Candelario [facility] hosp. 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 . FH: M young from fire accident; Father alive 83. Outside PCP: yes, Dr Benedicto Tesfaye in [facility] PMH: Active problems - Computerized Problem List is the source for the followin. Steatosis of liver 2. Chronic ulcer of foot 3. Liver Function Tests Abnormal (SCT 242785195) 4. Crush syndrome 5. Rhabdomyolysis 6. Cervical spondylosis C6-[address] Serrano 10/03 xray: minimal retrolithiasis of C4 on C5 &C5 on C6, repeat sent to scan 7. Benign hypertension 8. Benign prostatic hyperplasia With hematuria neg eval Dr Son 05/2013 9. Obesity 10. Diabetes mellitus 11. Chronic ischemic heart disease (SNOMED CT 793541257) ECHO 12/06/2018 mod LVH, EF 50-60%, report sent to scan Age 48 [place] and [address] Malone 12. Osteoarthritis of knee (SNOMED CT 187211831) Left Knee scopes 1990 and 1996 13. Hearing loss 14. Tremor (SNOMED CT 10426675) Dr Liz 15. Sleep apnea (SNOMED CT 29170404) CPAP Dr Mark 16. Gout (SNOMED CT 97174236) 17. Hyperlipidemia (SNOMED CT 26958078) 18. Asthma (SNOMED CT 702824414) 19. Impotence of organic origin 20. Pain in right knee (SNOMED CT 534583311912651) Left knee arthroscopic surgeries 21. Seborrheic Dermatitis, Unspecified Allergies: CHLORAPREP ONE STEP APPLICATOR The following VA and Non-VA meds were reconciled with patient: Active and Recently Outpatient Medications (excluding Supplies): Active Outpatient Medications Status 1) ACCU-CHEK [...] THREE TIMES A DAY FOR ALLERGIES 11) KETOCONAZOLE 2% SHAMPOO SHAMPOO SMALL AMOUNT ACTIVE TOPICALLY ONCE DAILY NEEDED FOR FUNGAL INFECTION OF THE SKIN 12) METFORMIN HCL 500MG 24HR SA TAB TAKE ONE TABLET BY ACTIVE MOUTH ONCE DAILY 13) OLODATEROL/TIOTROP 2.5MCG/ACTUAT 60D INH INHALE 2 ACTIVE PUFFS (1 DOSE) BY MOUTH ONCE DAILY 14) PRIMIDONE 50MG TAB TAKE THREE TABLETS BY MOUTH TWICE ACTIVE DAILY 15) PROPRANOLOL HCL 120MG SA CAP TAKE ONE CAPSULE BY ACTIVE MOUTH DAILY 16) ROSUVASTATIN CA 40MG TAB TAKE ONE TABLET BY MOUTH ACTIVE (S) EVERY EVENING AFTER SUPPER FOR CHOLESTEROL 17) SILDENAFIL CITRATE 100MG TAB TAKE ONE TABLET BY MOUTH ACTIVE NEEDED TAKE 1 HOUR PRIOR TO SEXUAL ACTIVITY DO NOT USE WITHIN 24 HOURS OF USING NITROGLYCERIN 18) VALSARTAN 80MG TAB TAKE ONE TABLET BY MOUTH DAILY ACTIVE 19) ZAFIRLUKAST 20MG TAB TAKE ONE TABLET BY MOUTH TWICE ACTIVE (S) DAILY 20) ZONISAMIDE 100MG CAP TAKE ONE CAPSULE BY MOUTH THREE ACTIVE (S) TIMES A DAY Inactive Outpatient Medications Status 1) ACCU-CHEK GUIDE ME (GLUCOSE) METER USE METER TO TEST BLOOD SUGARS ONCE DAILY 2) ALBUTEROL SO4 0.5% INHL SOLN 0.5ML INHALE 1 AMPULE VIA UPDRAFT THREE TIMES DAILY NEEDED FOR BREATHING Active Non-VA Medications Status 1) Non-VA ASPIRIN 81MG EC TAB 81MG BY MOUTH DAILY ACTIVE 2) Non-VA CHOLECALCIF 25MCG (D3-1,000UNIT) TAB 2000UNIT ACTIVE BY MOUTH DAILY 3) Non-VA COENZYME Q10 CAP/TAB 100MG DAILY ACTIVE 4) Non-VA FISH OIL 1000MG (500MG DHA/EPA) CAP 1000MG BY ACTIVE MOUTH TWICE DAILY 5) Non-VA OTHER CAP/TAB LIVER ELIXIR ONE CAP TWICE ACTIVE DAILY 27 Total Medications No Active Remote Medications for this patient On examination: 128/79 (11/29/2023 13:01)98.2 F [36.8 C] (11/29/2023 13:01)16 (11/29/2023 13:01)62 (11/29/2023 13:01)3 (11/29/2023 13:01)X3 BMI: 33.5239.4 lb [108.59 kg] (11/29/2023 13:01) PE: GA: AOx3, elderly male, in NAD, pleasant, HEENT: NC/AT, MMM; Neck: supple, no LNs, no JVD; HRT: normal S1/S2, no MRGs Chest: CTA b/l normal breath sounds, no wheezing Abd: soft, NTTP, BS+ Extremities: no leg edema, no cyanosis b/l , PPP; L back of the knee: 3 x2 cm rough pruritic mildly erythematous scabbed over lesion, no edema, not TTP no Edema Neuro; no tremor in b/l hands, thumbs Labs : 10/28/23 CBC: Plt 131 Imaging/Tests: none new ECHO Feb 2021: EF 65%, no motion wall abnormalities Liver elastography U/S May 2023: no liver fibrosis probable, hepatic steatosis, possible mild fibrosis Outside MRI abdomen w&w/o contrast, with liver elastography 10/17/23: No fibrosis, no steatosis. Incidental findin.2cm pancreatic body cystic lesion, may be a side baranch intraductal papillary mucinous neoplasm: do contrast MRCP in 2 yrs to assess stability Assessment/Plan: Left post knee insect bit: Benign exam healing, reassurance NIDDM (A1c 6.2): Well controlled now Stable, no change in years -on Metformin 500mg daily New A1c pending Elevated LFTs, alcohol overuse: Now f/b [facility] Small increase in transaminase, very high GGT Still drinking refused to stop, Refused consult for alcohol overuse Persistent mild transaminitis 2/2 alcohol intake, obesity Had fibra scan but results equivocal New MRI showed no fibrosis, no steatosis Accidental finding in body of pancreas, repeat MRCP in 2 yrs CAD with [place] age 48 s/p 3 stents to LAD, HTN, HLD: f/b outside cardio Dr Shawn Feldman, [facility] no change had ECHO Feb 2021: EF 65%, normal January 2021 exercise Stress test normal Stable no issues BP well controlled. LDL at goal 51, -on rosuvastatin 40 mg -on Asa 81mg, buys on his own -On valsartan 80mg and 40mg prn Asthma, seasonal allergies: seasonal, no issues, -f/b outside Pulmo Dr Morocho in [place] -c/w Stiolto Respimat daily -on Zafirlucast 20mg bid -on Albuterol inhaler prn -on albuterol nebs prn -on fluticasone nasal spray -on Ipratropium nasal -s/w Cetirizine daily BPH: stable, asymptomatic -on finasteride 5mg PSA WNL of 0.63 CLARENCE on CPAP: compliant, no issues essential tremor: stable , no issues [facility] Hartman in the past tremor well controlled in his Left thumb (pt is LHD). -on Primidone 150mg bid -on Propranolol 120mg -on Zonisamide 100mg tid Gout: no recent attacks -on Allopurinol 300mg Obesity: BMI 33 now, No change Offered move , nutrition consults but refused. Records reviewed. New labs reviewed, discussed, questions answered. Meds refilled. Rexford verbalized understanding of the plan and agreed to it. Patient follows with non-VA providers and defers to them for medications management and management of chronic conditions. [facility] HM: Colonoscopy: Last , [facility], 2021,repeat in 5 yrs 2026 Vaccines: Influenza: 2021 Tdap: 2020 [id number]: 2019 Iogcwun02: 2019 Shingrix: 2020 Covid-19 Pfizer: completed 2019, 09/09/20, 2021 RTC 6 Mo Labs prior Addendum: PACT 4 TEAM: See RTC above Follow-up Pos Alcohol : Patient's AUDIT-C score was greater than or equal to 5; brief alcohol intervention is indicated. Shared concern that the patient may be drinking at unhealthy levels known to increase his/her risk of alcohol related health problems. Specifically the following were reviewed: High blood pressure, heart disease, liver disease Advised/informed patient to abstain from drinking alcohol due to contraindications. Patient should abstain due to: Medication interaction, Medical condition The patient declines referral for alcohol use assessment or treatment at this time. Plan: rescreen annually. Medication Reconciliation: Outpatient: Has the patient been taking medications as documented in the EMLR? YES: The patient has been taking medications as documented in the EMLR. Essential Medication List for Review used to complete this medication reconciliation. INCLUDED IN THIS LIST: Alphabetical list of active outpatient prescriptions dispensed from this MS (local) and dispensed from another MS or DoD facility (remote) as well as [...] Castillo MD MD PRIMARY CARE PHYSICIAN Signed: 12/02/2023 23:58 KILO CASTILLO TRAN ([facility]) November 29, 2023 01:03 PM PREVENTIVE MEDICIN E NURSING NOTE: LOCAL TITLE: CLINICAL REMINDERS/NURSING STANDARD TITLE: PREVENTIVE MEDICINE NURSING NOTE DATE OF NOTE: NOVEMBER 29, 2023@13:03 ENTRY DATE: NOVEMBER 29, 2023@13:03:05 AUTHOR: ESTEBAN HENDERSON COSIGNER: URGENCY: STATUS: COMPLETED Alcohol Use Screen (AUDIT-C): Alcohol Screen: SCREEN FOR ALCOHOL (AUDIT-C) An alcohol screening test (AUDIT-C) was positive (score=11). 1. How often did you have a drink containing alcohol in the past year? Consider a drink to be a 12 ounce can or bottle of regular beer, 8 ounces of malt liquor, a 5 ounce glass of table wine, or a 1.5 ounce shot of liquor (like scotch, gin, or vodka). Four or more times a week 2. How many drinks containing alcohol did you have on a typical day when you were drinking in the past year? Seven to nine drinks 3. How often did you have six or more drinks on one occasion in the past year? Daily or almost daily Eye Care At-Risk Screen : Patient identified to be at risk for the following eye condition(s): DIABETIC RETINOPATHY: Diabetes Diagnosis Information: Encounter Diagnosis: 11/21/2023@09:00 E11.621 (ICD-10-CM) Type 2 Diabetes Mellitus with Foot Ulcer rank: PRIMARY Prov. Narr. - Type 2 Diabetes Mellitus with Foot Ulcer MACULAR DEGENERATION: Macular Degeneration Risk Factors Information: Reminder Term: VA-AMD RISK FACTORS Encounter Diagnosis: 08/17/2023@11:00 Z68.33 (ICD-10-CM) Body mass index [BMI] 33.0-33.9, adult rank: SECONDARY Prov. Narr. - Body mass index [BMI] 33.0-33.9, adult Action: No Referral Ordered: Eye exam completed elsewhere by an Lumber Tallier or [facility] [employer] [facility] Diabetic retinal exam result: Negative for Retinopathy Date: October, ? Exact date is unknown Location: Outside Healthcare Provider Comment: Y[place] COVID-19 Immunization: Vaccine given previously - no written/electronic documentation available The patient was instructed to bring a copy of their COVID-19 vaccine information to their next appointment so that this can be accurately recorded in their [place] medical record. Follow Up Colonoscopy: Colonoscopy is due based on information available to this reminder. Prior/outside Colonoscopy results: Date: November 11, 2021 Average risk screening reminder set 3 years from NOVEMBER 29, 2023. Comment: 11/11/21 Indications: Screening for colorectal malignant neoplasm, Last colonoscopy: September 2011 Findings: The perianal and digital rectal examinations were normal. Pertinent negatives include normal sphincter tone. A 3 mm polyp was found at 60 cm proximal to the anus. The polyp was sessile. The polyp was removed with a cold biopsy forceps. Resection and retrieval were complete. Estimated blood loss was minimal. A 7 mm polyp was found in the descending colon at 50 cm proximal to the anus. The polyp was sessile. The polyp was removed with a cold snare. Resection and retrieval were complete. Estimated blood loss was minimal. The mucosa vascular pattern in the ascending colon was increased with easy bleeding from scope barotrauma i. The exam was otherwise without abnormality on direct and retroflexion views. Impression: - One 3 mm polyp at 60 cm proximal to the anus, removed with a cold biopsy forceps. Resected and retrieved. - One 7 mm polyp in the descending colon at 50 cm proximal to the anus, removed with a cold snare. Resected and retrieved. - Increased mucosa vascular pattern at the hepatic flexure, in the ascending colon and in the cecum. Recommendation: - I will send results of your biopsy to you and your referring physician or provider. If you do not receive notification within 3 weeks, please call our office. - Repeat colonoscopy in 5 years for surveillance basedon pathology results. /george/ ESTEBAN HENDERSON LPN LICENSED PRACTICAL NURSE Signed: 11/29/2023 13:18 ESTEBAN HENDERSON ([facility])
--- OUTSIDE RECORDS SUMMARY | 2024-08-15 16:40 | XMS_ITS ---
Author Name [facility] [place] Organization [facility] [place] Address [address] [place] [address] Care Team Providers Care Project Production Engineer Name Role Phone RAMY CASTILLO Primary [...] TYRESE MEDEX BRON E Dec 16, 2018 [id number] AGNES,A JUAN PATIENT ANTHEM BCBS OF [place] (BLUECARD) MEDICARE SUPPLEMEN TYRESE MEDEX BRONZ E Dec 16, 2018 [id number] AGNES,A JUAN PATIENT BCBS [place] MEDICARE SUPPLEMEN TYRESE MEDEX BRONZ E Dec 16, 2018 [id number] AGNES,A JUAN PATIENT BCBS ANN HIGH DEDUCTIBL E HEALTH PLAN AUSITN CTICU T [facility] Apr 17, 2011 [id number] AGNES,A JUAN PATIENT EXPRESS SCRIPTS ([id number]) PRESCRIPT ION L4TA* Apr 17, 2011 [id number] AGNES,A JUAN PATIENT HIG[place]ARK BS [place] (BLU[place]ARD) MEDICARE SUPPLEMEN TYRESE PSUED O MEDEX HEARI NG Dec 16, 2018 [id number] [phone] AGNES,A JUAN PATIENT MEDICARE (WNR) MEDICARE (M) PART A Dec 16, 2018 PART A [id number] [phone] AGNES,A JUAN PATIENT MEDICARE (WNR) MEDICARE (M) PART B Dec 16, 2018 PART B [id number] AGNES,A JUAN PATIENT MEDICARE (WNR) MEDICARE (M) PART A Dec 16, 2018 PART A [id number] [phone] AGNES,A JUAN PATIENT MEDICARE (WNR) MEDICARE (M) PART B Dec 16, 2018 PART B [id number] AGNES,A JUAN PATIENT MEDICARE (WNR) MEDICARE (M) PART A Dec 16, 2018 PART A [id number] [phone] AGNES,A JUAN PATIENT MEDICARE (WNR) MEDICARE (M) PART B Dec 16, 2018 PART B [id number] AGNES,A JUAN PATIENT Selected Encounter This section includes the information on record at [place] for the Encounter. 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 Date/Time Primary/Secondary Diagnosis Diagnosis Name Provider Source Oct 27, 2023 03:11 PM PRIMARY Type 2 diabetes w diabetic autonomic (poly)neuropathy ULYSSES ARAGON [facility] [place] [facility] Oct 27, 2023 03:11 PM SECONDARY Neutropenia, unspecified ULYSSES ARAGON [facility] [place] [facility] Oct 27, 2023 03:11 PM SECONDARY Personal history of diabetic foot ulcer ULYSSES ARAGON [facility] [place] [facility] Plan of Treatment: Future Appointments (+ 6 months) and Future Tests (+/- 45 days) The Plan of Treatment section includes future care activities for the patient from all [facility] This section includes future appointments and future orders which are active, pending or scheduled. Future Appointments This section includes appointments that were scheduled to occur 6 months from the date of the Encounter, up to a maximum of 20 appointments. The data comes from all [facility]. Appointment Date/Time Appointment Type Appointme nt Facility Name Oct 17, 2023 11:00 AM AMBULATORY - [facility] Oct 19, 2023 11:30 AM AMBULATORY - MEDICINE [facility] ([facility]) Oct 28, 2023 10:30 AM AMBULATORY - MEDICINE [facility] [place] [facility] November 21, 2023 09:00 AM AMBULATORY - MEDICINE [facility] [place] [facility] November 29, 2023 01:00 PM AMBULATORY - MEDICINE [facility] ([facility]) December 05, 2023 11:00 AM AMBULATORY - MEDICINE [facility] [place] [facility] December 14, 2023 11:00 AM AMBULATORY - MEDICINE [facility] [place] [facility] Jan 09, 2024 11:30 AM AMBULATORY - MEDICINE [facility] [place] [facility] Jan 11, 2024 01:30 PM AMBULATORY - REHAB MEDICIN [facility] [place] [facility] Jan 27, 2024 11:00 AM AMBULATORY - MEDICINE [facility] [place] [facility] Feb 06, 2024 11:30 AM AMBULATORY - MEDICINE [facility] [place] [facility] Apr 02, 2024 09:30 AM AMBULATORY - MEDICINE [facility] [place] [facility] Active, Pending, and Scheduled [...] 28, 2023 03:21 PM Consult Order [facility]-NEUROLOGY Cons Homicide Squad Commanding Officer's Poli [place] ([facility]) Lab Results: +/- 30 days of the encounter This section includes the Chemistry and Hematology Lab Results on record with [place] for the patient. Radiology Reports and Pathology Reports are provided separately, in subsequent sections. Lab Results This section contains the Chemistry/Hematology Results that were resulted 30 days before or 30 daysafter the date of the Encounter. Date/Time Source Result Type Result - Unit Interpretation Reference Range Comment Oct 28, 2023 11:30 AM [facility] CULTURE,WOUND PANEL(C.D.H.) Specimen Type: FOOT Comment: ~For Test: CULTURE,WOUND PANEL(C.D.H.) ~left foot dm foot ulcer no abx on board. SENT TO Refer to CPRS: Joota. Display for Lab Results Ordering Provider: GISSEL ARAGON Report Released Date/Time: Oct 28, 2023 11:23 AM Reporting [facility] [address] [address] Performing Lab: [facility] [address] [facility] [id number] GRAM STAIN(cdh) comment CULTURE,WOUND (cdh) comment Oct 28, 2023 11:25 AM [facility] CBC AND DIFF (AUTO) Specimen Type: BLOOD No comment entered. Ordering Provider: GISSEL ARAGON Report Released Date/Time: Oct 28, 2023 11:20 AM Reporting Lab[facility] [place] [facility] [address] [address] Performing Lab: [facility] [address] [address] WBC 8.17 10*3/uL 4.50-11.00 RBC 4.30 10*6/uL 4.23-5.66 HGB 13.8 g/dL 12.8-17 HCT 40.8 39.2-50.4 MCV 94.9 fL 82-99 MCHC 33.8 g/dL 30.8-35.1 PLT 131 10*3/uL L 140-360 RDW-CV 13.8 12.0-16.0 [place], Abs 0.51 10*3/uL 0.30-1.10 MCH 32.1 pg 26.2-32.6 Neut % 59.3 43.7-75.8 Lymph % 30.7 14.0-42.3 [place] % 6.2 5.1-13.7 Eos % 3.2 0.4-6.8 Baso % 0.4 0.1-2.0 Neut, Abs 4.84 10*3/uL 2.20-7.60 Lymph, Abs 2.51 10*3/uL 1.00-3.20 Eos, Abs 0.26 10*3/uL 0.03-0.44 Baso, Abs 0.03 10*3/uL 0.01-0.13 Immature Gran % 0.2 0.0-0.7 Immature Gran, Abs 0.02 10*3/uL 0.00-0.06 Oct 10, 2023 10:10 AM [facility] LIVER FUNCTION Specimen Type: SERUM No comment entered. Ordering Provider: GISSEL ARAGON Report Released Date/Time: Oct 10, 2023 09:53 AM Reporting Lab: [address] [address] Performing Lab: [address] [address] PROTEIN,TOTAL 6.6 g/dL 6.0-8.3 ALBUMIN 3.6 g/dL 3.5-5.0 ALKALINE PHOSPHATASE 68 U/L 40-150 AST 25 U/L 5-34 ALT 29 U/L BILIRUBIN, TOTAL 0.3 mg/dL 0.2-1.2 Oct 10, 2023 10:10 AM [facility] BASIC METABOLIC PANEL (fasting) Specimen Type: SERUM No comment entered. Ordering Provider: GISSEL ARAGON Report Released Date/Time: Oct 10, 2023 09:53 AM Reporting Lab: [address] [address] Performing Lab: [address] [address] UREA NITROGEN 10 mg/dL 7-25 GLUCOSE 107 mg/dL H 65-100 SODIUM 141 mmol/L 135-145 POTASSIUM 4.5 mmol/L 3.5-5.0 CHLORIDE 107 mmol/L 100-110 CO2 25 meq/L 20-30 CREATININE, Serum 0.87 mg/dL 0.50-1.40 eGFR(CKD-EPI 2020) >90 mL/min >60 Oct 10, 2023 10:10 AM [facility] CBC AND DIFF (AUTO) Specimen Type: BLOOD No comment entered. Ordering Provider: GISSEL ARAGON Report Released Date/Time: Oct 10, 2023 09:53 AM Reporting Lab: [facility] [address] [address] Performing Lab: [facility] [address] [address] WBC 4.63 10*3/uL 4.50-11.00 RBC 4.43 10*6/uL 4.23-5.66 HGB 14.4 g/dL 12.8-17 HCT 42.7 39.2-50.4 MCV 96.4 fL 82-99 MCHC 33.7 g/dL 30.8-35.1 PLT 150 10*3/uL 140-360 RDW-CV 13.7 12.0-16.0 [place], Abs 0.37 10*3/uL 0.30-1.10 MCH 32.5 pg 26.2-32.6 Neut % 36.3 L 43.7-75.8 Lymph % 49.0 H 14.0-42.3 [place] % 8.0 5.1-13.7 Eos % 6.3 0.4-6.8 Baso % 0.2 0.1-2.0 Neut, Abs 1.68 10*3/uL L 2.20-7.60 Lymph, Abs 2.27 10*3/uL 1.00-3.20 Eos, Abs 0.29 10*3/uL 0.03-0.44 Baso, Abs 0.01 10*3/uL 0.01-0.13 Immature Gran % 0.2 0.0-0.7 Immature Gran, Abs 0.01 10*3/uL 0.00-0.06 Oct 10, 2023 10:09 AM TRAN [place]) HEPATITIS C ANTIBODY (HCV)-ARC Specimen Type: SERUM Comment: Hep C Ab: No HCV antibody detected. If recent infection is suspected or other evidence suggests HCV infection, consider HCV nucleic acid testing Ordering Provider: EVIN CASTILLO Report Released Date/Time: Jun 03, 2023 11:37 AM Reporting Lab: [facility] [address] [address] Performing Lab: [facility] [address] [address] HEPATITIS C ANTIBODY NON-REACTIVE NON-REACTIV E Vital Signs: All taken on the encounter date This section contains inpatient and outpatient Vital Signs collected on the date of the Encounter. Date/Time Temperature Pulse Blood Pressure Respiratory Rate SP02 Pain Height Weight Body Mass Index Source Oct 10, 2023 09:28 AM 98.[address] [facility] Social History: Smoking Status (Most current) [...] Date/Time Current Smoking Status Comment Serenity ity Oct 27, 2022 02:44 PM VA-TOBACCO USER EVERY DAY [facility] Tobacco Use History This section includes a history of the smoking, or tobacco-related health factors, that were collected on or before the date of the Encounter. The data comes from the [place] facility where the Encounter took place. 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 The data comes from all [place] treatment facilities. Date/Time Radiology Report Provider Source Oct 17, 2023 11:35 AM MRI ABD W&WO CONTR AST: SERGE ALARCON [id number] -1955 M Exm Date: OCT 17, 2023@11:35 Req Phys: SHAHEEN CARMEN Pat Loc: [facility] V01 [facility] LIVER INFORMATION SYSTEMS MANAGER 01 F2F (R Img Loc: UPLOAD CD IMAGES-MRI Service: Unknown (Case [id number] COMPLETE) MRI ABD W&WO CONTRAST (MRI Detailed) CPT:50414 Reason for Study: MR ELASTOGRAPHY to determine LSM Clinical History: Date of imaging of date of exam to be uploaded:10/17/2023 Description of exam to be uploaded: (example- MRI head, MRI abdomen, etc) MRI Abdomen Provider's contact information: SHAHEEN CARMEN MACHINE HEEL BUILDER *[phone] Report Status: Electronically Filed Date Reported: NOV 03, 2023 Report: This exam was performed and interpreted at an Outside Facility. The images are available in OneClass and our local PACS. Impression: This exam was performed and interpreted at an Outside Facility. The images are available in OneClass and our local PACS. Primary Diagnostic Code: ADMIN. REPORT; REFER TO PT MED RECORD VERIFIED BY: / *ELECTRONICALLY FILED* [facility] Encounter Notes: All associated encounter notes This section contains the clinical notes associated to the Encounter. Date/Time Encounter Note(s) Provider Source Oct 12, 2023 02:54 PM MEDICATION MGT NOTE: LOCAL TITLE: AFTER VISIT SUMMARY STANDARD TITLE: MEDICATION MGT NOTE DICT DATE: OCT 12, 2023@14:54:32 ENTRY DATE: OCT 12, 2023@14:54:32 DICTATED BY: ULYSSES ARAGON EXP COSIGNER: URGENCY: STATUS: COMPLETED The patient was provided with a copy of an after-visit summary at the conclusion of the visit. The after-visit summary includes information pertaining to the patient's encounter, including diagnoses, vital signs, medications, and new orders, as well as a list of any any upcoming appointments and information regarding the patient's ongoing care. The patient's medications were reviewed with the patient by the provider and were provided to the patient as an updated list of medications. The patient was instructed to inform the provider of any medication changes or discrepancies that were noted. Otherwise, the patient was instructed to continue the medications as prescribed. A copy of the after-visit summary provided to the patient is available in [employer]. SCANNED DOCUMENT SIGNATURE NOT REQUIRED Electronically Filed: 10/12/2023 by: ULYSSES MONTANEZ [facility] Oct 10, 2023 09:59 AM PODIATRY NOTE: LOCAL TITLE: PODIATRY NOTE STANDARD TITLE: PODIATRY NOTE DATE OF NOTE: OCT 10, 2023@09:59 ENTRY DATE: OCT 10, 2023@10:00:02 AUTHOR: ULYSSES ARAGON EXP COSIGNER: URGENCY: STATUS: COMPLETED Podiatry [facility] Follow up Provider: Ulysses Aragon Date: OCT 10, 2023 SERGE ALARCON [address] [place] [address] Dec [birth year] MALE [phone] PATIENT PHONE - [phone] Primary Care: RAMY CASTILLO Visit Concern: Patient is a 67-year-old neuropathic diabetic male with history of chronic foot ulcer left side for which we transitioned him back to diabetic shoes and inserts at last visit approximately 1 month ago. Patient returns today in short-term follow-up to make sure everything going in the right direction. Patient reports that he has had approximately 1 week of drenching night sweats that occur early in the morning. He has taken his temperature at home and has not had any fever nor does he report any local signs of infection at the area of his prior ulcer. He has concerns. Does not report any swollen lymph nodes rashes or other symptoms otherwise. Medical problems active: Active Problem Steatosis of [...] 389.9 03/17/2011 NELLA KIDD Tremor (SNOMED CT 86131813) R25.1 07/20/2017 GA ROMEO Sleep apnea (SNOMED CT 59086952) G4 10/27/2015 JOSE DANIEL PRINCE Gout (SNOMED CT 18894591) M10.9 01/05/2017 JANICE CARDENAS Hyperlipidemia (SNOMED CT 34443370) 07/20/2017 GA ROMEO Asthma (SNOMED CT 416392825) J45.40 03/31/2016 NELLA KIDD Impotence of organic origin 607.84 03/17/2011 NELLA KIDD Pain in right knee ([place] [address] 01/25/2018 [facility] Seborrheic Dermatitis, Unspecified 03/17/2011 NELLA KIDD Active [...] BY MOUTH THREE ACTIVE TIMES A DAY Pending Outpatient Medications Status 1) OLODATEROL/TIOTROP 2.5MCG/ACTUAT 60D INH INHALE 2 PENDING PUFFS (1 DOSE) BY MOUTH ONCE DAILY 2) ZONISAMIDE 100MG CAP TAKE ONE CAPSULE BY MOUTH THREE PENDING TIMES A DAY Active Non-VA Medications Status [...] CAP TWICE ACTIVE DAILY 29 Total Medications Allergies: Data on this list may not be complete. Please check JLV. FACILITY ALLERGY/ADR -------- [facility] CHLORAPREP ONE STEP APPLICATOR [facility] [place] CHLORHEXIDINE GLUCONATE/ISPROPYL ALCOHOL Reporting Lab: [facility] [CLIA# [id number]] [address] [facility] [place] [address] Report Released Date/Time: Oct 10, 2023@11:45 Provider: ULYSSES ARAGON Specimen: BLOOD. [id number] Specimen Collection Date: Oct 10, 2023@10:10 Test name Result units Ref. range Site Code WBC 4.63 K/cmm 4.50 - 11.00 [631] Neut % 36.3 L % 43.7 - 75.8 [631] Lymph % 49.0 H % 14.0 - 42.3 [631] [place] % 8.0 % 5.1 - 13.7 [631] Eos % 6.3 % 0.4 - 6.8 [631] Baso % 0.2 % 0.1 - 2.0 [631] Immature Gran % 0.2 % 0.0 - 0.7 [631] Neut, Abs 1.68 L K/cmm 2.20 - 7.60 [631] Lymph, Abs 2.27 K/cmm 1.00 - 3.20 [631] [place], Abs 0.37 K/cmm 0.30 - 1.10 [631] Eos, Abs 0.29 K/cmm 0.03 - 0.44 [631] Baso, Abs 0.01 K/cmm 0.01 - 0.13 [631] Immature Gran, Abs 0.01 K/cmm 0.00 - 0.06 [631] RBC 4.43 M/cmm 4.23 - 5.66 [631] HGB 14.4 g/dL 12.8 - 17 [631] HCT 42.7 % 39.2 - 50.4 [631] MCV 96.4 fl 82 - 99 [631] MCH 32.5 pg 26.2 - 32.6 [631] MCHC 33.7 g/dL 30.8 - 35.1 [631] RDW-CV 13.7 % 12.0 - 16.0 [631] PLT 150 K/cmm 140 - 360 [631] = Reporting Lab: [facility] [CLIA# [id number]] [address] [place] [address] Report Released Date/Time: Oct 10, 2023@13:16 Provider: ULYSSES ARAGON Specimen: SERUM. [id number] Specimen Collection Date: Oct 10, 2023@10:10 Test name Result units Ref. range Site Code CREATININE, Serum 0.87 mg/dL 0.50 - 1.40 [631] eGFR(CKD-EPI 2020) >90 mL/min Ref: >=60 [631] SODIUM 141 mmol/L 135 - 145 [631] POTASSIUM 4.5 mmol/L 3.5 - 5.0 [631] CHLORIDE 107 mmol/L 100 - 110 [631] CO2 25 mEq/L 20 - 30 [631] UREA NITROGEN 10 mg/dL 7 - 25 [631] GLUCOSE 107 H mg/dL 65 - 100 [631] Eval: Reference range prior to 03/02/04 was 65-110 mg/dL PROTEIN,TOTAL 6.6 g/dL 6.0 - 8.3 [631] ALBUMIN 3.6 g/dL 3.5 - 5.0 [631] ALKALINE PHOSPHATASE 68 U/L 40 - 150 [631] AST 25 U/L 5 - 34 [631] BILIRUBIN, TOTAL 0.3 mg/dL 0.2 - 1.2 [631] ALT 29 U/L <6 - 55 [631] = Reporting Lab: [facility] [CLIA# [id number]] [address] [place] [phone] Report Released Date/Time: Oct 10, 2023@13:19 Provider: RAMY CASTILLO Specimen: SERUM. [id number] Specimen Collection Date: Oct 10, 2023@10:09 Test name Result units Ref. range Site Code HEPATITIS C ANTIBODY NON-REACTIVE Ref: NON-REACTIVE [631] Comment: Hep C Ab: No HCV antibody detected. If recent infection is suspected or other evidence suggests HCV infection, consider HCV nucleic acid testing = Reporting Lab: [facility] [CLIA# [id number]] [address] [place] [phone] Report Released Date/Time: Jun 21, 2023@16:57 Provider: SHAHEEN CARMEN Specimen: SERUM. [id number] Specimen Collection Date: Jun 21, 2023@16:01 Test name Result units Ref. range Site Code HEPATITIS C ANTIBODY NON-REACTIVE Ref: NON-REACTIVE [631] Comment: Hep C Ab: No HCV antibody detected. If recent infection is suspected or other evidence suggests HCV infection, consider HCV nucleic acid testing = Imaging Reports: == = Include data from 10/10/2022 to 10/10/2023 10/10/2023 10:00 CONFIDENTIAL IMAGING REPORTS SUMMARY pg. 1 AGNESSERGE [id number] : 1955 II - Imaging Impression (max 1 occurrence) Date Procedure CPT Status Case # 08/15/2023 FOOT 3 OR MORE VIEWS(LEFT) [id number] Verified 10 No radiographic evidence of osteomyelitis. == = ROS: Other than for night sweats no other significant findings on 12 point review Left foot ulcer area is evaluated today and found to have remained healed and with minimal if any callus formation. There is no erythema swelling or drainage from the area and the skin is fully intact. Examination of the right foot also reveals no areas of inflammation skin breakdown ulceration or other clinical signs of infection careful evaluation included webspace examination and heels as well as lower legs. Impression: -Stable diabetic male with history of diabetic foot ulcer on the left with no local clinical signs of infection today on either foot -Diabetic peripheral neuropathy -Unexplained night sweats Plan: -Discussed physical exam with patient -Discussed night sweats with patient's primary and potential for getting labs. -CBC, Chem-8, liver panel with GGT ordered today. -Per review of chart this evening patient is slightly neutropenic Send labs via secure message to primary care provider and amended Primary care secure message notes with lab update. -From podiatry standpoint patient is stable, current orthotics are working well, patient has been referred to orthotics and prosthetics locally by outside provider, however his current footwear of functioning well. He is wearing Hoka's with custom inserts with submetatarsal 5 accommodations bilaterally with no significant callus formation since last visit over a month. Would be reluctant to ena with this as it seems to be working well. Follow-up here in 8 weeks, or: Return sooner if any fever chills nausea, vomiting increased redness, swelling, drianage, pain, or flu like symptoms, or go to nearest emergency room / urgent care for evaluation. Follow-up with primary care regarding today's labs and possible class B symptoms. -all sharpes cleared, processed and or disposed [...] as results of the physical exam and acquisition consultant opinions and recommendations as sought. Alternatives [...] -The on this visit was given information [employer] service and encouraged to enroll if not already having done so. /george/ ULYSSES ARAGON DPGita PODIATRY ATTENDING Signed: 10/10/2023 17:27 ULYSSES ARAGON [facility]
--- OUTSIDE RECORDS SUMMARY | 2024-08-15 16:40 | XMS_ITS | Encounter Summary ---
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 Name Role Phone KILO CASTILLO Primary [...] TYRESE MEDEX BRONZ E Dec 16, 2018 [id number] [phone] AGNES,A JUAN PATIENT ANTHEM BCBS OF [place] (BLUECARD) MEDICARE SUPPLEMEN TYRESE MEDEX BRONZ E Dec 16, 2018 [id number] AGNES,A JUAN PATIENT BCBS [place] MEDICARE SUPPLEMEN TYRESE MEDEX BRONZ E Dec 16, 2018 [id number] [phone] AGNES,A JUAN PATIENT BCBS ANN HIGH DEDUCTIBL E HEALTH PLAN CONNE [facility] T [facility] Apr 17, 2011 [id number] AGNES,A JUAN PATIENT EXPRESS SCRIPTS ([id number]) PRESCRIPT ION L4TA* Apr 17, 2011 [id number] AGNES,A JUAN PATIENT [place] MEDICARE SUPPLEMEN TYRESE PSUED O MEDEX HEARChamp NG Dec 16, 2018 [id number] AGNES,A JUAN PATIENT MEDICARE (WNR) MEDICARE (M) PART A Dec 16, 2018 PART A [id number] AGNES,A JUAN PATIENT MEDICARE (WNR) MEDICARE () PART B Dec 16, 2018 PART B [id number] AGNES,A JUAN PATIENT MEDICARE (WNR) MEDICARE () PART A Dec 16, 2018 PART A [id number] AGNES,A JUAN PATIENT MEDICARE (WNR) MEDICARE () PART B Dec 16, 2018 PART B [id number] AGNES,A JUAN PATIENT MEDICARE (WNR) MEDICARE (M) PART A Dec 16, 2018 PART A [id number] CT90 AGNES,A JUAN PATIENT MEDICARE (WNR) MEDICARE () PART B Dec 16, 2018 PART B [id number] CT90 AGNES,A JUAN PATIENT Selected Encounter This section includes the information on record at [place] for the Encounter. Date/Time Encounter Type Encounter Description Reason Provider Source Oct 19, 2023 11:30 AM OFFICE O/P EST MOD 30 MIN PRIMARY CARE/MEDICINE ICD-10-CM K76.0 Fatty (change of) liver, not elsewhere classified CHARLOTTE CASTILLO Katherine Encounter Template Text not used by [place] Assessments - Encounter Diagnoses This section includes the primary and secondary diagnoses documented for the Encounter. Date/Time Primary/Secondary Diagnosis Diagnosis Name Provider Source Dec 31, 2023 08:13 AM PRIMARY Fatty (change of) liver, not elsewhere classified CHARLOTTE CASTILLO ([facility]) Dec 31, 2023 08:13 AM SECONDARY Abnormal results of liver function studies CHARLOTTE CASTILLO ([facility]) Dec 31, 2023 08:13 AM SECONDARY COVID-19 CHARLOTTE CASTILLO ([facility]) Plan of Treatment: Future Appointments (+ 6 months) and Future Tests (+/- 45 days) The Plan of Treatment section includes future care activities for the patient from all [place] [facility]. This section includes future appointments and future orders which are active, pending or scheduled. Future Appointments This section includes appointments that were scheduled to occur 6 months from the date of the Encounter, up to a maximum of 20 appointments. The data comes from all [place] treatment facilities. Appointment Date/Time Appointment Type Appointme nt Facility Name Oct 28, 2023 10:30 AM AMBULATORY [place]ICINE [place] [facility] [place] [facility] November 21, 2023 09:00 AM AMBULATORY [place] MEDICINE [place] [facility] [place] [facility] November 29, 2023 01:00 PM AMBULATORY - MEDICINE [facility] ([facility]) December 05, 2023 11:00 AM AMBULATORY - MEDICINE [place] [facility] [place] [facility] December 14, 2023 11:00 AM AMBULATORY - MEDICINE [place] [facility] [place] [facility] Jan 09, 2024 11:30 AM AMBULATORY - MEDICINE [place] [facility] [place] [facility] Jan 11, 2024 01:30 PM AMBULATORY - REHAB MEDICIN E [facility] [place] [facility] Jan 27, 2024 11:00 AM AMBULATORY - MEDICINE [place] [facility] [place] [facility] Feb 06, 2024 11:30 AM AMBULATORY - MEDICINE [place] [facility] [place] [facility] Apr 02, 2024 09:30 AM AMBULATORY - MEDICINE [place] [facility] [place] [facility] Active, Pending, and Scheduled Orders This section includes a listing of several types of active, pending, and scheduled orders, including clinic medications orders, diagnostic test orders, procedure orders and consult orders; where the start date of the order is 45 days before the date of the Encounter or 45 days after the date of theEncounter. The data comes from all [facility]. Test Date/Time Test Type Test Details Facility Name Sep 28, 2023 03:21 PM Consult Order COMMUNITY CARE-NEUROLOGY Cons Circulation Sales Representative's Choice [facility] ([facility]) Lab Results: +/- 30 days of the encounter This section includes the Chemistry and Hematology Lab Results on record with [place] for the patient. Radiology Reports and Pathology Reports are provided separately, in subsequent sections. Lab Results This section contains the Chemistry/Hematology Results that were resulted 30 days before or 30 daysafter the date of the Encounter. Date/Time Source Result Type Result - Unit Interpretation Reference Range Comment Oct 28, 2023 11:30 AM [facility] CULTURE,WOUND PANEL(C.D.H.) Specimen Type: FOOT Comment: ~For Test: CULTURE,WOUND PANEL(C.D.H.) ~left foot dm foot ulcer no abx on board. SENT TO Refer to CPRS: [place] Imag. Display for Lab Results Ordering Provider: GISSEL URIOSTEGUI Report Released Date/Time: Oct 28, 2023 11:23 AM Reporting Lab: [address] [address] Performing Lab: [address] [address] GRAM STAIN(cdh) comment CULTURE,WOUND (cdh) comment Oct 28, 2023 11:25 AM [facility] CBC AND DIFF (AUTO) Specimen Type: BLOOD No comment entered. Ordering Provider: GISSEL URIOSTEGUI Report Released Date/Time: Oct 28, 2023 11:20 AM Reporting Lab: [address] [address] Performing Lab: [address] [address] WBC 8.17 10*3/uL 4.50-11.00 RBC 4.30 10*6/uL 4.23-5.66 HGB 13.8 g/dL 12.8-17 HCT 40.8 39.2-50.4 MCV 94.9 fL 82-99 MCHC 33.8 g/dL 30.8-35.1 PLT 131 10*3/uL L 140-360 RDW-CV 13.8 12.0-16.0 [place], Abs 0.51 10*3/uL 0.30-1.10 MCH 32.1 pg 26.2-32.6 Neut % 59.3 43.7-75.8 Lymph % 30.7 14.0-42.3 [place] % 6.2 5.1-13.7 Eos % 3.2 0.4-6.8 Baso % 0.4 0.1-2.0 Neut, Abs 4.84 10*3/uL 2.20-7.60 Lymph, Abs 2.51 10*3/uL 1.00-3.20 Eos, Abs 0.26 10*3/uL 0.03-0.44 Baso, Abs 0.03 10*3/uL 0.01-0.13 Immature Gran % 0.2 0.0-0.7 Immature Gran, Abs 0.02 10*3/uL 0.00-0.06 Oct 10, 2023 10:10 AM [facility] BASIC METABOLIC PANEL (fasting) Specimen Type: SERUM No comment entered. Ordering Provider: GISSEL URIOSTEGUI Report Released Date/Time: Oct 10, 2023 09:53 AM Reporting Lab: [address] [address] Performing Lab: [address] [address] UREA NITROGEN 10 mg/dL 7-25 GLUCOSE 107 mg/dL H 65-100 SODIUM 141 mmol/L 135-145 POTASSIUM 4.5 mmol/L 3.5-5.0 CHLORIDE 107 mmol/L 100-110 CO2 25 meq/L 20-30 CREATININE, Serum 0.87 mg/dL 0.50-1.40 eGFR(CKD-EPI 2020) >90 mL/min >60 Oct 10, 2023 10:10 AM [facility] LIVER FUNCTION Specimen Type: SERUM No comment entered. Ordering Provider: GISSEL URIOSTEGUI Report Released Date/Time: Oct 10, 2023 09:53 AM Reporting Lab: [address] [address] Performing Lab: [address] [address] PROTEIN,TOTAL 6.6 g/dL 6.0-8.3 ALBUMIN 3.6 g/dL 3.5-5.0 ALKALINE PHOSPHATASE 68 U/L 40-150 AST 25 U/L 5-34 ALT 29 U/L BILIRUBIN, TOTAL 0.3 mg/dL 0.2-1.2 Oct 10, 2023 10:10 AM [facility] CBC AND DIFF (AUTO) Specimen Type: BLOOD No comment entered. Ordering Provider: GISSEL URIOSTEGUI Report Released Date/Time: Oct 10, 2023 09:53 AM Reporting Lab: [facility] [address] [address] Performing Lab: [facility] [address] [address] WBC 4.63 10*3/uL 4.50-11.00 RBC 4.43 10*6/uL 4.23-5.66 HGB 14.4 g/dL 12.8-17 HCT 42.7 39.2-50.4 MCV 96.4 fL 82-99 MCHC 33.7 g/dL 30.8-35.1 PLT 150 10*3/uL 140-360 RDW-CV 13.7 12.0-16.0 [place], Abs 0.37 10*3/uL 0.30-1.10 MCH 32.5 pg 26.2-32.6 Neut % 36.3 L 43.7-75.8 Lymph % 49.0 H 14.0-42.3 [place] % 8.0 5.1-13.7 Eos % 6.3 0.4-6.8 Baso % 0.2 0.1-2.0 Neut, Abs 1.68 10*3/uL L 2.20-7.60 Lymph, Abs 2.27 10*3/uL 1.00-3.20 Eos, Abs 0.29 10*3/uL 0.03-0.44 Baso, Abs 0.01 10*3/uL 0.01-0.13 Immature Gran % 0.2 0.0-0.7 Immature Gran, Abs 0.01 10*3/uL 0.00-0.06 Oct 10, 2023 10:09 AM [place] ([facility]) HEPATITIS C ANTIBODY (HCV)-ARC Specimen Type: SERUM Comment: Hep C Ab: No HCV antibody detected. If recent infection is suspected or other evidence suggests HCV infection, consider HCV nucleic acid testing Ordering Provider: EVIN CASTILLO Report Released Date/Time: Jun 03, 2023 11:37 AM Reporting Lab: [facility] [address] [phone] Performing Lab: [facility] [address] [address] HEPATITIS C ANTIBODY NON-REACTIVE NON-REACTIV E Social History: Smoking Status (Most current) and Tobacco Use (All prior to encounter date) This section includes the most current, and the historical, smoking and tobacco- related health factors from the [place] facility where the Encounter took place. Current Smoking Status This section includes the most current smoking, or tobacco-related health factor, from the [place] facility where the Encounter took place. Date/Time Current Smoking Status Comment [facility] Oct 19, 2023 11:30 AM VA-TOBACCO DOESNT USE WI 30 MIN WAKEUP [place] ([facility]) Tobacco Use History This section includes a history of the smoking, or tobacco-related health factors, that were collected on or before the date of the Encounter. The data comes from the [place] facility where the Encounter took place. Date/Time Smoking Status/Tobacco Use Comment F acility Oct 19, 2023 11:30 AM VA-TOBACCO USE 30 YEARS OR MORE [facility] ([facility]) Oct 19, 2023 11:30 AM VA-TOBACCO USE ADVICE [facility] ([facility]) Oct 19, 2023 11:30 AM VA-TOBACCO USE DIRECTOR OF PHILANTHROPY NO [facility] ([facility]) Oct 19, 2023 11:30 AM VA-TOBACCO USE MED NO [place] ([facility]) Oct 19, 2023 11:30 AM VA-TOBACCO USER EVERY DAY [facility] ([facility]) Sep 14, 2021 10:30 AM VA-TOBACCO DOESNT USE WI 30 MIN WAKEUP [facility] ([facility]) Sep 14, 2021 10:30 AM VA-TOBACCO USE 30 YEARS OR MORE [facility] ([facility]) Sep 14, 2021 10:30 AM VA-TOBACCO USE ADVICE [facility] ([facility]) Sep 14, 2021 10:30 AM VA-TOBACCO USE DIRECTOR OF PHILANTHROPY NO [place] ([facility]) Sep 14, 2021 10:30 AM VA-TOBACCO USE MED NO [place] ([facility]) Sep 14, 2021 10:30 AM VA-TOBACCO USER EVERY DAY [facility] ([facility]) Jun 12, 2019 03:11 PM VA-TOBACCO NEVER USED [place] ([facility]) Mar 22, 2018 11:15 AM VA-TOBACCO FORMER USER [facility] ([facility]) Mar 22, 2018 11:15 AM VA-TOBACCO QUIT 15 YRS OR MORE [facility] ([facility]) Jul 20, 2017 09:06 AM QUIT TOBACCO USE > 7 YEARS AGO quit after first heart attack [facility] ([facility]) Jan 05, 2017 07:51 AM QUIT TOBACCO USE > 7 YEARS AGO Vet reports quitting smoking pipe tobacco 13 years ago [facility] ([facility]) Jan 05, 2017 07:51 AM QUIT TOBACCO USE 1 -7 YEARS AGO [facility] ([facility]) Sep 17, 2015 10:04 AM QUIT TOBACCO USE > 7 YEARS AGO [place] ([facility]) Mar 17, 2011 11:04 AM QUIT TOBACCO USE > 7 YEARS AGO [facility] ([facility]) Advance Directives: All historical and current Section Date Range: From patient's date of to the date document was created. This section includes ALL of a patient's completed or amended [place] Advance and Rescinded Directives. The entries below indicate that a directive exists for the patient, but an actual copy is not included with this document. The data comes from all [place] facilities. Date Advance Directives Provider Source Mar 01, 2014 ADVANCE DIRECTIVE VARSHA ESQUIVEL ([facility]) Radiology Reports: +/- 30 days of [...] the Encounter. The data comes from all [place] treatment facilities. Date/Time Radiology Report Provider Source Oct 17, 2023 11:35 AM MRI ABD W&WO CONTR AST: SERGE ALARCON [id number] -[id number] M Exm Date: OCT 17, 2023@11:35 Req Phys: SHAHEEN CARMEN Loc: [facility] V01 [facility] LIVER WEEDER 01 F2F (R Img Loc: UPLOAD CD IMAGES-MRI Service: Unknown (Case [id number] COMPLETE) MRI ABD W&WO CONTRAST (MRI Detailed) CPT:59240 Reason for Study: MR ELASTOGRAPHY to determine LSM Clinical History: Date of imaging of date of exam to be uploaded:10/17/2023 Description of exam to be uploaded: (example- MRI head, MRI abdomen, etc) MRI Abdomen Provider's contact information: SHAHEEN CARMEN REGION[employer] TRAINER *[id number] Report Status: Electronically Filed Date Reported: NOV 03, 2023 Report: This exam was performed and interpreted at an Outside Facility. The images are available in [employer] and our local PACS. Impression: This exam was performed and interpreted at an Outside Facility. The images are available in [employer] and our local PACS. Primary Diagnostic Code: ADMIN. REPORT; REFER TO PT MED RECORD VERIFIED BY: / *ELECTRONICALLY FILED* [facility] Encounter Notes: All associated encounter notes This section contains the clinical notes associated to the Encounter. Date/Time Encounter Note(s) Provider Source Oct 19, 2023 07:43 PM TELEHEALTH NOTE: LOCAL TITLE: [place] [employer] PRIMARY CARE STANDARD TITLE: TELEHEALTH NOTE DATE OF NOTE: OCT 19, 2023@19:43 ENTRY DATE: DECEMBER 14, 2023@19:43:34 AUTHOR: KILO CASTILLO EXP COSIGNER: URGENCY: STATUS: COMPLETED [facility] ([facility]VC) Standard Documentation VVC Clinician Resources Only: E911 (Emergency Call Relay Center): [phone] National Veterans Crisis Line - 988 then press #1. [place] Suicide Coordinator - [phone], Ext. [phone]; Back-up Ext. [phone] [place] Police, [place], Mar[place] - [phone] Introduction: Visit is being conducted by [place] [employer]. Paterson identified with 2 identifiers: [ ] Full Name [ ] Date of [ ] [place] ID Card Emergency Plan: Paterson confirmed and/or provided the following information in case of emergency or technology failure. PATIENT PHONE - [phone] PHONE NUMBER [CELLULAR] - Is patient phone number correct, if not, enter below: Paterson's phone number: [address] [place], [place] [address] Paterson's present location and address for appointment: home 's emergency contact name and phone number: reported that location is private and safe: Yes Informed Consent: informed of the risks and benefits of Telehealth video care. Paterson has the right to refuse video services. If refuses video visit, a euyo-ci-cjys visit will be scheduled. Paterson verbalized consent for this video visit: Yes Paterson provided consent for any other persons present for visit: No If yes, who and relationship to patient: Secure visit: Visit was locked for security and privacy:Yes CC: 3 Mo f/u, focused Last Seen in PCP: Jul 2023 HPI: 67 y/o M with PMH of CAD with [place] age 48 2003, s/p 3 stents to LAD, HTN, HLD, mod persistent Asthma, NIDDM (A1c 5.6), BPH, CLARENCE on CPAP, essential tremor, gout, abnormal LFTs, alcohol overuse, obesity (BMI 33) was contacted today via VVC to discuss current issues. Paterson developed night sweats for the past 10 days, Denied any fever. Did have cough non productive. Pt keya diagnosed with Covid 19 infection 6 days ago. Doing well Received Z pack before diagnosis of Covid-19. Improving now. Vet plans to go to [facility] in [place] in 2 months for 19 days. There will be no water there and he must bring water with him. Asked if he needs to put iodine in his drinking water. Pt denies any recent travel, sick contacts, fever, chills, cough, palpitations, CP, SOB, [place], numbness, tingling , weakness, dizziness, abd pain, N/V/D, dysuria, constipation, LE edema. No changes in ET, can walk 4+ blocks, can climb 1-2 flight of stairs, denies any orthopnea, PND. Pt is compliant with medications. ROS: as mentioned in HPI PSH: R rotator cuff repair surgery at [facility] in Jul 2020; neck C6-7 laminectomy; [...] Outside PCP: yes, Dr Benedicto Tesfaye in [place], [facility] Labs : 10/10/23 CBC: WnL LFTs: WNL BMP BG 107 Imaging/Tests: none new ECHO Feb 2021: EF 65%, no motion wall abnormalities Liver elastography U/S May 2023: no liver fibrosis probable, hepatic steatosis, possible mild fibrosis Assessment/Plan: Recent Covid 19 infection: Some night sweats, but improving Hd CXR outside unremarkable [place] trip drinking water: No need to supuplement water with iodine for 19 days , too chort period for depletion of body iodine depot, reassurance? NIDDM (A1c 5.6): Ndew outside a1c 6.2 [...] mild fibrosis liver elastography c/w probable no fibrosis, no steatosis CAD with [place] age 48 s/p 3 stents to LAD, HTN, HLD: f/b outside cardio Dr Shawn Feldman, [facility] had ECHO Feb 2021: EF 65%, normal January 2021 exercise Stress test normal Stable no issues BP well controlled. LDL at goal 51, -on rosuvastatin 40 mg -on Asa 81mg, buys on his own -On valsartan 80mg and 40mg prn Asthma, seasonal allergies: seasonal, no issues, -f/b outside Pulmo Dr Morocho in [place] -c/w Stiolto Respimat daily -on Zafirlucast 20mg bid -on Albuterol inhaler prn -on albuterol nebs prn -on fluticasone nasal spray -on Ipratropium nasal -s/w Cetirizine daily BPH: stable, asymptomatic -on finasteride 5mg, refilled PSA WNL of 0.63 CLARENCE on CPAP: compliant, no issues essential tremor: stable , no issues f/b [facility] Hartman, last visit Aug 2022 tremor well controlled in his Left thumb (pt is left handed). -on Primidone 150mg bid -on Propranolol 120mg -on Zonisamide 100mg tid Gout: no recent attacks -on Allopurinol 300mg Obesity: BMI 33 now, No change Offered move , nutrition consults but refused. Low vit B 12: s/w supplements 1000mcg daily Records reviewed. New labs reviewed, discussed, questions answered. Meds refilled. verbalized understanding of the plan and agreed to it. Patient follows with non-VA providers and defers to them for medications management and management of chronic conditions. [facility]. HM: Colonoscopy: Last , [facility], 2021,repeat in 5 yrs 2026 Vaccines: Influenza: 2021 Tdap: 2020 Qdymaqraf00: 2020 Ohkihco87: 2019 Shingrix: 2020 Covid-19 Pfizer: completed 2019, 09/09/202021 RTC per recall November 2023 Addendum: PACT 4 TEAM: See RTC above /george/ Kilo Castillo MD MD PRIMARY CARE PHYSICIAN Signed: 12/14/2023 20:50 IKLO CASTILLO ([facility]) Oct 19, 2023 10:04 AM PREVENTIVE MEDICIN E NURSING NOTE: LOCAL TITLE: CLINICAL REMINDERS/NURSING STANDARD TITLE: PREVENTIVE MEDICINE NURSING NOTE DATE OF NOTE: OCT 19, 2023@10:04 ENTRY DATE: OCT 19, 2023@10:04:48 AUTHOR: ESTEBAN HENDERSON EXP COSIGNER: URGENCY: STATUS: COMPLETED Homelessness/Food Insecurity Screen: In the past 2 months, have you been living in stable housing that you own, rent, or stay in as part of a household? Yes - Living in stable housing. Are you worried or concerned that in the next 2 months you may NOT have stable housing that you own, rent, or stay in as part of a household? No - Not worried about housing near future The reports the following: Within the past 12 months, you worried whether your food would run out before you got money to buy more. Never true Within the past 12 months, the food you bought just didn't last and you didn't have money to get more. Never true Depression Screening: Perform PHQ-2 A PHQ-2 screen was performed. The score was 0 which is a negative screen for depression. Over the past two weeks, how often have you been bothered by the following problems? 1. Little interest or pleasure in doing things Not at all 2. Feeling down, depressed, or hopeless Not at all Tobacco Use Screening: The patient uses tobacco every day. The patient does not use tobacco within 30 minutes of waking up. The patient has been smoking or using tobacco for thirty years or more. Patient was advised to quit smoking and/or using tobacco. Discussion with patient included: - Quitting smoking or tobacco use is one of the most important things you can do to protect and improve your health and [place] has the resources to support you. - Set a quit date when you are ready to quit. - Get support from your family and friends. - Review any past quit attempts- What helped? What didn't? - On the day you plan to quit, get rid of all cigarettes and tobacco products from your home, car or work. - Using a combination of behavioral counseling or other support strategies and FDA-approved cessation medications is the most effective way to ensure success in quitting. Patient was offered Behavioral Counseling and other support strategies to assist with quitting. Discussion with patient included: - Behavioral counseling or other support strategies greatly increases your chances of successfully quitting smoking or tobacco use by helping you develop a quit plan and providing support and other strategies to make behavioral changes to help you quit. - [place] has a number of behavioral counseling options to help you with quitting, including: * Provide information about the facility smoking or tobacco use treatment options or clinics * [place]'s national quitline, 3-334-TWVP-VET, with counseling available Tuesday-Tuesday The patient was not interested in receiving additional information about how to use the treatment options discussed. Patient was offered FDA-approved cessation medications. Discussion with patient included: - Medications for Nicotine replacement therapy such as the patch, gum or lozenge, and other medications such as varenicline or bupropion, can play an important role in the initial weeks and months after you quit smoking or tobacco use. - Medications help with cravings and withdrawal symptoms and they greatly increase your chances of successfully quitting. The patient was not interested in a prescription for tobacco cessation medications. Alcohol Use Screen (AUDIT-C): Alcohol Screen: SCREEN [...] the past year? Daily or almost daily Advance Directive Screen MH AD: Patient has an Advance Directive on file at this [facility]. No updates are needed at this time. The patient received education about Advance Directives and written notification of his/her rights. Suicide Screen: C-SSRS Screening [place] Suicide Severity Rating Scale (C-SSRS) screener 1. Over the past month, have you wished you were or wished you could go to sleep and not wake up? No 2. Over the past month, have you had any actual thoughts of killing yourself? No 3. Over the past month, have you been thinking about how you might do this? Response not required due to responses to other questions. 4. Over the past month, have you had these thoughts and had some intention of acting on them? Response not required due to responses to other questions. 5. Over the past month, have you started to work out or worked out the details of how to kill yourself? Response not required due to responses to other questions. 6. If yes, at any time in the past month did you intend to carry out this plan? Response not required due to responses to other questions. 7. In your lifetime, have you ever done anything, started to do anything, or prepared to do anything to end your life (for example, collected pills, obtained a gun, gave away valuables, went to the roof but didn't jump)? No 8. If YES, was this within the past 3 months? Response not required due to responses to other questions. COVID-19 Immunization: Virtual/Telehealth Visit - Patient educated on the need for receiving COVID-19 (SARS-CoV-2) immunization either at [facility] or outside facility. Sexual Orientation: The patient thinks of their sexual orientation as: Straight or Heterosexual /george/ ESTEBAN HENDERSON LPN LICENSED PRACTICAL NURSE Signed: 10/19/2023 10:07 ESTEBAN HENDERSON ([facility])
--- OUTSIDE RECORDS SUMMARY | 2024-08-15 16:40 | XMS_ITS | Encounter Summary ---
Author Name [facility] [place] [facility] [place] Address [address] [place] [address] Care Team Providers Care Tester Operator Helper Name Role Phone RAMY CASTILLO Primary Care [...] TYRESE MEDEX BRON E Dec 16, 2018 [id number] AGNES,A JUAN PATIENT ANTHEM BCBS OF [place] (BLUECARD) MEDICARE SUPPLEMEN TYRESE MEDEX BRONZ E Dec 16, 2018 [id number] AGNES,A JUAN PATIENT BCBS [place] MEDICARE SUPPLEMEN TYRESE MEDEX BRONZ E Dec 16, 2018 [id number] [phone] AGNES,A JUAN PATIENT BCBS ANN [facility] E [facility] CONNE [facility] Apr 17, 2011 [id number] AGNES,A JUAN PATIENT [employer] ([id number]) PRESCRIPT ION L4TA* Apr 17, 2011 [id number] AGNES,A JUAN PATIENT [place] MEDICARE SUPPLEMEN TYRESE PSUED O MEDEX HEARI NG Dec 16, 2018 [id number] [phone] AGNES,A JUAN PATIENT MEDICARE (WNR) MEDICARE (M) PART A Dec 16, 2018 PART A [id number] [phone] AGNES,A JUAN PATIENT MEDICARE (WNR) MEDICARE (M) PART B Dec 16, 2018 PART B [id number] AGNES,A JUAN PATIENT MEDICARE (WNR) MEDICARE (M) PART A Dec 16, 2018 PART A [id number] [phone] AGNES,A JUAN PATIENT MEDICARE (WNR) MEDICARE (M) PART B Dec 16, 2018 PART B [id number] [phone] AGNES,A JUAN PATIENT MEDICARE (WNR) MEDICARE (M) PART A Dec 16, 2018 PART A [id number] AGNES,A JUAN PATIENT MEDICARE (WNR) MEDICARE (M) PART B Dec 16, 2018 PART B [id number] AGNES,A JUAN PATIENT Selected Encounter This section includes the information on record at [place] for the Encounter. Date/Time Encounter Type Encounter Description Reason Pro vider Source Jul 17, 2024 10:45 AM Outpatient Encounter PRIMARY CARE/MEDICINE IHE Encounter Template Text not used by [place] Plan of Treatment: Future Appointments (+ 6 months) and Future Tests (+/- 45 days) The Plan of Treatment section includes future care activities for the patient from all [place] treatmentfacilities. This section includes future appointments and future orders which are active, pending or scheduled. Future Appointments This section includes appointments that were scheduled to occur 6 months from the date of the Encounter, up to a maximum of 20 appointments. The data comes from all [place] treatment facilities. Appointment Date/Time Appointment Type Appointme nt Facility Name Aug 15, 2024 02:30 PM AMBULATORY - MEDICINE [facility] [place] [facility] Aug 21, 2024 08:00 AM AMBULATORY - MEDICINE [facility] [place] [facility] Nov 12, 2024 01:00 PM AMBULATORY - MEDICINE DAVID TODD ([facility]) Social History: Smoking Status (Most current) and Tobacco Use (All prior to encounter date) This section includes the most current, and the historical, smoking and tobacco- related health factors from the [place] facility where the Encounter took place. Current Smoking Status This section includes the most current smoking, or tobacco-related health factor, from the [place] facility where the Encounter took place. Date/Time Current Smoking Status Comment Facil ity Oct 27, 2022 02:44 PM VA-TOBACCO USER EVERY [facility] Tobacco Use History This section includes a history of the smoking, or tobacco-related health factors, that were collected on or before the date of the Encounter. The data comes from the [place] facility where the Encounter took place. Date/Time Smoking Status/Tobacco Use Comment F acility Oct 27, 2022 02:44 PM VA[facility]BACCO 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 Oct 27, 2022 02:44 PM VA-TOBACCO USER EVERY DAY [facility] [facility] [facility] Advance Directives: All historical and current Section Date Range: From patient's date of to the date document was created. This section includes ALL of a patient's completed or amended [place] Advance and Rescinded Directives. The entries below indicate that a directive exists for the patient, but an actual copy is not included with this document. The data comes from all [place] facilities. Date Advance Directives Provider Source Mar 01, 2014 ADVANCE DIRECTIVE VARSHA ESQUIVEL ([facility]) Encounter Notes: All associated encounter notes This section contains the clinical notes associated to the Encounter. Date/Time Encounter Note(s) Provider Source Jul 17, 2024 10:45 AM PRIMARY CARE [place] E MESSAGING: LOCAL TITLE: PRIMARY CARE SECURE MESSAGING STANDARD TITLE: PRIMARY CARE SECURE MESSAGING DATE OF NOTE: JUL 17, 2024@10:45 ENTRY DATE: JUL 17, 2024@10:45:56 AUTHOR: RUY CABA COSIGNER: URGENCY: STATUS: COMPLETED ------Original Message ------ Sent: 07/17/2024 09:12 AM ET From: SERGE ALARCON To: Chelo CASTILLO_PRIMARY CARE_[facility] Subject: Medication:refill Hi Dr Castillo, I need a refill on my viagra please. Serge /george/ MACHO FAROOQ Signed: 07/17/2024 10:45 Receipt Acknowledged By: 07/17/2024 11:27 /es/ RAHUL BLAS LPN LICENSED PRACTICAL NURSE for ESTEBAN HENDERSON 07/17/2024 11:16 /es/ GLENN GILLIAM, RN REGISTERED NURSE ZACHERY CABA ([facility])
--- OUTSIDE RECORDS SUMMARY | 2024-08-15 16:41 | XMS_ITS | Encounter Summary ---
Author Name [facility] [facility] [place] [facility] [place] [facility] [place] Address [address] [place] [id number] Care Team Providers Care Teller Manager Name Role Phone KILO CASTILLO Primary Care [...] TYRESE MEDEX BRONZ E Dec 16, 2018 [id number] AGNES,A JUAN PATIENT ANTHEM BCBS OF [place] (BLUECARD) MEDICARE SUPPLEMEN TYRESE MEDEX BRONZ E Dec 16, 2018 [id number] AGNES,A JUAN PATIENT [place]BS [place] MEDICARE SUPPLEMEN TYRESE MEDEX BRONZ E Dec 16, 2018 [id number] [phone] AGNES,A JUAN PATIENT BCBS ANN [facility] DEDUCTIBL E HE[facility] PLAN CONNE [facility] T [facility] Apr 17, 2011 [id number] [phone] AGNES,A JUAN PATIENT [employer] ([id number]) PRESCRIPT ION L4TA* Apr 17, 2011 [id number] AGNES,A JUAN PATIENT [facility] [place] ([place]) MEDICARE SUPPLEMEN TYRESE PSUED O MEDEX HEARChamp NG Dec 16, 2018 [id number] [phone] AGNES,A JUAN PATIENT MEDICARE (WNR) MEDICARE () PART A Dec 16, 2018 PART A [id number] [phone] AGNES,A JUAN PATIENT MEDICARE (WNR) MEDICARE () PART B Dec 16, 2018 PART B [id number] AGNES,A JUAN PATIENT MEDICARE (WNR) MEDICARE () PART A Dec 16, 2018 PART A [id number] [phone] AGNES,A JUAN PATIENT MEDICARE (WNR) MEDICARE () PART B Dec 16, 2018 PART B [id number] AGNES,A JUAN PATIENT MEDICARE (WNR) MEDICARE () PART A Dec 16, 2018 PART A [id number] [phone] AGNES,A JUAN PATIENT MEDICARE (WNR) MEDICARE () PART B Dec 16, 2018 PART B [id number] AGNES,A JUAN PATIENT Selected Encounter This section includes the information on record at [place] for the Encounter. Date/Time Encounter Type Encounter Description Reason Provider Source May 03, 2024 02:00 PM OFFICE O/P EST MOD 30 MIN PRIMARY CARE/MEDICINE ICD-10-CM L97.509 Non-pressure chronic ulcer oth prt unsp foot w unsp severity CHARLOTTE CASTILLO IHKatherine Encounter Template Text not used by [place] Assessments - Encounter Diagnoses This section includes the primary and secondary diagnoses documented for the Encounter. Date/Time Primary/Secondary Diagnosis Diagnosis Name Provider Source May 18, 2024 03:21 PM PRIMARY Non-pressure chronic ulcer oth prt unsp foot w unsp severity EVIN CASTILLO ([facility]) May 18, 2024 03:21 PM SECONDARY Encounter for immunization ANASTASIYA TORRES ([facility]) May 18, 2024 03:21 PM SECONDARY Essential (primary) hypertension EVIN CASTILLO ([facility]) May 18, 2024 03:21 PM SECONDARY Gout, unspecified EVIN CASTILLO ([facility]) May 18, 2024 03:21 PM SECONDARY Hyperlipidemia, unspecified EVIN CASTILLOFIELD ([facility]) May 18, 2024 03:21 PM SECONDARY Moderate persistent asthma, uncomplicated EVIN CASTILLOFIELD ([facility]) May 18, 2024 03:21 PM SECONDARY Obesity, unspecified BOSANTONIAIC,EVIN JACOBOFIELD ([facility]) May 18, 2024 03:21 PM SECONDARY Rhabdomyolysis EVIN CASTILLOFIELD ([facility]) May 18, 2024 03:21 PM SECONDARY Type 2 diabetes mellitus without complications EVIN CASTILLO ([facility]) Plan of Treatment: Future Appointments (+ 6 months) and Future Tests (+/- 45 days) The Plan of Treatment section includes future care activities for the patient from all [place] [facility]. This section includes future appointments and future orders which are active, pending or scheduled. Future Appointments This section includes appointments that were scheduled to occur 6 months from the date of the Encounter, up to a maximum of 20 appointments. The data comes from all [place] treatment facilities. Appointment Date/Time Appointment Type Appointme nt Facility Name May 07, 2024 10:30 AM AM[place]ULATORY [place]ICINE [place] [facility] May 08, 2024 10:00 AM AMBULATORY - REHAB [facility]ICIN [facility] May 21, 2024 08:30 AM [place] [facility] [place] [facility] May 23, 2024 08:15 AM [place]ORY [place] [facility] [place] [facility] Aug 15, 2024 02:30 PM [place]ORY [place] [facility] [place] [facility] Aug 21, 2024 08:00 AM AMBULATORY - MEDICINE [facility] [place] [facility] Active, Pending, and Scheduled Orders This section includes a listing of several types of active, pending, and scheduled orders, including clinic medications orders, diagnostic test orders, procedure orders and consult orders; where the start date of the order is 45 days before the date of the Encounter or 45 days after the date of theEncounter. The data comes from all [place] treatment facilities. Test Date/Time Test Type Test Details Facility Name Apr 18, 2024 12:00 AM Laboratory - Chemistry Order MICROALBUMIN CREATININE RATIO PANEL URINE (RANDOM) [facility] ([facility]) Apr 18, 2024 12:00 AM Laboratory - Chemistry Order CREATININE (eGFR 2020) BLOOD (SST-SERUM) [facility] ([facility]) Apr 18, 2024 12:00 AM Laboratory - Chemistry Order BASIC METABOLIC PANEL (fasting) BLOOD (SST-SERUM) [facility] ([facility]) Apr 18, 2024 12:00 AM Laboratory - Chemistry Order LIPID PANEL FASTING BLOOD (SST-SERUM) [facility] ([facility]) Apr 18, 2024 12:00 AM Laboratory - Chemistry Order LIVER FUNCTION BLOOD (SST-SERUM) [facility] ([facility]) Apr 18, 2024 12:00 AM Laboratory - Chemistry Order HEMOGLOBIN A1C PANEL BLOOD (LAV-BLOOD) [facility] ([facility]) Apr 18, 2024 12:00 AM Laboratory - Chemistry Order CBC AND DIFF (AUTO) BLOOD (LAV-BLOOD) [facility] ([facility]) Apr 18, 2024 12:00 AM Laboratory - Chemistry Order TSH BLOOD (SST-SERUM) [facility] ([facility]) May 17, 2024 08:15 AM Consult Order [facility] Cons Certified Adapted Physical Educator's Choice [place] [facility] Vital Signs: All taken on the encounter date This section contains inpatient and outpatient Vital Signs collected on the date of the Encounter. Date/Time Temperature Pulse Blood Pressure Respiratory Rate SP02 Pain Height Weight Body Mass Index Source May 03, 2024 02:09 PM 158/81 [place] ([facility]) May 03, 2024 02:04 PM 97.9 64 175/87 18 100 4 235.6 33 [place] ([facility]) Immunizations: All administered on the encounter date This section contains immunizations associated to the Encounter. Immunization Series Date Issued Reaction Comments COVID-19 (MODERNA), MRNA, LN P-S, PF, 50 MCG/0.5 ML (AGES 12+ YEARS) 5 May 03, 2024 Social History: Smoking Status (Most current) and Tobacco Use (All prior to encounter date) This section includes the most current, and the historical, smoking and tobacco- related health factors from the [place] facility where the Encounter took place. Current Smoking Status This section includes the most current smoking, or tobacco-related health factor, from the [place] facility where the Encounter took place. Date/Time Current Smoking Status Comment [facility] Oct 19, 2023 11:30 AM VA-TOBACCO USER EVERY DAY [facility] ([facility]) Tobacco Use History This section includes a history of the smoking, or tobacco-related health factors, that were collected on or before the date of the Encounter. The data comes from the [place] facility where the Encounter took place. 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 [facility] ([facility]) Oct 19, 2023 11:30 AM VA-TOBACCO USE MED NO [facility] ([facility]) Oct 19, 2023 11:30 AM VA-TOBACCO USER EVERY DAY [facility] ([facility]) Sep 14, 2021 10:30 AM VA-TOBACCO DOESNT USE WI 30 MIN WAKEUP [facility] ([facility]) Sep 14, 2021 10:30 AM VA-TOBACCO USE 30 YEARS OR MORE [facility] ([facility]) Sep 14, 2021 10:30 AM VA-TOBACCO USE ADVICE [facility] ([facility]) Sep 14, 2021 10:30 AM VA-TOBACCO USE 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 [facility] ([facility]) Sep 14, 2021 10:30 AM VA-TOBACCO USE MED NO [facility] ([facility]) Sep 14, 2021 10:30 AM VA-TOBACCO USER EVERY DAY [facility] ([facility]) Jun 12, 2019 03:11 PM VA-TOBACCO NEVER USED [facility] ([facility]) Mar 22, 2018 11:15 AM VA-TOBACCO FORMER USER [facility] ([facility]) Mar 22, 2018 11:15 AM VA-TOBACCO QUIT 15 YRS OR MORE [facility] ([facility]) Jul 20, 2017 09:06 AM QUIT TOBACCO USE > 7 YEARS AGO quit after first heart attack [facility] ([facility]) Jan 05, 2017 07:51 AM QUIT TOBACCO USE > 7 YEARS AGO Vet reports quitting smoking pipe tobacco 13 years ago [facility] ([facility]) Jan 05, 2017 07:51 AM QUIT TOBACCO USE 1 -7 YEARS AGO [facility] ([facility]) Sep 17, 2015 10:04 AM QUIT TOBACCO USE > 7 YEARS AGO [facility] ([facility]) Mar 17, 2011 11:04 AM QUIT TOBACCO USE > 7 YEARS AGO [facility] ([facility]) Advance Directives: All historical and current Section Date Range: From patient's date of to the date document was created. This section includes ALL of a patient's completed or amended VA Advance and Rescinded Directives. The entries below indicate that a directive exists for the patient, but an actual copy is not included with this document. The data comes from all [place] facilities. Date Advance Directives Provider Source Mar 01, 2014 ADVANCE DIRECTIVE VARSHA ESQUIVEL ([facility]) Encounter Notes: All associated encounter notes This section contains the clinical notes associated to the Encounter. Date/Time Encounter Note(s) Provider Source May 03, 2024 11:18 PM PHYSICIAN NOTE: LOCAL TITLE: MD NOTE STANDARD TITLE: PHYSICIAN NOTE DATE OF NOTE: MAY 03, 2024@23:18 ENTRY DATE: MAY 03, 2024@23:18:53 AUTHOR: KILO CASTILLO EXP COSIGNER: URGENCY: STATUS: COMPLETED Chief complaint:Pt is a 68 year old who comes in for follow up of medical problems as noted below. PMH: Active problems - Computerized Problem List is the source for the followin. Steatosis of liver 2. Chronic ulcer of foot 3. Liver Function Tests Abnormal (SCT 197772744) 4. Crush syndrome 5. Rhabdomyolysis 6. Cervical spondylosis C6-[address] Serrano 10/03 xray: minimal retrolithiasis of C4 on C5 &C5 on C6, repeat sent to scan 7. Benign hypertension 8. Benign prostatic hyperplasia With hematuria neg eval Son 05/2013 9. Obesity 10. Diabetes mellitus 11. Chronic ischemic heart disease (SNOMED CT 892647697) ECHO 12/06/2018 mod LVH, EF 50-60%, report sent to scan Age 48 NH and [address] Malone 12. Osteoarthritis of knee (SNOMED CT 757660344) Left Knee scopes 1990 and 1996 13. Hearing loss 14. Tremor (SNOMED CT 19336630) Dr Agutso 15. Sleep apnea (SNOMED CT 91341443) CPAP Dr Mark 16. Gout (SNOMED CT 48182448) 17. Hyperlipidemia (SNOMED CT 81355693) 18. Asthma (SNOMED CT 407033081) 19. Impotence of organic origin 20. Pain in right knee (SNOMED CT 299212249562660) Left knee arthroscopic surgeries 21. Seborrheic Dermatitis, [...] EVERY 6 HOURS NEEDED FOR BREATHING 4) AMLODIPINE BESYLATE 5MG TAB TAKE ONE TABLET BY MOUTH ACTIVE ONCE DAILY FOR BLOOD PRESSURE/HEART, DO NOT TAKE WITH GRAPEFRUIT JUICE 5) BACITRACIN 500 UNT/GM TOP OINT APPLY [...] FOR FUNGAL INFECTION OF THE SKIN 12) OLODATEROL/TIOTROP 2.5MCG/ACTUAT 60D INH INHALE 2 ACTIVE PUFFS (1 DOSE) BY MOUTH ONCE DAILY 13) PRIMIDONE 50MG TAB TAKE THREE TABLETS BY MOUTH TWICE ACTIVE DAILY 14) PROPRANOLOL HCL 120MG SA CAP TAKE ONE CAPSULE BY ACTIVE MOUTH DAILY 15) ROSUVASTATIN CA 40MG TAB TAKE ONE TABLET BY MOUTH ACTIVE EVERY EVENING AFTER SUPPER FOR CHOLESTEROL 16) SILDENAFIL CITRATE 100MG TAB TAKE ONE TABLET BY MOUTH ACTIVE NEEDED TAKE 1 HOUR PRIOR TO SEXUAL ACTIVITY DO NOT USE WITHIN 24 HOURS OF USING NITROGLYCERIN 17) ZAFIRLUKAST 20MG TAB TAKE ONE TABLET BY MOUTH TWICE ACTIVE DAILY 18) ZONISAMIDE 100MG CAP TAKE ONE CAPSULE BY MOUTH THREE ACTIVE TIMES A DAY Pending Outpatient Medications Status 1) ALLOPURINOL TAB TAKE 50MG BY MOUTH ONCE DAILY FOR PENDING GOUT Active Non-VA Medications Status 1) Non-VA ASPIRIN 81MG EC TAB 81MG BY MOUTH DAILY ACTIVE 2) Non-VA CHOLECALCIF 25MCG (D3-1,000UNIT) TAB 2000UNIT ACTIVE BY MOUTH DAILY 3) Non-VA COENZYME Q10 CAP/TAB 100MG DAILY ACTIVE 4) Non-VA OTHER CAP/TAB LIVER ELIXIR ONE CAP TWICE ACTIVE DAILY 23 Total Medications No Active Remote Medications for this patient On examination: 158/81 (05/03/2024 14:09)97.9 F [36.6 C] (05/03/2024 14:04)18 (05/03/2024 14:04)64 (05/03/2024 14:04)4 (05/03/2024 14:04)X3 BMI: 32.9235.6 lb [106.87 kg] (05/03/2024 14:04) CC: 5 Mo f/u Last Seen in PCP: Oct-November 2023 HPI: 68 y/o M with PMH of CAD with NH age 48 in 2003, s/p 3 stents to LAD, HTN, HLD, mod persistent Asthma, NIDDM (A1c 5.6), BPH, CLARENCE on CPAP, essential tremor, gout, abnormal LFTs, alcohol overuse, obesity (BMI 33) came to clinic for F2F f/u. Vet is feeling well today, no cardiac complaints. Had significant hospital course over the past 2 months. Admitted on February 25, 2024 for left leg cellulitis. Treated initially with course of antibiotics but came back, recurrent, and developed into sepsis. was treated with several courses of IV antibiotics first and p.o.. Course was complicated by ICU rhabdomyolysis with CK over 60,000 which caused acute kidney failure requiring dialysis and ICU stay. Further course was complicated by development of C. difficile but treated successfully with p.o. Vanco. Juan José spent about 1 month in the hospital last admission was again 2 weeks ago, but all resolved. Juan José brought outside labs done recently and several of his medications have changed. He is ELPIDIO inhibitors and metformin were stopped secondary to REY and have not been restarted. Continue of his blood pressure is elevated but [place] will need additional blood pressure medication [place] is wearing compression stockings all the time but the last one he got from the [place] are too tight and he cannot put them on Prior to February [place] was feels fine no issues. He did complete his overseas trip to [facility] on [employer] in December 2023, without any problems Pt denies any recent travel, sick contacts, fever, chills, cough, palpitations, CP, SOB, [place], numbness, tingling , weakness, dizziness, abd pain, N/V/D, dysuria, constipation, LE edema. No changes in ET, can walk 4+ blocks, can climb 1-2 flight of stairs, denies any orthopnea, PND. Pt is compliant with medications. ROS: as mentioned in HPI PSH: R rotator cuff repair surgery at [facility] in Jul 2020; neck C6-7 laminectomy; L and R knee arthroscopic surgery, last in 2019; R. rotator cuff and bursectomy Jul 2020; R TKR in Jun 2023, Dr Candelario [facility] hosp. 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 . FH: M young from fire accident; Father alive 83. Outside PCP: yes, Dr Benedicto Tesfaye in [place], [facility] PE: GA: AOx3, elderly male, in NAD, pleasant, HEENT: NC/AT, MMM; Neck: supple, no LNs, no JVD; HRT: normal S1/S2, no MRGs Chest: CTA b/l normal breath sounds, no wheezing Abd: soft, NTTP, BS+ Extremities: no leg edema, no cyanosis b/l , PPP; on compression stockings Labs : Outside labs 04/06 to Apr 24 2024 CBC: H/H 10/30 MCV 101 BMP: BUN/Creat 12/1.4 ; GFR 55 Ca++ WNL LDL: 60 HDL 29; RG 303 LFTs: WNL, Microalb/creat ratio: WNL CK WNL 83 Imaging/Tests: none new ECHO Feb 2021: EF [...] 2 yrs to assess stability Assessment/Plan: Left buttock cellulitis: Resolved patient at baseline [facility]ed by [facility] Elevated LFTs, alcohol overuse: f/b [facility] Normal transaminase , very high GGT Still drinking refused to stop, Refused consult for alcohol overuse Persistent mild transaminitis 2/2 alcohol intake, obesity Had fibra scan but results equivocal New MRI showed no fibrosis, no steatosis Accidental finding in body of pancreas, repeat MRCP in 2 yrs CAD with NH age 48 s/p 3 stents to LAD, HTN, HLD: f/b outside cardio Dr Shawn Feldman, [place] [facility] no change had ECHO Feb 2021: EF 65%, normal January 2021 exercise Stress test normal Stable no issues BP elevated LDL at goal 60, TG mildly elevated, -on rosuvastatin 40 mg -on Asa 81mg, buys on his own -On valsartan 80mg and 40mg prn stopped 2/2 REY -Start with amlodipine 5 mg daily, refilled Continue checking blood pressure at home Asthma, seasonal allergies: seasonal, no issues, -f/b outside Pulmo Dr Morocho in [place] -c/w Stiolto Respimat daily -on Zafirlucast 20mg bid -on Albuterol inhaler prn -on albuterol nebs prn -on fluticasone nasal spray -on Ipratropium nasal -s/w Cetirizine daily Prediabetes: Was on metformin 500 mg daily stopped secondary to REY, Awaiting new A1c if needs restarting BPH: stable, asymptomatic -on finasteride 5mg PSA WNL of 0.63 CLARENCE on CPAP: compliant, no issues essential tremor: stable , no issues f/b [facility] neuro Dr Hartman in the past tremor well controlled in his Left thumb (pt is LHD). -on Primidone 150mg bid -on Propranolol 120mg -on Zonisamide 100mg tid Gout: no recent attacks -Allopurinol 300mg secondary to REY Restart now at low-dose 50 mg daily per outside renal recommendations Obesity: BMI 33 Lost significant amount of body weight during 1 month hospitalization but gained it all back offered move , nutrition consults but refused. Records reviewed. New labs reviewed, discussed, questions answered. Meds refilled. verbalized understanding of the plan and agreed to it. Patient follows with non-VA providers and defers to them for medications management and management of chronic conditions. [facility] the [facility]. HM: Colonoscopy: [facility] , [place] [facility], 2021,repeat in 5 yrs 2026 Vaccines: Influenza: 2021 Tdap: 2020 Wetjriksb32: 2020 Zzguahi36: 2019 Shingrix: 2020 Covid-19 Pfizer: completed 2019, 09/09/20, 2021 RTC 6 Mo Labs prior Addendum: PACT 4 TEAM: See RTC above Medication Reconciliation: Outpatient: Has the patient been taking medications as documented in the EMLR? No: Discrepencies were identified. See below. Essential Medication List for Review used to complete this medication reconciliation. INCLUDED IN THIS LIST: Alphabetical list of active outpatient prescriptions dispensed from this [facility] (local) and dispensed from another [place] or [facility] facility (remote) as well as inpatient orders (local, pending and active), local clinic medications, locally documented non-VA medications, and local prescriptions that have or been discontinued in the past 90 days. - Discrepancies were identified, addressed, and discussed with the patient/caregiver at this encounter. - All changes in medications, including all non-VA/Herbal/OTC medications were entered into CPRS. - If there were any medications the patient should no longer take, they were discontinued. - The patient/caregiver was instructed to update this list, discard old lists, and take this list to the next appointment, whether with a VA or non-VA provider. HTN Assess for Elevated BP>=140/90: The patient's medication regimen was adjusted to improve blood pressure control. Comment: Started amlodipine 5 mg Hemoglobin A1C: Order for HBA1C placed. /george/ Kilo Castillo MD MD PRIMARY CARE PHYSICIAN Signed: 05/06/2024 16:07 KILO CASTILLO ([facility]) May 03, 2024 02:07 PM PREVENTIVE MEDICIN E NURSING NOTE: LOCAL TITLE: CLINICAL REMINDERS/NURSING STANDARD TITLE: PREVENTIVE MEDICINE NURSING NOTE DATE OF NOTE: MAY 03, 2024@14:07 ENTRY DATE: MAY 03, 2024@14:08:09 AUTHOR: ANASTASIYA TORRES COSIGNER: URGENCY: STATUS: COMPLETED Influenza Immunization: The patient has received the seasonal influenza vaccine for the current season at another location. Documented: INFLUENZA, UNSPECIFIED FORMULATION Historical Date Administered: Apr 17, 2024 Outside Location: Outside Healthcare Provider Information Source: FROM PATIENT'S RECALL COVID-19 Immunization: Moderna Monovalent (Spikevax) Administered: COVID-19 (MODERNA), MRNA, LNP-S, PF, 50 MCG/0.5 ML (AGES 12+ YEARS) Date Administered: May 03, 2024 14:00 Series: Series 5 Circulation Director: [employer]. Lot: [id number] Exp Date: December 07, 2024 [facility]: [id number] Admin Route/Site: INTRAMUSCULAR/RIGHT DELTOID Dosage: 0.5mL Vaccine Information Statement(s): COVID-19 MRNA VACCINE (12+ YRS) VACCINE VIS May 05, 2023 (MAURITANIAN) Order By: Policy Administered By: Anastasiya Torres Vaccine administered without complications. /george/ ANASTASIYA TORRES LPN LICENSED PRACTICAL NURSE Signed: 05/03/2024 14:17 ANASTAISYA TORRES ([facility])
--- OUTSIDE RECORDS SUMMARY | 2024-08-15 16:41 | XMS_ITS | Encounter Summary ---
Author Name [place] Address [address] [place] [address] Care Team Providers Care Medical Doctor Name Role Phone RAMY CASTILLO Primary Care [...] TYRESE MEDEX BRON E Dec 16, 2018 [id number] AGNES,A JUAN PATIENT ANTHEM BCBS OF CT (BLUECARD) MEDICARE SUPPLEMEN TYRESE MEDEX BRONZ E Dec 16, 2018 [id number] [phone] AGNES,A JUAN PATIENT [place]BS [place] MEDICARE SUPPLEMEN TYRESE MEDEX BRONZ E Dec 16, 2018 [id number] AGNES,A JUAN PATIENT BCBS ANN HIGH DEDUCTIBL E HEALTH PLAN [place] [facility] Apr 17, 2011 [id number] AGNES,A JUAN PATIENT EXPRESS SCRIPTS ([id number]) PRESCRIPT ION L4TA* Apr 17, 2011 L4TA [id number] AGNES,A JUAN PATIENT [place] MEDICARE SUPPLEMEN TYRESE PSUED O MEDEX HEARI NG Dec 16, 2018 [id number] AGNES,A JUAN PATIENT MEDICARE (WNR) MEDICARE (M) PART A Dec 16, 2018 PART A [id number] AGNES,A JUAN PATIENT MEDICARE (WNR) MEDICARE (M) PART B Dec 16, 2018 PART B [id number] CT90 [phone] AGNES,A JUNA PATIENT MEDICARE (WNR) MEDICARE (M) PART A Dec 16, 2018 PART A [id number] CT90 AGNES,A JUAN PATIENT MEDICARE (WNR) MEDICARE (M) PART B Dec 16, 2018 PART B [id number] CT90 [phone] AGNES,A JUAN PATIENT MEDICARE (WNR) MEDICARE (M) PART A Dec 16, 2018 PART A [id number] CT90 AGNES,A JUAN PATIENT MEDICARE (WNR) MEDICARE (M) PART B Dec 16, 2018 PART B [id number] CT90 AGNES,A JUAN PATIENT Selected Encounter This section includes the information on record at [place] for the Encounter. Date/Time Encounter Type Encounter Description Reason Provider Source Jan 09, 2024 11:30 AM OFFICE O/P EST LOW 20 MIN PODIATRY ICD-10-CM L84 Corns and callosities GAMALIEL ARAGON [facility] Encounter Template Text not used by [place] Assessments - Encounter Diagnoses This section includes the primary and secondary diagnoses documented for the Encounter. Date/Time Primary/Secondary Diagnosis Diagnosis Name Provider Source Feb 01, 2024 11:03 AM PRIMARY Corns and callosities GAMALIEL ARAGON [facility] Feb 01, 2024 11:03 AM SECONDARY Personal history of diabetic foot ulcer GAMALIEL ARAGON [facility] Feb 01, 2024 11:03 AM SECONDARY Type 2 diabetes w diabetic autonomic (poly)neuropathy [facility] [place] [facility] Plan of Treatment: Future Appointments (+ 6 months) and Future Tests (+/- 45 days) The Plan of Treatment section includes future care activities for the patient from [facility] [place] [facility] This section includes future appointments and future orders which are active, pending or scheduled. Future Appointments This section includes appointments that were scheduled to occur 6 months from the date of the Encounter, up to a maximum of 20 appointments. The data comes from all [place] treatment facilities. Appointment Date/Time Appointment Type Appointme nt Facility Name Jan 11, 2024 01:30 PM AMBULATORY - REHAB MEDICIN E [facility] [place] [facility] Jan 27, 2024 11:00 AM AMBULATORY [place]ICINE [place] [facility] [facility] Feb 06, 2024 11:30 AM AM[place]UL[place]ORY [place]ICINE [place] [facility] [place] [facility] Apr 02, 2024 09:30 AM AM[place]UL[place]ORY [place]ICINE [place] [facility] [place] [facility] Apr 20, 2024 01:30 PM AMBULATORY - MEDICINE [facility] Apr 23, 2024 08:00 AM AMBULATORY [place]ICINE [place] [facility] [place] [facility] Apr 23, 2024 11:00 AM AM[place]ULATORY [place]ICINE [place] [facility] [place] [facility] May 03, 2024 02:00 PM AMBULATORY - MEDICINE [facility] ([facility] May 07, 2024 10:30 AM AMBULATORY [place]ICINE [place] [facility] [place] [facility] May 08, 2024 10:00 AM AMBULATORY - REHAB MEDICIN E [facility] [place] [facility] May 21, 2024 08:30 AM AMBULATORY [place]ICINE [place] [facility] [place] [facility] May 23, 2024 08:15 AM AMBULATORY - [place]ICINE [place] [facility] [place] [facility] Vital Signs: All taken on the encounter date This section contains inpatient and outpatient Vital Signs collected on the date of the Encounter. Date/Time Temperature Pulse Blood Pressure Respiratory Rate SP02 Pain Height Weight Body Mass Index Source Jan 09, 2024 11:41 AM 98.4 [place] [facility] [place] [facility] Social History: Smoking Status (Most current) [...] 2022 02:44 PM VA-TOBACCO USER EVERY DAY [facility] Tobacco Use History This section includes a history of the smoking, or tobacco-related health factors, that were collected on or before the date of the Encounter. The data comes from the [place] facility where the Encounter took place. 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 [facility] Oct 27, 2022 02:44 PM [facility]ACCO [facility] Oct 27, 2022 02:44 PM VA-TOBACCO USE WI 30 MIN OF WAKEUP [facility] Oct 27, 2022 02:44 PM VA-TOBACCO USER EVERY DAY [facility] Advance Directives: All historical and current [...] Mar 01, 2014 ADVANCE DIRECTIVE VARSHA ESQUIVEL ([facility]) Encounter Notes: All associated encounter notes This section contains the clinical notes associated to the Encounter. Date/Time Encounter Note(s) Provider Source Jan 09, 2024 01:02 PM PODIATRY NOTE: LOCAL TITLE: PODIATRY NOTE STANDARD TITLE: PODIATRY NOTE DATE OF NOTE: JAN 09, 2024@13:02 ENTRY DATE: JAN 09, 2024@13:02:58 AUTHOR: GAMALIEL ARAGON COSIGNER: URGENCY: STATUS: COMPLETED Podiatry High Risk Foot Encounter [facility] provider: Gamaliel Aragon DPM Date: JAN 09, 2024 SERGE ALARCON MALE [id number] [place] [address] FROM Dec TO Jan Primary Care:RAMY CASTILLO Subjective: Patient is a 68-year-old type II diabetic male well-controlled hemoglobin A1c last 5.6 with moderate peripheral neuropathy and varus deformity mild bilateral lower leg and tendency to form callus however of late patient has developed recurrent callus submetatarsal 5 and has ulcerated in the past with cellulitis. He has accommodative orthotics with PPT cut out to accommodate lesion but continues to develop callus and throat for ulcer. He successfully went away to [place] for safari but had to limit his activity for fear of developing a wound towards the end of the trip nevertheless he did okay and did not have any problems. He returns today for follow-up and wants to consider elective surgery so that problem will not recur [floating fifth metatarsal osteotomy for example] Diabetic/ HRF/ PVD LE History: [ ] pvd [ ] pvd interventions [X] neuropathy [ ] meds: [ ] wound active [ ] infection active [X] wound history yes [ ] amputation hx [X] deformity-mild lower extremity varus lower leg [ ] charcot [ ] surgical deformity intervention PMH list CPRS: Active problems - Computerized Problem List is the source for the followin. Steatosis of liver 2. Chronic ulcer of foot 3. Liver Function Tests Abnormal (SCT 259936806) 4. Crush syndrome 5. Rhabdomyolysis 6. Cervical spondylosis 7. Benign hypertension 8. Benign prostatic hyperplasia 9. Obesity 10. Diabetes mellitus 11. Chronic ischemic heart disease (SNOMED CT 244195232) 12. Osteoarthritis of knee (SNOMED CT 725572661) 13. Hearing loss 14. Tremor (SNOMED CT 50438902) 15. Sleep apnea (SNOMED CT 73767108) 16. Gout (SNOMED CT 62094314) 17. Hyperlipidemia (SNOMED CT 03180170) 18. 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 Pain in right knee (SNOMED CT 215604588064621) 21. Seborrheic Dermatitis, Unspecified Active Out Patient [...] g/dL 3.5 - 5.0 BMI:BMI: 33.5 PE:General: Well-appearing Right foot stable with palpable pulses mild loss of protective sensation distally no calluses or lesions present Left foot similar but with callus formed under the fifth metatarsal which is debrided to intact skin but scarred skin. Patient has more of a tailor's bunion in this area also but the irritation and calluses formed plantarly not laterally. PAVE:2-history of ulceration neuropathy Impression: -Pressure callus with right foot ulceration submetatarsal 5 despite well intended and well fabricated trilaminar orthotics with PPT accommodation. -Currently stable today after callus trimming Plan: -Trimmed left foot callus segment 5 without incident -We will place a community care consult for surgery locally patient was offered surgery in [facility] but does not want to travel Recall: -We will follow-up in 4 to 6 weeks wound care clinic Return sooner if any clinical signs of [...] as results of the physical exam and systems development consultant opinions and recommendations as sought. [...] -The on this visit was given information [employer] service and encouraged to enroll if not already having done so. /george/ GAMALIEL ARAGON DPM PODIATRY ATTENDING Signed: 01/10/2024 13:01 GAMALIEL ARAGON [place] [facility]
--- OUTSIDE RECORDS SUMMARY | 2024-08-15 16:41 | XMS_ITS ---
Author Name Department [place] Organization [place] Address [address] [place] [address] Care Team Providers Care Conservation Planner Name Role Phone RAMY CASTILLO Primary Care [...] TYRESE MEDEX BRON E Dec 16, 2018 [id number] [phone] AGNES,A JUAN PATIENT ANTHEM BCBS OF CT (BLUECARD) MEDICARE SUPPLEMEN TYRESE MEDEX BRONZ E Dec 16, 2018 [id number] [phone] AGNES,A JUAN PATIENT [place]BS [place] MEDICARE SUPPLEMEN TYRESE MEDEX BRONZ E Dec 16, 2018 [id number] [phone] AGNES,A JUAN PATIENT BCBS ANN HIGH DEDUCTIBL E HEALTH PLAN [place] [facility] T [facility] Apr 17, 2011 [id number] [phone] AGNES,A JUAN PATIENT EXPRESS SCRIPTS ([id number]) PRESCRIPT ION L4TA* Apr 17, 2011 L4TA [id number] AGNES,A JUAN PATIENT [facility] [place] ([place] MEDICARE SUPPLEMEN TYRESE PSUED O MEDEX HEARI NG Dec 16, 2018 [id number] [phone] AGNES,A JUAN PATIENT MEDICARE (WNR) MEDICARE (M) PART A Dec 16, 2018 PART A [id number] CT90 AGNES,A JUAN PATIENT MEDICARE (WNR) MEDICARE (M) PART B Dec 16, 2018 PART B [id number] CT90 [phone] AGNES,A JUAN PATIENT MEDICARE (WNR) MEDICARE (M) PART A Dec 16, 2018 PART A [id number] CT90 AGNES,A JUAN PATIENT MEDICARE (WNR) MEDICARE (M) PART B Dec 16, 2018 PART B [id number] CT90 [phone] AGNES,A JUAN PATIENT MEDICARE (WNR) MEDICARE (M) PART A Dec 16, 2018 PART A [id number] CT90 AGNES,A JUAN PATIENT MEDICARE (WNR) MEDICARE (M) PART B Dec 16, 2018 PART B [id number] CT90 [phone] AGNES,A JUAN PATIENT Selected Encounter This section includes the information on record at [place] for the Encounter. Date/Time Encounter Type Encounter Description Reason Provider Source Aug 29, 2023 11:00 AM OFFICE O/P EST LOW 20 MIN PODIATRY ICD-10-CM 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 2 diabetes mellitus with foot ulcer ULYSSES ARAGON Katherine Encounter Template Text not used by [place] Assessments - Encounter Diagnoses This section includes the primary and secondary diagnoses documented for the Encounter. 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 This section includes future appointments and future orders which are active, pending or scheduled. Future Appointments This section includes appointments that were scheduled to occur 6 months from the date of the Encounter, up to a maximum of 20 appointments. The data comes from all [place] treatment facilities. Appointment Date/Time Appointment Type Appointme nt Facility Name Sep 12, 2023 08:00 AM AMBULATORY - MEDICINE [facility] [place] [facility] Sep 14, 2023 07:30 AM AMBULATORY - NEUROLOGY [facility] [place] [facility] Sep 26, 2023 10:30 AM AMBULATORY - MEDICINE [facility] [place] [place] [facility] Oct 03, 2023 01:30 PM AMBULATORY - REHAB MEDICIN E [facility] [place] [facility] Oct 10, 2023 09:30 AM AMBULATORY - MEDICINE [facility] [place] [place] [facility] Oct 17, 2023 11:00 AM AMBULATORY - NONE [place] [facility] [facility] Oct 19, 2023 11:30 AM AMBULATORY - MEDICINE [facility] Oct 28, 2023 10:30 AM AMBULATORY - MEDICINE [facility] [place] [place] [facility] November 21, 2023 09:00 AM AMBULATORY - MEDICINE [facility] [place] [facility] November 29, 2023 01:00 PM AMBULATORY - MEDICINE [facility] ([facility] December 05, 2023 11:00 AM AMBULATORY - MEDICINE [facility] [place] [facility] December 14, 2023 11:00 AM AMBULATORY - MEDICINE [facility] [place] [facility] Jan 09, 2024 11:30 AM AMBULATORY - MEDICINE [facility] [place] [facility] Jan 11, 2024 01:30 PM AMBULATORY - REHAB MEDICIN E [facility] [place] [facility] Jan 27, 2024 11:00 AM AMBULATORY - MEDICINE [facility] [place] [facility] Feb 06, 2024 11:30 AM AMBULATORY - MEDICINE [facility] [place] [facility] Active, Pending, and Scheduled Orders This section includes a listing of several types of active, pending, and scheduled orders, including clinic medications orders, diagnostic test orders, procedure orders and consult orders; where the start date of the order is 45 days before the date of the Encounter or 45 days after the date of theEncounter. The data comes from all [place] treatment facilities. Test Date/Time Test Type Test Details Facility Name Aug 18, 2023 12:00 AM Laboratory - Chemi stry Order CHEM 7 BLOOD (SER GOLD) [facility] Sep 28, 2023 03:21 PM Consult Order COMMUNITY CARE-NEUROLOGY Cons Packaging Tech's [facility] ([facility]) Social History: Smoking Status (Most current) and Tobacco Use (All prior to encounter date) This section includes the most current, and the historical, smoking and tobacco- related health factors from the [place] facility where the Encounter took place. Current Smoking Status This section includes the most current smoking, or tobacco-related health factor, from the [place] facility where the Encounter took place. Date/Time Current Smoking Status Comment Facil ity Oct 27, 2022 02:44 PM VA-TOBACCO USER EVERY DAY [facility] Tobacco Use History This section includes a history of the smoking, or tobacco-related health factors, that were collected on or before the date of the Encounter. The data comes from the [place] facility where the Encounter took place. Date/Time Smoking Status/Tobacco Use Comment F acility Oct 27, 2022 02:44 PM [facility] Oct 27, 2022 02:44 PM VA-TOBACCO USE SHOPPER'S AIDE NO [facility] Oct 27, 2022 02:44 PM VA-TOBACCO USE [facility] Oct 27, 2022 02:44 PM VA-TOBACCO USE [place] 30 MIN OF WAKEUP [facility] Oct 27, 2022 02:44 PM VA-TOBACCO USER EVERY DAY [facility] Advance Directives: All historical and current Section Date Range: From patient's date of to the date document was created. This section includes ALL of a patient's completed or amended [place] Advance and Rescinded Directives. The entries below indicate that a directive exists for the patient, but an actual copy is not included with this document. The data comes from all [place] facilities. Date Advance Directives Provider Source Mar 01, 2014 ADVANCE DIRECTIVE VARSHA ESQUIVEL ([facility]) Radiology Reports: +/- 30 days of the [...] the Encounter. The data comes from all [place] treatment facilities. Date/Time Radiology Report Provider Source Aug 15, 2023 08:31 AM FOOT 3 OR MORE VIEWS(LEFT): SERGE ALARCON Aimee [id number] -[id number] M Exm Date: AUG 15, 2023@08:31 Req Phys: ULYSSES ARAGON Pat Loc: CWM/NO/WOUND PROV A (Req'g Loc Img Loc: NHM/BUILDING 1 Service: Unknown (Case 10 COMPLETE) FOOT 3 OR MORE VIEWS(LEFT) (RAD Detailed) CPT:57881 Proc Modifiers : LEFT CPT Modifiers : LT LEFT SIDE Reason for Study: dfu sub met five Clinical History: hx DFU for several weeks - no probe to bone. Send back to clinic please Report Status: Verified Date Reported: AUG 15, 2023 Date Verified: AUG 15, 2023 Plate And Weld Inspector E-Sig:/ES/ED SALEH JR Report: Study: Weight-bearing AP, [...] Primary Interpreting Staff: ED SALEH JR, Radiologist (Plate And Weld Inspector) /ED ESCALERA JR [place] [facility] Encounter Notes: All associated encounter notes This section contains the clinical notes associated to the Encounter. 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 He was also seeing a tower erector in that area. On last visit last [...] 500 mg daily by his primary care. ----end pasted history ------ Measurements of wound then were 8mm x 12 mm x < 1mm deep and wound claen pink base. Subjective: I am doiing ok. I will need to shovel my sidewalk tomorrrow its not too big. I have some one to plow driveway Denies christy chills nausea or other local or systemic sugns of infection. Diabetic/ HRF/ PVD LE History: [ ] pvd [ ] pvd interventions [x] neuropathy [ ] meds: [x] wound active-sub five left x 6 mons brief healing then since Nov (4 mons) [ ] infection active [ ] wound [...] 389.9 03/17/2011 NELLA KIDD Tremor (SNOMED CT 11394373) R25.1 07/20/2017 GA ROMEO Sleep apnea (SNOMED CT 10868100) G4 10/27/2015 NIKIJOSE DANIEL Whitney Gout (SNOMED CT 98455556) M10.9 01/05/2017 JANICE CARDENAS Hyperlipidemia (SNOMED CT 08203997) 07/20/2017 GA ROMEO Asthma (SNOMED CT 344027298) J45.40 03/31/2016 NELLA KIDD Impotence of organic origin 607.84 03/17/2011 NELLA KIDD Pain in right knee ([place] [address] 01/25/2018 CHANDUBOSSMAN Turner Seborrheic Dermatitis, Unspecified 03/17/2011 NELLA KIDD Active [...] ACTIVE DAILY 29 Total Medications Imaging reports: Lab Data: CHEM 7 TREND LAB CUMULATIVE [...] 139 4.0 108 22 117 H 11 HEMOGLOBIN A1C TREND Collection DT Spec HGBA1c 05/05/2023 10:00 BLOOD 5.6 09/07/2022 09:59 BLOOD 5.7 H 02/12/2022 10:15 BLOOD 5.7 H 03/16/2021 09:58 BLOOD 5.7 H 08/28/2020 12:52 BLOOD 6.0 H ALBUMIN Collection DT Specimen Test Name Result Units Ref Range 05/05/2023 10:00 SERUM ALBUMIN 3.5 g/dL 3.5 - 5.0 BMI:BMI: 33.6 well appearing nad no distress. Left foot wound : Wound # 1. Location:sub met five left foot Measurements post debridement (if any) Length:9mm Width:5-6mm Depth:< 1 mm Characteristics: Base:garnular Tunneling:none Undermining:none Drainage: [x] serosanguanous scant [ ] bloody clot [ ] purulent Odor: [ ] malodorous [x] no mal odor Surounding Tissues: [none ] erythema [ ] measurement Impression: -slowly inproving no clinical sign infection -(recent films (-) for osteomyelitis / defromity Plan: caerful aseptic debridement of wound measure Cleanse and apply 10% iodine carmita gauze kirlex dressing added metatarsal ach pad under pegassist liner to give better support ogff loading. Recall:09/15/23 Return sooner if any clinical signs of [...] as results of the physical exam and networks software consultant opinions and recommendations as sought. Alternatives [...] -The on this visit was given information [employer] service and encouraged to enroll if not already having done so. /george/ ULYSSES ARAGON DPM PODIATRY ATTENDING Signed: 08/30/2023 18:42 ULYSSES ARAGON [place] [facility]
--- OUTSIDE RECORDS SUMMARY | 2024-08-15 16:41 | XMS_ITS | Encounter Summary ---
Author Name [facility] [place] [facility] [place] Address [address] [place] [address] Care Team Providers Care Ingot Stripper Name Role Phone RAMY CASTILLO Primary Care [...] TYRESE MEDEX BRON E Dec 16, 2018 [id number] AGNES,A JUAN PATIENT ANTHEM BCBS OF CT (BLUECARD) MEDICARE SUPPLEMEN TYRESE MEDEX BRONZ E Dec 16, 2018 [id number] [phone] AGNES,A JUAN PATIENT BCBS [place] MEDICARE SUPPLEMEN TYRESE MEDEX BRONZ E Dec 16, 2018 [id number] AGNES,A JUAN PATIENT BCBS ANN HIGH DEDUCTIBL E HEALTH PLAN CONNE [facility]ICU T [facility] Apr 17, 2011 [id number] AGNES,A JUAN PATIENT EXPRESS SCRIPTS ([id number]) PRESCRIPT ION L4TA* Apr 17, 2011 L4TA [id number] AGNES,A JUAN PATIENT [place]BS [place] ([place] MEDICARE SUPPLEMEN TYRESE PSUED O MEDEX HEARI NG Dec 16, 2018 [id number] AGNES,A JUAN PATIENT MEDICARE (WNR) MEDICARE (M) PART A Dec 16, 2018 PART A [id number] CT90 AGNES,A JUAN PATIENT MEDICARE (WNR) MEDICARE (M) PART B Dec 16, 2018 PART B [id number] CT90 AGNES,A JUAN PATIENT MEDICARE (WNR) MEDICARE (M) PART A Dec 16, 2018 PART A [id number] CT90 AGNES,A JUAN PATIENT MEDICARE (WNR) MEDICARE (M) PART B Dec 16, 2018 PART B [id number] AGNES,A JUAN PATIENT MEDICARE (WNR) MEDICARE (M) PART A Dec 16, 2018 PART A [id number] CT90 AGNES,A JUAN PATIENT MEDICARE (WNR) MEDICARE (M) PART B Dec 16, 2018 PART B [id number] CT90 AGNES,A JUAN PATIENT Selected Encounter This section includes the information on record at [place] for the Encounter. Date/Time Encounter Type Encounter Description Reason Provider Source Apr 20, 2024 01:30 PM OFF/OP EST NOVEMBER X REQ PHY/QHP PRIMARY CARE/MEDICINE ICD-10-CM I87.2 Venous insufficiency (chronic) (peripheral) ASHKAN FELIPE Encounter Template Text not used by [facility] Assessments - Encounter Diagnoses This section includes the primary and secondary diagnoses documented for the Encounter. Date/Time Primary/Secondary Diagnosis Diagnosis Name Provider Source May 08, 2024 11:47 AM PRIMARY Venous insufficiency (chronic) (peripheral) ASHKAN FELIPE ([facility]) Plan of Treatment: Future Appointments (+ 6 months) and Future Tests (+/- 45 days) The Plan of Treatment section includes future care activities for the patient from [facility] [place] [facility] This section includes future appointments and future orders which are active, pending or scheduled. Future Appointments This section includes appointments that were scheduled to occur 6 months from the date of the Encounter, up to a maximum of 20 appointments. The data comes from all [facility]. Appointment Date/Time Appointment Type Appointme nt Facility Name Apr 23, 2024 08:00 AM AM[place]ORY [place] [facility] [place] [facility] Apr 23, 2024 11:00 AM [place] [facility] May 03, 2024 02:00 PM AMBULATORY - MEDICINE [facility] May 07, 2024 10:30 AM AM[place] [facility] May 08, 2024 10:00 AM AMBULATORY - REHAB MEDICIN [place] [facility] [facility] May 21, 2024 08:30 AM AM[place] [facility] [facility] May 23, 2024 08:15 AM [place] [facility] Aug 15, 2024 02:30 PM AM[place] [facility] Aug 21, 2024 08:00 AM AM[place]ORY [place] [facility] Active, Pending, and Scheduled Orders This section includes a listing of several types of active, pending, and scheduled orders, including clinic medications orders, diagnostic test orders, procedure orders and consult orders; where the start date of the order is 45 days before the date of the Encounter or 45 days after the date of theEncounter. The data comes from all [facility]. Test Date/Time Test Type Test Details Facility Name Apr 18, 2024 12:00 AM Laboratory - Chemistry Order CREATININE (eGFR 2020) BLOOD (SST-SERUM) [facility] ([facility] Apr 18, 2024 12:00 AM Laboratory - Chemistry Order BASIC METABOLIC PANEL (fasting) BLOOD (SST-SERUM) [facility] ([facility]) Apr 18, 2024 12:00 AM Laboratory - Chemistry Order MICROALBUMIN CREATININE RATIO PANEL URINE (RANDOM) [facility]) Apr 18, 2024 12:00 AM Laboratory - Chemistry Order LIPID PANEL FASTING BLOOD (SST-SERUM) [facility] ([facility]) Apr 18, 2024 12:00 AM Laboratory - Chemistry Order LIVER FUNCTION BLOOD (SST-SERUM) [facility] ([facility]) Apr 18, 2024 12:00 AM Laboratory - Chemistry Order HEMOGLOBIN A1C PANEL BLOOD (LAV-BLOOD) [facility] ([facility]) Apr 18, 2024 12:00 AM Laboratory - Chemistry Order TSH BLOOD (SST-SERUM) [facility] ([facility]) Apr 18, 2024 12:00 AM Laboratory - Chemistry Order CBC AND DIFF (AUTO) BLOOD (LAV-BLOOD) [facility] ([facility]) May 17, 2024 08:15 AM Consult Order [facility] SURGICAL Cons Galvanometer Assembler's Choice [place] [facility] [place] [facility] Social History: Smoking Status (Most current) and Tobacco Use (All prior to encounter date) This section includes the most current, and the historical, smoking and tobacco- related health factors from the [place] facility where the Encounter took place. Current Smoking Status This section includes the most current smoking, or tobacco-related health factor, from the [place] facility where the Encounter took place. Date/Time Current Smoking Status Comment [facility] it[facility] Oct 19, 2023 11:30 AM VA-TOBACCO USER EVERY DAY [place] ([facility]) Tobacco Use History This section includes a history of the smoking, or tobacco-related health factors, that were collected on or before the date of the Encounter. The data comes from the [place] facility where the Encounter took place. 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 [place] ([facility]) Oct 19, 2023 11:30 AM VA-TOBACCO USE MED NO [place] ([facility]) Oct 19, 2023 11:30 AM VA-TOBACCO USER EVERY DAY [place] ([facility]) Sep 14, 2021 10:30 AM VA-TOBACCO DOESNT USE WI 30 MIN WAKEUP [place] ([facility]) Sep 14, 2021 10:30 AM VA-TOBACCO USE 30 YEARS OR MORE [place] ([facility]) Sep 14, 2021 10:30 AM VA-TOBACCO USE ADVICE [place] ([facility]) Sep 14, 2021 10:30 AM 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 [place] ([facility]) Sep 14, 2021 10:30 AM VA-TOBACCO USE MED NO [place] ([facility]) Sep 14, 2021 10:30 AM VA-TOBACCO USER EVERY DAY [place] ([facility]) Jun 12, 2019 03:11 PM VA-TOBACCO NEVER USED [place] ([facility]) Mar 22, 2018 11:15 AM VA-TOBACCO FORMER USER [place] ([facility]) Mar 22, 2018 11:15 AM VA-TOBACCO QUIT 15 YRS OR MORE [place] ([facility]) Jul 20, 2017 09:06 AM QUIT TOBACCO USE > 7 YEARS AGO quit after first heart attack [place] ([facility]) Jan 05, 2017 07:51 AM QUIT TOBACCO USE > 7 YEARS AGO Vet reports quitting smoking pipe tobacco 13 years ago [place] ([facility]) Jan 05, 2017 07:51 AM QUIT TOBACCO USE 1 -7 YEARS AGO [place] ([facility]) Sep 17, 2015 10:04 AM QUIT TOBACCO USE > 7 YEARS AGO [place] ([facility]) Mar 17, 2011 11:04 AM QUIT TOBACCO USE > 7 YEARS AGO [place] ([facility]) Advance Directives: All historical and current Section Date Range: From patient's date of to the date document was created. This section includes ALL of a patient's completed or amended [place] Advance and Rescinded Directives. The entries below indicate that a directive exists for the patient, but an actual copy is not included with this document. The data comes from all [place] facilities. Date Advance Directives Provider Source Mar 01, 2014 ADVANCE DIRECTIVE VARSHA ESQUIVEL ([facility]) Encounter Notes: All associated encounter notes This section contains the clinical notes associated to the Encounter. Date/Time Encounter Note(s) Provider Source Apr 20, 2024 02:06 PM NONVA NOTE: LOCAL TITLE: NON-VA HOSPITALIZATIONS/ER STANDARD TITLE: NONVA NOTE DATE OF NOTE: APR 20, 2024@14:06 ENTRY DATE: APR 20, 2024@14:06:15 AUTHOR: ASHKAN FELIPE EXP COSIGNER: URGENCY: STATUS: COMPLETED 04/19/24 [facility] ER Lower leg pain-swelling Patient: SERGE ALARCON Age: 68 years Sex: Male : 1955 Associated Diagnoses: Lower leg pain-swelling Author: Jonathan STEWART, Regina Villanueva Basic Information Time seen: This Resident Note is considered Preliminary until an Attending attestation has been added I, Regina Castillo, am being Supervised by the Attending Physician, Dr. Ely History of Present Illness The patient presents with 68 year old male with a history of T2DM, HTN, HLD, CAD, multiple recent hospitalizations for left lower extremity cellulitis complicated by rhabdomyolysis with acute renal failure presenting today with red, swollen, tender left lower extremity since yesterday. Has chronic wound of left foot. Denies fevers and chills. Denies drainage from wound or leg. He did drive to [place] and back this week (about 20 hours total in car). No history of DVT or PE. Denies chest pain or shortness of breath. Physical Examination Vital Signs Time: 04/19/2024 16:21:00. VITAL SIGNS SECTION 04/19/2024 14:54 EDT Temperature 97.8 DegF Temperature Route Temporal Pulse Rate 67 bpm Respiratory Rate 19 br/min Systolic Blood Pressure 160 mm Hg H Diastolic Blood Pressure 96 mm Hg H Mean Arterial Pressure 117 mm Hg Pulse Pressure 64 mm Hg Oxygen Saturation 98 % Mode of Delivery (Oxygen) Room air . General: Constitutional: Alert, in no distress. Mental Status: Oriented to person, place and time. Head: Normocephalic. Eyes: Pupils are equal and round. Ear, Nose and Throat: Ears and nose without masses, lesions or deformities. Trachea midline. Cardiac: Regular rate and rhythm. No murmurs, rubs, gallops. Respiratory: Clear to auscultation bilaterally. Breathing without difficulty. No signs of respiratory distress. Gastrointestinal: Abdomen non-distended. Neurologic: Cranial nerves II-XII grossly intact. Moves all extremities spontaneously. Skin: Splotchy erythema across lower left extremity. Visible edema. Mildly tender to palpation into upper leg. No purulence. Small callus on plantar left foot with 3mm puncture wound without surrounding erythema. No other visible rashes, lesions, purpura, or petechiae. Musculoskeletal: No cyanosis or clubbing. No gross deformities. Heme/Lymphatics/Immun: No gross lymphadenopathy. Psychiatric: Normal mood and affect . Medical Decision Making Rationale: 68 year old male with left lower extremity edema and erythema. Multiple recent hospitalizations for cellulitis of this extremity and chronic wound of left foot and highly suspect recurrent non-purulent cellulitis. Hemodynamically stable, not meeting SIRS/sepsis criteria. No leukocytosis. CPK normal and kidney function drastically improved from prior. Follows closely with nephrology as an outpatient. Patient did have risk factors for DVT including recent immobilization, but US negative. At this point, clinically most consistent with uncomplicated recurrent cellulitis. Prior infection resolved completely with Keflex - will DC with Keflex for 7 day course.. Impression and Plan Diagnosis Lower leg pain-swelling Plan Disposition: Discharged: to home. Prescriptions: Launch prescriptions Pharmacy: cephalexin monohydrate 500 mg oral capsule (Prescribe): 1 capsule = 500 mg, By Mouth, 3 times a day, for 7 days, # 21 capsule, 0 Refills, Acute 04/26/2024 17:45:00, 04/19/2024 17:45 EDT, Capsule, [id number], Partial fill upon patient request if the prescription is for a schedule II opioid drug., 178, cm, 04/19/2024 14:54 EDT, Height, 102, kg, 04/19/2024 14:54 EDT, Dry Weight . Addendum Teaching-Supervisory Addendum-Brief Notes: I, Dr. Ely, have evaluated and examined the patient and discussed the care with the resident. I agree with the resident's written findings and plan, except as noted. /george/ ASHKAN FELIPE RN REGISTERED NURSE Signed: 04/20/2024 14:07 Receipt Acknowledged By: 07/08/2024 07:18 /george/ Ramy Castillo MD MD PRIMARY CARE PHYSICIAN ASHKAN FELIPE ([facility]) Apr 20, 2024 01:46 PM NURSING NOTE: LOCAL TITLE: PRIMARY CARE NURSE NOTE STANDARD TITLE: NURSING NOTE DATE OF NOTE: APR 20, 2024@13:46 ENTRY DATE: APR 20, 2024@13:46:46 AUTHOR: ASHKAN FELIPE EXP COSIGNER: URGENCY: STATUS: COMPLETED PRIMARY CARE NURSE NOTE Has ADDENDA Warne measured for compression stockings per request of community clerical and office support workers. Rx placed in Right fax: LLE- Calf 17, Ankle 9 RLE- Calf 16.5, Ankle 8.5 Prosthestic consult placed for stockings. The states he was seen at [facility] ER yesterday and treated for cellulitis LLE: Cephalexin monohydrate 500 mg oral capsule (Prescribe): 1 capsule = 500 mg, By Mouth, 3 times a day, for 7 days, # 21 capsule, 0 Refills He declined to perform blood work today as he just had some done while at the ER. Reviewed ER notes along with other records presented by the to this property underwriter. The does not appear to have a recent A1C, however he would like to wait until his appt with PCP to discuss. 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 /trev FELIPE RN REGISTERED NURSE Signed: 04/20/2024 14:06 ASHKAN FELIPE ([facility])
--- OUTSIDE RECORDS SUMMARY | 2024-08-15 16:41 | XMS_ITS | Clinical Summary ---
Author Organization [facility] Address [address] [place] [address] Care Team Providers Care Spring Former Hand Name Role Phone Jose Tesfaye MD Primary Care Provider [phone] Allergies No known active allergies Social History Tobacco Use Types Packs/Day Years Used Date Smoking Tobacco: Never Assessed Sex and Gender Information Value Date Recorded Sex Assigned at Male 10/17/2023 9:48 AM EDT Gender Identity Male 10/17/2023 9:48 AM EDT Sexual Orientation Heterosexual (straight) 10/16 9:48 AM EDT Plan of Treatment Health Maintenance Due Date Last Done Comments Hepatitis C Virus Screening 1955 DTaP/Tdap/Td Vaccines (1 - Tdap) 1972 Pneumococcal Vaccines 50+ (1 of 2 - PCV) 1972 Colonoscopy 1998 Zoster (Shingles) Vaccine (1 of 2) 12/23/2003 RSV Vaccine 60 years and older and Patients (1 - Risk 60-74 years 1-dose series) 2013 Influenza Vaccine 02/16/2024 05/10/2023, , 06/24/2021, Additional history exists COVID-19 Vaccine ( season) 2024 05/12/2022, 12/05/2021, 09/09/2020, Additional history exists Hepatitis B Vaccines Aged Out No long er eligible based on patient's age to complete this topic Care Teams Spring Former Hand Relationship Specialty Start Date End Date Jose Tesfaye MD [address] [place] [address] PCP - General Family Medicine 09/29/23
--- OUTSIDE RECORDS SUMMARY | 2024-08-15 16:41 | XMS_ITS | Encounter Summary ---
Author Name [facility] [place] [facility] [place] [facility] [place] [facility] [place] Address [address] [place] [address] Care Team Providers Care Agency Development Manager Name Role Phone RAMY CASTILLO Primary Care [...] TYRESE MEDEX BRONZ E Dec 16, 2018 [id number] AGNES,A JUAN PATIENT ANTHEM BCBS OF [place] (BLUECARD) MEDICARE SUPPLEMEN TYRESE MEDEX BRONZ E Dec 16, 2018 [id number] AGNES,A JUAN PATIENT [place]BS [place] MEDICARE SUPPLEMEN TYRESE MEDEX BRONZ E Dec 16, 2018 [id number] AGNES,A JUAN PATIENT BCBS ANN HIGH DEDUCTIBL E HEALTH PLAN CONNE [facility]ICU T [facility] Apr 17, 2011 [id number] [phone] AGNES,A JUAN PATIENT EXPRESS SCRIPTS ([id number]) PRESCRIPT ION L4TA* Apr 17, 2011 L4TA [id number] AGNES,A JUAN PATIENT [place] MEDICARE SUPPLEMEN TYRESE PSUED O MEDEX HEARI NG Dec 16, 2018 [id number] [phone] AGNES,A JUAN PATIENT MEDICARE (WNR) MEDICARE (M) PART A Dec 16, 2018 PART A [id number] AGNES,A JUAN PATIENT MEDICARE (WNR) MEDICARE (M) PART B Dec 16, 2018 PART B [id number] AGNES,A JUAN PATIENT MEDICARE (WNR) MEDICARE (M) PART A Dec 16, 2018 PART A [id number] [phone] AGNES,A JUAN PATIENT MEDICARE (WNR) MEDICARE (M) PART B Dec 16, 2018 PART B [id number] AGNES,A JUAN PATIENT MEDICARE (WNR) MEDICARE (M) PART A Dec 16, 2018 PART A [id number] [id number] AGNES,A JUAN PATIENT MEDICARE (WNR) MEDICARE (M) PART B Dec 16, 2018 PART B [id number] [id number] AGNES,A JUAN PATIENT Selected Encounter This section includes the information on record at [place] for the Encounter. Date/Time Encounter Type Encounter Description Reason Provider Source Jan 10, 2024 01:30 PM Outpatient Encounter AUDIOLOGY CORTNEY VELASCO Encounter Template Text not used by [place] Plan of Treatment: Future Appointments (+ 6 months) and Future Tests (+/- 45 days) The Plan of Treatment section includes future care activities for the patient from all [place] treatmentfacilities. This section includes future appointments and future orders which are active, pending or scheduled. Future Appointments This section includes appointments that were scheduled to occur 6 months from the date of the Encounter, up to a maximum of 20 appointments. The data comes from all [place] treatment facilities. Appointment Date/Time Appointment Type Appointme nt Facility Name Jan 11, 2024 01:30 PM AMBULATORY - [facility]ICIN [place] [facility] [place] [facility] Jan 27, 2024 11:00 AM AMBULATORY - MEDICINE [place] [facility] [place] [place] [facility] Feb 06, 2024 11:30 AM AMBULATORY - MEDICINE [facility] [place] [facility] Apr 02, 2024 09:30 AM AMBULATORY - MEDICINE [facility] [place] [facility] Apr 20, 2024 01:30 PM AMBULATORY - MEDICINE [facility] Apr 23, 2024 08:00 AM AMBULATORY - MEDICINE [place] [facility] [place] [facility] Apr 23, 2024 11:00 AM AMBULATORY - MEDICINE [place] [facility] [place] [facility] May 03, 2024 02:00 PM AMBULATORY - MEDICINE [facility] ([facility]) May 07, 2024 10:30 AM AMBULATORY - MEDICINE [place] [facility] [place] [facility] May 08, 2024 10:00 AM AMBULATORY - REHAB MEDICIN E [facility] [place] [facility] May 21, 2024 08:30 AM AMBULATORY - MEDICINE [place] [facility] [place] [facility] May 23, 2024 08:15 AM AMBUL[place]ORY - [place]ICINE [place] [facility] [place] [facility] Social History: Smoking Status (Most current) and Tobacco Use (All prior to encounter date) This section includes the most current, and the historical, smoking and tobacco- related health factors from the [place] facility where the Encounter took place. Current Smoking Status This section includes the most current smoking, or tobacco-related health factor, from the [place] facility where the Encounter took place. Date/Time Current Smoking Status Comment Facil ity Oct 27, 2022 02:44 PM VA-TOBACCO USE WI 30 MIN OF WAKEUP [place] [facility] [place] [facility] Tobacco Use History This section includes a history of the smoking, or tobacco-related health factors, that were collected on or before the date of the Encounter. The data comes from the [place] facility where the Encounter took place. 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 This section includes ALL of a patient's completed or amended [place] Advance and Rescinded Directives. The entries below indicate that a directive exists for the patient, but an actual copy is not included with this document. The data comes from all [place] facilities. Date Advance Directives Provider Source Mar 01, 2014 ADVANCE DIRECTIVE VARSHA ESQUIVEL ([facility])
--- OUTSIDE RECORDS SUMMARY | 2024-08-15 16:41 | XMS_ITS | Encounter Summary ---
Author Name Department of Veter[place] Affairs ([place]) Organization Department of Vetera Affairs ([place]) Address [address] [place] [address] Care Team Providers Care Setter Machine Name Role Phone RAMY CASTILLO Primary Care [...] TYRESE MEDEX BRON E Dec 16, 2018 [id number] [phone] AGNES,A JUAN PATIENT ANTHEM BCBS OF [place] (BLUECARD) MEDICARE SUPPLEMEN TYRESE MEDEX BRONZ E Dec 16, 2018 [id number] [phone] AGNES,A JUAN PATIENT BCBS [place] MEDICARE SUPPLEMEN TYRESE MEDEX BRONZ E Dec 16, 2018 [id number] AGNES,A JUAN PATIENT BCBS ANN HIGH DEDUCTIBL E [facility] [place] [facility] Apr 17, 2011 [id number] [phone] AGNES,A JUAN PATIENT EXPRESS SCRIPTS ([id number]) PRESCRIPT ION L4TA* Apr 17, 2011 L4TA [id number] AGNES,A JUAN PATIENT [place]BS [place] ([place]) MEDICARE SUPPLEMEN TYRESE PSUED O MEDEX HEARI NG Dec 16, 2018 [id number] AGNES,A JUAN PATIENT MEDICARE (WNR) MEDICARE (M) PART A Dec 16, 2018 PART A [id number] CT90 AGNES,A JUAN PATIENT MEDICARE (WNR) MEDICARE (M) PART B Dec 16, 2018 PART B [id number] CT90 AGNES,A JUAN PATIENT MEDICARE (WNR) MEDICARE (M) PART A Dec 16, 2018 PART A [id number] CT90 [phone] AGNES,A JUAN PATIENT MEDICARE (WNR) MEDICARE (M) PART B Dec 16, 2018 PART B [id number] CT90 [phone] AGNES,A JUAN PATIENT MEDICARE (WNR) MEDICARE (M) PART A Dec 16, 2018 PART A [id number] CT90 AGNES,A JUAN PATIENT MEDICARE (WNR) MEDICARE (M) PART B Dec 16, 2018 PART B [id number] CT90 AGNES,A JUAN PATIENT Selected Encounter This section includes the information on record at ME for the Encounter. Date/Time Encounter Type Encounter Description Reason Provider Source Sep 14, 2023 07:30 AM OFFICE O/P EST MOD 30 MIN NEUROLOGY ICD-10-CM R25.1 Tremor, unspecified FARSHAD LUTZ E Encounter Template Text not used by ME Assessments - Encounter Diagnoses This section includes the primary and secondary diagnoses documented for the Encounter. Date/Time Primary/Secondary Diagnosis Diagnosis Name Provider Source Sep 26, 2023 12:35 PM PRIMARY Tremor, unspecified FARSHAD LUTZ [facility] [place] [facility] Plan of Treatment: Future Appointments (+ 6 months) and Future Tests (+/- 45 days) The Plan of Treatment section includes future care activities for the patient from all [facility]. This section includes future appointments and future orders which are active, pending or scheduled. Future Appointments This section includes appointments that were scheduled to occur 6 months from the date of the Encounter, up to a maximum of 20 appointments. The data comes from all [facility]. Appointment Date/Time Appointment Type Appointme nt Facility Name Sep 26, 2023 10:30 AM AMBULATORY - MEDICINE [facility] [place] [facility] Oct 03, 2023 01:30 PM AMBULATORY - REHAB MEDICIN E [facility] [place] [facility] Oct 10, 2023 09:30 AM AMBULATORY - MEDICINE [facility] [place] [facility] Oct 17, 2023 11:00 AM [facility] Oct 19, 2023 11:30 AM AMBULATORY - MEDICINE [facility] ([facility] Oct 28, 2023 10:30 AM AMBULATORY - MEDICINE [facility] [place] [facility] November 21, 2023 09:00 AM AMBULATORY - MEDICINE [facility] [place] [facility] November 29, 2023 01:00 PM AMBULATORY - MEDICINE [facility] ([facility]) December 05, 2023 11:00 AM AMBULATORY - MEDICINE [facility] [place] [facility] December 14, 2023 11:00 AM AMBULATORY - MEDICINE [facility] [place] [facility] Jan 09, 2024 11:30 AM AMBULATORY - MEDICINE [place] [facility] [place] [facility] Jan 11, 2024 01:30 PM AMBULATORY - REHAB MEDICIN E [facility] [place] [facility] Jan 27, 2024 11:00 AM AMBULATORY - MEDICINE [facility] [place] [facility] Feb 06, 2024 11:30 AM AMBULATORY - MEDICINE [place] [facility] [place] [facility] Active, Pending, and Scheduled Orders This section includes a listing of several types of active, pending, and scheduled orders, including clinic medications orders, diagnostic test orders, procedure orders and consult orders; where the start date of the order is 45 days before the date of the Encounter or 45 days after the date of theEncounter. The data comes from all [facility]. Test Date/Time Test Type Test Details Facility Name Aug 18, 2023 12:00 AM Laboratory - Chemi stry Order CHEM 7 BLOOD (SER GOLD) SERUM SP [facility] Sep 28, 2023 03:21 PM Consult Order [facility]OLOG[facility]) Lab Results: +/- 30 days of the encounter This section includes the Chemistry and Hematology Lab Results on record with ME for the patient. Radiology Reports and Pathology Reports are provided separately, in subsequent sections. Lab Results This section contains the Chemistry/Hematology Results that were resulted 30 days before or 30 daysafter the date of the Encounter. Date/Time Source Result Type Result - Unit Interpretation Reference Range Comment Oct 10, 2023 10:10 AM [facility] LIVER FUNCTION Specimen Type: SERUM No comment entered. Ordering Provider: GISSEL URIOSTEGUI Report Released Date/Time: Oct 10, 2023 09:53 AM Reporting Lab: [address] [address] Performing Lab: [address] [address] PROTEIN,TOTAL 6.6 g/dL 6.0-8.3 ALBUMIN 3.6 g/dL 3.5-5.0 ALKALINE PHOSPHATASE 68 U/L 40-150 AST 25 U/L 5-34 ALT 29 U/L BILIRUBIN, TOTAL 0.3 mg/dL 0.2-1.2 Oct 10, 2023 10:10 AM [facility] BASIC METABOLIC PANEL (fasting) Specimen Type: SERUM No comment entered. Ordering Provider: GISSEL URIOSTEGUI Report Released Date/Time: Oct 10, 2023 09:53 AM Reporting Lab: [address] [address] Performing Lab: [address] [address] UREA NITROGEN 10 mg/dL 7-25 GLUCOSE 107 mg/dL H 65-100 SODIUM 141 mmol/L 135-145 POTASSIUM 4.5 mmol/L 3.5-5.0 CHLORIDE 107 mmol/L 100-110 CO2 25 meq/L 20-30 CREATININE, Serum 0.87 mg/dL 0.50-1.40 eGFR(CKD-EPI 2021) >90 mL/min >60 Oct 10, 2023 10:10 AM [facility] CBC AND DIFF (AUTO) Specimen Type: BLOOD No comment entered. Ordering Provider: GISSEL URIOSTEGUI Report Released Date/Time: Oct 10, 2023 09:53 AM Reporting Lab: [facility] [address] [address] Performing Lab: [facility] [address] [address] WBC 4.63 10*3/uL 4.50-11.00 RBC 4.43 10*6/uL 4.23-5.66 HGB 14.4 g/dL 12.8-17 HCT 42.7 39.2-50.4 MCV 96.4 fL 82-99 MCHC 33.7 g/dL 30.8-35.1 PLT 150 10*3/uL 140-360 RDW-CV 13.7 12.0-16.0 [place], Abs 0.37 10*3/uL 0.30-1.10 MCH 32.5 pg 26.2-32.6 Neut % 36.3 L 43.7-75.8 Lymph % 49.0 H 14.0-42.3 [place] % 8.0 5.1-13.7 Eos % 6.3 0.4-6.8 Baso % 0.2 0.1-2.0 Neut, Abs 1.68 10*3/uL L 2.20-7.60 Lymph, Abs 2.27 10*3/uL 1.00-3.20 Eos, Abs 0.29 10*3/uL 0.03-0.44 Baso, Abs 0.01 10*3/uL 0.01-0.13 Immature Gran % 0.2 0.0-0.7 Immature Gran, Abs 0.01 10*3/uL 0.00-0.06 Oct 10, 2023 10:09 AM [facility] ([facility]) HEPATITIS C ANTIBODY (HCV)-ARC Specimen Type: SERUM Comment: Hep C Ab: No HCV antibody detected. If recent infection is suspected or other evidence suggests HCV infection, consider HCV nucleic acid testing Ordering Provider: EVIN CASTILLO Report Released Date/Time: Jun 03, 2023 11:37 AM Reporting Lab: [facility] [place] [facility] [address] [address] Performing Lab: [facility] [place] [facility] [address] [address] HEPATITIS C ANTIBODY NON-REACTIVE NON-REACTIV E Vital Signs: All taken on the encounter date This section contains inpatient and outpatient Vital Signs collected on the date of the Encounter. Date/Time Temperature Pulse Blood Pressure Respiratory Rate SP02 Pain Height Weight Body Mass Index Source Sep 14, 2023 08:13 AM 98 80 126/70 18 92 3 227 32 [facility] Social History: Smoking Status (Most current) [...] VA-TOBACCO USE [place] 30 MIN OF WAKEUP [facility] Tobacco Use History This section includes a history of the smoking, or tobacco-related health factors, that were collected on or before the date of the Encounter. The data comes from the [place] facility where the Encounter took place. 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 [facility] [place] [facility] Oct 27, 2022 02:44 PM VA-TOBACCO USE MED NO [facility] [place] [facility] Oct 27, 2022 02:44 PM VA-TOBACCO USE WI 30 MIN OF WAKEUP [facility] [place] [facility] Oct 27, 2022 02:44 PM VA-TOBACCO USER EVERY DAY [facility] Advance Directives: All historical and current [...] 01, 2014 ADVANCE DIRECTIVE VARSHA ESQUIVEL ([facility]) Radiology Reports: +/- 30 days of [...] the Encounter. The data comes from all ME treatment facilities. Date/Time Radiology Report Provider Source Aug 15, 2023 08:31 AM FOOT 3 OR MORE VIEWS(LEFT): SERGE ALARCON Aimee [id number] -[id number] M Exm Date: AUG 15, 2023@08:31 Req Phys: GAMALIEL URIOSTEGUI Pat Loc: CWM/NO/WOUND PROV A (Req'g Loc Img Loc: [facility] 1 Service: Unknown (Case 10 COMPLETE) FOOT 3 OR MORE VIEWS(LEFT) (RAD Detailed) CPT:86669 Proc Modifiers : LEFT CPT Modifiers : LT LEFT SIDE Reason for Study: dfu sub met five Clinical History: hx DFU for several weeks - no probe to bone. Send back to clinic please Report Status: Verified Date Reported: AUG 15, 2023 Date Verified: AUG 15, 2023 Clinical Specialist Medical Device E-Sig:/ES/ED SALEH JR Report: Study: Weight-bearing AP, [...] Primary Interpreting Staff: ED SALEH JR, Radiologist (Clinical Specialist Medical Device) /ED ESCALERA JR [facility] [place] [facility] Encounter Notes: All associated encounter notes This section contains the clinical notes associated to the Encounter. Date/Time Encounter Note(s) Provider Source Sep 14, 2023 07:47 AM NEUROLOGY OUTPATIE NT NOTE: LOCAL TITLE: NEUROLOGY CLINIC NOTE STANDARD TITLE: NEUROLOGY OUTPATIENT NOTE DATE OF NOTE: SEP 14, 2023@07:47 ENTRY DATE: SEP 14, 2023@07:47:49 AUTHOR: FARSHAD LUTZ EXP COSIGNER: URGENCY: STATUS: COMPLETED Chief Complaint: tremor Interval Hx Aug Pt reports that his tremors are mostly controlled, though there is still a trace tremor in his L thumb, which affects his ability to use a spoon for soup. He did not find any benefit from use of weighted utensils. He continues on the primidone and zonisamide, without any adverse effects or problems with use. He is satisfied with his current regimen. Pt o/w denies any new issues, illness, injuries, hospitalizations, or concerns. NEUROLOGIC EXAM: Gen: WD WN WM in NAD, appropriate affect, eye contact and social interaction. MS: AAO to Person/Place/Situation Able to maintain attention to conversation and follow directions on exam without distractability, impersistence, or perseveration. Fluent language and intact comprehension, without any paraphasic errors. Normal prosody and word variability/richness. Strength in both UE and LE generally intact. extremely minimal tremor intermittently of L thumb during abduction. Vitals Enter at: Sep 12, 2023@08:06:29 BP: 124/68 P: 71 T: 99.3 Vitals Enter at: Jun 21, 2023@14:58 R: 16 240.2 lb [108.95 kg] (06/21/2023 14:58) Assessment/Plan: 67 y/o M w/very trace tremor of the L thumb, currently on zonisamide and primidone w/o adverse effects. He is satisfied with current regimen, but wants to attempt trial of wrist splint. -L wrist splint ordered. Pt to call if new issues. Farshad Lutz MD Staff Neurologist [facility] ~30 mins spent on exam, assessment, counseling, and coordination [ X ] Management of Neurologic Condition was reassessed, taking into account pt's complex other medical issues and medications. [ X ] ~50% of exam was spent on discussion and education or coordination Medication Rec per Dairy Farm Manager Nursing note on Aug@07:48. NO DISCREPANCIES FOUND other than those listed in note. The patient's medication list/medication history to include Local Active VA Prescriptions, Remote Active VA Prescriptions, Non-VA medications, Recently VA Prescriptions (90-180 days), Recently Discontinued VA Prescriptions (90-180 days), and Pending Medication Orders where relevant (e.g., patient is seen by multiple providers in the same day) was compared with CPRS and reviewed with the patient/caregiver and reconciled. Any changes in medications and any medications prescribed by this provider discontinued are documented in this note. Medications not prescribed by this provider will be addressed by pt's PCM or appropriate specialty provider. Discussed risks and possible benefits and mechanism of action of medications prescribed. Pt indicated understanding of the risks of medications, and all questions were answered to pt's satisfaction /es/ FARSHAD LUTZ MD PHYSICIAN Signed: 09/14/2023 07:56 FARSHAD LUTZ [facility] [place] [facility]
--- OUTSIDE RECORDS SUMMARY | 2024-08-15 16:41 | XMS_ITS ---
Author Name [facility] [place] Organization [place] Address [address] [place] [address] Care Team Providers Care Diecast Machine Operator Name Role Phone RAMY CASTILLO Primary Care [...] TYRESE MEDEX BRON E Dec 16, 2018 [id number] AGNES,A JUAN PATIENT ANTHEM BCBS OF [place] (BLUECARD) MEDICARE SUPPLEMEN TYRESE MEDEX BRONZ E Dec 16, 2018 [id number] AGNES,A JUAN PATIENT [place]BS [place] MEDICARE SUPPLEMEN TYRESE MEDEX BRONZ E Dec 16, 2018 [id number] [phone] AGNES,A JUAN PATIENT BCBS ANN HIGH DEDUCTIBL E [facility] [place] [place] [facility] Apr 17, 2011 [id number] [phone] AGNES,A JUAN PATIENT EXPRESS SCRIPTS ([id number]) PRESCRIPT ION L4TA* Apr 17, 2011 L4TA [id number] AGNES,A JUAN PATIENT [place]BS [place] ([place]) MEDICARE SUPPLEMEN TYRESE PSUED O MEDEX HEARI NG Dec 16, 2018 [id number] [phone] AGNES,A JUAN PATIENT MEDICARE (WNR) MEDICARE (M) PART A Dec 16, 2018 PART A [id number] CT90 [phone] AGNES,A JUAN PATIENT MEDICARE (WNR) MEDICARE (M) PART B Dec 16, 2018 PART B [id number] CT90 [phone] AGNES,A JUAN PATIENT MEDICARE (WNR) MEDICARE (M) PART A Dec 16, 2018 PART A [id number] CT90 [phone] AGNES,A JUAN PATIENT MEDICARE (WNR) MEDICARE (M) PART B Dec 16, 2018 PART B [id number] CT90 AGNES,A JUAN PATIENT MEDICARE (WNR) MEDICARE (M) PART A Dec 16, 2018 PART A [id number] [id number] AGNES,A JUAN PATIENT MEDICARE (WNR) MEDICARE (M) PART B Dec 16, 2018 PART B [id number] CT90 [phone] AGNES,A JUAN PATIENT Selected Encounter This section includes the information on record at NH for the Encounter. Date/Time Encounter Type Encounter Description Reason Provider Source Feb 06, 2024 11:30 AM OFFICE O/P EST LOW 20 MIN PODIATRY ICD-10-CM 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 2 diabetes mellitus with foot ulcer GAMALIEL ARAGON [facility] Encounter Template Text not used by NH Assessments - Encounter Diagnoses This section includes the primary and secondary diagnoses documented for the Encounter. Date/Time Primary/Secondary Diagnosis Diagnosis Name Provider Source Mar 06, 2024 01:41 PM PRIMARY Type 2 diabetes mellitus with foot ulcer GAMALIEL ARAGON [place] [facility] [place] [facility] Plan of Treatment: Future Appointments (+ 6 months) and Future Tests (+/- 45 days) The Plan of Treatment section includes future care activities for the patient from all [place] [facility]. This section includes future appointments and future orders which are active, pending or scheduled. Future Appointments This section includes appointments that were scheduled to occur 6 months from the date of the Encounter, up to a maximum of 20 appointments. The data comes from all [place] treatment facilities. Appointment Date/Time Appointment Type Appointme nt Facility Name Apr 02, 2024 09:30 AM AMBULATORY - MEDICINE [facility] [place] [facility] Apr 20, 2024 01:30 PM AMBULATORY - MEDICINE [facility] Apr 23, 2024 08:00 AM AMBUL[facility]ORY MEDIC[facility] Apr 23, 2024 11:00 AM [facility]UL[facility] MEDIC[facility] May 03, 2024 02:00 PM AMBULATORY MEDICINE [facility] ([facility] May 07, 2024 10:30 AM AMBULAT[facility] - [facility] May 08, 2024 10:00 AM [facility] May 21, 2024 08:30 AM [facility] - [facility] May 23, 2024 08:15 AM AMBULATORY - [facility] Vital Signs: All taken on the encounter date This section contains inpatient and outpatient Vital Signs collected on the date of the Encounter. Date/Time Temperature Pulse Blood Pressure Respiratory Rate SP02 Pain Height Weight Body Mass Index Source Feb 06, 2024 11:39 AM 97.9 [facility] Social History: Smoking Status (Most current) and Tobacco Use (All prior to encounter date) This section includes the most current, and the historical, smoking and tobacco- related health factors from the [place] facility where the Encounter took place. Current Smoking Status This section includes the most current smoking, or tobacco-related health factor, from the [place] facility where the Encounter took place. Date/Time Current Smoking Status Comment [facility] Oct 27, 2022 02:44 PM VA-TOBACCO USER EVERY DAY [facility] Tobacco Use History This section includes a history of the smoking, or tobacco-related health factors, that were collected on or before the date of the Encounter. The data comes from the [place] facility where the Encounter took place. 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 This section includes ALL of a patient's completed or amended [place] Advance and Rescinded Directives. The entries below indicate that a directive exists for the patient, but an actual copy is not included with this document. The data comes from all [place] facilities. Date Advance Directives Provider Source Mar 01, 2014 ADVANCE DIRECTIVE VARSHA ESQUIVEL ([facility]) Encounter Notes: All associated encounter notes This section contains the clinical notes associated to the Encounter. Date/Time Encounter Note(s) Provider Source Feb 06, 2024 11:54 AM PODIATRY NOTE: LOCAL TITLE: PODIATRY NOTE STANDARD TITLE: PODIATRY NOTE DATE OF NOTE: FEB 06, 2024@11:54 ENTRY DATE: FEB 06, 2024@11:54:51 AUTHOR: GAMALIEL ARAGON EXP COSIGNER: URGENCY: STATUS: COMPLETED Podiatry High Risk Foot Encounter [facility] provider: Gamaliel Aragon DP Date: FEB 06, 2024 SERGE ALARCON MALE [id number] Dec 68 [employer] FROM Dec TO Jan Primary Care:RAMY CASTILLO Subjective: 68-year-old well-controlled diabetic male with moderate peripheral neuropathy, no significant arterial disease, and chronic callus ulcer formation under the fifth metatarsal left foot. Patient developed recurrent ulcer but without significant infection but required debridement of the ulcer and reinstitution of local wound care in my absence while he was on vacation last 2 weeks of January. Patient returns today stating that the area is still somewhat sore but much improved and he has not seen any active drainage in over a week. Diabetic/ HRF/ PVD LE History: [ ] [...] foot 3. Liver Function Tests Abnormal (SCT [id number]) 4. Crush syndrome 5. Rhabdomyolysis 6. Cervical spondylosis 7. Benign hypertension 8. Benign prostatic hyperplasia 9. Obesity 10. Diabetes mellitus 11. Chronic ischemic heart disease (SNOMED CT 184440063) 12. Osteoarthritis of knee (SNOMED CT 124821685) 13. Hearing loss 14. Tremor (SNOMED CT 02859915) 15. Sleep apnea (SNOMED CT 39394682) 16. Gout (SNOMED CT 91285089) 17. Hyperlipidemia (SNOMED CT 76591991) 18. 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 Pain in right knee (SNOMED CT 545362778619268) 21. Seborrheic Dermatitis, Unspecified Active Out Patient [...] BY MOUTH DAILY ACTIVE (S) FOR GOUT 5) BACITRACIN 500 UNT/GM TOP [...] 3.5 - 5.0 BMI:BMI: 33.5 PE:General: Well-appearing afebrile Area of prior ulceration submetatarsal 5 left foot is now stable and healed except for 2 small tiny fissures each measuring less than 2 mm in length and less than 1/10 of a millimeter in depth. There is no swelling or erythema present remaining calluses very thin and difficult to trim without engaging in injury to the underlying epithelium. Right foot with small thin callus but no active ulcer or preulcerative characteristics PAVE:2 Impression: -Diabetic peripheral neuropathy -Tibial varum -Callus formation segment 5 right and left with deterioration into active ulcer repetitively on the left despite custom orthotics with accommodations. -Currently stable no sign of infection Plan: -Continue with local wound care topical iodine and Band-Aid -Consult community care for fifth metatarsal floating osteotomy surgery left foot. -In the meantime also continue to use custom accommodative orthotics at all times and not to go barefoot. Recall:6 weeks Return sooner if any clinical signs [...] as results of the physical exam and talent acquisition consultant opinions and recommendations as sought. [...] -The on this visit was given information [employer] service and encouraged to enroll if not already having done so. /george/ GAMALIEL ARAGON DPM PODIATRY ATTENDING Signed: 02/07/2024 17:29 GAMALIEL ARAGON [facility]
--- OUTSIDE RECORDS SUMMARY | 2024-08-15 16:41 | XMS_ITS | Encounter Summary ---
Author Organization [facility] Address [address] [place] [address] Care Team Providers Care Electronics Installer Name Role Phone Jose Tesfaye MD Primary Care Provider +1- [phone] Encounter Details Date Type Department Care Team (Late st Contact Info) Description 10/04/2023 Scanned Document [facility] [address] [facility] [address] [place] [phone] Radiology, Scan Social History Tobacco Use Types Packs/Day Years Used Date Smoking Tobacco: Never Assessed Sex and Gender Information Value Date Recorded Sex Assigned at Male 10/17/2023 9:48 AM EDT Gender Identity Male 10/17/2023 9:48 AM EDT Sexual Orientation Heterosexual (straight) 10/16 9:48 AM EDT documented as of this encounter Plan of Treatment Not on file documented as of this encounter Procedures Procedure Name Priority Date/Time Associated Diagnosis Comments HX OUTSIDE ORDER 10/08/2023 HX OUTSIDE ORDER 10/04/2023 documented in this encounter Results * HX OUTSIDE ORDER (10/08/2023) Scan Radiology HX AMB PROCEDURES * HX OUTSIDE ORDER (10/04/2023) Scan Radiology HX AMB PROCEDURES documented in this encounter Visit Diagnoses Not on filedocumented in this encounter Care Teams Electronics Installer Relationship Specialty Start Date End Date Jose Tes[place] [address] PCP - General Family Medicine 09/29/23 documented as of this encounter
== END 2024-08-15 15:11 | disposition home or self-care (01) ==
PROVIDERS: Visit Provider Psychiatry & Neurology Neurology
DX: R25.1 Tremor, unspecified (principal)
CPT/HCPCS: 99204; G2211

== ENCOUNTER → 2024-08-15 14:26 | Outpatient (BNVA) | payer OTHER, SELFPAY | PROVIDERS: Visit Provider Psychiatry & Neurology Neurology | DX: R25.1 Tremor, unspecified (principal) | CPT/HCPCS: 99202 ==

== ENCOUNTER 2025-02-11 12:30 | Outpatient (AMB) | payer OTHER, SELFPAY ==
--- OUTSIDE RECORDS SUMMARY | 2024-09-27 11:00 | XMS_ITS | Encounter Summary ---
Author Name [facility] [facility] Address [address] [place] [address] Care Team Providers Care Library Serials Assistant Name Role Phone NELLA PERDOMO Primary Care Provider Unavailabl e Insurance Providers: All historical and current Section [...] TYRESE MEDEX BRONZ E Dec 16, 2018 [id number] AGNES,A JUAN PATIENT [place]M BC[place] OF [place] (BLUECARD) MEDICARE SUPPLEMEN TYRESE MEDEX BRONZ E Dec 16, 2018 [id number] [phone] AGNES,A JUAN PATIENT [place] MEDICARE SUPPLEMEN TYRESE MEDEX BRONZ E Dec 16, 2018 [id number] AGNES,A JUAN PATIENT [place] MEDICARE SUPPLEMEN TYRESE PSUED O MEDEX HEARI NG Dec 16, 2018 [id number] AGNES,A JUAN PATIENT MEDICARE (WNR) MEDICARE (M) PART A Dec 16, 2018 PART A [id number] Yue ALARCON JUAN PATIENT MEDICARE (WNR) MEDICARE (M) PART B Dec 16, 2018 PART B [id number] Yue ALARCON JUAN PATIENT MEDICARE (WNR) MEDICARE (M) PART A Dec 16, 2018 PART A [id number] [phone] Yue ALARCON JUAN PATIENT MEDICARE (WNR) MEDICARE (M) PART B Dec 16, 2018 PART B [id number] Yue ALARCON JUAN PATIENT MEDICARE (WNR) MEDICARE (M) PART A Dec 16, 2018 PART A [id number] Yue ALACRON JUAN PATIENT MEDICARE (WNR) MEDICARE (M) PART B Dec 16, 2018 PART B [id number] [phone] Yue ALARCON PATIENT Selected Encounter This section includes the information on record at [place] for the Encounter. Date/Time Encounter Type Encounter Description Reason Provider Source Sep 27, 2024 03:00 PM HEARING AID XM&SLCTN [facility] AUDI[facility]Y ICD-10-CM H90.3 Sensorineural hearing loss, bilateral CAMINITI,BUBBA E IHE Encounter Template Text not used by [place] Assessments - Encounter Diagnoses This section includes the primary and secondary diagnoses documented for the Encounter. Date/Time Primary/Secondary Diagnosis Diagnosis Name Provider Source Sep 27, 2024 03:29 PM PRIMARY Sensorineural hearing loss, bilateral CAMINITI,BUBBA E [place] [facility] [place] [facility] Sep 27, 2024 03:29 PM SECONDARY Tinnitus, bilateral CAMINITI,BUBBA E [place] [facility] [place] [facility] Plan of Treatment: Future Appointments (+ 6 months) and Future Tests (+/- 45 days) The Plan of Treatment section includes future care activities for the patient from all [facility] treatment[facility]ilities. This section includes future appointments and future orders which are active, pending or scheduled. Future Appointments This section includes appointments that were scheduled to occur 6 months from the date of the Encounter, up to a maximum of 20 appointments. The data comes from all [place] treatment facilities. Appointment Date/Time Appointment Type Appointme nt Facility Name Oct 24, 2024 01:00 PM AMBULATORY - REHAB MEDICIN E [facility] [place] [facility] November 27, 2024 03:00 PM AMBULATORY - MEDICINE [facility] ([facility]) December 04, 2024 11:00 AM AMBULATORY - MEDICINE [facility] [place] [facility] Jan 07, 2025 11:00 AM AMBULATORY - MEDICINE [facility] [place] [facility] Jan 29, 2025 01:00 PM AMBULATORY - NONE [facility] ([facility]) Feb 05, 2025 09:30 AM AMBULATORY - MEDICINE [facility] [place] [facility] Feb 05, 2025 01:00 PM AMBULATORY - NONE [facility] ([facility]) Feb 25, 2025 11:00 AM AMBULATORY - MEDICINE [place] [facility] [place] [facility] Active, Pending, and Scheduled Orders This section includes a listing of several types of active, pending, and scheduled orders, including clinic medications orders, diagnostic test orders, procedure orders and consult orders; where the start date of the order is 45 days before the date of the Encounter or 45 days after the date of theEncounter. The data comes from all [place] treatment facilities. Test Date/Time Test Type Test Details Facility Name Sep 21, 2024 02:42 PM Consult Order COMMUNITY CARE-PULMONARY Cons Engineering Technician Parking's Poli LOVEJOY ([facility]) Social History: Smoking Status (Most current) and Tobacco Use (All prior to encounter date) This section includes the most current, and the historical, smoking and tobacco- related health factors from the [place] facility where the Encounter took place. Current Smoking Status This section includes the most current smoking, or tobacco-related health factor, from the [facility] facility where the Encounter took place. Date/Time Current Smoking Status Comment Facil ity Oct 27, 2022 02:44 PM [facility]ACCO [facility] Tobacco Use History This section includes a history of the smoking, or tobacco-related health factors, that were collected on or before the date of the Encounter. The data comes from the [place] facility where the Encounter took place. Date/Time Smoking Status/Tobacco Use Comment F acility Oct 27, 2022 02:44 PM VA-TOBACCO USE ADVICE [facility] Oct 27, 2022 02:44 PM VA-TOBACCO USE TOBACCO GROWER NO [facility] Oct 27, 2022 02:44 PM VA-TOBACCO USE MED NO [facility] Oct 27, 2022 02:44 PM VA-TOBACCO USE WI 30 MIN OF WAKEUP [facility] Oct 27, 2022 02:44 PM VA-TOBACCO USER EVERY DAY [facility] Advance Directives: All historical and current Section Date Range: From patient's date of to the date document was created. This section includes ALL of a patient's completed or amended [place] Advance and Rescinded Directives. The entries below indicate that a directive exists for the patient, but an actual copy is not included with this document. The data comes from all [place] facilities. Date Advance Directives Provider Source Mar 01, 2014 ADVANCE DIRECTIVE VARSHA ESQUIVEL ([facility]) Encounter Notes: All associated encounter notes This section contains the clinical notes associated to the Encounter. 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 Hearing was last evaluated in 2022. He currently uses binaural Resound RICs, issued in 2020. He reports no otologic changes, noting longstanding tinnitus and denying vertigo. He states that hearing may have declined. Results are as follow: Otoscopy is WNL for both ears. Pure tone audiometric testing with headphones revealed normal hearing, sloping to a moderate/moderately severe sensorineural hearing loss bilaterally. Asymmetry, worse left ear, was noted at 6000 Hz. Word recognition scores were excellent with 100% correct for each ear for recorded speech presented at 75 dB HL (masked). Normal tympanograms were obtained bilaterally. Results obtained today are considered overall stable in comparison to those from 2022. [place] was counseled on today's test results. Given the age and technology of 's current amplification, he is considered eligible for new hearing aids. He states he does not have a pacemaker. Binaural rechargeable RICs are recommended and agrees. He measured a 2 and chose beige. RTC placed for the fitting. /george/ Sal ATKINSON, [facility]-A STAFF ANALYSIS TESTER Signed: 09/27/2024 15:34 10/02/2024 ADDENDUM STATUS: COMPLETED Hearing aids received and certified, upcoming appointment scheduled on 10/23/2024. /george/ PAUL RIVERA [facility]iology Health Drywall Application Supervisor Signed: 10/02/2024 15:26 BUBBA CALLAWAY [facility]
--- NOTE | 2025-02-11 12:33 | MHC.OFFVIS ---
Vital Signs 02/11/25 12:34 Height 5 ft 10 in Weight 241 lb BMI 34.6 BP 130/90 H Blood Pressure Location Rt brachial Position Sitting Pulse 75 Pulse Source Pulse Oximeter Pulse Oximetry (%) 95 Oxygen Delivery Method Room Air Intake Visit Reasons: 6 mo follow up Systems Project Manager Required: No Accompanied by: Self / Same As Patient Allergies clorhexadine Allergy (Severe, Uncoded 02/11/25 12:38) Hives HPI Comments Details: 68y/o Left handed male comes for follow up of left thumb tremors.He tried calatrio and did not like the effect.He is managing with his current medications History from initial visit- He was seeing at [facility] and is transferring care.He started noticing tremors about 20 years ago and has slowly progressed since then He is on primidone and zonisamide for many years now. He was seen at [facility] ( Dr Argueta ) . 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 He has bad and good days. He feels now he has tremors in his left fingers too . On someday he cannot drink soup and has trouble with fine motor coordination but on most days he can manage.He has left foot infection and has gait issues related to it. He denies memory issues. He has trouble writing due to tremors. BF- ADL score 57 PFSH Medical History Cataract Type 2 diabetes mellitus Tremor Sleep apnea Seborrheic dermatitis Rhabdomyolysis Osteoarthritis Obesity Moderate persistent asthma Impotence of non-organic origin Cervical spondylolysis Chronic ischemic heart disease Hearing loss Gout Fatty (change of) liver, not elsewhere classified HTN (hypertension) Crush syndrome BPH loc w/o ur obs/LUTS Surgical History H/O arthroscopic knee surgery H/O microdiscectomy H/O laminectomy History of rotator cuff surgery H/O total knee replacement History of bunionectomy Family History Father Suicide Gout Glaucoma Social History Alcohol intake: current Tobacco use type: Pipe Physical Exam Vital Signs: Last Vital Signs Pulse 75 02/11/25 12:34 BP 130/90 H 02/11/25 12:34 Pulse Ox 95 02/11/25 12:34 Oxygen Delivery Method Room Air 02/11/25 12:34 BMI result Body Mass Index 34.6 Const General: cooperative and comfortable Nutritional Appearance: obese Orientation/consciousness: patient oriented x3 Eyes Pupils: Equal, round and reactive pupils present Neuro Other: left thumb and hand postural and action tremors mild to moderate worsens with writing He was able to draw archimedes spiral - slow and tremulous Gait- mild difficulty because of left foot infection General: patient oriented x3, tone normal, moves all extremities and no focal motor deficits Cranial nerves: Yes Facial sensation intact/muscles of mastication intact, Yes Equal, round and reactive pupils present, Yes Bilaterally intact EOM present, Yes Nystagmus not present, Yes Normal facial strength present, Yes Midline tongue present and Yes Ability to bilaterally elevate shoulders present Cognition (Neuro): normal cognition Assessment & Plan Assessment & Plan (1) Tremor: Comment: Left hand postural and action tremors > 25 years . No evidence of parkinsons on today's exam Code(s): R25.1 - Tremor, unspecified Category: Medical Plan Continue primidone 150mg bid zonisamide 100mg bid NICOLE TAPS - he did not respond Coding Level of Care Code Est Pt Level 4 (38651) Complex EM visit Add On G2211 Diagnoses Tremor R25.1
[2025-02-11 12:34] VITALS: BP 130/90; PULSE 75; O2SAT 95; BMI 34.6
--- OUTSIDE RECORDS SUMMARY | 2025-02-11 13:22 | XMS_ITS | Encounter Summary ---
Author Organization [facility] Address [address] [place] [address] Phone Care Team Providers Care Quarrying Specialist Name Role Phone Brien Ramirez MD, Jose Primary Care Provider +1- [phone] Encounter Details Date Type Department Care Team (Late st Contact Info) Description 03/30/2024 Documentation Only [facility], [address] [place] [phone] Saira Muir [address] [place] [phone] Social History Tobacco Use Types Packs/Day Years [...] on filedocumented in this encounter Care Teams Quarrying Specialist Relationship Specialty Start Date End Date Jose Tesfaye MD [address] [place] [address], [address] [place] [address] PCP - General Family Medicine 02/28/24 documented as of this encounter
--- OUTSIDE RECORDS SUMMARY | 2025-02-11 13:22 | XMS_ITS ---
Author Name [facility] Organization Unknown Problems Problem Status Onset Date Problem Type Date of Resoluti on Source Hepatic fibrosis active EncounterDiagnosisAct CCT Encounters Encounter Type Encounter Reason Primary Diagnosis Location Date Ambulatory Hepatic fibrosis, unspecified Hepatic fibrosis, unspecified [facility] 10/17/2023 Ambulatory [facility] 09/29/2023 Care Team Organization Name Specialty Phone Email Start Date End Da te [facility] KAREL BELLAMY Primary Care 09/29/20232024 [facility] KAREL BELLAMY Primary Care 09/29/2023
--- OUTSIDE RECORDS SUMMARY | 2025-02-11 13:22 | XMS_ITS | Clinical Summary ---
Author Organization [facility] Address [address] [place] [address] Care Team Providers Care Scholastic Aptitude Test Grader Name Role Phone Jose Tesfaye MD Primary Care Provider +1- [phone] Allergies No known active allergies Social History Tobacco Use Types Packs/Day Years Used Date Smoking Tobacco: Never Assessed Sex and Gender Information Value Date Recorded Sex Assigned at Male 10/17/2023 9:48 AM EDT Legal Sex Male 9:28 AM EDT Gender Identity Male 10/17/2023 9:48 AM EDT Sexual Orientation Heterosexual (straight) 10/16 9:48 AM EDT Plan of Treatment Health Maintenance Due Date Last Done Comments Hepatitis C Virus Screening 1955 DTaP/Tdap/Td Vaccines (1 - Tdap) 1972 Pneumococcal Vaccines 50+ (1 of 2 - PCV) 1972 Colonoscopy 1998 Zoster (Shingles) Vaccine (1 of 2) 12/23/2003 COVID-19 Vaccine ( season) 2024 05/12/2022, 12/05/2021, 09/09/2020, Additional history exists Influenza Vaccine 02/15/2025 05/10/2023, , 06/24/2021, Additional history exists RSV Vaccine 60 years and older and Patients (1 - 1-dose 75+ series) 2028 Hepatitis B Vaccines Aged Out No long er eligible based on patient's age to complete this topic Insurance [facility] Care Teams Scholastic Aptitude Test Grader Relationship Specialty Start Date End Date Jose Tesfaye MD [address] [place] [address] PCP - General Family Medicine 09/29/23
== END 2025-02-11 12:58 | disposition home or self-care (01) ==
LOC: HO.HSMS 12:31
PROVIDERS: Visit Provider Psychiatry & Neurology Neurology
DX: R25.1 Tremor, unspecified (principal)
CPT/HCPCS: 99214; G2211

== ENCOUNTER → 2025-02-11 12:30 | Outpatient (BNVA) | payer OTHER, SELFPAY | PROVIDERS: Visit Provider Psychiatry & Neurology Neurology | DX: R25.1 Tremor, unspecified (principal); Z79.899 Other long term (current) drug therapy | CPT/HCPCS: 99212 ==